=== PATIENT | female | born 1955 | race African-American/Black ===

== ENCOUNTER 2018-03-08 08:51 | Inpatient (IN) | payer OTHER ==
[~2018-03-08] VITALS: Ht 162.6 cm; Wt 76.6 kg
[2018-03-08] VITALS (8 sets, daily range): BP systolic 162–222; BP diastolic 77–128; PULSE 67–93; RESP 16–20; TEMP 97.8–98.6; O2SAT 95–100
[~2018-03-08 08:51] MED LIST: DAPA1TAB6; GLYB1TAB51 PO; LISI-363 PO; LOSA50TA PO; METO50CR PO
[2018-03-08] MEDS ORDERED: GLYB1TAB94 PO (09:20)
[2018-03-08] MEDS ORDERED: LOTR10CA PO (09:20)
[2018-03-08] MEDS ORDERED: HYDR25TA5 PO (09:20)
[2018-03-08] MEDS ORDERED: ZOCO20TA PO (09:20)
[2018-03-08] MEDS ORDERED: METO-338 PO (09:20)
[2018-03-08 09:49] LABS: AUTOMATED NEUTROPHIL # 8.4 TH/MM3 (1.8-7.7); BASOPHIL # 0.1 TH/MM3 (0-0.2); BASOPHIL % 0.5 % (0.0-2.0); EOSINOPHIL # 0.3 TH/MM3 (0-0.4); EOSINOPHIL % 2.7 % (0.0-4.0); HEMATOCRIT 31.5 % (35.0-46.0); HEMOGLOBIN 9.7 GM/DL (11.6-15.3); LYMPH % 15.3 % (9.0-44.0); LYMPHOCYTE # 1.7 TH/MM3 (1.0-4.8); MEAN CELL VOLUME 64.8 FL (80.0-100.0); MEAN CORPUSCULAR HGB CONC 30.8 % (32.0-36.0); MEAN PLATELET VOLUME 7.9 FL (7.0-11.0); MONO % 5.9 % (0.0-8.0); MONOCYTE # 0.6 TH/MM3 (0-0.9); NEUT % 75.6 % (16.0-70.0); PLATELET COUNT 382 TH/MM3 (150-450); RED BLOOD COUNT 4.85 MIL/MM3 (4.00-5.30); RED CELL DISTRIBUTION WIDTH 16.9 % (11.6-17.2); WHITE BLOOD COUNT 11.1 TH/MM3 (4.0-11.0)
[2018-03-08 10:11] LABS: ALBUMIN 3.4 GM/DL (3.4-5.0); BICARBONATE 16.6 MEQ/L (21.0-32.0); CREATININE 7.92 MG/DL (0.50-1.00); TOTAL BILIRUBIN ADULT 0.2 MG/DL (0.2-1.0); TOTAL PROTEIN 8.3 GM/DL (6.4-8.2)
[2018-03-08 10:16] LABS: CALCIUM 6.7 MG/DL (8.5-10.1)
--- NOTE | 2018-03-08 10:19 | PD ---
HPI Chief Complaint: Diabetic Time Seen by Provider: 09:18 Travel History International Travel<30 days: No Contact w/Intl Traveler<30days: No Traveled to known affect area: No History of Present Illness HPI 62-year-old female with a history of diabetes mellitus, presents today with complaints of low blood sugar. Patient over the last several days has had low blood sugar with lightheadedness and dizziness. Patient reports she has been taking her medications as prescribed. She also reports that there is been no change in her diet. She does report that she has not been taking her hydrochlorothiazide because she has been out of them. There are no other complaints at time of examination. PFSH Past Medical History Cardiovascular Problems: Yes (HTN) Diabetes: Yes Patient Takes Glucophage: Yes Diminished Hearing: No Hypertension: Yes Tetanus Vaccination: > 5 Years Influenza Vaccination: No ?: Not : 4 Para: 4 Tubal Ligation: Yes Past Surgical History Surgical History: No Previous Surgery Social History Alcohol Use: No Tobacco Use: No Substance Use: No Allergies-Medications (Allergen,Severity, Reaction): Coded Allergies: No Known Allergies (Verified Adverse Reaction, Unknown, 03/08/18) Reported Meds & Prescriptions Reported Meds & Active Scripts Active Reported Lopressor (Metoprolol Tartrate) 100 Mg Tab 100 Mg PO DAILY Zocor (Simvastatin) 20 Mg Tab 20 Mg PO DAILY Hydrochlorothiazide 25 Mg Tab 25 Mg PO DAILY Glyburide-Metformin 5-500 Mg Tab 1 Tab PO BID Take with a meal Lotrel (Amlodipine-Benazepril) 10-20 Mg Cap 1 Cap PO DAILY Review of Systems Except as stated in HPI: all other systems reviewed are Neg General / Constitutional: No: Fever, Chills HENT: Positive: Lightheadedness, No: Headaches, Neck Pain Cardiovascular: No: Chest Pain or Discomfort (With lower blood sugar), Palpitations Respiratory: No: Cough, Shortness of Breath Gastrointestinal: No: Nausea, Vomiting, Abdominal Pain, Loss of Appetite Genitourinary: No: Frequency, Dysuria Musculoskeletal: No: Weakness, Pain Neurologic: Positive: Weakness (Generalized), No: Dizziness, Headache Physical Exam Narrative GENERAL: Well-developed well-nourished female in no acute respiratory distress. SKIN: Focused skin assessment warm/dry. HEAD: Atraumatic. Normocephalic. EYES: Pupils equal and round. No scleral icterus. No injection or drainage. ENT: No nasal bleeding or discharge. Mucous membranes pink and moist. NECK: Trachea midline. Supple. CARDIOVASCULAR: Regular rate and rhythm. No murmur appreciated. RESPIRATORY: No accessory muscle use. Clear to auscultation. Breath sounds equal bilaterally. GASTROINTESTINAL: Abdomen soft, non-tender, nondistended. Hepatic and splenic margins not palpable. MUSCULOSKELETAL: No obvious deformities. No clubbing. No cyanosis. No edema. NEUROLOGICAL: Awake and alert. No obvious cranial nerve deficits. Motor grossly within normal limits. Normal speech. PSYCHIATRIC: Appropriate mood and affect; insight and judgment normal. Data Data Last Documented VS Vital Signs Date Time Temp Pulse Resp B/P (MAP) Pulse Ox O2 Delivery O2 Flow Rate FiO2 03/08/18 12:35 97.8 81 20 198/87 (124) 100 Room Air Orders Orders Complete Blood Count With Diff (03/08/18 09:18) Comprehensive Metabolic Panel (03/08/18 09:18) Urinalysis - C+S If Indicated (03/08/18 09:18) Iv Access Insert/Monitor (03/08/18 09:18) Ecg Monitoring (03/08/18 09:18) Oximetry (03/08/18 09:18) Diet 1800 Ada Cons Carb (03/08/18 Breakfast) Sodium Chlorid 0.9% 500 Ml Inj (Ns 500 M (03/08/18 14:45) Sodium Chlor 0.9% 1000 Ml Inj (Ns 1000 M (03/08/18 14:45) Admit To Inpatient (03/08/18 ) Vital Signs (Adult) Q4H (03/08/18 15:10) Activity Bed Rest With Brp (03/08/18 15:10) Intake + Output DANIEL.QSHIFT (03/08/18 15:10) Diet 1800 Ada Cons Carb (03/08/18 Dinner) Sodium Chloride 0.9% Flush (Ns Flush) (03/08/18 15:15) Sodium Chloride 0.9% Flush (Ns Flush) (03/08/18 21:00) Basic Metabolic Panel (Bmp) (03/09/18 06:00) Complete Blood Count With Diff (03/09/18 06:00) Heparin Inj (Heparin Inj) (03/08/18 16:00) Naloxone Inj (Narcan Inj) (03/08/18 15:15) Docusate Sodium-Senna (Vanessa-Colace) (03/08/18 21:00) Magnesium Hydroxide Liq (Milk Of Magnesi (03/08/18 15:15) Sennosides (Senokot) (03/08/18 15:15) Bisacodyl Supp (Dulcolax Supp) (03/08/18 15:15) Lactulose Liq (Lactulose Liq) (03/08/18 15:15) Dext 5%-Nacl 0.9% 1000 Ml Inj (D5w-Ns 10 (03/08/18 15:15) Admit Order (Ed Use Only) (03/08/18 15:14) Labs Laboratory Tests Test 03/08/18 09:25 03/08/18 14:45 White Blood Count 11.1 TH/MM3 Red Blood Count 4.85 MIL/MM3 Hemoglobin 9.7 GM/DL Hematocrit 31.5 % Mean Corpuscular Volume 64.8 FL Mean Corpuscular Hemoglobin 20.0 PG Mean Corpuscular Hemoglobin Concent 30.8 % Red Cell Distribution Width 16.9 % Platelet Count 382 TH/MM3 Mean Platelet Volume 7.9 FL Neutrophils (%) (Auto) 75.6 % Lymphocytes (%) (Auto) 15.3 % Monocytes (%) (Auto) 5.9 % Eosinophils (%) (Auto) 2.7 % Basophils (%) (Auto) 0.5 % Neutrophils # (Auto) 8.4 TH/MM3 Lymphocytes # (Auto) 1.7 TH/MM3 Monocytes # (Auto) 0.6 TH/MM3 Eosinophils # (Auto) 0.3 TH/MM3 Basophils # (Auto) 0.1 TH/MM3 CBC Comment DIFF FINAL Differential Comment Blood Urea Nitrogen 72 MG/DL Creatinine 7.92 MG/DL Random Glucose 60 MG/DL Total Protein 8.3 GM/DL Albumin 3.4 GM/DL Calcium Level 6.7 MG/DL Alkaline Phosphatase 134 U/L Aspartate Amino Transf (AST/SGOT) 13 U/L Alanine Aminotransferase (ALT/SGPT) 13 U/L Total Bilirubin 0.2 MG/DL Sodium Level 141 MEQ/L Potassium Level 4.2 MEQ/L Chloride Level 109 MEQ/L Carbon Dioxide Level 16.6 MEQ/L Anion Gap 15 MEQ/L Estimat Glomerular Filtration Rate 6 ML/MIN Protein Corrected Calcium MG/DL Iron Level 47 MCG/DL Total Iron Binding Capacity 293 MCG/DL Percent Iron Saturation 16.1 % Ferritin 225 NG/ML Urine Color LIGHT-YELLOW Urine Turbidity HAZY Urine pH 6.5 Urine Specific [place] 1.011 Urine Protein 300 mg/dL Urine Glucose (UA) 70 mg/dL Urine Ketones NEG mg/dL Urine Occult Blood SMALL Urine Nitrite NEG Urine Bilirubin NEG Urine Urobilinogen LESS THAN 2.0 MG/DL Urine Leukocyte Esterase MOD Urine RBC 2 /hpf Urine WBC 75 /hpf Urine WBC Clumps FEW Urine Squamous Epithelial Cells 3 /hpf Urine Bacteria MOD /hpf Microscopic Urinalysis Comment CULTURE INDICATED MDM Medical Decision Making Medical Screen Exam Complete: Yes Emergency Medical Condition: Yes Differential Diagnosis Metabolic derangement versus medication related hypoglycemia versus nutritional related hypoglycemia Narrative Course 62-year-old female with a history of diabetes mellitus, presents here stating that she has had several days of low blood sugar. The patient states she has been taking her medication as prescribed. She denies any changes in her medication medical regimen. Patient was noted to be an acute renal failure. Patient denies any history of previous of this. Case was discussed with the admitting physician. There will be a renal consult. She has been started on fluids. She has been given a 500 cc bolus followed by 100 cc/h in order not to fluid overload her if she does not respond to the fluid resuscitation. Diagnosis Primary Impression: Acute renal failure Additional Impressions: Diabetes mellitus Multiple episodes of hypoglycemia Admitting Information Admitting Physician Requests: Admit Nigel Radford MD Mar 08, 2018 10:19
[2018-03-08] MEDS ORDERED: SODIUM CHLORID 0.9% 500 ML INJ 500 ML IV ONE (14:45)
[2018-03-08] MEDS ORDERED: SODIUM CHLOR 0.9% 1000 ML INJ 1,000 ML IV SCH (14:45)
[2018-03-08] MEDS ORDERED: LACTULOSE SYRUP 20 GM/30 ML CUP PO PRN (15:15)
[2018-03-08] MEDS ORDERED: BISACODYL 10 MG SUPP RECTAL PRN (15:15)
[2018-03-08] MEDS ORDERED: SODIUM CHLORIDE 0.9% FLUSH 10 ML FLUSH IV FLUSH PRN (15:15)
[2018-03-08] MEDS ORDERED: NALOXONE HCL 0.4 MG/ML AMP IV PUSH PRN (15:15)
[2018-03-08] MEDS ORDERED: MAGNESIUM HYDROXIDE SUSP 30 ML CUP PO PRN (15:15)
[2018-03-08] MEDS ORDERED: SENNOSIDES 8.6 MG TAB PO PRN (15:15)
[2018-03-08 15:26] LABS: BACTERIA, URINE MOD /hpf; BILIRUBIN, URINE NEG (NEG); BLOOD, URINE SMALL (NEG); GLUCOSE,URINE 70 mg/dL (NEG); KETONE, URINE NEG (NEG); NITRITE,URINE NEG (NEG); PH, URINE 6.5 (5.0-8.5); SQUAMOUS EPITHELIAL CELL URINE 3 /hpf (0-5); URINE COLOR LIGHT-YELLOW (YELLW/STRAW); URINE LEUKOCYTE ESTERASE MOD (NEG); WHITE BLOOD CELL CLUMPS FEW
[2018-03-08] MEDS: DEXT 5%-NACL 0.9% 1000 ML INJ 1,000 ML IV SCH (15:28)
[2018-03-08] MEDS: HEPARIN SODIUM - SQ 10,000 UNITS/ML VIAL SQ SCH (16:15)
--- NOTE | 2018-03-08 16:24 | HHI.HP ---
[facility] Constantin Araya MD Admission Diagnosis acute renal failure, diabetes mellitus, hypocalcemia Diagnoses: Chief Complaint: Generalized weakness Travel History International Travel<30 Days: No Contact w/Intl Traveler <30 Da: No Traveled to Known Affected Are: No History of Present Illness This is a 62-year-old female with history of hypertension, diabetes mellitus, and dyslipidemia presenting with generalized weakness and hypoglycemia. Per patient, she has been in her usual health until the last several days when she has noticed that her blood sugar has been low associated with lightheadedness and dizziness. It came to a point that she had generalized weakness and it became too difficult for her to walk around hence she decided to go to the hospital. She has been taking glyburide/metformin up until yesterday. No recent change in medications or insulin administration. She has been taking her medications as prescribed. She says she has been urinating fine, and there is been noted big change in her diet. The only thing that she has not been taking is her hydrochlorothiazide. She denies any chest pain, palpitations, abdominal pain, shortness of breath, dysuria, frequency, urgency or diarrhea. Review of Systems ROS Limitations: Other (All other pertinent systems were reviewed and are negative.) Past Family Social History Past Medical History Hypertension Dyslipidemia Diabetes mellitus Past Surgical History No previous surgery Allergies: Coded Allergies: No Known Allergies (Verified Adverse Reaction, Unknown, 03/08/18) Family History Diabetes mellitus is prominent in the family. Social History Patient denies smoking, significant alcohol intake or use of any illicit drugs. Physical Exam Vital Signs Vital Signs Date Time Temp Pulse Resp B/P (MAP) Pulse Ox O2 Delivery O2 Flow Rate FiO2 03/08/18 15:33 97.8 80 16 222/101 (141) 100 Room Air 03/08/18 12:35 97.8 81 20 198/87 (124) 100 Room Air 03/08/18 09:22 79 16 100 Room Air 03/08/18 09:21 16 100 Room Air 03/08/18 08:55 98.2 93 16 162/128 (139) 100 Physical Exam GENERAL: Not in acute distress, appears weak. HEAD: Atraumatic. Normocephalic. No temporal or scalp tenderness. EYES: PERRL, full EOMs, no jaundice, nonicteric, pink conjunctivae without injection, moist mucosa ENT: Nose without bleeding, purulent drainage. NECK: Trachea midline, no mass, no obvious thyromegaly. CARDIOVASCULAR: Regular rate and rhythm without murmurs, gallops, or rubs. RESPIRATORY: Clear to auscultation with normal respiratory effort. Breath sounds equal bilaterally. No use of accessory muscles of respiration. GASTROINTESTINAL: Abdomen soft, normal bowel sounds, non-tender, nondistended. MUSCULOSKELETAL: Extremities without clubbing, cyanosis, or edema. INTEGUMENTARY: Warm and dry, no rash of generalized distribution. NEUROLOGICAL: Awake, alert, oriented 3. No obvious cranial nerve deficits. Moves all 4 extremities, muscle strength testing 5 over 5. Motor and sensory grossly within normal limits. .Supple neck, no meningeal signs. Grossly negative cerebellar examination. No focal neurologic deficits. Laboratory Laboratory Tests Test 03/08/18 09:25 03/08/18 14:45 White Blood Count 11.1 Red Blood Count 4.85 Hemoglobin 9.7 Hematocrit 31.5 Mean Corpuscular Volume 64.8 Mean Corpuscular Hemoglobin 20.0 Mean Corpuscular Hemoglobin Concent 30.8 Red Cell Distribution Width 16.9 Platelet Count 382 Mean Platelet Volume 7.9 Neutrophils (%) (Auto) 75.6 Lymphocytes (%) (Auto) 15.3 Monocytes (%) (Auto) 5.9 Eosinophils (%) (Auto) 2.7 Basophils (%) (Auto) 0.5 Neutrophils # (Auto) 8.4 Lymphocytes # (Auto) 1.7 Monocytes # (Auto) 0.6 Eosinophils # (Auto) 0.3 Basophils # (Auto) 0.1 CBC Comment DIFF FINAL Differential Comment Blood Urea Nitrogen 72 Creatinine 7.92 Random Glucose 60 Total Protein 8.3 Albumin 3.4 Calcium Level 6.7 Alkaline Phosphatase 134 Aspartate Amino Transf (AST/SGOT) 13 Alanine Aminotransferase (ALT/SGPT) 13 Total Bilirubin 0.2 Sodium Level 141 Potassium Level 4.2 Chloride Level 109 Carbon Dioxide Level 16.6 Anion Gap 15 Estimat Glomerular Filtration Rate 6 Protein Corrected Calcium Urine Color LIGHT-YELLOW Urine Turbidity HAZY Urine pH 6.5 Urine Specific [place] 1.011 Urine Protein 300 Urine Glucose (UA) 70 Urine Ketones NEG Urine Occult Blood SMALL Urine Nitrite NEG Urine Bilirubin NEG Urine Urobilinogen LESS THAN 2.0 Urine Leukocyte Esterase MOD Urine RBC 2 Urine WBC 75 Urine WBC Clumps FEW Urine Squamous Epithelial Cells 3 Urine Bacteria MOD Microscopic Urinalysis Comment CULTURE INDICATED Date/Time Source Procedure Growth Status 03/08/18 14:45 Urine Random Urine Urine Culture Pending Received Result Diagram: 03/08/1892403/08/18924 Caprini VTE Risk Assessment Caprini VTE Risk Assessment: Mod/High Risk (score >= 2) Caprini Risk Assessment Model Point Value = 1 Point Value = 2 Point Value = 3 Point Value = 5 Age 41-60 Minor surgery BMI > 25 kg/m2 Swollen legs Varicose veins or History of unexplained or recurrent spontaneous Oral contraceptives or hormone replacement Sepsis (< 1 month) Serious lung disease, including pneumonia (< 1 month) Abnormal pulmonary function Acute myocardial infarction Congestive heart failure (< 1 month) History of inflammatory bowel disease Medical patient at bed rest Age 61-74 Arthroscopic surgery Major open surgery (> 45 min) Laparoscopic surgery (> 45 min) Malignancy Confined to bed (> 72 hours) Immobilizing plaster cast Central venous access Age >= 75 History of VTE Family history of VTE Factor V Leiden Prothrombin [id number] Lupus anticoagulant Anticardiolipin antibodies Elevated serum homocysteine Heparin-induced thrombocytopenia Other congenital or acquired thrombophilia Stroke (< 1 month) Elective arthroplasty Hip, pelvis, or leg fracture Acute spinal cord injury (< 1 month) Prophylaxis Regimen Total Risk Factor Score Risk Level Prophylaxis Regimen 0-1 Low Early ambulation 2 Moderate Order ONE of the following: *Sequential Compression Device (SCD) *Heparin 5000 units SQ BID 3-4 Higher Order ONE of the following medications: *Heparin 5000 units SQ TID *Enoxaparin/Lovenox 40 mg SQ daily (WT < 150 kg, CrCl > 30 mL/min) *Enoxaparin/Lovenox 30 mg SQ daily (WT < 150 kg, CrCl > 10-29 mL/min) *Enoxaparin/Lovenox 30 mg SQ BID (WT < 150 kg, CrCl > 30 mL/min) AND/OR *Sequential Compression Device (SCD) 5 or more Highest Order ONE of the following medications: *Heparin 5000 units SQ TID (Preferred with Epidurals) *Enoxaparin/Lovenox 40 mg SQ daily (WT < 150 kg, CrCl > 30 mL/min) *Enoxaparin/Lovenox 30 mg SQ daily (WT < 150 kg, CrCl > 10-29 mL/min) *Enoxaparin/Lovenox 30 mg SQ BID (WT < 150 kg, CrCl > 30 mL/min) AND *Sequential Compression Device (SCD) Assessment and Plan Assessment and Plan This is a 62-year-old female with history of hypertension, dyslipidemia and diabetes mellitus presenting with generalized weakness and hypoglycemia, also found to have acute renal failure. Hypoglycemia-hold glyburide and metformin for now, start D5 NS. Check hemoglobin A1c, start sliding scale when blood glucose is better. Acute nonoliguric renal failure-creatinine 2016 was 1.3, creatinine is now 7.92 , check urinalysis, check ultrasound of the kidneys bilaterally, consult nephrology. Patient is still making urine, will give normal saline for now. Diabetes mellitus-as above, hold off oral hypoglycemic agents Hypertension-restart metoprolol and Norvasc per home dose, hold off on benazepril and hydrochlorothiazide given acute renal failure Hypocalcemia-we will recheck once patient is properly rehydrated. Dyslipidemia-restart simvastatin Anemia-recheck CBC tomorrow, check iron panel. DVT prophylaxis: Heparin Physician Certification 2 Midnight Certification Type: Admission for Inpatient Services Order for Inpatient Services The services are ordered in accordance with Medicare regulations or non- Medicare payer requirements, as applicable. In the case of services not specified as inpatient-only, they are appropriately provided as inpatient services in accordance with the 2-midnight benchmark. Estimated LOS (days): 2 days is the estimated time the patient will need to remain in the hospital, assuming treatment plan goals are met and no additional complications. Post-Hospital Plan: Home Kelly Renteria MD Mar 08, 2018 16:24
[2018-03-08] MEDS ORDERED: GLUCAGON 1 MG/ML VIAL OTHER PRN (16:30)
[2018-03-08] MEDS ORDERED: DEXTROSE 50% IN WATER 50 ML VIAL(D50) IV PUSH PRN (16:30)
[2018-03-08] MEDS: METOPROLOL TARTRATE 100 MG TAB PO SCH (17:07)
[2018-03-08] MEDS: PRAVASTATIN SOD 40 MG TAB PO SCH (17:07)
--- NOTE | 2018-03-08 17:50 | RADRPT ---
EXAM DATE: 03/08/2018 5:46 PM EDT AGE/SEX: 62 years / Female INDICATIONS: Acute renal failure. CLINICAL DATA: This is the patient's initial encounter. Patient reports that signs and symptoms have been present for 3 days and indicates a pain score of 0/10. MEDICAL/SURGICAL HISTORY: Hypertension. Diabetes. Hypercholesterolemia. None. COMPARISON: No prior exams available for comparison. MEASUREMENTS: Right Kidney:__11.7 x 6.4 x 4.9 cm cm Left Kidney:__12.1 x 6.0 x 6.2 cm cm FINDINGS: Right Kidney: Diffusely increased cortical echogenicity. No suspicious mass, stone or hydronephrosis. Left Kidney: Diffusely increased cortical echogenicity. No evidence of suspicious mass, stone or hydr onephrosis. Bladder: Within normal limits given the degree of distension. CONCLUSION: Echogenic kidneys. No hydronephrosis. Electronically signed by: Constantin Freire MD 03/08/2018 5:48 PM EDT
[2018-03-08 17:59] LABS: % SATURATION IRON PROFILE 16.1 % (20-50); IRON (FE) 47 MCG/DL (50-170); TOTAL IRON BINDING CAPACITY 293 MCG/DL (250-450)
[2018-03-08 18:02] LABS: FERRITIN 225 NG/ML (8-252)
[2018-03-08] MEDS: cloNIDine HCL 0.1 MG TAB PO PRN (18:57)
[2018-03-08] MEDS: SODIUM CHLORIDE 0.9% FLUSH 10 ML FLUSH IV FLUSH SCH (21:00)
[2018-03-08] MEDS: DOCUSATE SODIUM 50 MG/SENNA 8.6 MG TAB PO SCH (22:05)
[2018-03-09] VITALS: BP 174/63; PULSE 73; RESP 18; TEMP 98.4; O2SAT 100
[2018-03-09] MEDS: cloNIDine HCL 0.1 MG TAB PO PRN ×3 (01:13→20:17)
[2018-03-09] MEDS: DEXT 5%-NACL 0.9% 1000 ML INJ 1,000 ML IV SCH ×2 (03:08→15:05)
[2018-03-09] MEDS: HEPARIN SODIUM - SQ 10,000 UNITS/ML VIAL SQ SCH ×2 (03:11→15:02)
[2018-03-09 04:00] VITALS: BP 186/86; PULSE 69; RESP 18; TEMP 98.1; O2SAT 99
[2018-03-09 07:25] LABS: AUTOMATED NEUTROPHIL # 4.7 TH/MM3 (1.8-7.7); BASOPHIL % 0.5 % (0.0-2.0); EOSINOPHIL # 0.2 TH/MM3 (0-0.4); EOSINOPHIL % 3.1 % (0.0-4.0); HEMATOCRIT 24.3 % (35.0-46.0); HEMOGLOBIN 7.7 GM/DL (11.6-15.3); LYMPH % 24.6 % (9.0-44.0); LYMPHOCYTE # 1.8 TH/MM3 (1.0-4.8); MEAN CELL VOLUME 65.4 FL (80.0-100.0); MEAN CORPUSCULAR HEMOGLOBIN 20.7 PG (27.0-34.0); MEAN CORPUSCULAR HGB CONC 31.7 % (32.0-36.0); MEAN PLATELET VOLUME 8.1 FL (7.0-11.0); MONOCYTE # 0.5 TH/MM3 (0-0.9); NEUT % 64.8 % (16.0-70.0); PLATELET COUNT 265 TH/MM3 (150-450); RED BLOOD COUNT 3.72 MIL/MM3 (4.00-5.30); WHITE BLOOD COUNT 7.2 TH/MM3 (4.0-11.0)
[2018-03-09 07:47] LABS: CALCIUM 6.3 MG/DL (8.5-10.1); CREATININE 8.02 MG/DL (0.50-1.00)
[2018-03-09 08:00] VITALS: BP 186/85; PULSE 66; RESP 16; TEMP 98.2; O2SAT 97
[2018-03-09 08:01] LABS: TOTAL PROTEIN 6.6 GM/DL (6.4-8.2)
[2018-03-09 08:08] LABS: CALCIUM-PROTEIN CORRECTED 6.5 MG/DL (8.5-10.1)
[2018-03-09] MEDS: METOPROLOL TARTRATE 100 MG TAB PO SCH (08:10)
[2018-03-09] MEDS: PRAVASTATIN SOD 40 MG TAB PO SCH (08:10)
[2018-03-09] MEDS: DOCUSATE SODIUM 50 MG/SENNA 8.6 MG TAB PO SCH ×2 (08:10→20:17)
[2018-03-09] MEDS: SODIUM CHLORIDE 0.9% FLUSH 10 ML FLUSH IV FLUSH SCH ×2 (08:13→20:17)
[2018-03-09 11:00] VITALS: BP_SYST 161; BP_SYST 170; BP_DIAS 70; BP_DIAS 77; PULSE 68; PULSE 91; RESP 18; TEMP 98.2; O2SAT 96; O2SAT 97
--- NOTE | 2018-03-09 11:13 | PD.CONS ---
[facility] Service Nephrology Consult Requested By Dr. Renteria Reason for Consult Acute Kidney Injury Primary Care Physician Constantin Araya MD History of Present Illness Patient is a 62-year-old female with history of hypertension, diabetes mellitus , and dyslipidemia. Presented to the emergency room with generalized weakness and hypoglycemia. Per patient, she has been in her usual health until March 02 when she was not able to eat most of the day and then developed slurred speech which resolved after orange juice. She then developed dizziness and was not able to get out of bed . Nephrology is consulted for elevated BUN and creatinine with a creatinine of 8.03 and potassium level of 4.4, HCO3 at18.0, and calcium level of 6.5. Also noted to have iron deficency anemia with HGB of 7.7 no obvious signs of bleeding. Blood pressure elevated with SBP in the 180' s. She has been on glyburide/metformin and hydrochlorothiazide which has been discontinued and IVF are infusing. No previous history of kidney disease. Creatinine noted to be 1.29 in 2016. So could possible have some chronic kidney disease. (Shahida Medrano) Review of Systems Constitutional: COMPLAINS OF: Fatigue Respiratory: DENIES: Cough, Sputum production, Shortness of breath Cardiovascular: DENIES: Chest pain, Dyspnea on Exertion, Lower Extremity Edema Gastrointestinal: DENIES: Abdominal pain, Diarrhea, Nausea, Vomiting ( Shahida Medrano) Past Family Social History Allergies: Coded Allergies: No Known Allergies (Verified Adverse Reaction, Unknown, 03/08/18) Past Medical History Hypertension Dyslipidemia Diabetes mellitus Past Surgical History No previous surgery Active Ordered Medications Current Medications Medications (Trade) Dose Ordered Sig/Shashi Route Start Time Stop Time Status Last Admin (NS Flush) 2 ml UNSCH PRN IV FLUSH 03/08/18 15:15 (NS Flush) 2 ml BID IV FLUSH 03/08/18 21:00 (Heparin Inj) 5,000 units Q12H SQ 03/08/18 16:00 03/09/18 03:11 (Narcan Inj) 0.4 mg UNSCH PRN IV PUSH 03/08/18 15:15 (Vanessa-Colace) 1 tab BID PO 03/08/18 21:00 03/09/18 08:10 (Milk Of Magnesia Liq) 30 ml Q12H PRN PO 03/08/18 15:15 (Senokot) 17.2 mg Q12H PRN PO 03/08/18 15:15 (Dulcolax Supp) 10 mg DAILY PRN RECTAL 03/08/18 15:15 (Lactulose Liq) 30 ml DAILY PRN PO 03/08/18 15:15 Dextrose/Sodium Chloride 1,000 ml @ 84 mls/hr [id number] IV 03/08/18 15:15 03/09/18 03:08 (Catapres) 0.1 mg Q6H PRN PO 03/08/18 16:30 03/09/18 06:17 (Norvasc) 10 mg DAILY PO 03/08/18 16:30 03/09/18 08:10 (D50w (Vial) Inj) 50 ml UNSCH PRN IV PUSH 03/08/18 16:30 (Glucagon Inj) 1 mg UNSCH PRN OTHER 03/08/18 16:30 (Lopressor) 100 mg DAILY PO 03/08/18 16:30 03/09/18 08:10 (Pravachol) 40 mg DAILY PO 03/08/18 16:30 03/09/18 08:10 (NovoLOG SUPPLEMENTAL SCALE) 1 ACHS SLIDING SCALE SQ 03/09/18 12:00 Family History Diabetes mellitus Hypertension Social History Patient denies smoking, significant alcohol intake or use of any illicit drugs. (Shahida Medrano) Physical Exam Vital Signs Vital Signs Date Time Temp Pulse Resp B/P (MAP) Pulse Ox O2 Delivery O2 Flow Rate FiO2 03/09/18 08:00 98.2 66 16 186/85 (118) 97 03/09/18 04:00 98.1 69 18 186/86 (119) 99 03/09/18 00:00 174/63 (100) 03/09/18 00:00 98.4 73 18 100 03/08/18 20:00 97.9 67 18 177/77 (110) 95 03/08/18 18:45 98.6 74 18 197/85 (122) 100 03/08/18 18:15 97.8 78 16 176/95 (122) 99 03/08/18 16:18 97.8 86 16 202/92 (128) 100 Room Air 03/08/18 15:33 97.8 80 16 222/101 (141) 100 Room Air 03/08/18 12:35 97.8 81 20 198/87 (124) 100 Room Air Physical Exam GENERAL: Alert and oriented SKIN: Warm and dry. HEAD: Normocephalic. EYES: No scleral icterus. No injection or drainage. NECK: Supple, trachea midline. No JVD or lymphadenopathy. CARDIOVASCULAR: Regular rate and rhythm without murmurs, gallops, or rubs. RESPIRATORY: Breath sounds equal bilaterally. No accessory muscle use. GASTROINTESTINAL: Abdomen soft, non-tender, nondistended. MUSCULOSKELETAL: No cyanosis, or edema. BACK: Nontender without obvious deformity. No CVA tenderness. Last Impressions Renal Ultrasound 03/08/18 0000 Signed Impressions: CONCLUSION: Echogenic kidneys. No hydronephrosis. Laboratory Laboratory Tests Test 03/08/18 14:45 03/09/18 06:48 Urine Color LIGHT-YELLOW Urine Turbidity HAZY Urine pH 6.5 Urine Specific Stacy 1.011 Urine Protein 300 Urine Glucose (UA) 70 Urine Ketones NEG Urine Occult Blood SMALL Urine Nitrite NEG Urine Bilirubin NEG Urine Urobilinogen LESS THAN 2.0 Urine Leukocyte Esterase MOD Urine RBC 2 Urine WBC 75 Urine WBC Clumps FEW Urine Squamous Epithelial Cells 3 Urine Bacteria MOD Microscopic Urinalysis Comment CULTURE INDICATED White Blood Count 7.2 Red Blood Count 3.72 Hemoglobin 7.7 Hematocrit 24.3 Mean Corpuscular Volume 65.4 Mean Corpuscular Hemoglobin 20.7 Mean Corpuscular Hemoglobin Concent 31.7 Red Cell Distribution Width 17.0 Platelet Count 265 Mean Platelet Volume 8.1 Neutrophils (%) (Auto) 64.8 Lymphocytes (%) (Auto) 24.6 Monocytes (%) (Auto) 7.0 Eosinophils (%) (Auto) 3.1 Basophils (%) (Auto) 0.5 Neutrophils # (Auto) 4.7 Lymphocytes # (Auto) 1.8 Monocytes # (Auto) 0.5 Eosinophils # (Auto) 0.2 Basophils # (Auto) 0.0 CBC Comment DIFF FINAL Differential Comment Blood Urea Nitrogen 71 Creatinine 8.02 Random Glucose 262 Total Protein 6.6 Calcium Level 6.3 Sodium Level 142 Potassium Level 4.4 Chloride Level 110 Carbon Dioxide Level 18.0 Anion Gap 14 Estimat Glomerular Filtration Rate 6 Protein Corrected Calcium 6.5 Date/Time Source Procedure Growth Status 03/08/18 14:45 Urine Random Urine Urine Culture Pending Received (Shahida Medrano) Result Diagram: 03/09/18 0648 03/09/18 0648 Assessment and Plan Problem List: (1) Acute kidney injury ICD Codes: N17.9 - Acute kidney failure, unspecified Plan: Acute kidney injury with a creatinine of 8.03 and potassium level of 4.4 , HCO3 at18.0, and calcium level of 6.5 on day of consult BELKYS possible prerenal VS ATN related to urinary tract infection/hypertension, will need to r/o glomerular nephritis Creatinine noted to be 1.29 in 2016 so most likely has some chronic kidney disease possibly related to HTN or renovascular disease or possible diabetes Renal ultrasound echogenic kidneys. No hydronephrosis Significant proteinuria noted. . Plan Urinalysis is abnormal will add Rocephin culture pending. Continue to hold all diuretics and metformin Avoid Nephrotoxic agents including NSAID, IV contrast, and aminoglycosides. Monitor strict I+O Will obtain serologies, SPEP, and urine studies HCO3 at 18 will add sodium bicarbonate Calcium level at 6.5 will order IV replacement. Monitor urinary output and BMP Will start patient on hemodialysis orders placed Interventional consulted for PermCath placement (2) Hypertension ICD Codes: I10 - Essential (primary) hypertension Plan: Hypertensive with SBP in the 180's to 200's On metoprolol and norvasc Hydralazine added and PRN clonidine (3) Diabetes mellitus ICD Codes: E11.9 - Type 2 diabetes mellitus without complications Plan: Maintain blood sugar between 140mg/dl to 180mg/dl (4) Iron deficiency anemia ICD Codes: D50.9 - Iron deficiency anemia, unspecified Plan: IV Iron sucrose ordered X 3 days (Shahida Medrano) Problem List: (1) Acute kidney injury ICD Codes: N17.9 - Acute kidney failure, unspecified Plan: Acute kidney injury with a creatinine of 8.03 and potassium level of 4.4 , HCO3 at18.0, and calcium level of 6.5 on day of consult BELKYS possible prerenal VS ATN related to urinary tract infection/hypertension, will need to r/o glomerular nephritis Creatinine noted to be 1.29 in 2016 so most likely has some chronic kidney disease possibly related to HTN or renovascular disease or possible diabetes Renal ultrasound echogenic kidneys. No hydronephrosis Significant proteinuria noted. . Plan Urinalysis is abnormal will add Rocephin culture pending. Continue to hold all diuretics and metformin Avoid Nephrotoxic agents including NSAID, IV contrast, and aminoglycosides. Monitor strict I+O Will obtain serologies, SPEP, and urine studies HCO3 at 18 will add sodium bicarbonate Calcium level at 6.5 will order IV replacement. Monitor urinary output and BMP Will start patient on hemodialysis orders placed Interventional consulted for PermCath placement. Patient seen and examined, agree with above. Patient has very high Creatinine, in past Creatinine was 1.2 in December 2015. Denies known renal disease. Will start HD after getting PermCath. Told to get old labs from PCP. Serology ordered, will follow. (2) Hypertension ICD Codes: I10 - Essential (primary) hypertension Plan: Hypertensive with SBP in the 180's to 200's On metoprolol and norvasc Hydralazine added and PRN clonidine (3) Diabetes mellitus ICD Codes: E11.9 - Type 2 diabetes mellitus without complications Plan: Maintain blood sugar between 140mg/dl to 180mg/dl (4) Iron deficiency anemia ICD Codes: D50.9 - Iron deficiency anemia, unspecified Plan: IV Iron sucrose ordered X 3 days (Slick Blanco MD) Shahida Medrano Mar 09, 2018 11:13 Slick Blanco MD Mar 09, 2018 15:55
[2018-03-09] MEDS ORDERED: CALCIUM GLUCONATE INJ 2 GM in DEXTROSE 5% IN WATER 100ML INJ 100 ML IV ONE ×2 (11:15)
[2018-03-09] MEDS: SODIUM BICARBONATE 650 MG TAB PO SCH ×2 (11:41→20:17)
[2018-03-09] MEDS: IRON SUCROSE INJ 200 MG in SODIUM CHLORIDE 0.9% INJ 100 ML IV SCH (12:31)
[2018-03-09] MEDS ORDERED: SODIUM CHLOR 0.9% 1000 ML INJ 1,000 ML OTHER PRN ×2 (13:14)
[2018-03-09] MEDS ORDERED: SODIUM CHLOR 0.9% 1000 ML INJ 1,000 ML IV PRN (13:14)
[2018-03-09] MEDS ORDERED: HEPARIN SODIUM - IV 10,000 UNITS/10 ML VIAL IV FLUSH PRN (13:15)
[2018-03-09] MEDS ORDERED: diphenhydrAMINE HCL 25 MG CAP PO PRN (13:15)
[2018-03-09] MEDS ORDERED: NITROGLYCERIN 0.4 MG SL 25 TABS/BTL SL PRN (13:15)
[2018-03-09] MEDS ORDERED: ONDANSETRON ODT 4 MG TAB PO PRN (13:15)
[2018-03-09] MEDS ORDERED: MANNITOL 12.5 GM/50 ML VIAL IV PRN (13:15)
[2018-03-09] MEDS ORDERED: ALBUMIN 25% INJ 100 ML IV PRN (13:15)
[2018-03-09] MEDS ORDERED: SODIUM CHLORIDE 0.9% FLUSH 10 ML FLUSH IV FLUSH PRN ×2 (13:15→16:45)
[2018-03-09] MEDS ORDERED: GELATIN 12 MM/7 MM FOAM TOP PRN (13:15)
[2018-03-09] MEDS ORDERED: ACETAMINOPHEN 325 MG TAB PO PRN (13:15)
[2018-03-09] MEDS: cefTRIAXone INJ 1,000 MG in SODIUM CHLORIDE 0.9% INJ 100 ML IV SCH (13:30)
[2018-03-09] MEDS: INSULIN ASPART SUPPLEMENTAL SCALE SQ SCH ×3 (13:30→21:00)
[2018-03-09] MEDS: hydrALAZINE HCL 25 MG TAB PO SCH ×2 (13:30→20:17)
--- NOTE | 2018-03-09 13:44 | HHI.PR ---
Subjective Remarks The patient was resting comfortably in bed. She understood that she would be going for dialysis. Her family was at the bedside. They have recently discussed with the overedger. Objective Vitals Vital Signs Date Time Temp Pulse Resp B/P (MAP) Pulse Ox O2 Delivery O2 Flow Rate FiO2 03/09/18 11:00 98.2 68 18 170/77 (108) 97 03/09/18 08:00 98.2 66 16 186/85 (118) 97 03/09/18 04:00 98.1 69 18 186/86 (119) 99 03/09/18 00:00 174/63 (100) 03/09/18 00:00 98.4 73 18 100 03/08/18 20:00 97.9 67 18 177/77 (110) 95 03/08/18 18:45 98.6 74 18 197/85 (122) 100 03/08/18 18:15 97.8 78 16 176/95 (122) 99 03/08/18 16:18 97.8 86 16 202/92 (128) 100 Room Air 03/08/18 15:33 97.8 80 16 222/101 (141) 100 Room Air I/O 03/08/18 03/08/18 03/08/18 03/09/18 03/09/18 03/09/18 07:00 15:00 23:00 07:00 15:00 23:00 Intake Total 600 ml 600 ml Output Total 500 ml Balance 600 ml 600 ml -500 ml Intake Oral 600 ml IV Total 600 ml Output Urine Total 500 ml # Voids 1 1 # Bowel Movements 0 Result Diagram: 03/09/18 0648 03/09/18 0648 Imaging Last Impressions Renal Ultrasound 03/08/18 0000 Signed Impressions: CONCLUSION: Echogenic kidneys. No hydronephrosis. Objective Remarks GENERAL: Not in acute distress. HEAD: Atraumatic. Normocephalic. No temporal or scalp tenderness. EYES: PERRL, full EOMs, no jaundice, nonicteric, pink conjunctivae without injection, moist mucosa ENT: Nose without bleeding, purulent drainage. NECK: Trachea midline, no mass, no obvious thyromegaly. CARDIOVASCULAR: Regular rate and rhythm without murmurs, gallops, or rubs. RESPIRATORY: Clear to auscultation with normal respiratory effort. Breath sounds equal bilaterally. No use of accessory muscles of respiration. GASTROINTESTINAL: Abdomen soft, normal bowel sounds, non-tender, nondistended. MUSCULOSKELETAL: Extremities without clubbing, cyanosis, or edema. INTEGUMENTARY: Warm and dry, no rash of generalized distribution. NEUROLOGICAL: Awake, alert, oriented 3. No obvious cranial nerve deficits. Moves all 4 extremities, muscle strength testing 5 over 5. Motor and sensory grossly within normal limits. A/P Assessment and Plan This is a 62-year-old female with a history of hypertension, dyslipidemia and diabetes mellitus presenting with generalized weakness and hypoglycemia, also found to have acute renal failure. Hypoglycemia/ DM Seems to be resolved. - hold glyburide and metformin. - Check hemoglobin A1c. - start sliding scale. Acute nonoliguric renal failure Creatinine 2016 was 1.3, creatinine currently over 8. Nephrology consult appreciated. - dialysis per nephrology. - avoid nephrotoxins. - follow BMP and urine output. Hypertensive urgency Blood pressure elevated at times. - restart metoprolol and Norvasc per home dose. Hold off on benazepril and hydrochlorothiazide given acute renal failure. - clonidine as needed. Anemia Possibly s/t renal disease. - follow CBC, check iron panel. DVT prophylaxis: Heparin Deshaun Rodriguez DO Mar 09, 2018 13:44
[2018-03-09 13:50] LABS: COMPLEMENT C4 34 MG/DL (10-40)
[2018-03-09] MEDS ORDERED: LIDOCAINE 1%/EPINEPHrine 1:100,000 SOLN 30 ML VIAL ONE (15:45)
[2018-03-09 15:49] LABS: HEMOGLOBIN A1C 6.6 % (4.3-6.0)
[2018-03-09] MEDS ORDERED: MIDAZOLAM HCL 5 MG/5 ML VIAL ONE (15:52)
[2018-03-09] MEDS ORDERED: fentaNYL CITRATE 250 MCG/5 ML AMP ONE (15:52)
[2018-03-09] MEDS ORDERED: HEPARIN SODIUM - IV 2,000 UNITS/2 ML VIAL IV FLUSH PRN (16:45)
--- NOTE | 2018-03-09 16:45 | PD.RAD ---
Post Procedure Progress Note Pre Procedure Diagnosis: (1) Acute kidney injury Post Procedure Diagnosis: (1) Acute kidney injury Procedure Date: Mar 09, 2018 Supervising Radiologist: Randolph Fontanez JR Proceduralist/Assist: Darius Dickson, RT(R), Wang Monae RT(R) Anesthesia: Conscious Sedation Plan of Activity Patient to Unit: ROPU Patient Condition: Good See PACS Report for procedural detail/treatment Central Venous Access Device Procedure 1 Right Internal Jugular Hemodialysis Catheter Tunneled Placement dual lumen Occitan: 15 Findings: Placed RIJ Permcath. In good position and functioning well. OK to use. Plan Remove suture at base of neck and holding catheter in place in 2-3 weeks. Jr. Huseyin,Randolph Colby MD Mar 09, 2018 16:45
[2018-03-09 18:01] VITALS: O2SAT 97
[2018-03-09] MEDS: EPOETIN ALFA 10,000 UNITS/ML VIAL IV PUSH PRN (18:59)
[2018-03-09] MEDS: GENTAMICIN SULFATE 20 MG/2 ML VIAL OTHER PRN (19:00)
--- NOTE | 2018-03-09 19:19 | RADRPT ---
EXAM DATE: 03/09/2018 5:03 PM EDT AGE/SEX: 62 years / Female INDICATIONS: Patient presents with acute renal failure in need of permanent central venous catheter placement for dialysis. CLINICAL DATA: This is the patient's initial encounter. Patient reports that signs and symptoms have been present for 1 day and indicates a pain score of 0/10. MEDICAL/SURGICAL HISTORY: Hypertension. DM. Dyslipidemia . No previous surgery. COMPARISON: No prior exams available for comparison. FLUORO TIME (min): 0.6 IMAGE SERIES: 3 ACCESS SITE: SEDATION TIME (min): 30 MEDICATION(S): 1.5mg midazolam (Versed) IV 75mcg fentanyl (Sublimaze) IV Vancomycin within 2 hrs of procedure, Ancef (or alternative) within 1 hr of procedure. DEVICE(S): 15fr 23cm Briones II Plus . . PROCEDURE: 1. Ultrasound-guided venipuncture. 2. PermaCath placement. 3. Conscious sedation with continuous EKG and oximetry monitoring. The risks, benefits and alternatives to the procedure were explained and verbal and written consent w as obtained. The site was prepped in sterile fashion. Full sterile technique was used, including ca p, mask, sterile gloves and gown and a large sterile sheet. Hand hygiene and 2% chlorhexidine and/or betadine/alcohol prep was utilized per protocol for cutaneous antisepsis. Sterile gel and sterile p robe cover were utilized for ultrasound guidance. The skin and subcutaneous tissues were infiltrated with local anesthetic solution. With ultrasound and fluoroscopic guidance a dermatotomy was created over the prescribed vein. A micr opuncture set was used to access the targeted vein and serial dilatation was performed to accept the prescribed length catheter. A subcutaneous tunnel was created in a retrograde fashion the catheter w as pulled through the tunnel. The catheter was flushed and assembled and locked with heparin. The c atheter was sutured in place. Conscious sedation was performed with the prescribed dosages and duration as above in the presence of an independent trained radiology nurse to assist in the monitoring of the patient. EKG and oximetry remained stable throughout the procedure. The patient tolerated the procedure well and there were n o complications. The patient was sent to post anesthesia recovery in stable condition. CONCLUSION: 1. Uncomplicated PermaCath placement as above. Electronically signed by: Randolph Fontanez MD 03/09/2018 7:18 PM EDT
[2018-03-09 20:00] VITALS: BP 209/93; PULSE 81; RESP 17; TEMP 98.2; O2SAT 99
[2018-03-10] VITALS (8 sets, daily range): BP systolic 186–227; BP diastolic 74–98; PULSE 66–88; RESP 15–18; TEMP 98.2–99.2; O2SAT 95–100
[2018-03-10] MEDS: cloNIDine HCL 0.1 MG TAB PO PRN ×2 (00:44→06:28)
[2018-03-10] MEDS: HEPARIN SODIUM - SQ 10,000 UNITS/ML VIAL SQ SCH ×2 (04:00→16:00)
[2018-03-10] MEDS: hydrALAZINE HCL 25 MG TAB PO SCH ×3 (04:00→20:57)
[2018-03-10] MEDS: DEXT 5%-NACL 0.9% 1000 ML INJ 1,000 ML IV SCH (04:01)
[2018-03-10 04:45] LABS: HEMATOCRIT 26.8 % (35.0-46.0); HEMOGLOBIN 8.5 GM/DL (11.6-15.3); MEAN CELL VOLUME 64.9 FL (80.0-100.0); MEAN CORPUSCULAR HEMOGLOBIN 20.5 PG (27.0-34.0); MEAN CORPUSCULAR HGB CONC 31.6 % (32.0-36.0); MEAN PLATELET VOLUME 7.9 FL (7.0-11.0); PLATELET COUNT 264 TH/MM3 (150-450); RED BLOOD COUNT 4.13 MIL/MM3 (4.00-5.30); RED CELL DISTRIBUTION WIDTH 16.5 % (11.6-17.2); WHITE BLOOD COUNT 9.1 TH/MM3 (4.0-11.0)
[2018-03-10 05:10] LABS: ALBUMIN 2.7 GM/DL (3.4-5.0); BICARBONATE 22.5 MEQ/L (21.0-32.0); CALCIUM 6.8 MG/DL (8.5-10.1); CREATININE 6.18 MG/DL (0.50-1.00); MAGNESIUM 1.8 MG/DL (1.5-2.5); PHOSPHORUS 3.6 MG/DL (2.5-4.9); TOTAL BILIRUBIN ADULT 0.1 MG/DL (0.2-1.0); TOTAL PROTEIN 6.8 GM/DL (6.4-8.2)
[2018-03-10] MEDS ORDERED: hydrALAZINE HCL 25 MG TAB PO ONE (06:45)
[2018-03-10] MEDS: SODIUM BICARBONATE 650 MG TAB PO SCH ×2 (08:43→20:57)
[2018-03-10] MEDS: METOPROLOL TARTRATE 100 MG TAB PO SCH ×2 (08:43→20:57)
[2018-03-10] MEDS: PRAVASTATIN SOD 40 MG TAB PO SCH (08:43)
[2018-03-10] MEDS: DOCUSATE SODIUM 50 MG/SENNA 8.6 MG TAB PO SCH ×2 (08:43→20:57)
[2018-03-10] MEDS: IRON SUCROSE INJ 200 MG in SODIUM CHLORIDE 0.9% INJ 100 ML IV SCH (08:44)
[2018-03-10] MEDS: INSULIN ASPART SUPPLEMENTAL SCALE SQ SCH ×4 (08:54→21:14)
[2018-03-10] MEDS: SODIUM CHLORIDE 0.9% FLUSH 10 ML FLUSH IV FLUSH SCH ×2 (09:00→20:58)
--- NOTE | 2018-03-10 10:07 | HHI.NPPN ---
Objective Data Data Vital Signs Date Time Temp Pulse Resp B/P (MAP) Pulse Ox O2 Delivery O2 Flow Rate FiO2 03/10/18 09:51 95 03/10/18 07:30 98.4 71 16 210/92 (131) 95 03/10/18 04:00 99.2 85 18 227/98 (141) 100 03/10/18 00:00 99.2 80 18 186/78 (114) 99 03/09/18 20:00 98.2 81 17 209/93 (131) 99 03/09/18 18:01 97 21 03/09/18 11:00 98.2 68 18 170/77 (108) 97 -: 03/10/18 0426 03/10/18 0426 Assessment/Plan Problem List: (1) Acute kidney injury ICD Codes: N17.9 - Acute kidney failure, unspecified Plan: Acute kidney injury with a creatinine of 8.03 and potassium level of 4.4 , HCO3 at18.0, and calcium level of 6.5 on day of consult BELKYS possible prerenal VS ATN related to urinary tract infection/hypertension, will need to r/o glomerular nephritis Creatinine noted to be 1.29 in 2016 so most likely has some chronic kidney disease possibly related to HTN or renovascular disease or possible diabetes Renal ultrasound echogenic kidneys. No hydronephrosis Significant proteinuria noted. . Plan Patient seen during hemodialysis ultrafiltration of 2 L Continue to monitor her progress over the weekend Dr. Blanco to follow on blood work (2) Hypertension ICD Codes: I10 - Essential (primary) hypertension Plan: Hypertensive with SBP in the 180's to 200's On metoprolol and norvasc Hydralazine added and PRN clonidine (3) Diabetes mellitus ICD Codes: E11.9 - Type 2 diabetes mellitus without complications Plan: Maintain blood sugar between 140mg/dl to 180mg/dl (4) Iron deficiency anemia ICD Codes: D50.9 - Iron deficiency anemia, unspecified Plan: IV Iron sucrose ordered X 3 days Kyra Huizar MD Mar 10, 2018 10:07
[2018-03-10] MEDS: HEPARIN SODIUM - IV 10,000 UNITS/10 ML VIAL PRN (10:34)
[2018-03-10] MEDS: GENTAMICIN SULFATE 20 MG/2 ML VIAL OTHER PRN (10:35)
[2018-03-10] MEDS: cefTRIAXone INJ 1,000 MG in SODIUM CHLORIDE 0.9% INJ 100 ML IV SCH (12:51)
--- NOTE | 2018-03-10 14:59 | HHI.PR ---
Subjective Remarks The patient says that she tolerated dialysis well. She has been ambulating without any difficulty. She has not eaten since dialysis. She denies any pain. Discussed with family at the bedside. Discussed with nursing. Objective Vitals Vital Signs Date Time Temp Pulse Resp B/P (MAP) Pulse Ox O2 Delivery O2 Flow Rate FiO2 03/10/18 12:50 99.0 66 15 197/93 (127) 99 03/10/18 09:51 95 03/10/18 07:30 98.4 71 16 210/92 (131) 95 03/10/18 04:00 99.2 85 18 227/98 (141) 100 03/10/18 00:00 99.2 80 18 186/78 (114) 99 03/09/18 20:00 98.2 81 17 209/93 (131) 99 03/09/18 18:01 97 21 I/O 03/09/18 03/09/18 03/09/18 03/10/18 03/10/18 03/10/18 07:00 15:00 23:00 07:00 15:00 23:00 Output Total 500 ml 1500 ml 400 ml 2000 ml Balance -500 ml -1500 ml -400 ml -2000 ml Output Urine Total 500 ml 400 ml Hemodialysis 1500 ml 2000 ml # Voids 1 # Bowel Movements 1 Result Diagram: 03/10/18 0426 03/10/18 0426 Imaging Last Impressions Catheter Placement X-Ray 03/09/18 0000 Signed Impressions: CONCLUSION: 1. Uncomplicated PermaCath placement as above. Renal Ultrasound 03/08/18 0000 Signed Impressions: CONCLUSION: Echogenic kidneys. No hydronephrosis. Objective Remarks GENERAL: Not in acute distress. HEAD: Atraumatic. Normocephalic. No temporal or scalp tenderness. EYES: PERRL, full EOMs, no jaundice, nonicteric, pink conjunctivae without injection, moist mucosa ENT: Nose without bleeding, purulent drainage. NECK: Trachea midline, no mass, no obvious thyromegaly. CARDIOVASCULAR: Regular rate and rhythm without murmurs, gallops, or rubs. RESPIRATORY: Clear to auscultation with normal respiratory effort. Breath sounds equal bilaterally. No use of accessory muscles of respiration. GASTROINTESTINAL: Abdomen soft, normal bowel sounds, non-tender, nondistended. MUSCULOSKELETAL: Extremities without clubbing, cyanosis, or edema. INTEGUMENTARY: Warm and dry, no rash of generalized distribution. NEUROLOGICAL: Awake, alert, oriented 3. No obvious cranial nerve deficits. Moves all 4 extremities, muscle strength testing 5 over 5. Motor and sensory grossly within normal limits. A/P Assessment and Plan Acute nonoliguric renal failure Creatinine 2016 was 1.3, creatinine currently over 8. Nephrology consult appreciated. - dialysis per nephrology. - avoid nephrotoxins. - follow BMP and urine output. Hypoglycemia/ DM Seems to be resolved. A1c is 6.6%. Secondary to home meds. - hold glyburide and metformin. - continue sliding scale insulin. Hypertensive urgency Blood pressure poorly controlled. - restart Norvasc. Increase Lopressor to BID dosing. Hydralazine added. - d/c benazepril and hydrochlorothiazide given acute renal failure. - clonidine as needed. Anemia Possibly s/t renal disease. - follow CBC and transfuse as needed. DVT prophylaxis: Heparin Deshaun Rodriguez DO Mar 10, 2018 14:59
[2018-03-11] VITALS: BP 170/98; PULSE 73; RESP 16; TEMP 98.4; O2SAT 99
[2018-03-11 04:00] VITALS: BP 182/92; PULSE 71; RESP 18; TEMP 98.1; O2SAT 99
[2018-03-11] MEDS: HEPARIN SODIUM - SQ 10,000 UNITS/ML VIAL SQ SCH ×2 (05:11→16:00)
[2018-03-11] MEDS: hydrALAZINE HCL 25 MG TAB PO SCH (05:31)
[2018-03-11 08:12] LABS: HEMATOCRIT 26.4 % (35.0-46.0); HEMOGLOBIN 8.3 GM/DL (11.6-15.3); MEAN CELL VOLUME 65.7 FL (80.0-100.0); MEAN CORPUSCULAR HEMOGLOBIN 20.7 PG (27.0-34.0); MEAN CORPUSCULAR HGB CONC 31.5 % (32.0-36.0); MEAN PLATELET VOLUME 8.9 FL (7.0-11.0); PLATELET COUNT 241 TH/MM3 (150-450); RED BLOOD COUNT 4.01 MIL/MM3 (4.00-5.30); RED CELL DISTRIBUTION WIDTH 16.4 % (11.6-17.2); WHITE BLOOD COUNT 10.6 TH/MM3 (4.0-11.0)
[2018-03-11 08:38] LABS: BICARBONATE 26.5 MEQ/L (21.0-32.0); CALCIUM 6.8 MG/DL (8.5-10.1); CREATININE 5.03 MG/DL (0.50-1.00); MAGNESIUM 1.7 MG/DL (1.5-2.5)
[2018-03-11 08:50] VITALS: BP 216/98; PULSE 76; RESP 20; TEMP 98.7; O2SAT 98
[2018-03-11 08:51] LABS: TOTAL PROTEIN 6.5 GM/DL (6.4-8.2)
[2018-03-11] MEDS: SODIUM CHLORIDE 0.9% FLUSH 10 ML FLUSH IV FLUSH SCH ×2 (09:00→21:01)
[2018-03-11 09:08] LABS: CALCIUM-PROTEIN CORRECTED 7.1 MG/DL (8.5-10.1)
[2018-03-11] MEDS: PRAVASTATIN SOD 40 MG TAB PO SCH (09:44)
[2018-03-11] MEDS: DOCUSATE SODIUM 50 MG/SENNA 8.6 MG TAB PO SCH ×2 (09:44→21:00)
[2018-03-11] MEDS: SODIUM BICARBONATE 650 MG TAB PO SCH ×2 (09:44→21:00)
[2018-03-11] MEDS: METOPROLOL TARTRATE 100 MG TAB PO SCH ×2 (09:44→21:01)
[2018-03-11] MEDS: cloNIDine HCL 0.1 MG TAB PO PRN ×3 (09:47→23:40)
[2018-03-11] MEDS: INSULIN ASPART SUPPLEMENTAL SCALE SQ SCH ×4 (09:48→21:51)
[2018-03-11] MEDS: IRON SUCROSE INJ 200 MG in SODIUM CHLORIDE 0.9% INJ 100 ML IV SCH (09:49)
[2018-03-11 11:54] VITALS: BP 196/89; PULSE 70; RESP 20; TEMP 98.3; O2SAT 98
--- NOTE | 2018-03-11 12:09 | HHI.PR ---
Subjective Remarks The patient was resting comfortably in bed. She said she was tired. Her family was at the bedside. The patient has been having bowel movements. She says her blood pressure is high at times. Objective Vitals Vital Signs Date Time Temp Pulse Resp B/P (MAP) Pulse Ox O2 Delivery O2 Flow Rate FiO2 03/11/18 11:54 98.3 70 20 196/89 (124) 98 03/11/18 08:50 98.7 76 20 216/98 (137) 98 03/11/18 04:00 98.1 71 18 182/92 (122) 99 03/11/18 00:00 98.4 73 16 170/98 (122) 99 03/10/18 19:46 98.2 88 18 190/88 (122) 100 03/10/18 17:58 96 21 03/10/18 16:00 98.2 77 18 187/74 (111) 96 03/10/18 12:50 99.0 66 15 197/93 (127) 99 I/O 03/10/18 03/10/18 03/10/18 03/11/18 03/11/18 03/11/18 06:59 14:59 22:59 06:59 14:59 22:59 Intake Total 500 ml Output Total 400 ml 2000 ml Balance -400 ml -2000 ml 500 ml Intake Oral 500 ml Output Urine Total 400 ml Hemodialysis 2000 ml # Voids 1 # Bowel Movements 1 1 Result Diagram: 03/11/18 0630 03/11/18 0630 Imaging Last Impressions Catheter Placement X-Ray 03/09/18 0000 Signed Impressions: CONCLUSION: 1. Uncomplicated PermaCath placement as above. Renal Ultrasound 03/08/18 0000 Signed Impressions: CONCLUSION: Echogenic kidneys. No hydronephrosis. Objective Remarks GENERAL: Not in acute distress. HEAD: Atraumatic. Normocephalic. No temporal or scalp tenderness. EYES: PERRL, full EOMs, no jaundice, nonicteric, pink conjunctivae without injection, moist mucosa ENT: Nose without bleeding, purulent drainage. NECK: Trachea midline, no mass, no obvious thyromegaly. CARDIOVASCULAR: Regular rate and rhythm without murmurs, gallops, or rubs. RESPIRATORY: Clear to auscultation with normal respiratory effort. Breath sounds equal bilaterally. No use of accessory muscles of respiration. GASTROINTESTINAL: Abdomen soft, normal bowel sounds, non-tender, nondistended. MUSCULOSKELETAL: Extremities without clubbing, cyanosis, or edema. INTEGUMENTARY: Warm and dry, no rash of generalized distribution. NEUROLOGICAL: Awake, alert, oriented 3. No obvious cranial nerve deficits. Moves all 4 extremities, muscle strength testing 5 over 5. Motor and sensory grossly within normal limits. A/P Assessment and Plan Acute nonoliguric renal failure Creatinine 2016 was 1.3, creatinine currently over 8. Nephrology consult appreciated. - dialysis per nephrology. - avoid nephrotoxins. - follow BMP and urine output. Hypoglycemia/ DM Seems to be resolved. A1c is 6.6%. Secondary to home meds. - hold glyburide and metformin. - continue sliding scale insulin. Add Levemir 10 units daily. Hypertensive urgency Blood pressure poorly controlled. - restart Norvasc. Increase Lopressor to BID dosing. Hydralazine increased. - d/c benazepril and hydrochlorothiazide given acute renal failure. - clonidine as needed. Anemia Possibly s/t renal disease. - follow CBC and transfuse as needed. DVT prophylaxis: Heparin Deshaun Rodriguez DO Mar 11, 2018 12:09
[2018-03-11] MEDS: hydrALAZINE HCL 50 MG TAB PO SCH ×2 (14:00→21:00)
--- NOTE | 2018-03-11 14:56 | HHI.NPPN ---
Objective Data Data Vital Signs Date Time Temp Pulse Resp B/P (MAP) Pulse Ox O2 Delivery O2 Flow Rate FiO2 03/11/18 11:54 98.3 70 20 196/89 (124) 98 03/11/18 08:50 98.7 76 20 216/98 (137) 98 03/11/18 04:00 98.1 71 18 182/92 (122) 99 03/11/18 00:00 98.4 73 16 170/98 (122) 99 03/10/18 19:46 98.2 88 18 190/88 (122) 100 03/10/18 17:58 96 21 03/10/18 16:00 98.2 77 18 187/74 (111) 96 -: 03/11/18 0630 03/11/18 0630 Assessment/Plan Problem List: (1) Acute kidney injury ICD Codes: N17.9 - Acute kidney failure, unspecified Plan: Acute kidney injury with a creatinine of 8.03 and potassium level of 4.4 , HCO3 at18.0, and calcium level of 6.5 on day of consult BELKYS possible prerenal VS ATN related to urinary tract infection/hypertension, will need to r/o glomerular nephritis Creatinine noted to be 1.29 in 2016 so most likely has some chronic kidney disease possibly related to HTN or renovascular disease or possible diabetes Renal ultrasound echogenic kidneys. No hydronephrosis Significant proteinuria noted. . Plan Patient has labile hypertension 50 mg every 8 hourly, amlodipine 10 mg daily, metoprolol 100 mg twice a day, clonidine 0.1 mg as needed Hemodialysis done yesterday 2 L was removed ANCA /negative Continue to monitor her progress over the weekend Dr. Blanco to follow (2) Hypertension ICD Codes: I10 - Essential (primary) hypertension Plan: Hypertensive with SBP in the 180's to 200's On metoprolol and norvasc Hydralazine added and PRN clonidine (3) Diabetes mellitus ICD Codes: E11.9 - Type 2 diabetes mellitus without complications Plan: Maintain blood sugar between 140mg/dl to 180mg/dl (4) Iron deficiency anemia ICD Codes: D50.9 - Iron deficiency anemia, unspecified Plan: IV Iron sucrose ordered X 3 days Kyra Huizar MD Mar 11, 2018 14:55
[2018-03-11 16:24] VITALS: BP 190/81; PULSE 55; RESP 20; TEMP 98.9; O2SAT 100
[2018-03-11] MEDS: INSULIN DETEMIR 100 UNITS/ML VIAL SQ SCH (18:09)
[2018-03-11 20:32] VITALS: BP 214/94; PULSE 73; RESP 20; TEMP 97.7; O2SAT 99
[2018-03-12] VITALS (7 sets, daily range): BP systolic 170–218; BP diastolic 62–95; PULSE 62–72; RESP 17–20; TEMP 98.3–98.9; O2SAT 97–100
[2018-03-12] MEDS: HEPARIN SODIUM - SQ 10,000 UNITS/ML VIAL SQ SCH ×3 (04:29→17:43)
[2018-03-12] MEDS: hydrALAZINE HCL 50 MG TAB PO SCH ×3 (05:01→21:56)
[2018-03-12] MEDS: INSULIN ASPART SUPPLEMENTAL SCALE SQ SCH ×4 (07:58→21:57)
[2018-03-12] MEDS: cloNIDine HCL 0.1 MG TAB PO PRN (08:03)
[2018-03-12] MEDS: INSULIN DETEMIR 100 UNITS/ML VIAL SQ SCH (08:03)
[2018-03-12] MEDS: DOCUSATE SODIUM 50 MG/SENNA 8.6 MG TAB PO SCH ×2 (09:06→20:30)
[2018-03-12] MEDS: SODIUM BICARBONATE 650 MG TAB PO SCH ×2 (09:07→21:56)
[2018-03-12] MEDS: PRAVASTATIN SOD 40 MG TAB PO SCH (09:07)
[2018-03-12] MEDS: METOPROLOL TARTRATE 100 MG TAB PO SCH ×2 (09:07→20:30)
[2018-03-12] MEDS: SODIUM CHLORIDE 0.9% FLUSH 10 ML FLUSH IV FLUSH SCH ×2 (09:07→20:30)
--- NOTE | 2018-03-12 10:05 | HHI.NPPN ---
Subjective History of Present Illness Patient is a 62-year-old female with history of hypertension, diabetes mellitus , and dyslipidemia. Presented to the emergency room with generalized weakness and hypoglycemia. Per patient, she has been in her usual health until March 02 when she was not able to eat most of the day and then developed slurred speech which resolved after orange juice. She then developed dizziness and was not able to get out of bed . Nephrology is consulted for elevated BUN and creatinine with a creatinine of 8.03 and potassium level of 4.4, HCO3 at18.0, and calcium level of 6.5. Also noted to have iron deficency anemia with HGB of 7.7 no obvious signs of bleeding. Blood pressure elevated with SBP in the 180' s. She has been on glyburide/metformin and hydrochlorothiazide which has been discontinued and IVF are infusing. No previous history of kidney disease. Creatinine noted to be 1.29 in 2016. So could possible have some chronic kidney disease. Additional Remarks Resting comfortably with no complaints. No shortness of breath or edema. (Shahida Medrano) Review of Systems Respiratory Respiratory Remarks Denies SOB (Shahida Medrano) Cardiovascular Cardiac Remarks Denies chest pain (Shahida Medrano) Gastrointestinal GI Remarks Denies abdominal pain (Shahida Medrano) Objective Data Data Vital Signs Date Time Temp Pulse Resp B/P (MAP) Pulse Ox O2 Delivery O2 Flow Rate FiO2 03/12/18 05:00 65 20 170/85 (113) 03/12/18 04:42 98.3 66 20 213/95 (134) 100 03/12/18 00:55 98.7 68 20 218/91 (133) 99 03/11/18 20:32 97.7 73 20 214/94 (134) 99 03/11/18 16:24 98.9 55 20 190/81 (117) 100 03/11/18 11:54 98.3 70 20 196/89 (124) 98 (Shahida Medrano) -: 03/11/18 0630 03/11/18 0630 Imaging Last Impressions Catheter Placement X-Ray 03/09/18 0000 Signed Impressions: CONCLUSION: 1. Uncomplicated PermaCath placement as above. Renal Ultrasound 03/08/18 0000 Signed Impressions: CONCLUSION: Echogenic kidneys. No hydronephrosis. (Shahida Medrano) Physical Exam General Appearance: No Acute Distress, Comfortable (Shahida Medrano) Pulmonary Resp Exam: Clear Bilaterally, Breath Sounds Equal, Decreased Bases (Shahida Medrano) Cardiology CV Exam: Regular (Shahida Medrano) Gastrointestinal/Abdomen GI Exam: Soft, Non-Tender (Shahida Medrano) Genitourinary Exam: Flank Non-Tender (Shahida Medrano) Integumentary Skin Exam: Clear, Warm (Shahida Medrano) Neurologic Neuro Exam: Moving All Extremities (Shahida Medrano) Psychiatric Psych Exam: Appropriate Responses (Shahida Medrano) Assessment/Plan Problem List: (1) Acute kidney injury ICD Codes: N17.9 - Acute kidney failure, unspecified Plan: Acute kidney injury with a creatinine of 8.03 and potassium level of 4.4 , HCO3 at18.0, and calcium level of 6.5 on day of consult BELKYS possible ATN related to urinary tract infection/hypertension, will need to r /o glomerular nephritis Creatinine noted to be 1.29 in 2016 so most likely has some chronic kidney disease possibly related to HTN or renovascular disease or possible diabetes Renal ultrasound echogenic kidneys. No hydronephrosis Significant proteinuria noted. Hemodialysis started on . Plan Creatinine at 6.19, potassium normal ANCA, C3, and C4 normal Avoid nephrotoxins. Hypocalcemia 7.2 IV replacement added Continue to monitor UOP and BMP Plan for hemodialysis tomorrow. (2) Hypertension ICD Codes: I10 - Essential (primary) hypertension Plan: Hypertensive with SBP in the 180's to 200's On metoprolol, norvasc, and hydralazine Will increase hydralazine (3) Diabetes mellitus ICD Codes: E11.9 - Type 2 diabetes mellitus without complications Plan: Maintain blood sugar between 140mg/dl to 180mg/dl (4) Iron deficiency anemia ICD Codes: D50.9 - Iron deficiency anemia, unspecified Plan: monitoring (Shahida Medrano) Problem List: (1) Acute kidney injury ICD Codes: N17.9 - Acute kidney failure, unspecified Plan: Acute kidney injury with a creatinine of 8.03 and potassium level of 4.4 , HCO3 at18.0, and calcium level of 6.5 on day of consult BELKYS possible ATN related to urinary tract infection/hypertension, will need to r /o glomerular nephritis Creatinine noted to be 1.29 in 2016 so most likely has some chronic kidney disease possibly related to HTN or renovascular disease or possible diabetes Renal ultrasound echogenic kidneys. No hydronephrosis Significant proteinuria noted. Hemodialysis started on . Plan Creatinine at 6.19, potassium normal ANCA, C3, and C4 normal Avoid nephrotoxins. Hypocalcemia 7.2 IV replacement added Continue to monitor UOP and BMP Plan for hemodialysis tomorrow. Patient seen and examined, agree with above. No recent BMP available, told to get recent BMP. Possibly need Renal Biopsy for diagnosis and prognosis. (2) Hypertension ICD Codes: I10 - Essential (primary) hypertension Plan: Hypertensive with SBP in the 180's to 200's On metoprolol, norvasc, and hydralazine Will increase hydralazine (3) Diabetes mellitus ICD Codes: E11.9 - Type 2 diabetes mellitus without complications Plan: Maintain blood sugar between 140mg/dl to 180mg/dl (4) Iron deficiency anemia ICD Codes: D50.9 - Iron deficiency anemia, unspecified Plan: monitoring (Slick Blanco MD) Shahida Medrano Mar 12, 2018 10:05 Slick Blanco MD Mar 13, 2018 00:37
[2018-03-12 11:48] LABS: CALCIUM 6.9 MG/DL (8.5-10.1); CREATININE 6.19 MG/DL (0.50-1.00); MAGNESIUM 1.8 MG/DL (1.5-2.5)
[2018-03-12 12:06] LABS: TOTAL PROTEIN 6.6 GM/DL (6.4-8.2)
[2018-03-12 12:11] LABS: CALCIUM-PROTEIN CORRECTED 7.2 MG/DL (8.5-10.1)
--- NOTE | 2018-03-12 14:16 | HHI.PR ---
Subjective Remarks The patient was resting comfortably in bed. She says she has been urinating normal amounts. She denies any burning. She has had a bowel movement. Family at the bedside. Objective Vitals Vital Signs Date Time Temp Pulse Resp B/P (MAP) Pulse Ox O2 Delivery O2 Flow Rate FiO2 03/12/18 12:58 98.9 65 18 180/62 (101) 99 03/12/18 08:00 98.7 67 20 188/86 (120) 97 03/12/18 05:00 65 20 170/85 (113) 03/12/18 04:42 98.3 66 20 213/95 (134) 100 03/12/18 00:55 98.7 68 20 218/91 (133) 99 03/11/18 20:32 97.7 73 20 214/94 (134) 99 03/11/18 16:24 98.9 55 20 190/81 (117) 100 I/O 03/11/18 03/11/18 03/11/18 03/12/18 03/12/18 03/12/18 07:00 15:00 23:00 07:00 15:00 23:00 Intake Total 500 ml 720 ml Balance 500 ml 720 ml Intake Oral 500 ml 720 ml # Voids 1 2 # Bowel Movements 1 1 Result Diagram: 03/11/18 0630 03/12/18 0923 Imaging Last Impressions Catheter Placement X-Ray 03/09/18 0000 Signed Impressions: CONCLUSION: 1. Uncomplicated PermaCath placement as above. Renal Ultrasound 03/08/18 0000 Signed Impressions: CONCLUSION: Echogenic kidneys. No hydronephrosis. Objective Remarks GENERAL: Not in acute distress. HEAD: Atraumatic. Normocephalic. No temporal or scalp tenderness. EYES: PERRL, full EOMs, no jaundice, nonicteric, pink conjunctivae without injection, moist mucosa ENT: Nose without bleeding, purulent drainage. NECK: Trachea midline, no mass, no obvious thyromegaly. CARDIOVASCULAR: Regular rate and rhythm without murmurs, gallops, or rubs. RESPIRATORY: Clear to auscultation with normal respiratory effort. Breath sounds equal bilaterally. No use of accessory muscles of respiration. GASTROINTESTINAL: Abdomen soft, normal bowel sounds, non-tender, nondistended. MUSCULOSKELETAL: Extremities without clubbing, cyanosis, or edema. INTEGUMENTARY: Warm and dry, no rash of generalized distribution. NEUROLOGICAL: Awake, alert, oriented 3. No obvious cranial nerve deficits. Moves all 4 extremities, muscle strength testing 5 over 5. Motor and sensory grossly within normal limits. A/P Assessment and Plan Acute nonoliguric renal failure Creatinine 2016 was 1.3, creatinine currently over 8. Nephrology consult appreciated. - dialysis per nephrology. - avoid nephrotoxins. - follow BMP and urine output. Hypoglycemia/ DM Seems to be resolved. A1c is 6.6%. Secondary to home meds. - holding glyburide and metformin. - continue sliding scale insulin. Added Levemir 10 units daily. Adjust as needed. Hypertensive urgency Blood pressure poorly controlled. - continue Norvasc. Increased Lopressor to BID dosing. Hydralazine increased as well. - d/c benazepril and hydrochlorothiazide given acute renal failure. - clonidine as needed. - follow up with nephrology. Anemia Possibly s/t renal disease. - follow CBC and transfuse as needed. DVT prophylaxis: Heparin Deshaun Rodriguez DO Mar 12, 2018 14:16
[2018-03-12 21:48] LABS: ALB/GLOB RATIO (SPE) 1.21 (1.39-2.23)
[2018-03-13] MEDS: cloNIDine HCL 0.1 MG TAB PO PRN ×2 (00:27→19:02)
[2018-03-13 00:30] VITALS: BP 180/88; PULSE 71; RESP 17; TEMP 98; O2SAT 99
[2018-03-13 04:00] VITALS: BP 182/80; PULSE 73; RESP 17; TEMP 98; O2SAT 99
[2018-03-13 04:41] LABS: HEMATOCRIT 23.5 % (35.0-46.0); HEMOGLOBIN 7.4 GM/DL (11.6-15.3); MEAN CELL VOLUME 65.6 FL (80.0-100.0); MEAN CORPUSCULAR HEMOGLOBIN 20.6 PG (27.0-34.0); MEAN CORPUSCULAR HGB CONC 31.4 % (32.0-36.0); MEAN PLATELET VOLUME 8.3 FL (7.0-11.0); PLATELET COUNT 222 TH/MM3 (150-450); RED BLOOD COUNT 3.59 MIL/MM3 (4.00-5.30); RED CELL DISTRIBUTION WIDTH 16.3 % (11.6-17.2); WHITE BLOOD COUNT 11.2 TH/MM3 (4.0-11.0)
[2018-03-13 04:59] LABS: BICARBONATE 23.5 MEQ/L (21.0-32.0); CALCIUM 6.8 MG/DL (8.5-10.1); CREATININE 7.04 MG/DL (0.50-1.00); MAGNESIUM 1.8 MG/DL (1.5-2.5)
[2018-03-13] MEDS: hydrALAZINE HCL 50 MG TAB PO SCH ×3 (05:01→22:45)
[2018-03-13] MEDS: HEPARIN SODIUM - SQ 10,000 UNITS/ML VIAL SQ SCH ×2 (05:01→16:00)
[2018-03-13 05:17] LABS: TOTAL PROTEIN 6.5 GM/DL (6.4-8.2)
[2018-03-13 05:22] LABS: CALCIUM-PROTEIN CORRECTED 7.1 MG/DL (8.5-10.1)
[2018-03-13] MEDS: INSULIN ASPART SUPPLEMENTAL SCALE SQ SCH ×3 (08:00→22:52)
[2018-03-13 08:24] VITALS: BP 209/91; PULSE 82; RESP 20; TEMP 99.7; O2SAT 96
[2018-03-13] MEDS: INSULIN DETEMIR 100 UNITS/ML VIAL SQ SCH (09:00)
[2018-03-13] MEDS: HEPARIN SODIUM - IV 10,000 UNITS/10 ML VIAL PRN (12:27)
[2018-03-13] MEDS: GENTAMICIN SULFATE 20 MG/2 ML VIAL OTHER PRN (12:28)
[2018-03-13] MEDS: EPOETIN ALFA 10,000 UNITS/ML VIAL IV PUSH PRN (12:28)
--- NOTE | 2018-03-13 13:24 | HHI.NPPN ---
Subjective History of Present Illness Patient is a 62-year-old female with history of hypertension, diabetes mellitus , and dyslipidemia. Presented to the emergency room with generalized weakness and hypoglycemia. Per patient, she has been in her usual health until March 02 when she was not able to eat most of the day and then developed slurred speech which resolved after orange juice. She then developed dizziness and was not able to get out of bed . Nephrology is consulted for elevated BUN and creatinine with a creatinine of 8.03 and potassium level of 4.4, HCO3 at18.0, and calcium level of 6.5. Also noted to have iron deficency anemia with HGB of 7.7 no obvious signs of bleeding. Blood pressure elevated with SBP in the 180' s. She has been on glyburide/metformin and hydrochlorothiazide which has been discontinued and IVF are infusing. No previous history of kidney disease. Creatinine noted to be 1.29 in 2016. So could possible have some chronic kidney disease. Additional Remarks Resting comfortably with no complaints. Seen during hemodialysis. Protein corrected calcium low and patient is hypertensive. (Shahida Medrano) Review of Systems Respiratory Respiratory Remarks Denies SOB (Shahida Medrano) Cardiovascular Cardiac Remarks Denies chest pain (Shahida Medrano) Gastrointestinal GI Remarks Denies abdominal pain (Shahida Medrano) Objective Data Data 03/13/18 03/14/18 18:59 06:59 Output Total 2000 ml Balance -2000 ml Hemodialysis 2000 ml Vital Signs Date Time Temp Pulse Resp B/P (MAP) Pulse Ox O2 Delivery O2 Flow Rate FiO2 03/13/18 08:24 99.7 82 20 209/91 (130) 96 03/13/18 04:00 98.0 73 17 182/80 (114) 99 03/13/18 00:30 98.0 71 17 180/88 (118) 99 03/12/18 20:00 98.8 72 17 185/91 (122) 98 03/12/18 16:00 98.5 62 18 174/62 (99) 99 (Shahida Medrano) -: 03/13/18 0422 03/13/18 0422 Imaging Last Impressions Catheter Placement X-Ray 03/09/18 0000 Signed Impressions: CONCLUSION: 1. Uncomplicated PermaCath placement as above. Renal Ultrasound 03/08/18 0000 Signed Impressions: CONCLUSION: Echogenic kidneys. No hydronephrosis. (Shahida Medrano) Physical Exam General Appearance: No Acute Distress, Comfortable (Shahida Medrano) Pulmonary Resp Exam: Clear Bilaterally, Breath Sounds Equal, Decreased Bases (Shahida Medrano) Cardiology CV Exam: Regular (Shahida Medrano) Gastrointestinal/Abdomen GI Exam: Soft, Non-Tender (Shahida MedranoP) Genitourinary Exam: Flank Non-Tender (Shahida Medrano) Integumentary Skin Exam: Clear, Warm (Shahida Medrano) Neurologic Neuro Exam: Moving All Extremities (Shahida Medrano) Psychiatric Psych Exam: Appropriate Responses (Shahida Medrano) Assessment/Plan Problem List: (1) Acute kidney injury ICD Codes: N17.9 - Acute kidney failure, unspecified Plan: Acute kidney injury with a creatinine of 8.03 and potassium level of 4.4 , HCO3 at18.0, and calcium level of 6.5 on day of consult BELKYS possible ATN related to urinary tract infection/hypertension. Creatinine noted to be 1.29 in 2016 so most likely has some chronic kidney disease possibly related to HTN or renovascular disease or possible diabetes Renal ultrasound echogenic kidneys. No hydronephrosis Significant proteinuria noted. Hemodialysis started on . Plan Creatinine remains elevated, potassium normal ANCA, C3, and C4 normal Avoid nephrotoxins. Hypocalcemia 7.1 IV replacement added Continue to monitor UOP and BMP Seen during hemodialysis today with a UF of 2 liters tolerated well Hypertension, antihypertensive medication increased. Will plan for Renal Biopsy tomorrow for diagnosis and prognosis. (2) Hypertension ICD Codes: I10 - Essential (primary) hypertension Plan: Continues to be Hypertensive with SBP in the 180's to 200's On metoprolol, norvasc, and hydralazine Hydralazine increased yesterday and labetolol added today. (3) Diabetes mellitus ICD Codes: E11.9 - Type 2 diabetes mellitus without complications Plan: Maintain blood sugar between 140mg/dl to 180mg/dl (4) Iron deficiency anemia ICD Codes: D50.9 - Iron deficiency anemia, unspecified Plan: monitoring (Shahida Medrano) Problem List: (1) Acute kidney injury ICD Codes: N17.9 - Acute kidney failure, unspecified Plan: Acute kidney injury with a creatinine of 8.03 and potassium level of 4.4 , HCO3 at18.0, and calcium level of 6.5 on day of consult BELKYS possible ATN related to urinary tract infection/hypertension. Creatinine noted to be 1.29 in 2016 so most likely has some chronic kidney disease possibly related to HTN or renovascular disease or possible diabetes Renal ultrasound echogenic kidneys. No hydronephrosis Significant proteinuria noted. Hemodialysis started on . Plan Creatinine remains elevated, potassium normal ANCA, C3, and C4 normal Avoid nephrotoxins. Hypocalcemia 7.1 IV replacement added Continue to monitor UOP and BMP Seen during hemodialysis today with a UF of 2 liters tolerated well Hypertension, antihypertensive medication increased. Will plan for Renal Biopsy tomorrow for diagnosis and prognosis. Patient for renal Biopsy. Continue HD as needed. Post Biopsy will decide about out patient HD plan. (2) Hypertension ICD Codes: I10 - Essential (primary) hypertension Plan: Continues to be Hypertensive with SBP in the 180's to 200's On metoprolol, norvasc, and hydralazine Hydralazine increased yesterday and labetolol added today. (3) Diabetes mellitus ICD Codes: E11.9 - Type 2 diabetes mellitus without complications Plan: Maintain blood sugar between 140mg/dl to 180mg/dl (4) Iron deficiency anemia ICD Codes: D50.9 - Iron deficiency anemia, unspecified Plan: monitoring (Slick Blanco MD) Shahida Medrano Mar 13, 2018 13:24 Slick Blanco MD Mar 15, 2018 00:48
[2018-03-13] MEDS ORDERED: SODIUM CHLOR 0.9% 1000 ML INJ 1,000 ML IV SCH (13:40)
[2018-03-13] MEDS ORDERED: SODIUM CHLORIDE 0.9% FLUSH 10 ML FLUSH IV FLUSH PRN (13:45)
[2018-03-13] MEDS: SODIUM BICARBONATE 650 MG TAB PO SCH ×2 (14:21→22:50)
[2018-03-13] MEDS: PRAVASTATIN SOD 40 MG TAB PO SCH (14:21)
[2018-03-13] MEDS: DOCUSATE SODIUM 50 MG/SENNA 8.6 MG TAB PO SCH ×2 (14:21→22:45)
[2018-03-13] MEDS: SODIUM CHLORIDE 0.9% FLUSH 10 ML FLUSH IV FLUSH SCH ×2 (14:23→22:46)
--- NOTE | 2018-03-13 14:31 | HHI.PR ---
Subjective Remarks The patient was seen following dialysis. She had no acute complaints. She understood that she would be going for a kidney biopsy tomorrow. Objective Vitals Vital Signs Date Time Temp Pulse Resp B/P (MAP) Pulse Ox O2 Delivery O2 Flow Rate FiO2 03/13/18 08:24 99.7 82 20 209/91 (130) 96 03/13/18 04:00 98.0 73 17 182/80 (114) 99 03/13/18 00:30 98.0 71 17 180/88 (118) 99 03/12/18 20:00 98.8 72 17 185/91 (122) 98 03/12/18 16:00 98.5 62 18 174/62 (99) 99 I/O 03/12/18 03/12/18 03/12/18 03/13/18 03/13/18 03/13/18 06:59 14:59 22:59 06:59 14:59 22:59 Intake Total 400 ml 450 ml Output Total 0 ml 200 ml 2000 ml Balance 400 ml 250 ml -2000 ml Intake Oral 400 ml 450 ml Output Urine Total 0 ml 200 ml Hemodialysis 2000 ml # Bowel Movements 0 0 Result Diagram: 03/13/18 0422 03/13/18 0422 Imaging Last Impressions Catheter Placement X-Ray 03/09/18 0000 Signed Impressions: CONCLUSION: 1. Uncomplicated PermaCath placement as above. Renal Ultrasound 03/08/18 0000 Signed Impressions: CONCLUSION: Echogenic kidneys. No hydronephrosis. Objective Remarks GENERAL: Not in acute distress. HEAD: Atraumatic. Normocephalic. No temporal or scalp tenderness. EYES: PERRL, full EOMs, no jaundice, nonicteric, pink conjunctivae without injection, moist mucosa ENT: Nose without bleeding, purulent drainage. NECK: Trachea midline, no mass, no obvious thyromegaly. CARDIOVASCULAR: Regular rate and rhythm without murmurs, gallops, or rubs. RESPIRATORY: Clear to auscultation with normal respiratory effort. Breath sounds equal bilaterally. No use of accessory muscles of respiration. GASTROINTESTINAL: Abdomen soft, normal bowel sounds, non-tender, nondistended. MUSCULOSKELETAL: Extremities without clubbing, cyanosis, or edema. INTEGUMENTARY: Warm and dry, no rash of generalized distribution. NEUROLOGICAL: Awake, alert, oriented 3. No obvious cranial nerve deficits. Moves all 4 extremities, muscle strength testing 5 over 5. Motor and sensory grossly within normal limits. A/P Assessment and Plan Acute nonoliguric renal failure Creatinine 2016 was 1.3, creatinine currently over 8. Nephrology consult appreciated. - dialysis per nephrology. - avoid nephrotoxins. - follow BMP and urine output. - Kidney biopsy scheduled for 03/14/2018. Hypoglycemia/ DM Seems to be resolved. A1c is 6.6%. Secondary to home meds. - d/c glyburide and metformin. - continue sliding scale insulin. Added Levemir 10 units daily. Adjust as needed. Hypertensive urgency Blood pressure poorly controlled. Benazepril and hydrochlorothiazide discontinued secondary to renal failure. - continue Norvasc. Hydralazine increased. Metoprolol switched to labetalol, which will need to be uptitrated over the next few days. - clonidine as needed. - follow up with nephrology. Anemia Possibly s/t renal disease. - follow CBC and transfuse as needed. DVT prophylaxis: Heparin Discharge Planning Needs kidney biopsy and blood pressure controlled. Outpt dialysis will be difficult to set up as pt has no payer source. Deshaun Rodriguez DO Mar 13, 2018 14:31
[2018-03-13] MEDS ORDERED: CALCIUM GLUCONATE INJ 2 GM in DEXTROSE 5% IN WATER 100ML INJ 100 ML IV ONE ×2 (15:00)
[2018-03-13 15:45] VITALS: BP_SYST 178; BP_SYST 235; BP_DIAS 72; BP_DIAS 95; PULSE 78; RESP 18; TEMP 98.9; O2SAT 96
--- NOTE | 2018-03-13 16:20 | RADRPT ---
EXAM DATE: 03/13/2018 4:15 PM EDT AGE/SEX: 62 years / Female INDICATIONS: Short of breath. Infiltrate per order. CLINICAL DATA: This is the patient's initial encounter. Patient reports that signs and symptoms have been present for 3 days and indicates a pain score of 0/10. MEDICAL/SURGICAL HISTORY: Hypertension. Diabetes. None. COMPARISON: No prior exams available for comparison. FINDINGS: Right internal jugular tunneled dialysis catheter has its tips in the superior vena cava. No pneumoth orax is noted. The heart is normal. The pulmonary vascular pattern is normal. The lungs are clear. De generative changes are noted throughout the thoracic spine. CONCLUSION: 1. No acute cardiopulmonary disease. 2. Degenerative changes throughout the thoracic spine. Electronically signed by: Robles Sanchez MD 03/13/2018 4:19 PM EDT
[2018-03-13 18:00] LABS: PROTHROMBIN TIME - PATIENT 9.8 SEC (9.8-11.6)
[2018-03-13 20:00] VITALS: BP 182/76; PULSE 82; RESP 17; TEMP 98.9; O2SAT 97
[2018-03-13] MEDS ORDERED: SODIUM CHLORIDE 0.9% FLUSH 10 ML FLUSH IV FLUSH SCH (21:00)
[2018-03-13] MEDS: LABETALOL HCL 100 MG TAB PO SCH (22:45)
[2018-03-14] VITALS (10 sets, daily range): BP systolic 156–203; BP diastolic 62–92; PULSE 66–91; RESP 16–20; TEMP 97.3–99.1; O2SAT 92–98
[2018-03-14] MEDS: HEPARIN SODIUM - SQ 10,000 UNITS/ML VIAL SQ SCH ×2 (03:23→15:46)
[2018-03-14] MEDS: hydrALAZINE HCL 50 MG TAB PO SCH ×3 (06:06→21:38)
[2018-03-14 07:22] LABS: HEMATOCRIT 23.9 % (35.0-46.0); HEMOGLOBIN 7.6 GM/DL (11.6-15.3); MEAN CELL VOLUME 65.9 FL (80.0-100.0); MEAN CORPUSCULAR HGB CONC 31.9 % (32.0-36.0); MEAN PLATELET VOLUME 8.7 FL (7.0-11.0); PLATELET COUNT 225 TH/MM3 (150-450); RED BLOOD COUNT 3.63 MIL/MM3 (4.00-5.30); RED CELL DISTRIBUTION WIDTH 15.8 % (11.6-17.2); WHITE BLOOD COUNT 10.8 TH/MM3 (4.0-11.0)
[2018-03-14 07:37] LABS: BICARBONATE 27.3 MEQ/L (21.0-32.0); CALCIUM 7.5 MG/DL (8.5-10.1); CREATININE 5.52 MG/DL (0.50-1.00); MAGNESIUM 1.7 MG/DL (1.5-2.5)
[2018-03-14] MEDS: INSULIN ASPART SUPPLEMENTAL SCALE SQ SCH ×4 (08:00→21:39)
[2018-03-14] MEDS: LABETALOL HCL 100 MG TAB PO SCH ×2 (08:45→21:37)
[2018-03-14] MEDS: SODIUM BICARBONATE 650 MG TAB PO SCH ×2 (08:45→21:38)
[2018-03-14] MEDS: PRAVASTATIN SOD 40 MG TAB PO SCH (08:45)
[2018-03-14] MEDS: INSULIN DETEMIR 100 UNITS/ML VIAL SQ SCH (08:49)
[2018-03-14] MEDS: DOCUSATE SODIUM 50 MG/SENNA 8.6 MG TAB PO SCH ×2 (09:00→21:00)
[2018-03-14] MEDS: SODIUM CHLORIDE 0.9% FLUSH 10 ML FLUSH IV FLUSH SCH ×2 (09:00→21:00)
--- NOTE | 2018-03-14 10:21 | HHI.NPPN ---
Subjective History of Present Illness Patient is a 62-year-old female with history of hypertension, diabetes mellitus , and dyslipidemia. Presented to the emergency room with generalized weakness and hypoglycemia. Per patient, she has been in her usual health until March 02 when she was not able to eat most of the day and then developed slurred speech which resolved after orange juice. She then developed dizziness and was not able to get out of bed . Nephrology is consulted for elevated BUN and creatinine with a creatinine of 8.03 and potassium level of 4.4, HCO3 at18.0, and calcium level of 6.5. Also noted to have iron deficency anemia with HGB of 7.7 no obvious signs of bleeding. Blood pressure elevated with SBP in the 180' s. She has been on glyburide/metformin and hydrochlorothiazide which has been discontinued and IVF are infusing. No previous history of kidney disease. Creatinine noted to be 1.29 in 2016. So could possible have some chronic kidney disease. Additional Remarks Resting comfortably with no complaints. Plan for kidney biopsy today. (Shahida Medrano) Review of Systems Respiratory Respiratory Remarks Denies SOB (Shahida Medrano) Cardiovascular Cardiac Remarks Denies chest pain (Shahida Medrano) Gastrointestinal GI Remarks Denies abdominal pain (Shahida Medrano) Objective Data Data Vital Signs Date Time Temp Pulse Resp B/P (MAP) Pulse Ox O2 Delivery O2 Flow Rate FiO2 03/14/18 08:07 98.9 81 18 164/68 (100) 98 03/14/18 06:00 97.3 66 19 175/76 (109) 98 03/14/18 00:00 98.0 69 16 176/80 (112) 98 03/13/18 20:00 98.9 82 17 182/76 (111) 97 03/13/18 15:45 98.9 78 18 235/95 (141) 96 178/72 (107) (Shahida Medrano) -: 03/14/18 0638 03/14/18 0638 Physical Exam General Appearance: No Acute Distress, Comfortable (Shahida Medrano) Pulmonary Resp Exam: Clear Bilaterally, Breath Sounds Equal, Decreased Bases (Shahida Medrano) Cardiology CV Exam: Regular (Shahida Medrano) Gastrointestinal/Abdomen GI Exam: Soft, Non-Tender (Shahida Medrano) Genitourinary Exam: Flank Non-Tender (Shahida Medrano) Integumentary Skin Exam: Clear, Warm (Shahida Medrano) Neurologic Neuro Exam: Moving All Extremities (Shahida Medrano) Psychiatric Psych Exam: Appropriate Responses (Shahida Medrano) Assessment/Plan Problem List: (1) Acute kidney injury ICD Codes: N17.9 - Acute kidney failure, unspecified Plan: Acute kidney injury with a creatinine of 8.03 and potassium level of 4.4 , HCO3 at18.0, and calcium level of 6.5 on day of consult BELKYS possible ATN related to urinary tract infection/hypertension. Creatinine noted to be 1.29 in 2016 so most likely has some chronic kidney disease possibly related to HTN or renovascular disease or possible diabetes Renal ultrasound echogenic kidneys. No hydronephrosis Significant proteinuria noted. Serology normal Hemodialysis started on . Plan Avoid IVF administration Avoid nephrotoxins. Hypocalcemia improved will put on oral replacement Continue to monitor UOP and BMP Hemodialysis yesterday with a UF of 2 liters tolerated well Renal Biopsy today for diagnosis and prognosis. (2) Hypertension ICD Codes: I10 - Essential (primary) hypertension Plan: Continues to be Hypertensive with SBP in the 180's to 200's On metoprolol, norvasc, and hydralazine Hydralazine increased yesterday and labetolol added today. (3) Diabetes mellitus ICD Codes: E11.9 - Type 2 diabetes mellitus without complications Plan: Maintain blood sugar between 140mg/dl to 180mg/dl (4) Iron deficiency anemia ICD Codes: D50.9 - Iron deficiency anemia, unspecified Plan: monitoring (Shahida Medrano) Problem List: (1) Acute kidney injury ICD Codes: N17.9 - Acute kidney failure, unspecified Plan: Acute kidney injury with a creatinine of 8.03 and potassium level of 4.4 , HCO3 at18.0, and calcium level of 6.5 on day of consult BELKYS possible ATN related to urinary tract infection/hypertension. Creatinine noted to be 1.29 in 2016 so most likely has some chronic kidney disease possibly related to HTN or renovascular disease or possible diabetes Renal ultrasound echogenic kidneys. No hydronephrosis Significant proteinuria noted. Serology normal Hemodialysis started on . Plan Avoid IVF administration Avoid nephrotoxins. Hypocalcemia improved will put on oral replacement Continue to monitor UOP and BMP Hemodialysis yesterday with a UF of 2 liters tolerated well Renal Biopsy today for diagnosis and prognosis. Renal Biopsy, and then will plan for out patient Dialysis. (2) Hypertension ICD Codes: I10 - Essential (primary) hypertension Plan: Continues to be Hypertensive with SBP in the 180's to 200's On metoprolol, norvasc, and hydralazine Hydralazine increased yesterday and labetolol added today. (3) Diabetes mellitus ICD Codes: E11.9 - Type 2 diabetes mellitus without complications Plan: Maintain blood sugar between 140mg/dl to 180mg/dl (4) Iron deficiency anemia ICD Codes: D50.9 - Iron deficiency anemia, unspecified Plan: monitoring (Slick Blanco MD) Shahida Medrano Mar 14, 2018 10:21 Slick Blanco MD Mar 15, 2018 00:54
[2018-03-14] MEDS ORDERED: LIDOCAINE 1%/EPINEPHrine 1:100,000 SOLN 20 ML VIAL ONE (11:21)
[2018-03-14] MEDS ORDERED: MIDAZOLAM HCL 2 MG/2 ML VIAL ONE (11:57)
--- NOTE | 2018-03-14 13:14 | RADRPT ---
EXAM DATE: 03/14/2018 1:04 PM EDT AGE/SEX: 62 years / Female INDICATIONS: Acute renal failure. CLINICAL DATA: This is the patient's initial encounter. Patient reports that signs and symptoms have been present for 1 day and indicates a pain score of 0/10. MEDICAL/SURGICAL HISTORY: Hypertension. Diabetes. Tubal ligation. COMPARISON: No prior exams available for comparison. BIOPSY SITE: Left renal MEDICATION(S): 2mg midazolam (Versed) IV 125mcg fentanyl (Sublimaze) IV DEVICE(S): 18 gauge Temno core biopsy needle Two . . PROCEDURE: CT guided Left renal biopsy Prior to the procedure informed consent was obtained. Any appropriate prior imaging studies were rev iewed. Using automated exposure control and adjustment of the mA and/or kV according to patient size, radiat ion dose was kept as low as reasonably achievable to obtain optimal diagnostic quality images. DICOM format image data is available electronically for review and comparison. The site was prepped in a sterile fashion. Full sterile technique was used, including cap, mask, jose rile gloves and gown and a large sterile sheet. Hand hygiene and 2% chlorhexidine and/or betadine/al cohol prep was utilized per protocol for cutaneous antisepsis. The skin and subcutaneous tissues wer e infiltrated with local anesthetic solution. With CT guidance the previously identified target was localized. Biopsy was performed using the presc ribed needle as above. Adequate hemostasis was obtained with compression at the puncture site. Follow-up CT scan reveals no hemorrhage. The patient tolerated the procedure well and there were no complications. The patient was returned to the Radiology Outpatient Unit in stable condition. FINDINGS: Successful CT-guided 18-gauge core biopsies of the left renal cortex was performed as described above . CONCLUSION: 1. Uncomplicated CT guided biopsy. Electronically signed by: Robles Sanchez MD 03/14/2018 1:12 PM EDT
[2018-03-14 13:52] LABS: AUTOMATED NEUTROPHIL # 7.2 TH/MM3 (1.8-7.7); BASOPHIL % 0.4 % (0.0-2.0); EOSINOPHIL # 0.1 TH/MM3 (0-0.4); EOSINOPHIL % 1.2 % (0.0-4.0); HEMATOCRIT 23.8 % (35.0-46.0); HEMOGLOBIN 7.5 GM/DL (11.6-15.3); LYMPH % 17.5 % (9.0-44.0); LYMPHOCYTE # 1.7 TH/MM3 (1.0-4.8); MEAN CORPUSCULAR HEMOGLOBIN 20.6 PG (27.0-34.0); MEAN CORPUSCULAR HGB CONC 31.3 % (32.0-36.0); MEAN PLATELET VOLUME 8.6 FL (7.0-11.0); MONO % 8.7 % (0.0-8.0); MONOCYTE # 0.9 TH/MM3 (0-0.9); NEUT % 72.2 % (16.0-70.0); PLATELET COUNT 237 TH/MM3 (150-450); RED BLOOD COUNT 3.61 MIL/MM3 (4.00-5.30); RED CELL DISTRIBUTION WIDTH 15.9 % (11.6-17.2); WHITE BLOOD COUNT 9.9 TH/MM3 (4.0-11.0)
[2018-03-14 15:01] LABS: BASOPHIL # 0.1 TH/MM3 (0-0.2); BASOPHIL % 0.6 % (0.0-2.0); EOSINOPHIL # 0.1 TH/MM3 (0-0.4); HEMATOCRIT 23.8 % (35.0-46.0); HEMOGLOBIN 7.4 GM/DL (11.6-15.3); LYMPH % 15.8 % (9.0-44.0); LYMPHOCYTE # 1.5 TH/MM3 (1.0-4.8); MEAN CELL VOLUME 66.1 FL (80.0-100.0); MEAN CORPUSCULAR HEMOGLOBIN 20.5 PG (27.0-34.0); MEAN CORPUSCULAR HGB CONC 31.1 % (32.0-36.0); MEAN PLATELET VOLUME 8.4 FL (7.0-11.0); MONO % 8.2 % (0.0-8.0); MONOCYTE # 0.8 TH/MM3 (0-0.9); NEUT % 74.4 % (16.0-70.0); PLATELET COUNT 228 TH/MM3 (150-450); RED CELL DISTRIBUTION WIDTH 16.3 % (11.6-17.2); WHITE BLOOD COUNT 9.4 TH/MM3 (4.0-11.0)
--- NOTE | 2018-03-14 15:22 | HHI.PR ---
Subjective Remarks PATIENT HAD KIDNEY BIOPSY TODAY DW RN AND PT AND FAMILY AND CM NO NEW COMPLAINTS Objective Vitals Vital Signs Date Time Temp Pulse Resp B/P (MAP) Pulse Ox O2 Delivery O2 Flow Rate FiO2 03/14/18 11:52 99.1 87 18 158/62 (94) 96 03/14/18 08:07 98.9 81 18 164/68 (100) 98 03/14/18 06:00 97.3 66 19 175/76 (109) 98 03/14/18 00:00 98.0 69 16 176/80 (112) 98 03/13/18 20:00 98.9 82 17 182/76 (111) 97 03/13/18 15:45 98.9 78 18 235/95 (141) 96 178/72 (107) I/O 03/13/18 03/13/18 03/13/18 03/14/18 03/14/18 03/14/18 07:00 15:00 23:00 07:00 15:00 23:00 Intake Total 450 ml 150 ml 450 ml Output Total 200 ml 2000 ml 10 ml Balance 250 ml -2000 ml 150 ml 440 ml Intake Oral 450 ml 150 ml 450 ml Output Urine Total 200 ml 10 ml Hemodialysis 2000 ml # Voids 1 1 # Bowel Movements 0 0 0 Result Diagram: 03/14/18 1440 03/14/18 0638 Other Results Laboratory Tests Test 03/12/18 09:23 03/13/18 04:22 03/13/18 16:30 03/14/18 06:38 Blood Urea Nitrogen 42 MG/DL 48 MG/DL 29 MG/DL Creatinine 6.19 MG/DL 7.04 MG/DL 5.52 MG/DL Random Glucose 123 MG/DL 176 MG/DL 217 MG/DL Total Protein 6.6 GM/DL 6.5 GM/DL Calcium Level 6.9 MG/DL 6.8 MG/DL 7.5 MG/DL Magnesium Level 1.8 MG/DL 1.8 MG/DL 1.7 MG/DL Sodium Level 141 MEQ/L 139 MEQ/L 138 MEQ/L Potassium Level 3.7 MEQ/L 3.8 MEQ/L 3.4 MEQ/L Chloride Level 104 MEQ/L 104 MEQ/L 98 MEQ/L Carbon Dioxide Level 24.0 MEQ/L 23.5 MEQ/L 27.3 MEQ/L Anion Gap 13 MEQ/L 12 MEQ/L 13 MEQ/L Estimat Glomerular Filtration Rate 8 ML/MIN 7 ML/MIN 9 ML/MIN Protein Corrected Calcium 7.2 MG/DL 7.1 MG/DL White Blood Count 11.2 TH/MM3 10.8 TH/MM3 Red Blood Count 3.59 MIL/MM3 3.63 MIL/MM3 Hemoglobin 7.4 GM/DL 7.6 GM/DL Hematocrit 23.5 % 23.9 % Mean Corpuscular Volume 65.6 FL 65.9 FL Mean Corpuscular Hemoglobin 20.6 PG 21.0 PG Mean Corpuscular Hemoglobin Concent 31.4 % 31.9 % Red Cell Distribution Width 16.3 % 15.8 % Platelet Count 222 TH/MM3 225 TH/MM3 Mean Platelet Volume 8.3 FL 8.7 FL Prothrombin Time 9.8 SEC Prothromb Time International Ratio 1.0 RATIO Activated Partial Thromboplast Time 26.8 SEC Test 03/14/18 13:15 03/14/18 14:40 White Blood Count 9.9 TH/MM3 9.4 TH/MM3 Red Blood Count 3.61 MIL/MM3 3.60 MIL/MM3 Hemoglobin 7.5 GM/DL 7.4 GM/DL Hematocrit 23.8 % 23.8 % Mean Corpuscular Volume 66.0 FL 66.1 FL Mean Corpuscular Hemoglobin 20.6 PG 20.5 PG Mean Corpuscular Hemoglobin Concent 31.3 % 31.1 % Red Cell Distribution Width 15.9 % 16.3 % Platelet Count 237 TH/MM3 228 TH/MM3 Mean Platelet Volume 8.6 FL 8.4 FL Neutrophils (%) (Auto) 72.2 % 74.4 % Lymphocytes (%) (Auto) 17.5 % 15.8 % Monocytes (%) (Auto) 8.7 % 8.2 % Eosinophils (%) (Auto) 1.2 % 1.0 % Basophils (%) (Auto) 0.4 % 0.6 % Neutrophils # (Auto) 7.2 TH/MM3 7.0 TH/MM3 Lymphocytes # (Auto) 1.7 TH/MM3 1.5 TH/MM3 Monocytes # (Auto) 0.9 TH/MM3 0.8 TH/MM3 Eosinophils # (Auto) 0.1 TH/MM3 0.1 TH/MM3 Basophils # (Auto) 0.0 TH/MM3 0.1 TH/MM3 CBC Comment DIFF FINAL DIFF FINAL Differential Comment Imaging Last Impressions Renal Biopsy CT 03/14/18 0000 Signed Impressions: CONCLUSION: 1. Uncomplicated CT guided biopsy. Chest X-Ray 03/13/18 0000 Signed Impressions: CONCLUSION: 1. No acute cardiopulmonary disease. 2. Degenerative changes throughout the thoracic spine. Catheter Placement X-Ray 03/09/18 0000 Signed Impressions: CONCLUSION: 1. Uncomplicated PermaCath placement as above. Renal Ultrasound 03/08/18 Signed Impressions: CONCLUSION: Echogenic kidneys. No hydronephrosis. Objective Remarks GENERAL: Awake alert and oriented 3 talkative and cooperative SKIN: Warm and dry. HEAD: Atraumatic. Normocephalic. EYES: Pupils equal and round. No scleral icterus. No injection or drainage. Extraocular muscles intact tongue is midline ENT: No nasal bleeding or discharge. Mucous membranes pink and moist. Tongue is midline NECK: Trachea midline. No JVD. Right side IJ hemodialysis catheter CARDIOVASCULAR: Regular rate and rhythm. S1-S2 no S3-S4 no heave no thrill no murmur no rubs or gallops RESPIRATORY: No accessory muscle use. Clear to auscultation. Breath sounds equal bilaterally. GASTROINTESTINAL: Abdomen soft, non-tender, nondistended. Hepatic and splenic margins not palpable. MUSCULOSKELETAL: Extremities without clubbing, cyanosis, or edema. No obvious deformities. NEUROLOGICAL: Awake and alert. No obvious cranial nerve deficits. Motor grossly within normal limits. Five out of 5 muscle strength in the arms and legs. Normal speech. PSYCHIATRIC: Appropriate mood and affect; insight and judgment normal. Procedures RIGHT IJ HD CATHETER 6-8 KIDNEY BIOPSY 03-14 Medications and IVs Current Medications Sodium Chloride 500 ml @ 500 mls/hr BOLUS ONCE IV Last administered on at 14:40; Start 03/08/18 at 14:45; Stop 03/08/18 at 15:20; Status DC Sodium Chloride 1,000 ml @ 100 mls/hr Q10H IV Last administered on 03/08/18at 14 :40; Start 03/08/18 at 14:45; Stop 03/08/18 at 15:20; Status DC Sodium Chloride (NS Flush) 2 ml UNSCH PRN IV FLUSH FLUSH AFTER USING IV ACCESS ; Start 03/08/18 at 15:15 Sodium Chloride (NS Flush) 2 ml BID IV FLUSH Last administered on 03/13/18at 22: 46; Start 03/08/18 at 21:00 Heparin Sodium (Porcine) (Heparin Inj) 5,000 units Q12H SQ Last administered on 03/13/18at 05:01; Start 03/08/18 at 16:00 Naloxone HCl (Narcan Inj) 0.4 mg UNSCH PRN IV PUSH SEE LABEL COMMENTS; Start at 15:15 Senna/Docusate Sodium (Vanessa-Colace) 1 tab BID PO Last administered on at 22:45; Start 03/08/18 at 21:00 Magnesium Hydroxide (Milk Of Magnesia Liq) 30 ml Q12H PRN PO Mild constipation ; Start 03/08/18 at 15:15 Sennosides (Senokot) 17.2 mg Q12H PRN PO Moderate constipation; Start 03/08/18 at 15:15 Bisacodyl (Dulcolax Supp) 10 mg DAILY PRN RECTAL SEVERE CONSITIPATION; Start at 15:15 Lactulose (Lactulose Liq) 30 ml DAILY PRN PO SEVERE CONSITIPATION; Start at 15:15 Dextrose/Sodium Chloride 1,000 ml @ 84 mls/hr [id number] IV Last administered on 03/10/18at 04:01; Start 03/08/18 at 15:15; Stop 03/10/18 at 14:52; Status DC Clonidine (Catapres) 0.1 mg Q6H PRN PO SYS BP GREATER THAN 160 MMHG Last administered on 03/09/18at 06:17; Start 03/08/18 at 16:30; Stop 03/09/18 at 11:17; Status DC Amlodipine Besylate (Norvasc) 10 mg DAILY PO Last administered on 03/14/18at 08: 45; Start 03/08/18 at 16:30 Dextrose (D50w (Vial) Inj) 50 ml UNSCH PRN IV PUSH HYPOGLYCEMIA-SEE COMMENTS; Start 03/08/18 at 16:30 Glucagon (Glucagon Inj) 1 mg UNSCH PRN OTHER HYPOGLYCEMIA-SEE COMMENTS; Start 03/08/18 at 16:30 Metoprolol Tartrate (Lopressor) 100 mg DAILY PO Last administered on 03/10/18at 08:43; Start 03/08/18 at 16:30; Stop 03/10/18 at 14:52; Status DC Pravastatin Sodium (Pravachol) 40 mg DAILY PO Last administered on 03/14/18at 08 :45; Start 03/08/18 at 16:30 Insulin Aspart (NovoLOG SUPPLEMENTAL SCALE) 1 ACHS SLIDING SCALE SQ Last administered on 03/13/18at 22:52; Start 03/09/18 at 12:00 Sodium Bicarbonate (Sodium Bicarbonate) 650 mg Q12HR PO Last administered on at 08:45; Start 03/09/18 at 11:15 Calcium Gluconate 2 gm/Dextrose 120 ml @ 120 mls/hr ONCE ONCE IV Last administered on 03/09/18at 11:40; Start 03/09/18 at 11:15; Stop 03/09/18 at 12:14; Status DC Ceftriaxone Sodium 1000 mg/ Sodium Chloride 100 ml @ 200 mls/hr Q24H IV Last administered on 03/10/18at 12:51; Start 03/09/18 at 12:00; Stop 03/10/18 at 14:53; Status DC Iron Sucrose 200 mg/Sodium Chloride 110 ml @ 110 mls/hr DAILY IV Last administered on 03/11/18at 09:49; Start 03/09/18 at 11:15; Stop 03/11/18 at 09:59 ; Status DC Hydralazine HCl (Apresoline) 25 mg Q8HR PO Last administered on 03/11/18at 05:31 ; Start 03/09/18 at 14:00; Stop 03/11/18 at 12:07; Status DC Clonidine (Catapres) 0.1 mg Q6H PRN PO SBP> OR = 180, DBP> OR = 100 Last administered on 03/13/18at 19:02; Start 03/09/18 at 11:15 Sodium Chloride 1,000 ml @ 0 mls/hr Q0M PRN OTHER For Prime & Rinse Back; Start 03/09/18 at 13:14 Heparin Sodium (Porcine) (Heparin Inj) 8,000 units UNSCH PRN IV FLUSH WITH DIALYSIS Last administered on 03/09/18at 18:59; Start 03/09/18 at 13:15 Sodium Chloride 1,000 ml @ 200 mls/hr Q5H PRN IV WITH DIALYSIS Last administered on 03/10/18at 10:34; Start 03/09/18 at 13:14 Sodium Chloride 1,000 ml @ 0 mls/hr Q0M PRN OTHER WITH DIALYSIS; Start 03/09/18 at 13:14 Mannitol (Mannitol Inj) 12.5 gm UNSCH PRN IV WITH DIALYSIS; Start 03/09/18 at 13 :15 Albumin Human 100 ml @ 60 mls/hr UNSCH PRN IV WITH DIALYSIS; Start 03/09/18 at 13:15 Sodium Chloride (NS Flush) 5 ml UNSCH PRN IV FLUSH WITH DIALYSIS; Start at 13:15 Heparin Sodium (Porcine) (Heparin Inj) UNSCH PRN .XX WITH DIALYSIS Last administered on 03/13/18at 12:27; Start 03/09/18 at 13:15 Gentamicin Sulfate (Gentamicin Inj) 20 mg UNSCH PRN OTHER WITH DIALYSIS Last administered on 03/13/18at 12:28; Start 03/09/18 at 13:15 Ondansetron HCl (Zofran Odt) 4 mg UNSCH PRN PO WITH DIALYSIS; Start 03/09/18 at 13:15 Acetaminophen (Tylenol) 650 mg UNSCH PRN PO for headach, pain, temp > 101F; Start 03/09/18 at 13:15 Diphenhydramine HCl (Benadryl) 25 mg UNSCH PRN PO for hives/itching/anaphylaxis ; Start 03/09/18 at 13:15 Nitroglycerin (Nitrostat Sl) 0.4 mg UNSCH PRN SL CHEST PAIN; Start 03/09/18 at 13:15 Clonidine (Catapres) 0.1 mg UNSCH PRN PO for BP > 180/100 X 2 readings Last administered on 03/11/18at 23:40; Start 03/09/18 at 13:15 Epoetin Jordan (Epogen Inj) 10,000 units UNSCH PRN IV PUSH WITH DIALYSIS Last administered on 03/13/18at 12:28; Start 03/09/18 at 13:15 Gelatin (Gelfoam 12 Mm/7 Mm Top) 1 foam UNSCH PRN TOP SEE LABEL COMMENTS; Start 03/09/18 at 13:15 Heparin Sodium (Porcine) (*HEPARIN INJ Periprocedural ONLY) 10,000 units STK- MED ONCE .ROUTE Last administered on 03/09/18 16:35; Start 03/09/18 at 15:45; Stop 03/09/18 at 15:46; Status DC Lidocaine/ Epinephrine (Xylocaine-Epi 1%-1:100,000 Inj) 30 ml STK-MED ONCE .ROUTE Last administered on 03/09/18at 16:28; Start 03/09/18 at 15:45; Stop at 15:46; Status DC Midazolam HCl (Versed Inj) 5 mg STK-MED ONCE .ROUTE Last administered on 15:52; Start 03/09/18 at 15:52; Stop 03/09/18 at 15:53; Status DC Fentanyl Citrate (fentaNYL INJ) 250 mcg STK-MED ONCE .ROUTE Last administered on 03/09/18 15:52; Start 03/09/18 at 15:52; Stop 03/09/18 at 15:53; Status DC Sodium Chloride (NS Flush) UNSCH PRN IV FLUSH SEE PROTOCOL; Start 03/09/18 at 16:45 Heparin Sodium (Porcine) (Heparin Inj) UNSCH PRN IV FLUSH SEE PROTOCOL; Start 03/09/18 at 16:45 Hydralazine HCl (Apresoline) 25 mg ONCE ONCE PO Last administered on 03/10/18at 07:21; Start 03/10/18 at 06:45; Stop 03/10/18 at 06:46; Status DC Metoprolol Tartrate (Lopressor) 100 mg BID PO Last administered on 03/12/18at 20 :30; Start 03/10/18 at 21:00; Stop 03/13/18 at 10:17; Status DC Hydralazine HCl (Apresoline) 50 mg Q8HR PO Last administered on 03/12/18at 12:37 ; Start 03/11/18 at 14:00; Stop 03/12/18 at 14:17; Status DC Insulin Detemir (Levemir Inj) 10 units DAILY SQ Last administered on 03/12/18at 08:03; Start 03/11/18 at 13:30 Hydralazine HCl (Apresoline) 100 mg Q8HR PO Last administered on 03/14/18at 06: 06; Start 03/12/18 at 22:00 Labetalol HCl (Trandate) 100 mg Q12HR PO Last administered on 03/14/18at 08:45; Start 03/13/18 at 21:00 Calcium Gluconate 2 gm/Dextrose 120 ml @ 120 mls/hr ONCE ONCE IV Last administered on 03/13/18at 15:01; Start 03/13/18 at 15:00; Stop 03/13/18 at 15:59 ; Status DC Sodium Chloride 1,000 ml @ 30 mls/hr Q24H IV Last administered on 03/13/18at 15 :01; Start 03/13/18 at 13:40 Sodium Chloride (NS Flush) 2 ml BID IV FLUSH ; Start 03/13/18 at 21:00; Stop 09/18 at 21:00; Status DC Sodium Chloride (NS Flush) 2 ml UNSCH PRN IV FLUSH FLUSH AFTER USING IV ACCESS ; Start 03/13/18 at 13:45; Stop 03/13/18 at 14:01; Status DC Calcium Carbonate (Oscal) 500 mg Q12HR PO ; Start 03/14/18 at 21:00 Lidocaine/ Epinephrine (Xylocaine-Epi 1%-1:100,000 Inj) 20 ml STK-MED ONCE .ROUTE ; Start 03/14/18 at 11:21; Stop 03/14/18 at 11:22; Status DC Fentanyl Citrate (fentaNYL INJ) 200 mcg STK-MED ONCE .ROUTE Last administered on 03/14/18at 11:56; Start 03/14/18 at 11:56; Stop 03/14/18 at 11:57; Status DC Midazolam HCl (Versed Inj) 4 mg STK-MED ONCE .ROUTE Last administered on at 11:57; Start 03/14/18 at 11:57; Stop 03/14/18 at 11:58; Status DC A/P Assessment and Plan Acute nonoliguric renal failure Creatinine 2016 was 1.3, creatinine currently over 8. Nephrology consult appreciated. - dialysis per nephrology. - avoid nephrotoxins. - follow BMP and urine output. - Kidney biopsy scheduled for 03/14/2018. Hypoglycemia/ DM Seems to be resolved. A1c is 6.6%. Secondary to home meds. - d/c glyburide and metformin. - continue sliding scale insulin. Added Levemir 10 units daily. Adjust as needed. Hypertensive urgency Blood pressure poorly controlled. Benazepril and hydrochlorothiazide discontinued secondary to renal failure. - continue Norvasc. Hydralazine increased. Metoprolol switched to labetalol, which will need to be uptitrated over the next few days. - clonidine as needed. - follow up with nephrology. Anemia Possibly s/t renal disease. - follow CBC and transfuse as needed. DVT prophylaxis: Heparin Discharge Planning Clearance by nephrology with possible need for outpatient hemodialysis Omero Hidalgo DO Mar 14, 2018 15:22
[2018-03-14] MEDS: CALCIUM CARBONATE 1.25 GM (CA 500 MG) TAB PO SCH (21:37)
[2018-03-15] VITALS: BP 200/88; PULSE 91; RESP 18; TEMP 98.3; O2SAT 96
[2018-03-15] MEDS: HEPARIN SODIUM - SQ 10,000 UNITS/ML VIAL SQ SCH ×3 (02:29→16:00)
[2018-03-15] MEDS: hydrALAZINE HCL 50 MG TAB PO SCH ×3 (04:33→20:41)
[2018-03-15 05:26] LABS: AUTOMATED NEUTROPHIL # 7.7 TH/MM3 (1.8-7.7); BASOPHIL % 0.2 % (0.0-2.0); EOSINOPHIL # 0.2 TH/MM3 (0-0.4); EOSINOPHIL % 1.5 % (0.0-4.0); HEMATOCRIT 22.9 % (35.0-46.0); HEMOGLOBIN 7.1 GM/DL (11.6-15.3); LYMPH % 19.5 % (9.0-44.0); LYMPHOCYTE # 2.2 TH/MM3 (1.0-4.8); MEAN CELL VOLUME 66.2 FL (80.0-100.0); MEAN CORPUSCULAR HEMOGLOBIN 20.4 PG (27.0-34.0); MEAN CORPUSCULAR HGB CONC 30.8 % (32.0-36.0); MEAN PLATELET VOLUME 8.6 FL (7.0-11.0); NEUT % 69.8 % (16.0-70.0); PLATELET COUNT 224 TH/MM3 (150-450); RED BLOOD COUNT 3.47 MIL/MM3 (4.00-5.30); WHITE BLOOD COUNT 11.1 TH/MM3 (4.0-11.0)
[2018-03-15 05:54] LABS: ALBUMIN 2.3 GM/DL (3.4-5.0); ALT (GPT) 9 U/L (10-53); AST (GOT) 8 U/L (15-37); BICARBONATE 24.6 MEQ/L (21.0-32.0); BLOOD UREA NITROGEN 36 MG/DL (7-18); CALCIUM 7.3 MG/DL (8.5-10.1); CHLORIDE 100 MEQ/L (98-107); CREATININE 6.79 MG/DL (0.50-1.00); GLOMERULAR FILTRATION RATE 7 ML/MIN (>89); GLUCOSE,RANDOM 234 MG/DL (74-106); MAGNESIUM 1.9 MG/DL (1.5-2.5); SODIUM (NA) 139 MEQ/L (136-145)
[2018-03-15 05:59] LABS: ALKALINE PHOSPHATASE 93 U/L (45-117); CALCIUM-PROTEIN CORRECTED 7.7 MG/DL (8.5-10.1); FREE T4 1.22 NG/DL (0.76-1.46); TOTAL BILIRUBIN ADULT 0.2 MG/DL (0.2-1.0); TOTAL PROTEIN 6.3 GM/DL (6.4-8.2)
[2018-03-15 08:00] VITALS: BP_SYST 180; BP_SYST 202; BP_DIAS 90; BP_DIAS 91; PULSE 90; RESP 18; TEMP 98.9; O2SAT 93
[2018-03-15] MEDS: INSULIN ASPART SUPPLEMENTAL SCALE SQ SCH ×4 (08:00→21:00)
[2018-03-15] MEDS: INSULIN DETEMIR 100 UNITS/ML VIAL SQ SCH (08:46)
[2018-03-15] MEDS: GENTAMICIN SULFATE 20 MG/2 ML VIAL OTHER PRN (11:12)
[2018-03-15] MEDS: EPOETIN ALFA 10,000 UNITS/ML VIAL IV PUSH PRN (11:13)
[2018-03-15] MEDS: HEPARIN SODIUM - IV 10,000 UNITS/10 ML VIAL PRN (11:13)
--- NOTE | 2018-03-15 12:15 | HHI.PR ---
Subjective Remarks 6-13 PATIENT HAD KIDNEY BIOPSY TODAY DW RN AND PT AND FAMILY AND CM NO NEW COMPLAINTS 6-14 seen in HD NO NEW COMPLAINTS AWAIT BIOPSY RESULTS AND PATIENT BEING ASSIGNED TO A HD CENTER HEPATITIS PANEL IS NEGATIVE CXR IS NEGATIVE AND STABLE DW RN AND PT AND CM Objective Vitals Vital Signs Date Time Temp Pulse Resp B/P (MAP) Pulse Ox O2 Delivery O2 Flow Rate FiO2 03/15/18 08:00 98.9 90 18 180/90 (120) 93 202/91 (128) 03/15/18 00:00 98.3 91 18 200/88 (125) 96 03/14/18 20:00 99.0 91 17 203/92 (129) 96 03/14/18 16:03 98.7 85 18 166/74 (104) 98 03/14/18 14:05 78 20 156/62 (93) 94 03/14/18 13:35 81 20 171/67 (101) 94 03/14/18 13:05 81 20 170/77 (108) 92 03/14/18 12:50 98.3 85 20 168/88 (114) 93 I/O 03/14/18 03/14/18 03/14/18 03/15/18 03/15/18 03/15/18 06:59 14:59 22:59 06:59 14:59 22:59 Intake Total 450 ml 720 ml Output Total 10 ml 1000 ml Balance 440 ml 720 ml -1000 ml Intake Oral 450 ml 480 ml IV Total 240 ml Output Urine Total 10 ml 1000 ml # Voids 1 1 # Bowel Movements 0 3 Result Diagram: 03/15/18 0445 03/15/185 Other Results Laboratory Tests Test 03/13/18 04:22 03/13/18 16:30 03/14/18 06:38 03/14/18 13:15 White Blood Count 11.2 TH/MM3 10.8 TH/MM3 9.9 TH/MM3 Red Blood Count 3.59 MIL/MM3 3.63 MIL/MM3 3.61 MIL/MM3 Hemoglobin 7.4 GM/DL 7.6 GM/DL 7.5 GM/DL Hematocrit 23.5 % 23.9 % 23.8 % Mean Corpuscular Volume 65.6 FL 65.9 FL 66.0 FL Mean Corpuscular Hemoglobin 20.6 PG 21.0 PG 20.6 PG Mean Corpuscular Hemoglobin Concent 31.4 % 31.9 % 31.3 % Red Cell Distribution Width 16.3 % 15.8 % 15.9 % Platelet Count 222 TH/MM3 225 TH/MM3 237 TH/MM3 Mean Platelet Volume 8.3 FL 8.7 FL 8.6 FL Blood Urea Nitrogen 48 MG/DL 29 MG/DL Creatinine 7.04 MG/DL 5.52 MG/DL Random Glucose 176 MG/DL 217 MG/DL Total Protein 6.5 GM/DL Calcium Level 6.8 MG/DL 7.5 MG/DL Magnesium Level 1.8 MG/DL 1.7 MG/DL Sodium Level 139 MEQ/L 138 MEQ/L Potassium Level 3.8 MEQ/L 3.4 MEQ/L Chloride Level 104 MEQ/L 98 MEQ/L Carbon Dioxide Level 23.5 MEQ/L 27.3 MEQ/L Anion Gap 12 MEQ/L 13 MEQ/L Estimat Glomerular Filtration Rate 7 ML/MIN 9 ML/MIN Protein Corrected Calcium 7.1 MG/DL Prothrombin Time 9.8 SEC Prothromb Time International Ratio 1.0 RATIO Activated Partial Thromboplast Time 26.8 SEC Neutrophils (%) (Auto) 72.2 % Lymphocytes (%) (Auto) 17.5 % Monocytes (%) (Auto) 8.7 % Eosinophils (%) (Auto) 1.2 % Basophils (%) (Auto) 0.4 % Neutrophils # (Auto) 7.2 TH/MM3 Lymphocytes # (Auto) 1.7 TH/MM3 Monocytes # (Auto) 0.9 TH/MM3 Eosinophils # (Auto) 0.1 TH/MM3 Basophils # (Auto) 0.0 TH/MM3 CBC Comment DIFF FINAL Differential Comment Test 03/14/18 14:40 03/15/18 04:45 White Blood Count 9.4 TH/MM3 11.1 TH/MM3 Red Blood Count 3.60 MIL/MM3 3.47 MIL/MM3 Hemoglobin 7.4 GM/DL 7.1 GM/DL Hematocrit 23.8 % 22.9 % Mean Corpuscular Volume 66.1 FL 66.2 FL Mean Corpuscular Hemoglobin 20.5 PG 20.4 PG Mean Corpuscular Hemoglobin Concent 31.1 % 30.8 % Red Cell Distribution Width 16.3 % 16.0 % Platelet Count 228 TH/MM3 224 TH/MM3 Mean Platelet Volume 8.4 FL 8.6 FL Neutrophils (%) (Auto) 74.4 % 69.8 % Lymphocytes (%) (Auto) 15.8 % 19.5 % Monocytes (%) (Auto) 8.2 % 9.0 % Eosinophils (%) (Auto) 1.0 % 1.5 % Basophils (%) (Auto) 0.6 % 0.2 % Neutrophils # (Auto) 7.0 TH/MM3 7.7 TH/MM3 Lymphocytes # (Auto) 1.5 TH/MM3 2.2 TH/MM3 Monocytes # (Auto) 0.8 TH/MM3 1.0 TH/MM3 Eosinophils # (Auto) 0.1 TH/MM3 0.2 TH/MM3 Basophils # (Auto) 0.1 TH/MM3 0.0 TH/MM3 CBC Comment DIFF FINAL DIFF FINAL Differential Comment Blood Urea Nitrogen 36 MG/DL Creatinine 6.79 MG/DL Random Glucose 234 MG/DL Total Protein 6.3 GM/DL Albumin 2.3 GM/DL Calcium Level 7.3 MG/DL Phosphorus Level 4.0 MG/DL Magnesium Level 1.9 MG/DL Alkaline Phosphatase 93 U/L Aspartate Amino Transf (AST/SGOT) 8 U/L Alanine Aminotransferase (ALT/SGPT) 9 U/L Total Bilirubin 0.2 MG/DL Sodium Level 139 MEQ/L Potassium Level 3.5 MEQ/L Chloride Level 100 MEQ/L Carbon Dioxide Level 24.6 MEQ/L Anion Gap 14 MEQ/L Estimat Glomerular Filtration Rate 7 ML/MIN Protein Corrected Calcium 7.7 MG/DL Free Thyroxine 1.22 NG/DL Thyroid Stimulating Hormone 3rd Gen 5.330 uIU/ML Imaging Last Impressions Renal Biopsy CT 03/14/18 Signed Impressions: CONCLUSION: 1. Uncomplicated CT guided biopsy. Chest X-Ray 03/13/18 Signed Impressions: CONCLUSION: 1. No acute cardiopulmonary disease. 2. Degenerative changes throughout the thoracic spine. Catheter Placement X-Ray 03/09/18 Signed Impressions: CONCLUSION: 1. Uncomplicated PermaCath placement as above. Renal Ultrasound 03/08/18 Signed Impressions: CONCLUSION: Echogenic kidneys. No hydronephrosis. Objective Remarks GENERAL: Awake alert and oriented 3 talkative and cooperative SKIN: Warm and dry. HEAD: Atraumatic. Normocephalic. EYES: Pupils equal and round. No scleral icterus. No injection or drainage. Extraocular muscles intact tongue is midline ENT: No nasal bleeding or discharge. Mucous membranes pink and moist. Tongue is midline NECK: Trachea midline. No JVD. Right side IJ hemodialysis catheter CARDIOVASCULAR: Regular rate and rhythm. S1-S2 no S3-S4 no heave no thrill no murmur no rubs or gallops RESPIRATORY: No accessory muscle use. Clear to auscultation. Breath sounds equal bilaterally. GASTROINTESTINAL: Abdomen soft, non-tender, nondistended. Hepatic and splenic margins not palpable. MUSCULOSKELETAL: Extremities without clubbing, cyanosis, or edema. No obvious deformities. NEUROLOGICAL: Awake and alert. No obvious cranial nerve deficits. Motor grossly within normal limits. Five out of 5 muscle strength in the arms and legs. Normal speech. PSYCHIATRIC: Appropriate mood and affect; insight and judgment normal. Procedures RIGHT IJ HD CATHETER 6- KIDNEY BIOPSY 03-14 Medications and IVs Current Medications Sodium Chloride 500 ml @ 500 mls/hr BOLUS ONCE IV Last administered on at 14:40; Start 03/08/18 at 14:45; Stop 03/08/18 at 15:20; Status DC Sodium Chloride 1,000 ml @ 100 mls/hr Q10H IV Last administered on 03/08/18at 14 :40; Start 03/08/18 at 14:45; Stop 03/08/18 at 15:20; Status DC Sodium Chloride (NS Flush) 2 ml UNSCH PRN IV FLUSH FLUSH AFTER USING IV ACCESS ; Start 03/08/18 at 15:15 Sodium Chloride (NS Flush) 2 ml BID IV FLUSH Last administered on 03/14/18at 21: 00; Start 03/08/18 at 21:00 Heparin Sodium (Porcine) (Heparin Inj) 5,000 units Q12H SQ Last administered on 03/13/18at 05:01; Start 03/08/18 at 16:00 Naloxone HCl (Narcan Inj) 0.4 mg UNSCH PRN IV PUSH SEE LABEL COMMENTS; Start at 15:15 Senna/Docusate Sodium (Vanessa-Colace) 1 tab BID PO Last administered on at 22:45; Start 03/08/18 at 21:00 Magnesium Hydroxide (Milk Of Magnesia Liq) 30 ml Q12H PRN PO Mild constipation ; Start 03/08/18 at 15:15 Sennosides (Senokot) 17.2 mg Q12H PRN PO Moderate constipation; Start 03/08/18 at 15:15 Bisacodyl (Dulcolax Supp) 10 mg DAILY PRN RECTAL SEVERE CONSITIPATION; Start at 15:15 Lactulose (Lactulose Liq) 30 ml DAILY PRN PO SEVERE CONSITIPATION; Start at 15:15 Dextrose/Sodium Chloride 1,000 ml @ 84 mls/hr [id number] IV Last administered on 03/10/18at 04:01; Start 03/08/18 at 15:15; Stop 03/10/18 at 14:52; Status DC Clonidine (Catapres) 0.1 mg Q6H PRN PO SYS BP GREATER THAN 160 MMHG Last administered on 03/09/18 06:17; Start 03/08/18 at 16:30; Stop 03/09/18 at 11:17; Status DC Amlodipine Besylate (Norvasc) 10 mg DAILY PO Last administered on 03/14/18at 08: 45; Start 03/08/18 at 16:30 Dextrose (D50w (Vial) Inj) 50 ml UNSCH PRN IV PUSH HYPOGLYCEMIA-SEE COMMENTS; Start 03/08/18 at 16:30 Glucagon (Glucagon Inj) 1 mg UNSCH PRN OTHER HYPOGLYCEMIA-SEE COMMENTS; Start 03/08/18 at 16:30 Metoprolol Tartrate (Lopressor) 100 mg DAILY PO Last administered on 03/10/18at 08:43; Start 03/08/18 at 16:30; Stop 03/10/18 at 14:52; Status DC Pravastatin Sodium (Pravachol) 40 mg DAILY PO Last administered on 03/14/18at 08 :45; Start 03/08/18 at 16:30 Insulin Aspart (NovoLOG SUPPLEMENTAL SCALE) 1 ACHS SLIDING SCALE SQ Last administered on 03/14/18at 21:39; Start 03/09/18 at 12:00 Sodium Bicarbonate (Sodium Bicarbonate) 650 mg Q12HR PO Last administered on at 21:38; Start 03/09/18 at 11:15 Calcium Gluconate 2 gm/Dextrose 120 ml @ 120 mls/hr ONCE ONCE IV Last administered on 03/09/18at 11:40; Start 03/09/18 at 11:15; Stop 03/09/18 at 12:14; Status DC Ceftriaxone Sodium 1000 mg/ Sodium Chloride 100 ml @ 200 mls/hr Q24H IV Last administered on 03/10/18at 12:51; Start 03/09/18 at 12:00; Stop 03/10/18 at 14:53; Status DC Iron Sucrose 200 mg/Sodium Chloride 110 ml @ 110 mls/hr DAILY IV Last administered on 03/11/18at 09:49; Start 03/09/18 at 11:15; Stop 03/11/18 at 09:59 ; Status DC Hydralazine HCl (Apresoline) 25 mg Q8HR PO Last administered on 03/11/18at 05:31 ; Start 03/09/18 at 14:00; Stop 03/11/18 at 12:07; Status DC Clonidine (Catapres) 0.1 mg Q6H PRN PO SBP> OR = 180, DBP> OR = 100 Last administered on 03/13/18at 19:02; Start 03/09/18 at 11:15 Sodium Chloride 1,000 ml @ 0 mls/hr Q0M PRN OTHER For Prime & Rinse Back; Start 03/09/18 at 13:14 Heparin Sodium (Porcine) (Heparin Inj) 8,000 units UNSCH PRN IV FLUSH WITH DIALYSIS Last administered on 03/09/18at 18:59; Start 03/09/18 at 13:15 Sodium Chloride 1,000 ml @ 200 mls/hr Q5H PRN IV WITH DIALYSIS Last administered on 03/10/18at 10:34; Start 03/09/18 at 13:14 Sodium Chloride 1,000 ml @ 0 mls/hr Q0M PRN OTHER WITH DIALYSIS; Start 03/09/18 at 13:14 Mannitol (Mannitol Inj) 12.5 gm UNSCH PRN IV WITH DIALYSIS; Start 03/09/18 at 13 :15 Albumin Human 100 ml @ 60 mls/hr UNSCH PRN IV WITH DIALYSIS; Start 03/09/18 at 13:15 Sodium Chloride (NS Flush) 5 ml UNSCH PRN IV FLUSH WITH DIALYSIS; Start at 13:15 Heparin Sodium (Porcine) (Heparin Inj) UNSCH PRN .XX WITH DIALYSIS Last administered on 03/15/18at 11:13; Start 03/09/18 at 13:15 Gentamicin Sulfate (Gentamicin Inj) 20 mg UNSCH PRN OTHER WITH DIALYSIS Last administered on 03/15/18at 11:12; Start 03/09/18 at 13:15 Ondansetron HCl (Zofran Odt) 4 mg UNSCH PRN PO WITH DIALYSIS; Start 03/09/18 at 13:15 Acetaminophen (Tylenol) 650 mg UNSCH PRN PO for headach, pain, temp > 101F; Start 03/09/18 at 13:15 Diphenhydramine HCl (Benadryl) 25 mg UNSCH PRN PO for hives/itching/anaphylaxis ; Start 03/09/18 at 13:15 Nitroglycerin (Nitrostat Sl) 0.4 mg UNSCH PRN SL CHEST PAIN; Start 03/09/18 at 13:15 Clonidine (Catapres) 0.1 mg UNSCH PRN PO for BP > 180/100 X 2 readings Last administered on 03/11/18at 23:40; Start 03/09/18 at 13:15 Epoetin Jrodan (Epogen Inj) 10,000 units UNSCH PRN IV PUSH WITH DIALYSIS Last administered on 03/15/18at 11:13; Start 03/09/18 at 13:15 Gelatin (Gelfoam 12 Mm/7 Mm Top) 1 foam UNSCH PRN TOP SEE LABEL COMMENTS; Start 03/09/18 at 13:15 Heparin Sodium (Porcine) (*HEPARIN INJ Periprocedural ONLY) 10,000 units STK- MED ONCE .ROUTE Last administered on 03/09/18at 16:35; Start 03/09/18 at 15:45; Stop 03/09/18 at 15:46; Status DC Lidocaine/ Epinephrine (Xylocaine-Epi 1%-1:100,000 Inj) 30 ml STK-MED ONCE .ROUTE Last administered on 03/09/18 16:28; Start 03/09/18 at 15:45; Stop at 15:46; Status DC Midazolam HCl (Versed Inj) 5 mg STK-MED ONCE .ROUTE Last administered on at 15:52; Start 03/09/18 at 15:52; Stop 03/09/18 at 15:53; Status DC Fentanyl Citrate (fentaNYL INJ) 250 mcg STK-MED ONCE .ROUTE Last administered on 03/09/18at 15:52; Start 03/09/18 at 15:52; Stop 03/09/18 at 15:53; Status DC Sodium Chloride (NS Flush) UNSCH PRN IV FLUSH SEE PROTOCOL; Start 03/09/18 at 16:45 Heparin Sodium (Porcine) (Heparin Inj) UNSCH PRN IV FLUSH SEE PROTOCOL; Start 03/09/18 at 16:45 Hydralazine HCl (Apresoline) 25 mg ONCE ONCE PO Last administered on 03/10/18at 07:21; Start 03/10/18 at 06:45; Stop 03/10/18 at 06:46; Status DC Metoprolol Tartrate (Lopressor) 100 mg BID PO Last administered on 03/12/18at 20 :30; Start 03/10/18 at 21:00; Stop 03/13/18 at 10:17; Status DC Hydralazine HCl (Apresoline) 50 mg Q8HR PO Last administered on 03/12/18at 12:37 ; Start 03/11/18 at 14:00; Stop 03/12/18 at 14:17; Status DC Insulin Detemir (Levemir Inj) 10 units DAILY SQ Last administered on 03/12/18at 08:03; Start 03/11/18 at 13:30 Hydralazine HCl (Apresoline) 100 mg Q8HR PO Last administered on 03/14/18at 21: 38; Start 03/12/18 at 22:00 Labetalol HCl (Trandate) 100 mg Q12HR PO Last administered on 03/14/18at 21:37; Start 03/13/18 at 21:00 Calcium Gluconate 2 gm/Dextrose 120 ml @ 120 mls/hr ONCE ONCE IV Last administered on 03/13/18at 15:01; Start 03/13/18 at 15:00; Stop 03/13/18 at 15:59 ; Status DC Sodium Chloride 1,000 ml @ 30 mls/hr Q24H IV Last administered on 03/13/18at 15 :01; Start 03/13/18 at 13:40; Stop 03/14/18 at 15:24; Status DC Sodium Chloride (NS Flush) 2 ml BID IV FLUSH ; Start 03/13/18 at 21:00; Stop 09/18 at 21:00; Status DC Sodium Chloride (NS Flush) 2 ml UNSCH PRN IV FLUSH FLUSH AFTER USING IV ACCESS ; Start 03/13/18 at 13:45; Stop 03/13/18 at 14:01; Status DC Calcium Carbonate (Oscal) 500 mg Q12HR PO Last administered on 03/14/18at 21:37 ; Start 03/14/18 at 21:00 Lidocaine/ Epinephrine (Xylocaine-Epi 1%-1:100,000 Inj) 20 ml STK-MED ONCE .ROUTE ; Start 03/14/18 at 11:21; Stop 03/14/18 at 11:22; Status DC Fentanyl Citrate (fentaNYL INJ) 200 mcg STK-MED ONCE .ROUTE Last administered on 03/14/18at 11:56; Start 03/14/18 at 11:56; Stop 03/14/18 at 11:57; Status DC Midazolam HCl (Versed Inj) 4 mg STK-MED ONCE .ROUTE Last administered on at 11:57; Start 03/14/18 at 11:57; Stop 03/14/18 at 11:58; Status DC A/P Assessment and Plan Acute nonoliguric renal failure Creatinine 2016 was 1.3, creatinine currently over 8. Nephrology consult appreciated. - dialysis per nephrology. - avoid nephrotoxins. - follow BMP and urine output. - Kidney biopsy scheduled for 03/14/2018. Hypoglycemia/ DM Seems to be resolved. A1c is 6.6%. Secondary to home meds. - d/c glyburide and metformin. - continue sliding scale insulin. Added Levemir 10 units daily. Adjust as needed. Hypertensive urgency Blood pressure poorly controlled. Benazepril and hydrochlorothiazide discontinued secondary to renal failure. - continue Norvasc. Hydralazine increased. Metoprolol switched to labetalol, which will need to be uptitrated over the next few days. - clonidine as needed. - follow up with nephrology. Anemia Possibly s/t renal disease. - follow CBC and transfuse as needed. MAY NEED TRANSFUSION IN FUTURE WILL NEED PLACEMENT IN HD CENTER WILL DEFER TO RENAL AND CASE MANAGEMENT FOR DC PLANNING DVT prophylaxis: Heparin Discharge Planning Clearance by nephrology with possible need for outpatient hemodialysis Omero Hidalgo DO Mar 15, 2018 12:15
[2018-03-15] MEDS: SODIUM CHLORIDE 0.9% FLUSH 10 ML FLUSH IV FLUSH SCH ×2 (12:44→20:45)
[2018-03-15] MEDS: LABETALOL HCL 100 MG TAB PO SCH ×2 (12:45→20:40)
[2018-03-15] MEDS: CALCIUM CARBONATE 1.25 GM (CA 500 MG) TAB PO SCH ×2 (12:45→20:40)
[2018-03-15] MEDS: DOCUSATE SODIUM 50 MG/SENNA 8.6 MG TAB PO SCH ×2 (12:45→20:41)
[2018-03-15] MEDS: PRAVASTATIN SOD 40 MG TAB PO SCH (12:45)
[2018-03-15] MEDS: SODIUM BICARBONATE 650 MG TAB PO SCH ×2 (12:45→20:40)
[2018-03-15 16:07] VITALS: BP 186/81; PULSE 94; RESP 18; TEMP 98; O2SAT 94
--- NOTE | 2018-03-15 16:25 | HHI.NPPN ---
Subjective History of Present Illness Patient is a 62-year-old female with history of hypertension, diabetes mellitus , and dyslipidemia. Presented to the emergency room with generalized weakness and hypoglycemia. Per patient, she has been in her usual health until March 02 when she was not able to eat most of the day and then developed slurred speech which resolved after orange juice. She then developed dizziness and was not able to get out of bed . Nephrology is consulted for elevated BUN and creatinine with a creatinine of 8.03 and potassium level of 4.4, HCO3 at18.0, and calcium level of 6.5. Also noted to have iron deficency anemia with HGB of 7.7 no obvious signs of bleeding. Blood pressure elevated with SBP in the 180' s. She has been on glyburide/metformin and hydrochlorothiazide which has been discontinued and IVF are infusing. No previous history of kidney disease. Creatinine noted to be 1.29 in 2016. So could possible have some chronic kidney disease. Additional Remarks Patient is alert, no SOB, has mild back pain, no hematuria. Review of Systems Respiratory Respiratory Remarks Denies SOB Cardiovascular Cardiac Remarks Denies chest pain Gastrointestinal GI Remarks Denies abdominal pain Objective Data Data 03/15/18 03/16/18 19:00 07:00 # Voids 1 Vital Signs Date Time Temp Pulse Resp B/P (MAP) Pulse Ox O2 Delivery O2 Flow Rate FiO2 03/15/18 16:07 98.0 94 18 186/81 (116) 94 Manual Cuff/Palpation 03/15/18 08:00 98.9 90 18 180/90 (120) 93 202/91 (128) 03/15/18 00:00 98.3 91 18 200/88 (125) 96 03/14/18 20:00 99.0 91 17 203/92 (129) 96 -: 03/15/18 0445 03/15/18 0445 Physical Exam General Appearance: No Acute Distress, Comfortable Pulmonary Resp Exam: Clear Bilaterally, Breath Sounds Equal, Decreased Bases Cardiology CV Exam: Regular Gastrointestinal/Abdomen GI Exam: Soft, Non-Tender Genitourinary Exam: Flank Non-Tender Integumentary Skin Exam: Clear, Warm Neurologic Neuro Exam: Moving All Extremities Psychiatric Psych Exam: Appropriate Responses Assessment/Plan Problem List: (1) Hypertension ICD Codes: I10 - Essential (primary) hypertension Plan: Continues to be Hypertensive with SBP in the 180's to 200's On metoprolol, norvasc, and hydralazine Hydralazine increased yesterday and labetolol added today. (2) Diabetes mellitus ICD Codes: E11.9 - Type 2 diabetes mellitus without complications Plan: Maintain blood sugar between 140mg/dl to 180mg/dl (3) Iron deficiency anemia ICD Codes: D50.9 - Iron deficiency anemia, unspecified Plan: monitoring (4) End stage kidney disease ICD Codes: N18.6 - End stage renal disease Plan: Patient came with very high BUN and Creatinine. The Creatinine in December 2015 was 1.26, Started on HD and Kidney Biopsy done 03/14. 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 Most likely has End stage renal disease. D/W the patient about PD and HD, She like to go for HD. Need AVF, and out patient HD arrangement. BP is elevated, increase Labetalol. Hgb. is low but stable. HD will be in AM. Slick Blanco MD Mar 15, 2018 16:25
[2018-03-15 17:33] LABS: HEMOGLOBIN A1C 6.7 % (4.3-6.0)
[2018-03-15] MEDS: cloNIDine HCL 0.1 MG TAB PO PRN (17:57)
[2018-03-15 20:00] VITALS: BP 174/73; PULSE 97; RESP 18; TEMP 99.2; O2SAT 95
--- NOTE | 2018-03-15 23:25 | RADRPT ---
EXAM DATE: 03/15/2018 11:19 PM EDT AGE/SEX: 62 years / Female INDICATIONS: Pre-op A/V Fistula. CLINICAL DATA: This is the patient's initial encounter. Patient reports that signs and symptoms have been present for 1 day and indicates a pain score of 0/10. MEDICAL/SURGICAL HISTORY: Hypercholesterolemia. Hypertension. Diabetes. None. COMPARISON: No prior exams available for comparison. MEASUREMENTS: CEPHALIC: Origin:__4 mm Mid-Arm:__2 mm Elbow:__3 mm Forearm:__2 mm Wrist:__2 mm BASILIC: Origin:__6 mm Mid-Arm:__5 mm Elbow:__5 mm ARTERIES: Brachial:__5 mm Ulnar:__3 mm Radial:__3 mm VEINS: Radial:__2 mm Ulnar:__2 mm FINDINGS: The venous system of the upper extremity is patent by color Doppler imaging. Measurements of the arm veins (in mm) are listed above. CONCLUSION: Venous mapping as delineated above. Electronically signed by: Constantin Ramirez MD 03/15/2018 11:24 PM EDT
--- NOTE | 2018-03-15 23:25 | RADRPT ---
EXAM DATE: 03/15/2018 11:16 PM EDT AGE/SEX: 62 years / Female INDICATIONS: Pre-Op A/V Fistula. CLINICAL DATA: This is the patient's initial encounter. Patient reports that signs and symptoms have been present for 1 day and indicates a pain score of 0/10. MEDICAL/SURGICAL HISTORY: Hypertension. Hypercholesterolemia. Diabetes. None. COMPARISON: No prior exams available for comparison. FINDINGS: The vessels are compressible and augmentation response is documented. No filling defects a re seen. The flow is phasic with respiration. Other: None. CONCLUSION: No left upper extremity venous thrombosis. Electronically signed by: Constantin Ramirez MD 03/15/2018 11:23 PM EDT
[2018-03-16] VITALS: BP 164/70; PULSE 86; RESP 18; TEMP 100.4; O2SAT 95
[2018-03-16 04:00] VITALS: BP 182/78; PULSE 78; RESP 18; TEMP 98.9; O2SAT 95
[2018-03-16] MEDS: HEPARIN SODIUM - SQ 10,000 UNITS/ML VIAL SQ SCH ×2 (05:10→16:24)
[2018-03-16] MEDS: hydrALAZINE HCL 50 MG TAB PO SCH ×3 (05:12→21:59)
[2018-03-16 08:00] VITALS: BP 195/85; PULSE 97; RESP 17; TEMP 98.9; O2SAT 97
[2018-03-16] MEDS: DOCUSATE SODIUM 50 MG/SENNA 8.6 MG TAB PO SCH ×2 (08:25→21:00)
[2018-03-16] MEDS: PRAVASTATIN SOD 40 MG TAB PO SCH (08:25)
[2018-03-16] MEDS: LABETALOL HCL 100 MG TAB PO SCH ×2 (08:25→21:00)
[2018-03-16] MEDS: cloNIDine HCL 0.1 MG TAB PO PRN (08:25)
[2018-03-16] MEDS: CALCIUM CARBONATE 1.25 GM (CA 500 MG) TAB PO SCH ×2 (08:25→21:00)
[2018-03-16] MEDS: SODIUM CHLORIDE 0.9% FLUSH 10 ML FLUSH IV FLUSH SCH ×2 (08:25→21:58)
[2018-03-16] MEDS: SODIUM BICARBONATE 650 MG TAB PO SCH ×2 (08:25→21:00)
[2018-03-16] MEDS: INSULIN ASPART SUPPLEMENTAL SCALE SQ SCH ×4 (08:29→21:00)
[2018-03-16] MEDS: INSULIN DETEMIR 100 UNITS/ML VIAL SQ SCH (08:29)
[2018-03-16 10:00] LABS: AUTOMATED NEUTROPHIL # 8.9 TH/MM3 (1.8-7.7); BASOPHIL # 0.1 TH/MM3 (0-0.2); BASOPHIL % 0.4 % (0.0-2.0); EOSINOPHIL # 0.2 TH/MM3 (0-0.4); EOSINOPHIL % 1.9 % (0.0-4.0); HEMATOCRIT 24.1 % (35.0-46.0); HEMOGLOBIN 7.5 GM/DL (11.6-15.3); LYMPH % 20.1 % (9.0-44.0); LYMPHOCYTE # 2.6 TH/MM3 (1.0-4.8); MEAN CELL VOLUME 65.9 FL (80.0-100.0); MEAN CORPUSCULAR HEMOGLOBIN 20.5 PG (27.0-34.0); MEAN CORPUSCULAR HGB CONC 31.1 % (32.0-36.0); MONO % 10.3 % (0.0-8.0); MONOCYTE # 1.4 TH/MM3 (0-0.9); NEUT % 67.3 % (16.0-70.0); PLATELET COUNT 264 TH/MM3 (150-450); RED BLOOD COUNT 3.65 MIL/MM3 (4.00-5.30); RED CELL DISTRIBUTION WIDTH 16.5 % (11.6-17.2); WHITE BLOOD COUNT 13.2 TH/MM3 (4.0-11.0)
--- NOTE | 2018-03-16 10:21 | HHI.NPPN ---
Subjective History of Present Illness Patient is a 62-year-old female with history of hypertension, diabetes mellitus , and dyslipidemia. Presented to the emergency room with generalized weakness and hypoglycemia. Per patient, she has been in her usual health until March 02 when she was not able to eat most of the day and then developed slurred speech which resolved after orange juice. She then developed dizziness and was not able to get out of bed . Nephrology is consulted for elevated BUN and creatinine with a creatinine of 8.03 and potassium level of 4.4, HCO3 at18.0, and calcium level of 6.5. Also noted to have iron deficency anemia with HGB of 7.7 no obvious signs of bleeding. Blood pressure elevated with SBP in the 180' s. She has been on glyburide/metformin and hydrochlorothiazide which has been discontinued and IVF are infusing. No previous history of kidney disease. Creatinine noted to be 1.29 in 2016. So could possible have some chronic kidney disease. Additional Remarks Patient is alert with no complaints. (Shahida Medrano) Review of Systems Respiratory Respiratory Remarks Denies SOB (Shahida Medrano) Cardiovascular Cardiac Remarks Denies chest pain (Shahida Medrano) Gastrointestinal GI Remarks Denies abdominal pain (Shahida Medrano) Objective Data Data Vital Signs Date Time Temp Pulse Resp B/P (MAP) Pulse Ox O2 Delivery O2 Flow Rate FiO2 03/16/18 08:00 98.9 97 17 195/85 (121) 97 03/16/18 04:00 98.9 78 18 182/78 (112) 95 03/16/18 00:00 100.4 86 18 164/70 (101) 95 03/15/18 20:00 99.2 97 18 174/73 (106) 95 03/15/18 16:07 98.0 94 18 186/81 (116) 94 Manual Cuff/Palpation (Shahida Medrano) -: 03/16/18 0705 03/15/18 0445 Imaging Last Impressions Upper Extremity Ultrasound 03/15/18 0000 Signed Impressions: CONCLUSION: No left upper extremity venous thrombosis. Renal Biopsy CT 03/14/18 0000 Signed Impressions: CONCLUSION: 1. Uncomplicated CT guided biopsy. Chest X-Ray 03/13/18 0000 Signed Impressions: CONCLUSION: 1. No acute cardiopulmonary disease. 2. Degenerative changes throughout the thoracic spine. Catheter Placement X-Ray 03/09/18 Signed Impressions: CONCLUSION: 1. Uncomplicated PermaCath placement as above. Renal Ultrasound 03/08/18 0000 Signed Impressions: CONCLUSION: Echogenic kidneys. No hydronephrosis. (Shahida Medrano. ITEM PROCESSING CLERK) Physical Exam General Appearance: No Acute Distress, Comfortable (SimeonlerShahida valentino. ITEM PROCESSING CLERK) Pulmonary Resp Exam: Clear Bilaterally, Breath Sounds Equal, Decreased Bases (GellerCamryn valentinone Rajat. ITEM PROCESSING CLERK) Cardiology CV Exam: Regular (SimeonlerShahida valentino. ITEM PROCESSING CLERK) Gastrointestinal/Abdomen GI Exam: Soft, Non-Tender (SimeonlerShahida valentino. ITEM PROCESSING CLERK) Genitourinary Exam: Flank Non-Tender (SimeonlerShahida valentino. ITEM PROCESSING CLERK) Integumentary Skin Exam: Clear, Warm (Shahida Medrano. ITEM PROCESSING CLERK) Neurologic Neuro Exam: Moving All Extremities (Shahida Medrano. ITEM PROCESSING CLERK) Psychiatric Psych Exam: Appropriate Responses (Shahida MedranoP) Assessment/Plan Problem List: (1) End stage kidney disease ICD Codes: N18.6 - End stage renal disease Plan: Patient came with very high BUN and Creatinine. The Creatinine in December 2015 was 1.26, Started on HD the and Kidney Biopsy done 03/14. 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 Most likely has End stage renal disease. D/W the patient about PD and HD, She like to go for HD. Case management consult for outpatient HD arrangement, Shandra Chavez consulted for AVF placement. Anemia continue Epogen with dialysis Hypocalcemia continue calcium carbonate Hemodialysis yesterday with UF of 2 liters Continue HD on /Mon CMP pending today (2) Hypertension ICD Codes: I10 - Essential (primary) hypertension Plan: Continues to be Hypertensive On metoprolol, norvasc, hydralazine, and labetalol Labetalol increased yesterday (3) Diabetes mellitus ICD Codes: E11.9 - Type 2 diabetes mellitus without complications Plan: Maintain blood sugar between 140mg/dl to 180mg/dl (4) Iron deficiency anemia ICD Codes: D50.9 - Iron deficiency anemia, unspecified Plan: monitoring (Shahida Medrano) Problem List: (1) End stage kidney disease ICD Codes: N18.6 - End stage renal disease Plan: Patient came with very high BUN and Creatinine. The Creatinine in December 2015 was 1.26, Started on HD the and Kidney Biopsy done 03/14. 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 Most likely has End stage renal disease. D/W the patient about PD and HD, She like to go for HD. Case management consult for outpatient HD arrangement, Shandra Chavez consulted for AVF placement. Anemia continue Epogen with dialysis Hypocalcemia continue calcium carbonate Hemodialysis yesterday with UF of 2 liters Continue HD on CMP pending today. Patient seen and examined, agree with above. Patient want to go for HD. Will need AVF and out patient HD arrangement. HD to continue TTS. (2) Hypertension ICD Codes: I10 - Essential (primary) hypertension Plan: Continues to be Hypertensive On metoprolol, norvasc, hydralazine, and labetalol Labetalol increased yesterday (3) Diabetes mellitus ICD Codes: E11.9 - Type 2 diabetes mellitus without complications Plan: Maintain blood sugar between 140mg/dl to 180mg/dl (4) Iron deficiency anemia ICD Codes: D50.9 - Iron deficiency anemia, unspecified Plan: monitoring (Slick Blanco MD) Shahida Medrano Mar 16, 2018 10:21 Slick Blanco MD Mar 17, 2018 12:17
[2018-03-16 12:11] VITALS: BP 164/74; PULSE 81; RESP 16; TEMP 98.3; O2SAT 96
--- NOTE | 2018-03-16 12:36 | PD.VS.PN ---
Subjective Subjective/Hospital Course Pt with ESRD recently on HD in need of access Discussed AVF creation process w/ pt, spouse and daughter Questions answered Arranged out pt f/u in 2W Appointment time and date was given to the pt Objective Vitals/I&O Date Time Temp Pulse Resp B/P (MAP) Pulse Ox O2 Delivery O2 Flow Rate FiO2 03/16/18 12:11 98.3 81 16 164/74 (104) 96 03/16/18 08:00 98.9 97 17 195/85 (121) 97 03/16/18 04:00 98.9 78 18 182/78 (112) 95 03/16/18 00:00 100.4 86 18 164/70 (101) 95 03/15/18 20:00 99.2 97 18 174/73 (106) 95 03/15/18 16:07 98.0 94 18 186/81 (116) 94 Manual Cuff/Palpation 03/16/18 03/16/18 03/16/18 07:00 15:00 23:00 Intake Total 200 ml Output Total 120 ml Balance 80 ml Laboratory Laboratory Tests Test 03/16/18 07:03 03/16/18 07:05 White Blood Count 13.2 Red Blood Count 3.65 Hemoglobin 7.5 Hematocrit 24.1 Mean Corpuscular Volume 65.9 Mean Corpuscular Hemoglobin 20.5 Mean Corpuscular Hemoglobin Concent 31.1 Red Cell Distribution Width 16.5 Platelet Count 264 Mean Platelet Volume 9.0 Neutrophils (%) (Auto) 67.3 Lymphocytes (%) (Auto) 20.1 Monocytes (%) (Auto) 10.3 Eosinophils (%) (Auto) 1.9 Basophils (%) (Auto) 0.4 Neutrophils # (Auto) 8.9 Lymphocytes # (Auto) 2.6 Monocytes # (Auto) 1.4 Eosinophils # (Auto) 0.2 Basophils # (Auto) 0.1 CBC Comment DIFF FINAL Differential Comment Date/Time Source Procedure Growth Status 03/08/18 14:45 Urine Random Urine Urine Culture - Final 50-100,000 CFU/ML MIXED EDIE... Complete Imaging Last 48 hours Impressions Upper Extremity Ultrasound 03/15/18 0000 Signed Impressions: CONCLUSION: No left upper extremity venous thrombosis. Upper Extremity Ultrasound 03/15/18 0000 Signed Impressions: CONCLUSION: Venous mapping as delineated above. Assessment and Plan Assessment: (1) End stage kidney disease Jenna Jean Mar 16, 2018 12:36
--- NOTE | 2018-03-16 13:01 | HHI.PR ---
Subjective Remarks 6-13 PATIENT HAD KIDNEY BIOPSY TODAY DW RN AND PT AND FAMILY AND CM NO NEW COMPLAINTS 6-14 seen in HD NO NEW COMPLAINTS AWAIT BIOPSY RESULTS AND PATIENT BEING ASSIGNED TO A HD CENTER HEPATITIS PANEL IS NEGATIVE CXR IS NEGATIVE AND STABLE DW RN AND PT AND CM 6-15 biopsy results came back will need HD ACCESS TOP LIFT CUTTER Biopsy result showing that patient has nodular sclerosis,with Glomerulosclerosis. Most likely has End stage renal disease VASCULAR HAS BEEN CONSULTED FOR HD ACCESS LABS STILL PENDING AT 1300 Objective Vitals Vital Signs Date Time Temp Pulse Resp B/P (MAP) Pulse Ox O2 Delivery O2 Flow Rate FiO2 03/16/18 12:11 98.3 81 16 164/74 (104) 96 03/16/18 08:00 98.9 97 17 195/85 (121) 97 03/16/18 04:00 98.9 78 18 182/78 (112) 95 03/16/18 00:00 100.4 86 18 164/70 (101) 95 03/15/18 20:00 99.2 97 18 174/73 (106) 95 03/15/18 16:07 98.0 94 18 186/81 (116) 94 Manual Cuff/Palpation I/O 03/15/18 03/15/18 03/15/18 03/16/18 03/16/18 03/16/18 07:00 15:00 23:00 07:00 15:00 23:00 Intake Total 200 ml Output Total 1000 ml 120 ml Balance -1000 ml 80 ml Intake Oral 200 ml Output Urine Total 1000 ml 120 ml # Voids 1 1 2 # Bowel Movements 1 Result Diagram: 03/16/18 0705 03/15/18 0445 Other Results Laboratory Tests Test 03/13/18 16:30 03/14/18 06:38 03/14/18 13:15 03/14/18 14:40 Prothrombin Time 9.8 SEC Prothromb Time International Ratio 1.0 RATIO Activated Partial Thromboplast Time 26.8 SEC White Blood Count 10.8 TH/MM3 9.9 TH/MM3 9.4 TH/MM3 Red Blood Count 3.63 MIL/MM3 3.61 MIL/MM3 3.60 MIL/MM3 Hemoglobin 7.6 GM/DL 7.5 GM/DL 7.4 GM/DL Hematocrit 23.9 % 23.8 % 23.8 % Mean Corpuscular Volume 65.9 FL 66.0 FL 66.1 FL Mean Corpuscular Hemoglobin 21.0 PG 20.6 PG 20.5 PG Mean Corpuscular Hemoglobin Concent 31.9 % 31.3 % 31.1 % Red Cell Distribution Width 15.8 % 15.9 % 16.3 % Platelet Count 225 TH/MM3 237 TH/MM3 228 TH/MM3 Mean Platelet Volume 8.7 FL 8.6 FL 8.4 FL Blood Urea Nitrogen 29 MG/DL Creatinine 5.52 MG/DL Random Glucose 217 MG/DL Calcium Level 7.5 MG/DL Magnesium Level 1.7 MG/DL Sodium Level 138 MEQ/L Potassium Level 3.4 MEQ/L Chloride Level 98 MEQ/L Carbon Dioxide Level 27.3 MEQ/L Anion Gap 13 MEQ/L Estimat Glomerular Filtration Rate 9 ML/MIN Neutrophils (%) (Auto) 72.2 % 74.4 % Lymphocytes (%) (Auto) 17.5 % 15.8 % Monocytes (%) (Auto) 8.7 % 8.2 % Eosinophils (%) (Auto) 1.2 % 1.0 % Basophils (%) (Auto) 0.4 % 0.6 % Neutrophils # (Auto) 7.2 TH/MM3 7.0 TH/MM3 Lymphocytes # (Auto) 1.7 TH/MM3 1.5 TH/MM3 Monocytes # (Auto) 0.9 TH/MM3 0.8 TH/MM3 Eosinophils # (Auto) 0.1 TH/MM3 0.1 TH/MM3 Basophils # (Auto) 0.0 TH/MM3 0.1 TH/MM3 CBC Comment DIFF FINAL DIFF FINAL Differential Comment Test 03/15/18 04:45 03/16/18 07:03 03/16/18 07:05 White Blood Count 11.1 TH/MM3 13.2 TH/MM3 Red Blood Count 3.47 MIL/MM3 3.65 MIL/MM3 Hemoglobin 7.1 GM/DL 7.5 GM/DL Hematocrit 22.9 % 24.1 % Mean Corpuscular Volume 66.2 FL 65.9 FL Mean Corpuscular Hemoglobin 20.4 PG 20.5 PG Mean Corpuscular Hemoglobin Concent 30.8 % 31.1 % Red Cell Distribution Width 16.0 % 16.5 % Platelet Count 224 TH/MM3 264 TH/MM3 Mean Platelet Volume 8.6 FL 9.0 FL Neutrophils (%) (Auto) 69.8 % 67.3 % Lymphocytes (%) (Auto) 19.5 % 20.1 % Monocytes (%) (Auto) 9.0 % 10.3 % Eosinophils (%) (Auto) 1.5 % 1.9 % Basophils (%) (Auto) 0.2 % 0.4 % Neutrophils # (Auto) 7.7 TH/MM3 8.9 TH/MM3 Lymphocytes # (Auto) 2.2 TH/MM3 2.6 TH/MM3 Monocytes # (Auto) 1.0 TH/MM3 1.4 TH/MM3 Eosinophils # (Auto) 0.2 TH/MM3 0.2 TH/MM3 Basophils # (Auto) 0.0 TH/MM3 0.1 TH/MM3 CBC Comment DIFF FINAL DIFF FINAL Differential Comment Blood Urea Nitrogen 36 MG/DL Creatinine 6.79 MG/DL Random Glucose 234 MG/DL Total Protein 6.3 GM/DL Albumin 2.3 GM/DL Calcium Level 7.3 MG/DL Phosphorus Level 4.0 MG/DL Magnesium Level 1.9 MG/DL Alkaline Phosphatase 93 U/L Aspartate Amino Transf (AST/SGOT) 8 U/L Alanine Aminotransferase (ALT/SGPT) 9 U/L Total Bilirubin 0.2 MG/DL Sodium Level 139 MEQ/L Potassium Level 3.5 MEQ/L Chloride Level 100 MEQ/L Carbon Dioxide Level 24.6 MEQ/L Anion Gap 14 MEQ/L Estimat Glomerular Filtration Rate 7 ML/MIN Hemoglobin A1c 6.7 % Protein Corrected Calcium 7.7 MG/DL Free Thyroxine 1.22 NG/DL Thyroid Stimulating Hormone 3rd Gen 5.330 uIU/ML Imaging Last Impressions Upper Extremity Ultrasound 03/15/18 Signed Impressions: CONCLUSION: No left upper extremity venous thrombosis. Renal Biopsy CT 03/14/18 Signed Impressions: CONCLUSION: 1. Uncomplicated CT guided biopsy. Chest X-Ray 03/13/18 Signed Impressions: CONCLUSION: 1. No acute cardiopulmonary disease. 2. Degenerative changes throughout the thoracic spine. Catheter Placement X-Ray 03/09/18 Signed Impressions: CONCLUSION: 1. Uncomplicated PermaCath placement as above. Renal Ultrasound 03/08/18 Signed Impressions: CONCLUSION: Echogenic kidneys. No hydronephrosis. Objective Remarks GENERAL: Awake alert and oriented 3 talkative and cooperative SKIN: Warm and dry. HEAD: Atraumatic. Normocephalic. EYES: Pupils equal and round. No scleral icterus. No injection or drainage. Extraocular muscles intact tongue is midline ENT: No nasal bleeding or discharge. Mucous membranes pink and moist. Tongue is midline NECK: Trachea midline. No JVD. Right side IJ hemodialysis catheter CARDIOVASCULAR: Regular rate and rhythm. S1-S2 no S3-S4 no heave no thrill no murmur no rubs or gallops RESPIRATORY: No accessory muscle use. Clear to auscultation. Breath sounds equal bilaterally. GASTROINTESTINAL: Abdomen soft, non-tender, nondistended. Hepatic and splenic margins not palpable. MUSCULOSKELETAL: Extremities without clubbing, cyanosis, or edema. No obvious deformities. NEUROLOGICAL: Awake and alert. No obvious cranial nerve deficits. Motor grossly within normal limits. Five out of 5 muscle strength in the arms and legs. Normal speech. PSYCHIATRIC: Appropriate mood and affect; insight and judgment normal. Procedures RIGHT IJ HD CATHETER 6- KIDNEY BIOPSY 6- Medications and IVs Current Medications Sodium Chloride 500 ml @ 500 mls/hr BOLUS ONCE IV Last administered on at 14:40; Start 03/08/18 at 14:45; Stop 03/08/18 at 15:20; Status DC Sodium Chloride 1,000 ml @ 100 mls/hr Q10H IV Last administered on 03/08/18at 14 :40; Start 03/08/18 at 14:45; Stop 03/08/18 at 15:20; Status DC Sodium Chloride (NS Flush) 2 ml UNSCH PRN IV FLUSH FLUSH AFTER USING IV ACCESS ; Start 03/08/18 at 15:15 Sodium Chloride (NS Flush) 2 ml BID IV FLUSH Last administered on 03/16/18at 08: 25; Start 03/08/18 at 21:00 Heparin Sodium (Porcine) (Heparin Inj) 5,000 units Q12H SQ Last administered on 03/16/18at 05:10; Start 03/08/18 at 16:00 Naloxone HCl (Narcan Inj) 0.4 mg UNSCH PRN IV PUSH SEE LABEL COMMENTS; Start at 15:15 Senna/Docusate Sodium (Vanessa-Colace) 1 tab BID PO Last administered on at 08:25; Start 03/08/18 at 21:00 Magnesium Hydroxide (Milk Of Magnesia Liq) 30 ml Q12H PRN PO Mild constipation ; Start 03/08/18 at 15:15 Sennosides (Senokot) 17.2 mg Q12H PRN PO Moderate constipation; Start 03/08/18 at 15:15 Bisacodyl (Dulcolax Supp) 10 mg DAILY PRN RECTAL SEVERE CONSITIPATION; Start at 15:15 Lactulose (Lactulose Liq) 30 ml DAILY PRN PO SEVERE CONSITIPATION; Start at 15:15 Dextrose/Sodium Chloride 1,000 ml @ 84 mls/hr [id number] IV Last administered on 03/10/18at 04:01; Start 03/08/18 at 15:15; Stop 03/10/18 at 14:52; Status DC Clonidine (Catapres) 0.1 mg Q6H PRN PO SYS BP GREATER THAN 160 MMHG Last administered on 03/09/18at 06:17; Start 03/08/18 at 16:30; Stop 03/09/18 at 11:17; Status DC Amlodipine Besylate (Norvasc) 10 mg DAILY PO Last administered on 03/16/18at 08: 25; Start 03/08/18 at 16:30 Dextrose (D50w (Vial) Inj) 50 ml UNSCH PRN IV PUSH HYPOGLYCEMIA-SEE COMMENTS; Start 03/08/18 at 16:30 Glucagon (Glucagon Inj) 1 mg UNSCH PRN OTHER HYPOGLYCEMIA-SEE COMMENTS; Start 03/08/18 at 16:30 Metoprolol Tartrate (Lopressor) 100 mg DAILY PO Last administered on 03/10/18at 08:43; Start 03/08/18 at 16:30; Stop 03/10/18 at 14:52; Status DC Pravastatin Sodium (Pravachol) 40 mg DAILY PO Last administered on 03/16/18at 08 :25; Start 03/08/18 at 16:30 Insulin Aspart (NovoLOG SUPPLEMENTAL SCALE) 1 ACHS SLIDING SCALE SQ Last administered on 03/16/18at 11:38; Start 03/09/18 at 12:00 Sodium Bicarbonate (Sodium Bicarbonate) 650 mg Q12HR PO Last administered on at 08:25; Start 03/09/18 at 11:15 Calcium Gluconate 2 gm/Dextrose 120 ml @ 120 mls/hr ONCE ONCE IV Last administered on 03/09/18at 11:40; Start 03/09/18 at 11:15; Stop 03/09/18 at 12:14; Status DC Ceftriaxone Sodium 1000 mg/ Sodium Chloride 100 ml @ 200 mls/hr Q24H IV Last administered on 03/10/18at 12:51; Start 03/09/18 at 12:00; Stop 03/10/18 at 14:53; Status DC Iron Sucrose 200 mg/Sodium Chloride 110 ml @ 110 mls/hr DAILY IV Last administered on 03/11/18at 09:49; Start 03/09/18 at 11:15; Stop 03/11/18 at 09:59 ; Status DC Hydralazine HCl (Apresoline) 25 mg Q8HR PO Last administered on 03/11/18at 05:31 ; Start 03/09/18 at 14:00; Stop 03/11/18 at 12:07; Status DC Clonidine (Catapres) 0.1 mg Q6H PRN PO SBP> OR = 180, DBP> OR = 100 Last administered on 03/16/18at 08:25; Start 03/09/18 at 11:15 Sodium Chloride 1,000 ml @ 0 mls/hr Q0M PRN OTHER For Prime & Rinse Back; Start 03/09/18 at 13:14 Heparin Sodium (Porcine) (Heparin Inj) 8,000 units UNSCH PRN IV FLUSH WITH DIALYSIS Last administered on 03/09/18at 18:59; Start 03/09/18 at 13:15 Sodium Chloride 1,000 ml @ 200 mls/hr Q5H PRN IV WITH DIALYSIS Last administered on 03/10/18at 10:34; Start 03/09/18 at 13:14 Sodium Chloride 1,000 ml @ 0 mls/hr Q0M PRN OTHER WITH DIALYSIS; Start 03/09/18 at 13:14 Mannitol (Mannitol Inj) 12.5 gm UNSCH PRN IV WITH DIALYSIS; Start 03/09/18 at 13 :15 Albumin Human 100 ml @ 60 mls/hr UNSCH PRN IV WITH DIALYSIS; Start 03/09/18 at 13:15 Sodium Chloride (NS Flush) 5 ml UNSCH PRN IV FLUSH WITH DIALYSIS; Start at 13:15 Heparin Sodium (Porcine) (Heparin Inj) UNSCH PRN .XX WITH DIALYSIS Last administered on 03/15/18 11:13; Start 03/09/18 at 13:15 Gentamicin Sulfate (Gentamicin Inj) 20 mg UNSCH PRN OTHER WITH DIALYSIS Last administered on 03/15/18 11:12; Start 03/09/18 at 13:15 Ondansetron HCl (Zofran Odt) 4 mg UNSCH PRN PO WITH DIALYSIS; Start 03/09/18 at 13:15 Acetaminophen (Tylenol) 650 mg UNSCH PRN PO for headach, pain, temp > 101F; Start 03/09/18 at 13:15 Diphenhydramine HCl (Benadryl) 25 mg UNSCH PRN PO for hives/itching/anaphylaxis ; Start 03/09/18 at 13:15 Nitroglycerin (Nitrostat Sl) 0.4 mg UNSCH PRN SL CHEST PAIN; Start 03/09/18 at 13:15 Clonidine (Catapres) 0.1 mg UNSCH PRN PO for BP > 180/100 X 2 readings Last administered on 03/11/18at 23:40; Start 03/09/18 at 13:15 Epoetin Jordan (Epogen Inj) 10,000 units UNSCH PRN IV PUSH WITH DIALYSIS Last administered on 03/15/18 11:13; Start 03/09/18 at 13:15 Gelatin (Gelfoam 12 Mm/7 Mm Top) 1 foam UNSCH PRN TOP SEE LABEL COMMENTS; Start 03/09/18 at 13:15 Heparin Sodium (Porcine) (*HEPARIN INJ Periprocedural ONLY) 10,000 units STK- MED ONCE .ROUTE Last administered on 03/09/18 16:35; Start 03/09/18 at 15:45; Stop 03/09/18 at 15:46; Status DC Lidocaine/ Epinephrine (Xylocaine-Epi 1%-1:100,000 Inj) 30 ml STK-MED ONCE .ROUTE Last administered on 03/09/18 16:28; Start 03/09/18 at 15:45; Stop at 15:46; Status DC Midazolam HCl (Versed Inj) 5 mg STK-MED ONCE .ROUTE Last administered on 15:52; Start 03/09/18 at 15:52; Stop 03/09/18 at 15:53; Status DC Fentanyl Citrate (fentaNYL INJ) 250 mcg PanTheryxK-MED ONCE .ROUTE Last administered on 03/09/18at 15:52; Start 03/09/18 at 15:52; Stop 03/09/18 at 15:53; Status DC Sodium Chloride (NS Flush) UNSCH PRN IV FLUSH SEE PROTOCOL; Start 03/09/18 at 16:45 Heparin Sodium (Porcine) (Heparin Inj) UNSCH PRN IV FLUSH SEE PROTOCOL; Start 03/09/18 at 16:45 Hydralazine HCl (Apresoline) 25 mg ONCE ONCE PO Last administered on 03/10/18at 07:21; Start 03/10/18 at 06:45; Stop 03/10/18 at 06:46; Status DC Metoprolol Tartrate (Lopressor) 100 mg BID PO Last administered on 03/12/18at 20 :30; Start 03/10/18 at 21:00; Stop 03/13/18 at 10:17; Status DC Hydralazine HCl (Apresoline) 50 mg Q8HR PO Last administered on 03/12/18at 12:37 ; Start 03/11/18 at 14:00; Stop 03/12/18 at 14:17; Status DC Insulin Detemir (Levemir Inj) 10 units DAILY SQ Last administered on 03/16/18at 08:29; Start 03/11/18 at 13:30 Hydralazine HCl (Apresoline) 100 mg Q8HR PO Last administered on 03/16/18at 12: 01; Start 03/12/18 at 22:00 Labetalol HCl (Trandate) 100 mg Q12HR PO Last administered on 03/15/18at 12:45; Start 03/13/18 at 21:00; Stop 03/15/18 at 16:25; Status DC Calcium Gluconate 2 gm/Dextrose 120 ml @ 120 mls/hr ONCE ONCE IV Last administered on 03/13/18at 15:01; Start 03/13/18 at 15:00; Stop 03/13/18 at 15:59 ; Status DC Sodium Chloride 1,000 ml @ 30 mls/hr Q24H IV Last administered on 03/13/18at 15 :01; Start 03/13/18 at 13:40; Stop 03/14/18 at 15:24; Status DC Sodium Chloride (NS Flush) 2 ml BID IV FLUSH ; Start 03/13/18 at 21:00; Stop 09/18 at 21:00; Status DC Sodium Chloride (NS Flush) 2 ml UNSCH PRN IV FLUSH FLUSH AFTER USING IV ACCESS ; Start 03/13/18 at 13:45; Stop 03/13/18 at 14:01; Status DC Calcium Carbonate (Oscal) 500 mg Q12HR PO Last administered on 03/16/18at 08:25 ; Start 03/14/18 at 21:00 Lidocaine/ Epinephrine (Xylocaine-Epi 1%-1:100,000 Inj) 20 ml STK-MED ONCE .ROUTE ; Start 03/14/18 at 11:21; Stop 03/14/18 at 11:22; Status DC Fentanyl Citrate (fentaNYL INJ) 200 mcg STK-MED ONCE .ROUTE Last administered on 03/14/18at 11:56; Start 03/14/18 at 11:56; Stop 03/14/18 at 11:57; Status DC Midazolam HCl (Versed Inj) 4 mg STK-MED ONCE .ROUTE Last administered on at 11:57; Start 03/14/18 at 11:57; Stop 03/14/18 at 11:58; Status DC Labetalol HCl (Trandate) 200 mg Q12HR PO Last administered on 03/16/18at 08:25; Start 03/15/18 at 21:00 A/P Assessment and Plan Acute nonoliguric renal failure Creatinine 2016 was 1.3, creatinine currently over 8. Nephrology consult appreciated. - dialysis per nephrology. - avoid nephrotoxins. - follow BMP and urine output. - Kidney biopsy scheduled for 03/14/2018. Hypoglycemia/ DM Seems to be resolved. A1c is 6.6%. Secondary to home meds. - d/c glyburide and metformin. - continue sliding scale insulin. Added Levemir 10 units daily. Adjust as needed. Hypertensive urgency Blood pressure poorly controlled. Benazepril and hydrochlorothiazide discontinued secondary to renal failure. - continue Norvasc. Hydralazine increased. Metoprolol switched to labetalol, which will need to be uptitrated over the next few days. - clonidine as needed. - follow up with nephrology. Anemia Possibly s/t renal disease. - follow CBC and transfuse as needed. MAY NEED TRANSFUSION IN FUTURE WILL NEED PLACEMENT IN HD CENTER WILL DEFER TO RENAL AND CASE MANAGEMENT FOR DC PLANNING DVT prophylaxis: Heparin Discharge Planning Clearance by nephrology with possible need for outpatient hemodialysis Omero Hidalgo DO Mar 16, 2018 13:01
[2018-03-16 14:14] LABS: ALBUMIN 2.5 GM/DL (3.4-5.0); AST (GOT) 9 U/L (15-37); BICARBONATE 25.9 MEQ/L (21.0-32.0); BLOOD UREA NITROGEN 26 MG/DL (7-18); CALCIUM 7.9 MG/DL (8.5-10.1); CHLORIDE 98 MEQ/L (98-107); CREATININE 5.45 MG/DL (0.50-1.00); GLOMERULAR FILTRATION RATE 10 ML/MIN (>89); MAGNESIUM 1.9 MG/DL (1.5-2.5); SODIUM (NA) 138 MEQ/L (136-145)
[2018-03-16 14:36] LABS: ALKALINE PHOSPHATASE 90 U/L (45-117); ALT (GPT) 8 U/L (10-53); GLUCOSE,RANDOM 187 MG/DL (74-106); PHOSPHORUS 2.5 MG/DL (2.5-4.9); TOTAL BILIRUBIN ADULT 0.2 MG/DL (0.2-1.0); TOTAL PROTEIN 6.5 GM/DL (6.4-8.2)
[2018-03-16 20:00] VITALS: BP 173/74; PULSE 88; RESP 18; TEMP 98.7; O2SAT 95
[2018-03-17] VITALS: BP 141/66; PULSE 80; RESP 18; TEMP 99.4; O2SAT 98
[2018-03-17] MEDS: HEPARIN SODIUM - SQ 10,000 UNITS/ML VIAL SQ SCH ×2 (03:48→18:11)
[2018-03-17 04:00] VITALS: BP 167/76; PULSE 76; RESP 18; TEMP 98.5; O2SAT 97
[2018-03-17] MEDS: hydrALAZINE HCL 50 MG TAB PO SCH ×3 (06:09→22:21)
[2018-03-17 08:00] VITALS: BP 173/81; PULSE 92; RESP 18; TEMP 99; O2SAT 98
[2018-03-17] MEDS: INSULIN ASPART SUPPLEMENTAL SCALE SQ SCH ×4 (08:00→22:23)
[2018-03-17] MEDS: PRAVASTATIN SOD 40 MG TAB PO SCH (08:47)
[2018-03-17] MEDS: CALCIUM CARBONATE 1.25 GM (CA 500 MG) TAB PO SCH ×2 (08:47→22:21)
[2018-03-17] MEDS: INSULIN DETEMIR 100 UNITS/ML VIAL SQ SCH (08:48)
[2018-03-17] MEDS: SODIUM CHLORIDE 0.9% FLUSH 10 ML FLUSH IV FLUSH SCH ×2 (08:53→22:23)
[2018-03-17] MEDS: SODIUM BICARBONATE 650 MG TAB PO SCH ×2 (08:53→22:21)
[2018-03-17] MEDS: LABETALOL HCL 100 MG TAB PO SCH ×2 (08:53→22:22)
[2018-03-17] MEDS: DOCUSATE SODIUM 50 MG/SENNA 8.6 MG TAB PO SCH ×2 (09:00→21:00)
--- NOTE | 2018-03-17 10:51 | HHI.PR ---
Subjective Remarks 6-13 PATIENT HAD KIDNEY BIOPSY TODAY DW RN AND PT AND FAMILY AND CM NO NEW COMPLAINTS 6-14 seen in HD NO NEW COMPLAINTS AWAIT BIOPSY RESULTS AND PATIENT BEING ASSIGNED TO A HD CENTER HEPATITIS PANEL IS NEGATIVE CXR IS NEGATIVE AND STABLE DW RN AND PT AND CM 6-15 biopsy results came back will need HD ACCESS STUDENT SUCCESS ADVISOR Biopsy result showing that patient has nodular sclerosis,with Glomerulosclerosis. Most likely has End stage renal disease VASCULAR HAS BEEN CONSULTED FOR HD ACCESS LABS STILL PENDING AT 1300 6-16 DW RN AND PT NEEDS TO BE SET UP FOR OUTPT HD HAS NOT BEEN SET UP YET CONTINUE TO MONITOR UNTIL CLEARED FOR DC Objective Vitals Vital Signs Date Time Temp Pulse Resp B/P (MAP) Pulse Ox O2 Delivery O2 Flow Rate FiO2 03/17/18 08:00 99.0 92 18 173/81 (111) 98 03/17/18 04:00 98.5 76 18 167/76 (106) 97 03/17/18 00:00 99.4 80 18 141/66 (91) 98 03/16/18 20:00 98.7 88 18 173/74 (107) 95 03/16/18 12:11 98.3 81 16 164/74 (104) 96 I/O 03/16/18 03/16/18 03/16/18 03/17/18 03/17/18 03/17/18 07:00 15:00 23:00 07:00 15:00 23:00 Intake Total 200 ml Output Total 120 ml 300 ml Balance 80 ml -300 ml Intake Oral 200 ml Output Urine Total 120 ml 300 ml # Voids 2 Result Diagram: 03/16/18 0705 03/16/18 0703 Other Results Laboratory Tests Test 03/14/18 13:15 03/14/18 14:40 03/15/18 04:45 03/16/18 07:03 White Blood Count 9.9 TH/MM3 9.4 TH/MM3 11.1 TH/MM3 Red Blood Count 3.61 MIL/MM3 3.60 MIL/MM3 3.47 MIL/MM3 Hemoglobin 7.5 GM/DL 7.4 GM/DL 7.1 GM/DL Hematocrit 23.8 % 23.8 % 22.9 % Mean Corpuscular Volume 66.0 FL 66.1 FL 66.2 FL Mean Corpuscular Hemoglobin 20.6 PG 20.5 PG 20.4 PG Mean Corpuscular Hemoglobin Concent 31.3 % 31.1 % 30.8 % Red Cell Distribution Width 15.9 % 16.3 % 16.0 % Platelet Count 237 TH/MM3 228 TH/MM3 224 TH/MM3 Mean Platelet Volume 8.6 FL 8.4 FL 8.6 FL Neutrophils (%) (Auto) 72.2 % 74.4 % 69.8 % Lymphocytes (%) (Auto) 17.5 % 15.8 % 19.5 % Monocytes (%) (Auto) 8.7 % 8.2 % 9.0 % Eosinophils (%) (Auto) 1.2 % 1.0 % 1.5 % Basophils (%) (Auto) 0.4 % 0.6 % 0.2 % Neutrophils # (Auto) 7.2 TH/MM3 7.0 TH/MM3 7.7 TH/MM3 Lymphocytes # (Auto) 1.7 TH/MM3 1.5 TH/MM3 2.2 TH/MM3 Monocytes # (Auto) 0.9 TH/MM3 0.8 TH/MM3 1.0 TH/MM3 Eosinophils # (Auto) 0.1 TH/MM3 0.1 TH/MM3 0.2 TH/MM3 Basophils # (Auto) 0.0 TH/MM3 0.1 TH/MM3 0.0 TH/MM3 CBC Comment DIFF FINAL DIFF FINAL DIFF FINAL Differential Comment Blood Urea Nitrogen 36 MG/DL 26 MG/DL Creatinine 6.79 MG/DL 5.45 MG/DL Random Glucose 234 MG/DL 187 MG/DL Total Protein 6.3 GM/DL 6.5 GM/DL Albumin 2.3 GM/DL 2.5 GM/DL Calcium Level 7.3 MG/DL 7.9 MG/DL Phosphorus Level 4.0 MG/DL 2.5 MG/DL Magnesium Level 1.9 MG/DL 1.9 MG/DL Alkaline Phosphatase 93 U/L 90 U/L Aspartate Amino Transf (AST/SGOT) 8 U/L 9 U/L Alanine Aminotransferase (ALT/SGPT) 9 U/L 8 U/L Total Bilirubin 0.2 MG/DL 0.2 MG/DL Sodium Level 139 MEQ/L 138 MEQ/L Potassium Level 3.5 MEQ/L 3.9 MEQ/L Chloride Level 100 MEQ/L 98 MEQ/L Carbon Dioxide Level 24.6 MEQ/L 25.9 MEQ/L Anion Gap 14 MEQ/L 14 MEQ/L Estimat Glomerular Filtration Rate 7 ML/MIN 10 ML/MIN Hemoglobin A1c 6.7 % Protein Corrected Calcium 7.7 MG/DL Free Thyroxine 1.22 NG/DL Thyroid Stimulating Hormone 3rd Gen 5.330 uIU/ML Test 03/16/18 07:05 White Blood Count 13.2 TH/MM3 Red Blood Count 3.65 MIL/MM3 Hemoglobin 7.5 GM/DL Hematocrit 24.1 % Mean Corpuscular Volume 65.9 FL Mean Corpuscular Hemoglobin 20.5 PG Mean Corpuscular Hemoglobin Concent 31.1 % Red Cell Distribution Width 16.5 % Platelet Count 264 TH/MM3 Mean Platelet Volume 9.0 FL Neutrophils (%) (Auto) 67.3 % Lymphocytes (%) (Auto) 20.1 % Monocytes (%) (Auto) 10.3 % Eosinophils (%) (Auto) 1.9 % Basophils (%) (Auto) 0.4 % Neutrophils # (Auto) 8.9 TH/MM3 Lymphocytes # (Auto) 2.6 TH/MM3 Monocytes # (Auto) 1.4 TH/MM3 Eosinophils # (Auto) 0.2 TH/MM3 Basophils # (Auto) 0.1 TH/MM3 CBC Comment DIFF FINAL Differential Comment Imaging Last Impressions Upper Extremity Ultrasound 03/15/18 Signed Impressions: CONCLUSION: No left upper extremity venous thrombosis. Renal Biopsy CT 03/14/18 0000 Signed Impressions: CONCLUSION: 1. Uncomplicated CT guided biopsy. Chest X-Ray 03/13/18 0000 Signed Impressions: CONCLUSION: 1. No acute cardiopulmonary disease. 2. Degenerative changes throughout the thoracic spine. Catheter Placement X-Ray 03/09/18 Signed Impressions: CONCLUSION: 1. Uncomplicated PermaCath placement as above. Renal Ultrasound 03/08/18 Signed Impressions: CONCLUSION: Echogenic kidneys. No hydronephrosis. Objective Remarks GENERAL: Awake alert and oriented 3 talkative and cooperative SKIN: Warm and dry. HEAD: Atraumatic. Normocephalic. EYES: Pupils equal and round. No scleral icterus. No injection or drainage. Extraocular muscles intact tongue is midline ENT: No nasal bleeding or discharge. Mucous membranes pink and moist. Tongue is midline NECK: Trachea midline. No JVD. Right side IJ hemodialysis catheter CARDIOVASCULAR: Regular rate and rhythm. S1-S2 no S3-S4 no heave no thrill no murmur no rubs or gallops RESPIRATORY: No accessory muscle use. Clear to auscultation. Breath sounds equal bilaterally. GASTROINTESTINAL: Abdomen soft, non-tender, nondistended. Hepatic and splenic margins not palpable. MUSCULOSKELETAL: Extremities without clubbing, cyanosis, or edema. No obvious deformities. NEUROLOGICAL: Awake and alert. No obvious cranial nerve deficits. Motor grossly within normal limits. Five out of 5 muscle strength in the arms and legs. Normal speech. PSYCHIATRIC: Appropriate mood and affect; insight and judgment normal. Procedures RIGHT IJ HD CATHETER 6- KIDNEY BIOPSY 03-14 Medications and IVs Current Medications Sodium Chloride 500 ml @ 500 mls/hr BOLUS ONCE IV Last administered on at 14:40; Start 03/08/18 at 14:45; Stop 03/08/18 at 15:20; Status DC Sodium Chloride 1,000 ml @ 100 mls/hr Q10H IV Last administered on 03/08/18at 14 :40; Start 03/08/18 at 14:45; Stop 03/08/18 at 15:20; Status DC Sodium Chloride (NS Flush) 2 ml UNSCH PRN IV FLUSH FLUSH AFTER USING IV ACCESS ; Start 03/08/18 at 15:15 Sodium Chloride (NS Flush) 2 ml BID IV FLUSH Last administered on 03/17/18at 08: 53; Start 03/08/18 at 21:00 Heparin Sodium (Porcine) (Heparin Inj) 5,000 units Q12H SQ Last administered on 03/17/18at 03:48; Start 03/08/18 at 16:00 Naloxone HCl (Narcan Inj) 0.4 mg UNSCH PRN IV PUSH SEE LABEL COMMENTS; Start at 15:15 Senna/Docusate Sodium (Vanessa-Colace) 1 tab BID PO Last administered on at 21:00; Start 03/08/18 at 21:00 Magnesium Hydroxide (Milk Of Magnesia Liq) 30 ml Q12H PRN PO Mild constipation ; Start 03/08/18 at 15:15 Sennosides (Senokot) 17.2 mg Q12H PRN PO Moderate constipation; Start 03/08/18 at 15:15 Bisacodyl (Dulcolax Supp) 10 mg DAILY PRN RECTAL SEVERE CONSITIPATION; Start at 15:15 Lactulose (Lactulose Liq) 30 ml DAILY PRN PO SEVERE CONSITIPATION; Start at 15:15 Dextrose/Sodium Chloride 1,000 ml @ 84 mls/hr [id number] IV Last administered on 03/10/18at 04:01; Start 03/08/18 at 15:15; Stop 03/10/18 at 14:52; Status DC Clonidine (Catapres) 0.1 mg Q6H PRN PO SYS BP GREATER THAN 160 MMHG Last administered on 03/09/18at 06:17; Start 03/08/18 at 16:30; Stop 03/09/18 at 11:17; Status DC Amlodipine Besylate (Norvasc) 10 mg DAILY PO Last administered on 03/17/18at 08: 53; Start 03/08/18 at 16:30 Dextrose (D50w (Vial) Inj) 50 ml UNSCH PRN IV PUSH HYPOGLYCEMIA-SEE COMMENTS; Start 03/08/18 at 16:30 Glucagon (Glucagon Inj) 1 mg UNSCH PRN OTHER HYPOGLYCEMIA-SEE COMMENTS; Start 03/08/18 at 16:30 Metoprolol Tartrate (Lopressor) 100 mg DAILY PO Last administered on 03/10/18at 08:43; Start 03/08/18 at 16:30; Stop 03/10/18 at 14:52; Status DC Pravastatin Sodium (Pravachol) 40 mg DAILY PO Last administered on 03/17/18at 08 :47; Start 03/08/18 at 16:30 Insulin Aspart (NovoLOG SUPPLEMENTAL SCALE) 1 ACHS SLIDING SCALE SQ Last administered on 03/16/18at 21:00; Start 03/09/18 at 12:00 Sodium Bicarbonate (Sodium Bicarbonate) 650 mg Q12HR PO Last administered on at 08:53; Start 03/09/18 at 11:15 Calcium Gluconate 2 gm/Dextrose 120 ml @ 120 mls/hr ONCE ONCE IV Last administered on 03/09/18at 11:40; Start 03/09/18 at 11:15; Stop 03/09/18 at 12:14; Status DC Ceftriaxone Sodium 1000 mg/ Sodium Chloride 100 ml @ 200 mls/hr Q24H IV Last administered on 03/10/18at 12:51; Start 03/09/18 at 12:00; Stop 03/10/18 at 14:53; Status DC Iron Sucrose 200 mg/Sodium Chloride 110 ml @ 110 mls/hr DAILY IV Last administered on 03/11/18at 09:49; Start 03/09/18 at 11:15; Stop 03/11/18 at 09:59 ; Status DC Hydralazine HCl (Apresoline) 25 mg Q8HR PO Last administered on 03/11/18at 05:31 ; Start 03/09/18 at 14:00; Stop 03/11/18 at 12:07; Status DC Clonidine (Catapres) 0.1 mg Q6H PRN PO SBP> OR = 180, DBP> OR = 100 Last administered on 03/16/18at 08:25; Start 03/09/18 at 11:15 Sodium Chloride 1,000 ml @ 0 mls/hr Q0M PRN OTHER For Prime & Rinse Back; Start 03/09/18 at 13:14 Heparin Sodium (Porcine) (Heparin Inj) 8,000 units UNSCH PRN IV FLUSH WITH DIALYSIS Last administered on 03/09/18at 18:59; Start 03/09/18 at 13:15 Sodium Chloride 1,000 ml @ 200 mls/hr Q5H PRN IV WITH DIALYSIS Last administered on 03/10/18at 10:34; Start 03/09/18 at 13:14 Sodium Chloride 1,000 ml @ 0 mls/hr Q0M PRN OTHER WITH DIALYSIS; Start 03/09/18 at 13:14 Mannitol (Mannitol Inj) 12.5 gm UNSCH PRN IV WITH DIALYSIS; Start 03/09/18 at 13 :15 Albumin Human 100 ml @ 60 mls/hr UNSCH PRN IV WITH DIALYSIS; Start 03/09/18 at 13:15 Sodium Chloride (NS Flush) 5 ml UNSCH PRN IV FLUSH WITH DIALYSIS; Start at 13:15 Heparin Sodium (Porcine) (Heparin Inj) UNSCH PRN .XX WITH DIALYSIS Last administered on 03/15/18at 11:13; Start 03/09/18 at 13:15 Gentamicin Sulfate (Gentamicin Inj) 20 mg UNSCH PRN OTHER WITH DIALYSIS Last administered on 03/15/18at 11:12; Start 03/09/18 at 13:15 Ondansetron HCl (Zofran Odt) 4 mg UNSCH PRN PO WITH DIALYSIS; Start 03/09/18 at 13:15 Acetaminophen (Tylenol) 650 mg UNSCH PRN PO for headach, pain, temp > 101F; Start 03/09/18 at 13:15 Diphenhydramine HCl (Benadryl) 25 mg UNSCH PRN PO for hives/itching/anaphylaxis ; Start 03/09/18 at 13:15 Nitroglycerin (Nitrostat Sl) 0.4 mg UNSCH PRN SL CHEST PAIN; Start 03/09/18 at 13:15 Clonidine (Catapres) 0.1 mg UNSCH PRN PO for BP > 180/100 X 2 readings Last administered on 03/11/18at 23:40; Start 03/09/18 at 13:15 Epoetin Jordan (Epogen Inj) 10,000 units UNSCH PRN IV PUSH WITH DIALYSIS Last administered on 03/15/18at 11:13; Start 03/09/18 at 13:15 Gelatin (Gelfoam 12 Mm/7 Mm Top) 1 foam UNSCH PRN TOP SEE LABEL COMMENTS; Start 03/09/18 at 13:15 Heparin Sodium (Porcine) (*HEPARIN INJ Periprocedural ONLY) 10,000 units STK- MED ONCE .ROUTE Last administered on 03/09/18at 16:35; Start 03/09/18 at 15:45; Stop 03/09/18 at 15:46; Status DC Lidocaine/ Epinephrine (Xylocaine-Epi 1%-1:100,000 Inj) 30 ml STK-MED ONCE .ROUTE Last administered on 03/09/18at 16:28; Start 03/09/18 at 15:45; Stop at 15:46; Status DC Midazolam HCl (Versed Inj) 5 mg STK-MED ONCE .ROUTE Last administered on 15:52; Start 03/09/18 at 15:52; Stop 03/09/18 at 15:53; Status DC Fentanyl Citrate (fentaNYL INJ) 250 mcg STK-MED ONCE .ROUTE Last administered on 03/09/18 15:52; Start 03/09/18 at 15:52; Stop 03/09/18 at 15:53; Status DC Sodium Chloride (NS Flush) UNSCH PRN IV FLUSH SEE PROTOCOL; Start 03/09/18 at 16:45 Heparin Sodium (Porcine) (Heparin Inj) UNSCH PRN IV FLUSH SEE PROTOCOL; Start 03/09/18 at 16:45 Hydralazine HCl (Apresoline) 25 mg ONCE ONCE PO Last administered on 03/10/18at 07:21; Start 03/10/18 at 06:45; Stop 03/10/18 at 06:46; Status DC Metoprolol Tartrate (Lopressor) 100 mg BID PO Last administered on 03/12/18at 20 :30; Start 03/10/18 at 21:00; Stop 03/13/18 at 10:17; Status DC Hydralazine HCl (Apresoline) 50 mg Q8HR PO Last administered on 03/12/18at 12:37 ; Start 03/11/18 at 14:00; Stop 03/12/18 at 14:17; Status DC Insulin Detemir (Levemir Inj) 10 units DAILY SQ Last administered on 03/17/18at 08:48; Start 03/11/18 at 13:30 Hydralazine HCl (Apresoline) 100 mg Q8HR PO Last administered on 03/17/18at 06: 09; Start 03/12/18 at 22:00 Labetalol HCl (Trandate) 100 mg Q12HR PO Last administered on 03/15/18at 12:45; Start 03/13/18 at 21:00; Stop 03/15/18 at 16:25; Status DC Calcium Gluconate 2 gm/Dextrose 120 ml @ 120 mls/hr ONCE ONCE IV Last administered on 03/13/18at 15:01; Start 03/13/18 at 15:00; Stop 03/13/18 at 15:59 ; Status DC Sodium Chloride 1,000 ml @ 30 mls/hr Q24H IV Last administered on 03/13/18at 15 :01; Start 03/13/18 at 13:40; Stop 03/14/18 at 15:24; Status DC Sodium Chloride (NS Flush) 2 ml BID IV FLUSH ; Start 03/13/18 at 21:00; Stop 09/18 at 21:00; Status DC Sodium Chloride (NS Flush) 2 ml UNSCH PRN IV FLUSH FLUSH AFTER USING IV ACCESS ; Start 03/13/18 at 13:45; Stop 03/13/18 at 14:01; Status DC Calcium Carbonate (Oscal) 500 mg Q12HR PO Last administered on 03/17/18at 08:47 ; Start 03/14/18 at 21:00 Lidocaine/ Epinephrine (Xylocaine-Epi 1%-1:100,000 Inj) 20 ml STK-MED ONCE .ROUTE ; Start 03/14/18 at 11:21; Stop 03/14/18 at 11:22; Status DC Fentanyl Citrate (fentaNYL INJ) 200 mcg STK-MED ONCE .ROUTE Last administered on 03/14/18at 11:56; Start 03/14/18 at 11:56; Stop 03/14/18 at 11:57; Status DC Midazolam HCl (Versed Inj) 4 mg STK-MED ONCE .ROUTE Last administered on at 11:57; Start 03/14/18 at 11:57; Stop 03/14/18 at 11:58; Status DC Labetalol HCl (Trandate) 200 mg Q12HR PO Last administered on 03/17/18at 08:53; Start 03/15/18 at 21:00 A/P Assessment and Plan Acute nonoliguric renal failure Creatinine 2016 was 1.3, creatinine currently over 8. Nephrology consult appreciated. - dialysis per nephrology. - avoid nephrotoxins. - follow BMP and urine output. - Kidney biopsy scheduled for 03/14/2018. -Biopsy result showing that patient has nodular sclerosis,with Glomerulosclerosis. Most likely has End stage renal disease Hypoglycemia/ DM Seems to be resolved. A1c is 6.6%. Secondary to home meds. - d/c glyburide and metformin. - continue sliding scale insulin. Added Levemir 10 units daily. Adjust as needed. Hypertensive urgency Blood pressure poorly controlled. Benazepril and hydrochlorothiazide discontinued secondary to renal failure. - continue Norvasc. Hydralazine increased. Metoprolol switched to labetalol, which will need to be uptitrated over the next few days. - clonidine as needed. - follow up with nephrology. Anemia Possibly s/t renal disease. - follow CBC and transfuse as needed. MAY NEED TRANSFUSION IN FUTURE WILL NEED PLACEMENT IN HD CENTER WILL DEFER TO RENAL AND CASE MANAGEMENT FOR DC PLANNING DVT prophylaxis: Heparin Discharge Planning Clearance by nephrology with possible need for outpatient hemodialysis Omero Hidalgo 16, 2018 10:51
[2018-03-17 11:45] VITALS: BP 184/74; PULSE 83; RESP 18; TEMP 98.6; O2SAT 98
--- NOTE | 2018-03-17 15:02 | HHI.NPPN ---
Subjective History of Present Illness Patient is a 62-year-old female with history of hypertension, diabetes mellitus , and dyslipidemia. Presented to the emergency room with generalized weakness and hypoglycemia. Per patient, she has been in her usual health until March 02 when she was not able to eat most of the day and then developed slurred speech which resolved after orange juice. She then developed dizziness and was not able to get out of bed . Nephrology is consulted for elevated BUN and creatinine with a creatinine of 8.03 and potassium level of 4.4, HCO3 at18.0, and calcium level of 6.5. Also noted to have iron deficency anemia with HGB of 7.7 no obvious signs of bleeding. Blood pressure elevated with SBP in the 180' s. She has been on glyburide/metformin and hydrochlorothiazide which has been discontinued and IVF are infusing. No previous history of kidney disease. Creatinine noted to be 1.29 in 2016. So could possible have some chronic kidney disease. Additional Remarks Patient is alert with no complaints. Ambulatory. Dialysis is scheduled for today. Review of Systems Respiratory Respiratory Remarks Denies SOB Cardiovascular Cardiac Remarks Denies chest pain Gastrointestinal GI Remarks Denies abdominal pain Objective Data Data Vital Signs Date Time Temp Pulse Resp B/P (MAP) Pulse Ox O2 Delivery O2 Flow Rate FiO2 03/17/18 11:45 98.6 83 18 184/74 (110) 98 03/17/18 08:00 99.0 92 18 173/81 (111) 98 03/17/18 04:00 98.5 76 18 167/76 (106) 97 03/17/18 00:00 99.4 80 18 141/66 (91) 98 03/16/18 20:00 98.7 88 18 173/74 (107) 95 -: 03/16/18 0705 03/16/18 0703 Physical Exam General Appearance: No Acute Distress, Comfortable Pulmonary Resp Exam: Clear Bilaterally, Breath Sounds Equal, Decreased Bases Cardiology CV Exam: Regular Gastrointestinal/Abdomen GI Exam: Soft, Non-Tender Genitourinary Exam: Flank Non-Tender Integumentary Skin Exam: Clear, Warm Neurologic Neuro Exam: Moving All Extremities Psychiatric Psych Exam: Appropriate Responses Assessment/Plan Problem List: (1) End stage kidney disease ICD Codes: N18.6 - End stage renal disease Plan: Patient came with very high BUN and Creatinine. The Creatinine in December 2015 was 1.26, Started on HD the and Kidney Biopsy done 03/14. 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 Most likely has End stage renal disease. Dr. Chavez consulted for AVF placement. Anemia continue Epogen with dialysis Continue HD on //Mon (2) Hypertension ICD Codes: I10 - Essential (primary) hypertension Plan: Continues to be Hypertensive On metoprolol, norvasc, hydralazine, and labetalol Labetalol increased yesterday (3) Diabetes mellitus ICD Codes: E11.9 - Type 2 diabetes mellitus without complications Plan: Maintain blood sugar between 140mg/dl to 180mg/dl (4) Iron deficiency anemia ICD Codes: D50.9 - Iron deficiency anemia, unspecified Calos Lundy MD Mar 17, 2018 15:02
[2018-03-17] MEDS: EPOETIN ALFA 10,000 UNITS/ML VIAL IV PUSH PRN (15:33)
[2018-03-17] MEDS: GENTAMICIN SULFATE 20 MG/2 ML VIAL OTHER PRN (15:33)
[2018-03-17] MEDS: HEPARIN SODIUM - IV 10,000 UNITS/10 ML VIAL PRN (15:34)
[2018-03-17 18:09] VITALS: BP 162/72; PULSE 88; RESP 18; TEMP 98; O2SAT 98
[2018-03-17 20:00] VITALS: BP 197/83; PULSE 87; RESP 18; TEMP 98.5; O2SAT 97
[2018-03-18] VITALS: BP 167/71; PULSE 82; RESP 18; TEMP 97.9; O2SAT 95
[2018-03-18 04:00] VITALS: BP 175/91; PULSE 87; RESP 18; TEMP 99.2; O2SAT 99
[2018-03-18] MEDS: HEPARIN SODIUM - SQ 10,000 UNITS/ML VIAL SQ SCH ×2 (05:47→18:39)
[2018-03-18] MEDS: hydrALAZINE HCL 50 MG TAB PO SCH ×3 (05:47→21:17)
[2018-03-18 07:37] VITALS: BP 188/83; PULSE 90; RESP 18; TEMP 98.8; O2SAT 95
[2018-03-18 08:25] LABS: AUTOMATED NEUTROPHIL # 6.6 TH/MM3 (1.8-7.7); BASOPHIL # 0.1 TH/MM3 (0-0.2); BASOPHIL % 0.6 % (0.0-2.0); EOSINOPHIL # 0.3 TH/MM3 (0-0.4); EOSINOPHIL % 2.5 % (0.0-4.0); HEMATOCRIT 25.6 % (35.0-46.0); HEMOGLOBIN 7.9 GM/DL (11.6-15.3); LYMPH % 21.9 % (9.0-44.0); LYMPHOCYTE # 2.2 TH/MM3 (1.0-4.8); MEAN CELL VOLUME 67.4 FL (80.0-100.0); MEAN CORPUSCULAR HEMOGLOBIN 20.7 PG (27.0-34.0); MEAN CORPUSCULAR HGB CONC 30.7 % (32.0-36.0); MEAN PLATELET VOLUME 8.4 FL (7.0-11.0); MONO % 10.1 % (0.0-8.0); NEUT % 64.9 % (16.0-70.0); PLATELET COUNT 238 TH/MM3 (150-450); RED BLOOD COUNT 3.81 MIL/MM3 (4.00-5.30); RED CELL DISTRIBUTION WIDTH 16.1 % (11.6-17.2); WHITE BLOOD COUNT 10.2 TH/MM3 (4.0-11.0)
[2018-03-18 08:50] LABS: ALBUMIN 2.6 GM/DL (3.4-5.0); AST (GOT) 10 U/L (15-37); BICARBONATE 28.3 MEQ/L (21.0-32.0); BLOOD UREA NITROGEN 21 MG/DL (7-18); CALCIUM 7.7 MG/DL (8.5-10.1); CHLORIDE 98 MEQ/L (98-107); CREATININE 4.84 MG/DL (0.50-1.00); GLOMERULAR FILTRATION RATE 11 ML/MIN (>89); GLUCOSE,RANDOM 228 MG/DL (74-106); MAGNESIUM 2.1 MG/DL (1.5-2.5); SODIUM (NA) 137 MEQ/L (136-145)
[2018-03-18 08:54] LABS: ALKALINE PHOSPHATASE 93 U/L (45-117); ALT (GPT) 12 U/L (10-53); PHOSPHORUS 3.1 MG/DL (2.5-4.9); TOTAL BILIRUBIN ADULT 0.2 MG/DL (0.2-1.0); TOTAL PROTEIN 6.5 GM/DL (6.4-8.2)
[2018-03-18] MEDS: DOCUSATE SODIUM 50 MG/SENNA 8.6 MG TAB PO SCH ×2 (09:00→21:00)
[2018-03-18] MEDS: INSULIN DETEMIR 100 UNITS/ML VIAL SQ SCH (09:33)
[2018-03-18] MEDS: INSULIN ASPART SUPPLEMENTAL SCALE SQ SCH ×4 (09:34→21:00)
[2018-03-18] MEDS: LABETALOL HCL 100 MG TAB PO SCH ×2 (09:34→21:17)
[2018-03-18] MEDS: CALCIUM CARBONATE 1.25 GM (CA 500 MG) TAB PO SCH ×2 (09:35→21:18)
[2018-03-18] MEDS: PRAVASTATIN SOD 40 MG TAB PO SCH (09:35)
[2018-03-18] MEDS: SODIUM BICARBONATE 650 MG TAB PO SCH (09:35)
--- NOTE | 2018-03-18 10:23 | HHI.PR ---
Subjective Remarks Patient seen and examined this morning. Temperature 98.8, pulse 90, respiratory rate 18, blood pressure 188/83, pulse ox 95 on room air. Patient is awaiting AVF placement and is currently not scheduled for today. Once this is been done and outpatient hemodialysis set up the patient can be discharged. She has no complaints or issues to report Objective Vitals Vital Signs Date Time Temp Pulse Resp B/P (MAP) Pulse Ox O2 Delivery O2 Flow Rate FiO2 03/18/18 07:37 98.8 90 18 188/83 (118) 95 03/18/18 04:00 99.2 87 18 175/91 (119) 99 03/18/18 00:00 97.9 82 18 167/71 (103) 95 03/17/18 20:00 98.5 87 18 197/83 (121) 97 03/17/18 18:09 98.0 88 18 162/72 (102) 98 03/17/18 11:45 98.6 83 18 184/74 (110) 98 I/O 03/17/18 03/17/18 03/17/18 03/18/18 03/18/18 03/18/18 07:00 15:00 23:00 07:00 15:00 23:00 Output Total 300 ml 3000 ml Balance -300 ml -3000 ml Output Urine Total 300 ml Hemodialysis 3000 ml # Voids 2 Result Diagram: 03/18/18 0657 03/18/18 0657 Imaging Last Impressions Upper Extremity Ultrasound 03/15/18 0000 Signed Impressions: CONCLUSION: No left upper extremity venous thrombosis. Renal Biopsy CT 03/14/18 0000 Signed Impressions: CONCLUSION: 1. Uncomplicated CT guided biopsy. Chest X-Ray 03/13/18 0000 Signed Impressions: CONCLUSION: 1. No acute cardiopulmonary disease. 2. Degenerative changes throughout the thoracic spine. Catheter Placement X-Ray 03/09/18 0000 Signed Impressions: CONCLUSION: 1. Uncomplicated PermaCath placement as above. Renal Ultrasound 03/08/18 0000 Signed Impressions: CONCLUSION: Echogenic kidneys. No hydronephrosis. Objective Remarks GENERAL: Awake alert and oriented 3 talkative and cooperative SKIN: Warm and dry. HEAD: Atraumatic. Normocephalic. EYES: Pupils equal and round. No scleral icterus. No injection or drainage. Extraocular muscles intact tongue is midline ENT: No nasal bleeding or discharge. Mucous membranes pink and moist. Tongue is midline NECK: Trachea midline. No JVD. Right side IJ hemodialysis catheter CARDIOVASCULAR: Regular rate and rhythm. S1-S2 no S3-S4 no heave no thrill no murmur no rubs or gallops RESPIRATORY: No accessory muscle use. Clear to auscultation. Breath sounds equal bilaterally. GASTROINTESTINAL: Abdomen soft, non-tender, nondistended. Hepatic and splenic margins not palpable. MUSCULOSKELETAL: Extremities without clubbing, cyanosis, or edema. No obvious deformities. NEUROLOGICAL: Awake and alert. No obvious cranial nerve deficits. Motor grossly within normal limits. Five out of 5 muscle strength in the arms and legs. Normal speech. PSYCHIATRIC: Appropriate mood and affect; insight and judgment normal. Procedures RIGHT IJ HD CATHETER 6- KIDNEY BIOPSY 03-14 Medications and IVs Current Medications Medications (Trade) Dose Ordered Sig/Shashi Route Start Time Stop Time Status Last Admin (NS Flush) 2 ml UNSCH PRN IV FLUSH 03/08/18 15:15 (NS Flush) 2 ml BID IV FLUSH 03/08/18 21:00 03/17/18 22:23 (Heparin Inj) 5,000 units Q12H SQ 03/08/18 16:00 03/18/18 05:47 (Narcan Inj) 0.4 mg UNSCH PRN IV PUSH 03/08/18 15:15 (Vanessa-Colace) 1 tab BID PO 03/08/18 21:00 03/16/18 21:00 (Milk Of Magnesia Liq) 30 ml Q12H PRN PO 03/08/18 15:15 (Senokot) 17.2 mg Q12H PRN PO 03/08/18 15:15 (Dulcolax Supp) 10 mg DAILY PRN RECTAL 03/08/18 15:15 (Lactulose Liq) 30 ml DAILY PRN PO 03/08/18 15:15 (Norvasc) 10 mg DAILY PO 03/08/18 16:30 03/18/18 09:35 (D50w (Vial) Inj) 50 ml UNSCH PRN IV PUSH 03/08/18 16:30 (Glucagon Inj) 1 mg UNSCH PRN OTHER 03/08/18 16:30 (Pravachol) 40 mg DAILY PO 03/08/18 16:30 03/18/18 09:35 (NovoLOG SUPPLEMENTAL SCALE) 1 ACHS SLIDING SCALE SQ 03/09/18 12:00 03/18/18 09:34 (Sodium Bicarbonate) 650 mg Q12HR PO 03/09/18 11:15 03/18/18 09:35 (Catapres) 0.1 mg Q6H PRN PO 03/09/18 11:15 03/16/18 08:25 Sodium Chloride 1,000 ml @ 0 mls/hr Q0M PRN OTHER 03/09/18 13:14 03/17/18 15:33 (Heparin Inj) 8,000 units UNSCH PRN IV FLUSH 03/09/18 13:15 03/09/18 18:59 Sodium Chloride 1,000 ml @ 200 mls/hr Q5H PRN IV 03/09/18 13:14 03/10/18 10:34 Sodium Chloride 1,000 ml @ 0 mls/hr Q0M PRN OTHER 03/09/18 13:14 (Mannitol Inj) 12.5 gm UNSCH PRN IV 03/09/18 13:15 Albumin Human 100 ml @ 60 mls/hr UNSCH PRN IV 03/09/18 13:15 (NS Flush) 5 ml UNSCH PRN IV FLUSH 03/09/18 13:15 03/17/18 15:33 (Heparin Inj) UNSCH PRN .XX 03/09/18 13:15 03/17/18 15:34 (Gentamicin Inj) 20 mg UNSCH PRN OTHER 03/09/18 13:15 03/17/18 15:33 (Zofran Odt) 4 mg UNSCH PRN PO 03/09/18 13:15 (Tylenol) 650 mg UNSCH PRN PO 03/09/18 13:15 (Benadryl) 25 mg UNSCH PRN PO 03/09/18 13:15 (Nitrostat Sl) 0.4 mg UNSCH PRN SL 03/09/18 13:15 (Catapres) 0.1 mg UNSCH PRN PO 03/09/18 13:15 03/11/18 23:40 (Epogen Inj) 10,000 units UNSCH PRN IV PUSH 03/09/18 13:15 03/17/18 15:33 (Gelfoam 12 Mm/7 Mm Top) 1 foam UNSCH PRN TOP 03/09/18 13:15 (NS Flush) UNSCH PRN IV FLUSH 03/09/18 16:45 (Heparin Inj) UNSCH PRN IV FLUSH 03/09/18 16:45 (Levemir Inj) 10 units DAILY SQ 03/11/18 13:30 03/18/18 09:33 (Apresoline) 100 mg Q8HR PO 03/12/18 22:00 03/18/18 05:47 (Oscal) 500 mg Q12HR PO 03/14/18 21:00 03/18/18 09:35 (Trandate) 200 mg Q12HR PO 03/15/18 21:00 03/18/18 09:34 A/P Problem List: (1) End stage kidney disease ICD Code: N18.6 - End stage renal disease (2) Hypertension ICD Code: I10 - Essential (primary) hypertension (3) Diabetes mellitus ICD Code: E11.9 - Type 2 diabetes mellitus without complications Assessment and Plan This a 62-year-old -[place] female with history of type 2 diabetes and end-stage renal disease requiring dialysis. Acute nonoliguric renal failure Creatinine 2016 was 1.3, creatinine currently 4.8. Nephrology consult appreciated. - dialysis per nephrology. - avoid nephrotoxins. - follow BMP and urine output. -Biopsy result showing that patient has nodular sclerosis,with Glomerulosclerosis. End stage renal disease -Vascular surgery consulted for AVF placement prior to discharge Hypoglycemia/ DM Seems to be resolved. A1c is 6.6%. Secondary to home meds. - d/c glyburide and metformin. - continue sliding scale insulin. Added Levemir 10 units daily. Adjust as needed. Hypertensive urgency Blood pressure poorly controlled. Benazepril and hydrochlorothiazide discontinued secondary to renal failure. - continue Norvasc. Hydralazine increased. Metoprolol switched to labetalol, which will need to be uptitrated over the next few days. - clonidine as needed. - follow up with nephrology. Anemia Possibly s/t renal disease. - follow CBC and transfuse as needed. MAY NEED TRANSFUSION IN FUTURE WILL NEED PLACEMENT IN HD CENTER WILL DEFER TO RENAL AND CASE MANAGEMENT FOR DC PLANNING DVT prophylaxis: Elio Vance MD R3 Mar 18, 2018 10:22
[2018-03-18 12:00] VITALS: BP 163/72; PULSE 82; RESP 18; TEMP 99.3; O2SAT 96
[2018-03-18] MEDS: SODIUM CHLORIDE 0.9% FLUSH 10 ML FLUSH IV FLUSH SCH ×2 (13:05→21:00)
[2018-03-18 16:00] VITALS: BP 154/65; PULSE 79; RESP 18; TEMP 98.4; O2SAT 99
[2018-03-18 20:00] VITALS: BP_SYST 111; BP_SYST 190; BP_DIAS 76; BP_DIAS 77; PULSE 73; PULSE 88; RESP 18; TEMP 98.1; TEMP 98.8; O2SAT 97; O2SAT 98
[2018-03-18] MEDS: SODIUM BICARBONATE 325 MG TAB PO SCH (21:17)
[2018-03-19] VITALS: BP 184/81; PULSE 81; RESP 18; TEMP 98.8; O2SAT 98
[2018-03-19] MEDS: cloNIDine HCL 0.1 MG TAB PO PRN (02:08)
[2018-03-19 04:00] VITALS: BP 154/73; PULSE 80; RESP 18; TEMP 99.1; O2SAT 97
[2018-03-19] MEDS: hydrALAZINE HCL 50 MG TAB PO SCH ×3 (05:46→22:04)
[2018-03-19] MEDS: HEPARIN SODIUM - SQ 10,000 UNITS/ML VIAL SQ SCH ×2 (05:46→16:03)
[2018-03-19 08:36] VITALS: BP 180/81; PULSE 80; RESP 18; TEMP 98.8; O2SAT 96
[2018-03-19] MEDS: LABETALOL HCL 100 MG TAB PO SCH (08:56)
[2018-03-19] MEDS: PRAVASTATIN SOD 40 MG TAB PO SCH (08:56)
[2018-03-19] MEDS: CALCIUM CARBONATE 1.25 GM (CA 500 MG) TAB PO SCH ×2 (08:56→22:04)
[2018-03-19] MEDS: SODIUM BICARBONATE 325 MG TAB PO SCH ×2 (08:56→22:04)
[2018-03-19] MEDS: INSULIN ASPART SUPPLEMENTAL SCALE SQ SCH ×4 (08:57→22:05)
[2018-03-19] MEDS: INSULIN DETEMIR 100 UNITS/ML VIAL SQ SCH (08:58)
[2018-03-19] MEDS: DOCUSATE SODIUM 50 MG/SENNA 8.6 MG TAB PO SCH ×2 (09:00→22:04)
[2018-03-19] MEDS: SODIUM CHLORIDE 0.9% FLUSH 10 ML FLUSH IV FLUSH SCH ×2 (09:09→22:04)
--- NOTE | 2018-03-19 09:34 | HHI.NPPN ---
Subjective History of Present Illness Patient is a 62-year-old female with history of hypertension, diabetes mellitus , and dyslipidemia. Presented to the emergency room with generalized weakness and hypoglycemia. Per patient, she has been in her usual health until March 02 when she was not able to eat most of the day and then developed slurred speech which resolved after orange juice. She then developed dizziness and was not able to get out of bed . Nephrology is consulted for elevated BUN and creatinine with a creatinine of 8.03 and potassium level of 4.4, HCO3 at18.0, and calcium level of 6.5. Also noted to have iron deficency anemia with HGB of 7.7 no obvious signs of bleeding. Blood pressure elevated with SBP in the 180' s. She has been on glyburide/metformin and hydrochlorothiazide which has been discontinued and IVF are infusing. No previous history of kidney disease. Creatinine noted to be 1.29 in 2016. So could possible have some chronic kidney disease. Additional Remarks Patient is alert with no complaints. No shortness of breath or edema. (Shahida Medrano) Review of Systems Respiratory Respiratory Remarks Denies SOB (Shahida Medrano) Cardiovascular Cardiac Remarks Denies chest pain (Shahida Medrano) Gastrointestinal GI Remarks Denies abdominal pain (Shahida Medrano) Objective Data Data 03/19/18 03/20/18 19:00 07:00 # Voids 2 Vital Signs Date Time Temp Pulse Resp B/P (MAP) Pulse Ox O2 Delivery O2 Flow Rate FiO2 03/19/18 08:36 98.8 80 18 180/81 (114) 96 03/19/18 04:00 99.1 80 18 154/73 (100) 97 03/19/18 00:00 98.8 81 18 184/81 (115) 98 03/18/18 20:00 98.8 88 18 190/77 (114) 97 03/18/18 16:00 98.4 79 18 154/65 (94) 99 03/18/18 12:00 99.3 82 18 163/72 (102) 96 (Shahida Medrano) -: 03/18/18 0657 03/18/18 0657 Imaging Last Impressions Upper Extremity Ultrasound 03/15/18 0000 Signed Impressions: CONCLUSION: No left upper extremity venous thrombosis. Renal Biopsy CT 03/14/18 0000 Signed Impressions: CONCLUSION: 1. Uncomplicated CT guided biopsy. Chest X-Ray 03/13/18 0000 Signed Impressions: CONCLUSION: 1. No acute cardiopulmonary disease. 2. Degenerative changes throughout the thoracic spine. Catheter Placement X-Ray 03/09/18 Signed Impressions: CONCLUSION: 1. Uncomplicated PermaCath placement as above. Renal Ultrasound 03/08/18 Signed Impressions: CONCLUSION: Echogenic kidneys. No hydronephrosis. (Shahida Medrano. RN EMERGENCY) Physical Exam General Appearance: No Acute Distress, Comfortable (SimeonlerShahida valentino. RN EMERGENCY) Pulmonary Resp Exam: Clear Bilaterally, Breath Sounds Equal, Decreased Bases (Shahida Medrano M. RN EMERGENCY) Cardiology CV Exam: Regular (SimeonlerShahida valentino M. RN EMERGENCY) Gastrointestinal/Abdomen GI Exam: Soft, Non-Tender (SimeonlerShahida valentino M. RN EMERGENCY) Genitourinary Exam: Flank Non-Tender (Shahida Medrano. RN EMERGENCY) Integumentary Skin Exam: Clear, Warm (Shahida Medrano. RN EMERGENCY) Neurologic Neuro Exam: Moving All Extremities (Shahida Medrano. RN EMERGENCY) Psychiatric Psych Exam: Appropriate Responses (Shahida Medrano) Assessment/Plan Problem List: (1) End stage kidney disease ICD Codes: N18.6 - End stage renal disease Plan: Patient came with very high BUN and Creatinine. The Creatinine in December 2015 was 1.26, Started on HD the and Kidney Biopsy done 03/14. 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 Most likely has End stage renal disease. Dr. Chavez consulted for AVF placement outpatient appt given Anemia continue Epogen with dialysis Continue HD on //Mon Hemodialysis tomorrow Case management consulted to assist with arrangements for outpatient dialysis. (2) Hypertension ICD Codes: I10 - Essential (primary) hypertension Plan: Continues to be Hypertensive On metoprolol, norvasc, hydralazine, and labetalol Labetalol increased yesterday (3) Diabetes mellitus ICD Codes: E11.9 - Type 2 diabetes mellitus without complications Plan: Maintain blood sugar between 140mg/dl to 180mg/dl (4) Iron deficiency anemia ICD Codes: D50.9 - Iron deficiency anemia, unspecified (Shahida Medrano) Problem List: (1) End stage kidney disease ICD Codes: N18.6 - End stage renal disease Plan: Patient came with very high BUN and Creatinine. The Creatinine in December 2015 was 1.26, Started on HD the and Kidney Biopsy done 03/14. 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 Most likely has End stage renal disease. Dr. Wall consulted for AVF placement outpatient appt given Anemia continue Epogen with dialysis Continue HD on /Mon Hemodialysis tomorrow Case management consulted to assist with arrangements for outpatient dialysis. Patient seen and examined, agree with above. HD TTS. Out patient HD arrangement. (2) Hypertension ICD Codes: I10 - Essential (primary) hypertension Plan: Continues to be Hypertensive On metoprolol, norvasc, hydralazine, and labetalol Labetalol increased yesterday (3) Diabetes mellitus ICD Codes: E11.9 - Type 2 diabetes mellitus without complications Plan: Maintain blood sugar between 140mg/dl to 180mg/dl (4) Iron deficiency anemia ICD Codes: D50.9 - Iron deficiency anemia, unspecified (Slick Blanco MD) Shahida Medrano Mar 19, 2018 09:34 Slick Blanco MD Mar 20, 2018 21:31
[2018-03-19 10:35] LABS: HEMATOCRIT 23.8 % (35.0-46.0); HEMOGLOBIN 7.4 GM/DL (11.6-15.3); MEAN CELL VOLUME 66.6 FL (80.0-100.0); MEAN CORPUSCULAR HEMOGLOBIN 20.7 PG (27.0-34.0); MEAN CORPUSCULAR HGB CONC 31.1 % (32.0-36.0); MEAN PLATELET VOLUME 8.4 FL (7.0-11.0); PLATELET COUNT 248 TH/MM3 (150-450); RED BLOOD COUNT 3.56 MIL/MM3 (4.00-5.30); RED CELL DISTRIBUTION WIDTH 16.1 % (11.6-17.2); WHITE BLOOD COUNT 9.2 TH/MM3 (4.0-11.0)
[2018-03-19 11:21] LABS: BICARBONATE 25.6 MEQ/L (21.0-32.0); CALCIUM 7.7 MG/DL (8.5-10.1); CREATININE 6.21 MG/DL (0.50-1.00)
[2018-03-19 12:00] VITALS: BP 177/77; PULSE 77; RESP 18; TEMP 98.5; O2SAT 99
--- NOTE | 2018-03-19 14:04 | HHI.PR ---
Subjective Remarks Follow-up hypertension, renal failure, anemia. The patient states that she feels okay today. Denies chest pain or dyspnea. Denies nausea, vomiting, abdominal pain. Objective Vitals Vital Signs Date Time Temp Pulse Resp B/P (MAP) Pulse Ox O2 Delivery O2 Flow Rate FiO2 03/19/18 12:00 98.5 77 18 177/77 (110) 99 03/19/18 08:36 98.8 80 18 180/81 (114) 96 03/19/18 04:00 99.1 80 18 154/73 (100) 97 03/19/18 00:00 98.8 81 18 184/81 (115) 98 03/18/18 20:00 98.8 88 18 190/77 (114) 97 03/18/18 16:00 98.4 79 18 154/65 (94) 99 I/O 03/18/18 03/18/18 03/18/18 03/19/18 03/19/18 03/19/18 07:00 15:00 23:00 07:00 15:00 23:00 Output Total 500 ml Balance -500 ml Output Urine Total 500 ml # Voids 3 2 Result Diagram: 03/19/18 0936 03/19/18 0936 Imaging Last Impressions Upper Extremity Ultrasound 03/15/18 0000 Signed Impressions: CONCLUSION: No left upper extremity venous thrombosis. Renal Biopsy CT 03/14/18 0000 Signed Impressions: CONCLUSION: 1. Uncomplicated CT guided biopsy. Chest X-Ray 03/13/18 0000 Signed Impressions: CONCLUSION: 1. No acute cardiopulmonary disease. 2. Degenerative changes throughout the thoracic spine. Catheter Placement X-Ray 03/09/18 0000 Signed Impressions: CONCLUSION: 1. Uncomplicated PermaCath placement as above. Renal Ultrasound 03/08/18 0000 Signed Impressions: CONCLUSION: Echogenic kidneys. No hydronephrosis. Objective Remarks General: No acute distress. Heart: Regular rate and rhythm. No murmur. Lungs: Clear to auscultation bilaterally. No wheezes, rales, or rhonchi. Breathing is nonlabored. Abdomen: Soft, nontender, nondistended. Extremities: No lower extremity edema. Psych: Alert and oriented. Neuro: Normal speech. No focal deficits noted. Procedures RIGHT IJ HD CATHETER 03-09 KIDNEY BIOPSY 03-14 Urinary Catheter: No Vascular Central Line Catheter: No A/P Problem List: (1) End stage kidney disease ICD Code: N18.6 - End stage renal disease (2) Hypertension ICD Code: I10 - Essential (primary) hypertension (3) Diabetes mellitus ICD Code: E11.9 - Type 2 diabetes mellitus without complications Assessment and Plan 1. ESRD: Management per nephrology. Dialysis Monday//Monday. Vascular surgery consulted for aVF placement, which will be arranged as outpatient. Discussed with Dr. Wall. 2. Diabetes mellitus: Monitor Accu-Cheks and cover with sliding scale insulin. Continue Levemir. 3. Hypertension: Poorly controlled. Benazepril and HCTZ discontinued secondary to renal failure. Continue Norvasc, hydralazine. Increase labetalol. Clonidine as needed. 4. Anemia: H&H low, but stable. Monitor labs. Transfuse if necessary. 5. DVT prophylaxis: Heparin. Discharge Planning Plan for discharge home once outpatient hemodialysis has been arranged. Case management assisting with discharge planning. Mansoor Thakkar MD Mar 19, 2018 14:04
[2018-03-19 16:29] VITALS: BP 141/75; PULSE 80; RESP 18; TEMP 98.1; O2SAT 100
[2018-03-19 20:19] VITALS: BP 148/72; PULSE 81; RESP 18; TEMP 99.1; O2SAT 100
[2018-03-19] MEDS: LABETALOL HCL 300 MG TAB PO SCH (22:08)
[2018-03-20 00:21] VITALS: BP 168/77; PULSE 77; RESP 19; TEMP 98.7; O2SAT 100
[2018-03-20 04:53] VITALS: BP 179/79; PULSE 79; RESP 19; TEMP 98.7; O2SAT 100
[2018-03-20] MEDS: HEPARIN SODIUM - SQ 10,000 UNITS/ML VIAL SQ SCH ×2 (04:55→18:17)
[2018-03-20] MEDS: hydrALAZINE HCL 50 MG TAB PO SCH ×3 (05:00→22:09)
[2018-03-20 05:55] VITALS: BP 155/71; PULSE 79; RESP 19; TEMP 98.7; O2SAT 99
[2018-03-20 08:13] VITALS: BP 164/77; PULSE 78; RESP 18; TEMP 98.9; O2SAT 96
[2018-03-20 09:16] LABS: AUTOMATED NEUTROPHIL # 5.9 TH/MM3 (1.8-7.7); BASOPHIL % 0.5 % (0.0-2.0); EOSINOPHIL # 0.3 TH/MM3 (0-0.4); EOSINOPHIL % 3.2 % (0.0-4.0); HEMOGLOBIN 7.4 GM/DL (11.6-15.3); LYMPH % 24.9 % (9.0-44.0); LYMPHOCYTE # 2.3 TH/MM3 (1.0-4.8); MEAN CELL VOLUME 66.8 FL (80.0-100.0); MEAN CORPUSCULAR HEMOGLOBIN 20.6 PG (27.0-34.0); MEAN CORPUSCULAR HGB CONC 30.8 % (32.0-36.0); MONO % 8.1 % (0.0-8.0); MONOCYTE # 0.8 TH/MM3 (0-0.9); NEUT % 63.3 % (16.0-70.0); PLATELET COUNT 260 TH/MM3 (150-450); RED BLOOD COUNT 3.59 MIL/MM3 (4.00-5.30); RED CELL DISTRIBUTION WIDTH 16.2 % (11.6-17.2); WHITE BLOOD COUNT 9.3 TH/MM3 (4.0-11.0)
[2018-03-20] MEDS: DOCUSATE SODIUM 50 MG/SENNA 8.6 MG TAB PO SCH ×2 (09:45→22:08)
[2018-03-20] MEDS: PRAVASTATIN SOD 40 MG TAB PO SCH (09:45)
[2018-03-20] MEDS: SODIUM BICARBONATE 325 MG TAB PO SCH ×2 (09:45→22:08)
[2018-03-20] MEDS: CALCIUM CARBONATE 1.25 GM (CA 500 MG) TAB PO SCH ×2 (09:45→22:09)
[2018-03-20] MEDS: LABETALOL HCL 300 MG TAB PO SCH ×2 (09:45→22:08)
[2018-03-20] MEDS: INSULIN DETEMIR 100 UNITS/ML VIAL SQ SCH (09:47)
[2018-03-20] MEDS: SODIUM CHLORIDE 0.9% FLUSH 10 ML FLUSH IV FLUSH SCH ×2 (09:48→22:05)
[2018-03-20] MEDS: INSULIN ASPART SUPPLEMENTAL SCALE SQ SCH ×4 (09:48→22:12)
[2018-03-20 09:58] LABS: BICARBONATE 26.6 MEQ/L (21.0-32.0); CREATININE 7.38 MG/DL (0.50-1.00)
--- NOTE | 2018-03-20 14:51 | HHI.PR ---
Subjective Remarks Follow-up hypertension, renal failure, anemia. The patient just returned from dialysis. She has no complaints at this time. Denies chest pain, dyspnea, nausea, vomiting. Objective Vitals Vital Signs Date Time Temp Pulse Resp B/P (MAP) Pulse Ox O2 Delivery O2 Flow Rate FiO2 03/20/18 08:13 98.9 78 18 164/77 (106) 96 03/20/18 05:55 98.7 79 19 155/71 (99) 99 03/20/18 04:53 98.7 79 19 179/79 (112) 100 03/20/18 00:21 98.7 77 19 168/77 (107) 100 03/19/18 20:19 99.1 81 18 148/72 (97) 100 03/19/18 16:29 98.1 80 18 141/75 (97) 100 I/O 03/19/18 03/19/18 03/19/18 03/20/18 03/20/18 03/20/18 07:00 15:00 23:00 07:00 15:00 23:00 Intake Total 480 ml 200 ml Output Total 150 ml 2000 ml Balance 480 ml 50 ml -2000 ml Intake Oral 480 ml 200 ml Output Urine Total 150 ml Hemodialysis 2000 ml # Voids 6 1 Result Diagram: 03/20/18 0820 03/20/18 0820 Imaging Last Impressions Upper Extremity Ultrasound 03/15/18 0000 Signed Impressions: CONCLUSION: No left upper extremity venous thrombosis. Renal Biopsy CT 03/14/18 0000 Signed Impressions: CONCLUSION: 1. Uncomplicated CT guided biopsy. Chest X-Ray 03/13/18 0000 Signed Impressions: CONCLUSION: 1. No acute cardiopulmonary disease. 2. Degenerative changes throughout the thoracic spine. Catheter Placement X-Ray 03/09/18 0000 Signed Impressions: CONCLUSION: 1. Uncomplicated PermaCath placement as above. Renal Ultrasound 03/08/18 0000 Signed Impressions: CONCLUSION: Echogenic kidneys. No hydronephrosis. Objective Remarks General: No acute distress. Heart: Regular rate and rhythm. No murmur. Lungs: Clear to auscultation bilaterally. No wheezes, rales, or rhonchi. Breathing is nonlabored. Abdomen: Soft, nontender, nondistended. Extremities: No lower extremity edema. Psych: Alert and oriented. Neuro: Normal speech. No focal deficits noted. Procedures RIGHT IJ HD CATHETER 03-09 KIDNEY BIOPSY 03-14 Urinary Catheter: No Vascular Central Line Catheter: No A/P Problem List: (1) End stage kidney disease ICD Code: N18.6 - End stage renal disease (2) Hypertension ICD Code: I10 - Essential (primary) hypertension (3) Diabetes mellitus ICD Code: E11.9 - Type 2 diabetes mellitus without complications Assessment and Plan 03/20/18: No change. Awaiting arrangement of outpatient dialysis. 1. ESRD: Management per nephrology. Dialysis Monday//Monday. Vascular surgery consulted for AV fistula placement, which will be arranged as outpatient. 2. Diabetes mellitus: Monitor Accu-Cheks and cover with sliding scale insulin. Continue Levemir. 3. Hypertension: Poorly controlled. Benazepril and HCTZ discontinued secondary to renal failure. Continue Norvasc, hydralazine, labetalol. Clonidine as needed. 4. Anemia: H&H low, but stable. Monitor labs. Transfuse if necessary. 5. DVT prophylaxis: Heparin. Discharge Planning Plan for discharge home once outpatient hemodialysis has been arranged. Case management assisting with discharge planning. Mansoor Thakkar MD Mar 20, 2018 14:51
--- NOTE | 2018-03-20 15:17 | HHI.NPPN ---
Subjective History of Present Illness Patient is a 62-year-old female with history of hypertension, diabetes mellitus , and dyslipidemia. Presented to the emergency room with generalized weakness and hypoglycemia. Per patient, she has been in her usual health until March 02 when she was not able to eat most of the day and then developed slurred speech which resolved after orange juice. She then developed dizziness and was not able to get out of bed . Nephrology is consulted for elevated BUN and creatinine with a creatinine of 8.03 and potassium level of 4.4, HCO3 at18.0, and calcium level of 6.5. Also noted to have iron deficency anemia with HGB of 7.7 no obvious signs of bleeding. Blood pressure elevated with SBP in the 180' s. She has been on glyburide/metformin and hydrochlorothiazide which has been discontinued and IVF are infusing. No previous history of kidney disease. Creatinine noted to be 1.29 in 2016. So could possible have some chronic kidney disease. Additional Remarks Patient is alert with no complaints. No shortness of breath or edema. (Shahida Medrano) Review of Systems Respiratory Respiratory Remarks Denies SOB (Shahida Medrano) Cardiovascular Cardiac Remarks Denies chest pain (Shahida Medrano) Gastrointestinal GI Remarks Denies abdominal pain (Shahida Medrano) Objective Data Data 03/20/18 03/21/18 19:00 07:00 Output Total 2000 ml Balance -2000 ml Hemodialysis 2000 ml Vital Signs Date Time Temp Pulse Resp B/P (MAP) Pulse Ox O2 Delivery O2 Flow Rate FiO2 03/20/18 08:13 98.9 78 18 164/77 (106) 96 03/20/18 05:55 98.7 79 19 155/71 (99) 99 03/20/18 04:53 98.7 79 19 179/79 (112) 100 03/20/18 00:21 98.7 77 19 168/77 (107) 100 03/19/18 20:19 99.1 81 18 148/72 (97) 100 03/19/18 16:29 98.1 80 18 141/75 (97) 100 (Shahida Medrano) -: 03/20/18 0820 03/20/18 0820 Imaging Last Impressions Upper Extremity Ultrasound 03/15/18 Signed Impressions: CONCLUSION: No left upper extremity venous thrombosis. Renal Biopsy CT 03/14/18 Signed Impressions: CONCLUSION: 1. Uncomplicated CT guided biopsy. Chest X-Ray 03/13/18 Signed Impressions: CONCLUSION: 1. No acute cardiopulmonary disease. 2. Degenerative changes throughout the thoracic spine. Catheter Placement X-Ray 03/09/18 Signed Impressions: CONCLUSION: 1. Uncomplicated PermaCath placement as above. Renal Ultrasound 03/08/18 Signed Impressions: CONCLUSION: Echogenic kidneys. No hydronephrosis. (GellermannShahida M. WHEEL ROLLER) Physical Exam General Appearance: No Acute Distress, Comfortable (GellermannCamrynShahida M. WHEEL ROLLER) Pulmonary Resp Exam: Clear Bilaterally, Breath Sounds Equal, Decreased Bases (GellermannCamrynShahida M. WHEEL ROLLER) Cardiology CV Exam: Regular (GellermannCamrynShahida M. WHEEL ROLLER) Gastrointestinal/Abdomen GI Exam: Soft, Non-Tender (SimeonlermannCamrynShahida M. WHEEL ROLLER) Genitourinary Exam: Flank Non-Tender (GellermannCamrynShahida M. WHEEL ROLLER) Integumentary Skin Exam: Clear, Warm (GellermannCamrynShahida M. WHEEL ROLLER) Neurologic Neuro Exam: Moving All Extremities (SimeonlermannCamrynShahida M. WHEEL ROLLER) Psychiatric Psych Exam: Appropriate Responses (Shahida Medrano. WHEEL ROLLER) Assessment/Plan Problem List: (1) End stage kidney disease ICD Codes: N18.6 - End stage renal disease Plan: Patient came with very high BUN and Creatinine. The Creatinine in December 2015 was 1.26, Started on HD the and Kidney Biopsy done 03/14. 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 Most likely has End stage renal disease. Dr. Chavez consulted for AVF placement outpatient appt given. Anemia continue Epogen with dialysis Continue HD on Case management consulted to assist with arrangements for outpatient dialysis. Hemodialysis today remove fluid as tolerated (2) Hypertension ICD Codes: I10 - Essential (primary) hypertension Plan: Better controlled On norvasc, hydralazine, and labetalol (3) Diabetes mellitus ICD Codes: E11.9 - Type 2 diabetes mellitus without complications Plan: Maintain blood sugar between 140mg/dl to 180mg/dl (4) Iron deficiency anemia ICD Codes: D50.9 - Iron deficiency anemia, unspecified (Shahida Medrano) Problem List: (1) End stage kidney disease ICD Codes: N18.6 - End stage renal disease Plan: Patient came with very high BUN and Creatinine. The Creatinine in December 2015 was 1.26, Started on HD the and Kidney Biopsy done 03/14. 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 Most likely has End stage renal disease. Dr. Chavez consulted for AVF placement outpatient appt given. Anemia continue Epogen with dialysis Continue HD on Case management consulted to assist with arrangements for outpatient dialysis. Hemodialysis today remove fluid as tolerated Patient seen and examined, agree with above. HD today, out patient HD arrangement. (2) Hypertension ICD Codes: I10 - Essential (primary) hypertension Plan: Better controlled On norvasc, hydralazine, and labetalol (3) Diabetes mellitus ICD Codes: E11.9 - Type 2 diabetes mellitus without complications Plan: Maintain blood sugar between 140mg/dl to 180mg/dl (4) Iron deficiency anemia ICD Codes: D50.9 - Iron deficiency anemia, unspecified (Slick Blanco MD) Shahida Medrano Mar 20, 2018 15:16 Slick Blanco MD Mar 20, 2018 22:21
[2018-03-20 16:36] VITALS: BP 159/71; PULSE 86; RESP 18; TEMP 99.7; O2SAT 96
[2018-03-20 21:30] VITALS: BP 174/73; PULSE 81; RESP 20; TEMP 98.9; O2SAT 98
[2018-03-21 00:13] VITALS: BP 148/73; PULSE 82; RESP 18; TEMP 97.8; O2SAT 97
[2018-03-21] MEDS: hydrALAZINE HCL 50 MG TAB PO SCH ×3 (05:14→21:54)
[2018-03-21] MEDS: HEPARIN SODIUM - SQ 10,000 UNITS/ML VIAL SQ SCH ×2 (05:18→13:49)
[2018-03-21 05:38] VITALS: BP 185/78; PULSE 85; RESP 18; TEMP 99.2; O2SAT 97
[2018-03-21 08:00] VITALS: BP 162/64; PULSE 82; RESP 18; TEMP 99.1; O2SAT 99
[2018-03-21] MEDS: INSULIN DETEMIR 100 UNITS/ML VIAL SQ SCH (09:00)
--- NOTE | 2018-03-21 09:26 | HHI.NPPN ---
Subjective Renal Failure: End Stage Renal Disease History of Present Illness Patient is a 62-year-old female with history of hypertension, diabetes mellitus , and dyslipidemia. Presented to the emergency room with generalized weakness and hypoglycemia. Per patient, she has been in her usual health until March 02 when she was not able to eat most of the day and then developed slurred speech which resolved after orange juice. She then developed dizziness and was not able to get out of bed . Nephrology is consulted for elevated BUN and creatinine with a creatinine of 8.03 and potassium level of 4.4, HCO3 at18.0, and calcium level of 6.5. Also noted to have iron deficency anemia with HGB of 7.7 no obvious signs of bleeding. Blood pressure elevated with SBP in the 180' s. She has been on glyburide/metformin and hydrochlorothiazide which has been discontinued and IVF are infusing. No previous history of kidney disease. Creatinine noted to be 1.29 in 2016. So could possible have some chronic kidney disease. Additional Remarks Hemodialysis yesterday tolerated well. No complaints. (Shahida Medrano) Review of Systems Respiratory Respiratory Remarks Denies SOB (Shahida Medrano) Cardiovascular Cardiac Remarks Denies chest pain (Shahida Medrano) Gastrointestinal GI Remarks Denies abdominal pain (Shahida Medrano) Objective Data Data Vital Signs Date Time Temp Pulse Resp B/P (MAP) Pulse Ox O2 Delivery O2 Flow Rate FiO2 03/21/18 05:38 99.2 85 18 185/78 (113) 97 03/21/18 00:13 97.8 82 18 148/73 (98) 97 03/20/18 21:30 98.9 81 20 174/73 (106) 98 03/20/18 16:36 99.7 86 18 159/71 (100) 96 (Shahida Medrano) -: 03/20/18 0820 03/20/18 0820 Physical Exam General Appearance: No Acute Distress, Comfortable (Shahida Medrano) Pulmonary Resp Exam: Clear Bilaterally, Breath Sounds Equal, Decreased Bases (Shahida Medrano) Cardiology CV Exam: Regular (Shahida Medrano) Gastrointestinal/Abdomen GI Exam: Soft, Non-Tender (Shahida Medrano) Genitourinary Exam: Flank Non-Tender (Shahida Medrano) Integumentary Skin Exam: Clear, Warm (Shahida Medrano) Neurologic Neuro Exam: Moving All Extremities (Shahida Medrano) Psychiatric Psych Exam: Appropriate Responses (Shahida Medrano) Assessment/Plan Problem List: (1) End stage kidney disease ICD Codes: N18.6 - End stage renal disease Plan: Patient came with very high BUN and Creatinine. The Creatinine in December 2015 was 1.26, Started on HD the 8th and Kidney Biopsy done 03/14. 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 Most likely has End stage renal disease. Dr. Chavez consulted for AVF placement outpatient appt given. Anemia continue Epogen with dialysis Continue HD on T/TH/Sat Acidosis improved will discontinue sodium bicarbonate Case management consulted to assist with arrangements for outpatient dialysis. Paper work on Chart for Dr. Blanco Hemodialysis yesterday tolerated well with remove of 2 liters Hemodialysis tomorrow (2) Hypertension ICD Codes: I10 - Essential (primary) hypertension Plan: On norvasc, hydralazine, and labetalol Labetalol recently increased. (3) Diabetes mellitus ICD Codes: E11.9 - Type 2 diabetes mellitus without complications Plan: Maintain blood sugar between 140mg/dl to 180mg/dl (4) Iron deficiency anemia ICD Codes: D50.9 - Iron deficiency anemia, unspecified (Shahida Medrano) Problem List: (1) End stage kidney disease ICD Codes: N18.6 - End stage renal disease Plan: Patient came with very high BUN and Creatinine. The Creatinine in December 2015 was 1.26, Started on HD the 8th and Kidney Biopsy done 03/14. 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 Most likely has End stage renal disease. Dr. Wall consulted for AVF placement outpatient appt given. Anemia continue Epogen with dialysis Continue HD on T/TH/Sat Acidosis improved will discontinue sodium bicarbonate Case management consulted to assist with arrangements for outpatient dialysis. Paper work on Chart for Dr. Blanco Hemodialysis yesterday tolerated well with remove of 2 liters Hemodialysis tomorrow. Patient seen and examined, agree with above. Out patient HD arrangement in progress. (2) Hypertension ICD Codes: I10 - Essential (primary) hypertension Plan: On norvasc, hydralazine, and labetalol Labetalol recently increased. (3) Diabetes mellitus ICD Codes: E11.9 - Type 2 diabetes mellitus without complications Plan: Maintain blood sugar between 140mg/dl to 180mg/dl (4) Iron deficiency anemia ICD Codes: D50.9 - Iron deficiency anemia, unspecified (Slick Blanco MD) Shahida Medrano Mar 21, 2018 09:26 Slick Blanco MD Mar 21, 2018 21:44
[2018-03-21] MEDS: INSULIN ASPART SUPPLEMENTAL SCALE SQ SCH ×4 (10:25→22:02)
[2018-03-21] MEDS: PRAVASTATIN SOD 40 MG TAB PO SCH (10:29)
[2018-03-21] MEDS: LABETALOL HCL 300 MG TAB PO SCH ×2 (10:30→21:53)
[2018-03-21] MEDS: CALCIUM CARBONATE 1.25 GM (CA 500 MG) TAB PO SCH ×2 (10:31→21:54)
[2018-03-21] MEDS: DOCUSATE SODIUM 50 MG/SENNA 8.6 MG TAB PO SCH ×2 (10:32→21:54)
[2018-03-21] MEDS: SODIUM CHLORIDE 0.9% FLUSH 10 ML FLUSH IV FLUSH SCH ×2 (10:32→21:54)
--- NOTE | 2018-03-21 11:32 | HHI.PR ---
Subjective Remarks Follow-up renal failure, hypertension. The patient has no complaints at this time. Denies chest pain, dyspnea, nausea, vomiting, diarrhea, constipation. Objective Vitals Vital Signs Date Time Temp Pulse Resp B/P (MAP) Pulse Ox O2 Delivery O2 Flow Rate FiO2 03/21/18 08:00 99.1 82 18 162/64 (96) 99 03/21/18 05:38 99.2 85 18 185/78 (113) 97 03/21/18 00:13 97.8 82 18 148/73 (98) 97 03/20/18 21:30 98.9 81 20 174/73 (106) 98 03/20/18 16:36 99.7 86 18 159/71 (100) 96 I/O 03/20/18 03/20/18 03/20/18 03/21/18 03/21/18 03/21/18 07:00 15:00 23:00 07:00 15:00 23:00 Intake Total 200 ml 480 ml 250 ml Output Total 150 ml 2000 ml 450 ml Balance 50 ml -1520 ml -200 ml Intake Oral 200 ml 480 ml 250 ml Output Urine Total 150 ml 450 ml Hemodialysis 2000 ml # Voids 1 3 # Bowel Movements 1 Result Diagram: 03/20/18 0820 03/20/18 0820 Imaging Last Impressions Upper Extremity Ultrasound 03/15/18 0000 Signed Impressions: CONCLUSION: No left upper extremity venous thrombosis. Renal Biopsy CT 03/14/18 0000 Signed Impressions: CONCLUSION: 1. Uncomplicated CT guided biopsy. Chest X-Ray 03/13/18 0000 Signed Impressions: CONCLUSION: 1. No acute cardiopulmonary disease. 2. Degenerative changes throughout the thoracic spine. Catheter Placement X-Ray 03/09/18 0000 Signed Impressions: CONCLUSION: 1. Uncomplicated PermaCath placement as above. Renal Ultrasound 03/08/18 Signed Impressions: CONCLUSION: Echogenic kidneys. No hydronephrosis. Objective Remarks General: No acute distress. Sitting up in a chair. Heart: Regular rate and rhythm. No murmur. Lungs: Clear to auscultation bilaterally. No wheezes, rales, or rhonchi. Breathing is nonlabored. Abdomen: Soft, nontender, nondistended. Extremities: No lower extremity edema. Psych: Alert and oriented. Neuro: Normal speech. No focal deficits noted. Procedures RIGHT IJ HD CATHETER 6-8 KIDNEY BIOPSY 03-14 Urinary Catheter: No Vascular Central Line Catheter: No A/P Problem List: (1) End stage kidney disease ICD Code: N18.6 - End stage renal disease (2) Hypertension ICD Code: I10 - Essential (primary) hypertension (3) Diabetes mellitus ICD Code: E11.9 - Type 2 diabetes mellitus without complications Assessment and Plan 03/21/18: Blood pressure remains elevated. Awaiting arrangement of outpatient dialysis. 1. ESRD: Management per nephrology. Dialysis Monday//Monday. Vascular surgery consulted for AV fistula placement, which will be arranged as outpatient. 2. Diabetes mellitus: Monitor Accu-Cheks and cover with sliding scale insulin. Continue Levemir. 3. Hypertension: Poorly controlled. Benazepril and HCTZ discontinued secondary to renal failure. Continue Norvasc, hydralazine, labetalol. Clonidine as needed. 4. Anemia: H&H low, but stable. Monitor labs. Transfuse if necessary. 5. DVT prophylaxis: Heparin. Discharge Planning Plan for discharge home once outpatient hemodialysis has been arranged. Case management assisting with discharge planning. Mansoor Thakkar MD Mar 21, 2018 11:32
[2018-03-21 12:00] VITALS: BP 144/56; PULSE 80; RESP 16; TEMP 99; O2SAT 100
[2018-03-21 20:00] VITALS: BP 152/67; PULSE 91; RESP 21; TEMP 98; O2SAT 99
[2018-03-22] VITALS: BP 136/65; PULSE 80; RESP 20; TEMP 98.3; O2SAT 98
[2018-03-22 04:00] VITALS: BP 159/84; PULSE 76; RESP 20; TEMP 98.1; O2SAT 96
[2018-03-22] MEDS: hydrALAZINE HCL 50 MG TAB PO SCH ×3 (05:09→21:30)
[2018-03-22] MEDS: HEPARIN SODIUM - SQ 10,000 UNITS/ML VIAL SQ SCH ×2 (05:09→16:35)
[2018-03-22 08:00] VITALS: BP 186/80; PULSE 81; RESP 17; TEMP 99.1; O2SAT 95
[2018-03-22] MEDS: INSULIN ASPART SUPPLEMENTAL SCALE SQ SCH ×4 (08:00→20:31)
[2018-03-22] MEDS: INSULIN DETEMIR 100 UNITS/ML VIAL SQ SCH (08:55)
[2018-03-22] MEDS: PRAVASTATIN SOD 40 MG TAB PO SCH (08:56)
[2018-03-22] MEDS: CALCIUM CARBONATE 1.25 GM (CA 500 MG) TAB PO SCH ×2 (08:56→20:30)
[2018-03-22] MEDS: SODIUM CHLORIDE 0.9% FLUSH 10 ML FLUSH IV FLUSH SCH ×2 (08:57→20:32)
[2018-03-22] MEDS: DOCUSATE SODIUM 50 MG/SENNA 8.6 MG TAB PO SCH ×2 (08:57→20:30)
[2018-03-22] MEDS: LABETALOL HCL 300 MG TAB PO SCH ×2 (08:57→20:30)
--- NOTE | 2018-03-22 11:08 | HHI.NPPN ---
Subjective Renal Failure: End Stage Renal Disease History of Present Illness Patient is a 62-year-old female with history of hypertension, diabetes mellitus , and dyslipidemia. Presented to the emergency room with generalized weakness and hypoglycemia. Per patient, she has been in her usual health until March 02 when she was not able to eat most of the day and then developed slurred speech which resolved after orange juice. She then developed dizziness and was not able to get out of bed . Nephrology is consulted for elevated BUN and creatinine with a creatinine of 8.03 and potassium level of 4.4, HCO3 at18.0, and calcium level of 6.5. Also noted to have iron deficency anemia with HGB of 7.7 no obvious signs of bleeding. Blood pressure elevated with SBP in the 180' s. She has been on glyburide/metformin and hydrochlorothiazide which has been discontinued and IVF are infusing. No previous history of kidney disease. Creatinine noted to be 1.29 in 2016. So could possible have some chronic kidney disease. Additional Remarks Seen during hemodialysis. No complaints. Awaiting outpatient dialysis to be arranged. (Shahida Medrano) Review of Systems Respiratory Respiratory Remarks Denies SOB (Shahida Medrano) Cardiovascular Cardiac Remarks Denies chest pain (Shahida Medrano) Gastrointestinal GI Remarks Denies abdominal pain (Shahida Medrano) Objective Data Data Vital Signs Date Time Temp Pulse Resp B/P (MAP) Pulse Ox O2 Delivery O2 Flow Rate FiO2 03/22/18 08:00 99.1 81 17 186/80 (115) 95 03/22/18 04:00 98.1 76 20 159/84 (109) 96 03/22/18 00:00 98.3 80 20 136/65 (88) 98 03/21/18 20:00 98.0 91 21 152/67 (95) 99 03/21/18 12:00 99.0 80 16 144/56 (85) 100 (Shahida Medrano) -: 03/20/18 0820 03/20/18 08 Physical Exam General Appearance: No Acute Distress, Comfortable (Shahida Medrano) Pulmonary Resp Exam: Clear Bilaterally, Breath Sounds Equal, Decreased Bases (Shahida Medrano) Cardiology CV Exam: Regular (Shahida Medrano) Gastrointestinal/Abdomen GI Exam: Soft, Non-Tender (Shahida Medrano) Genitourinary Exam: Flank Non-Tender (Shahida Medrano) Integumentary Skin Exam: Clear, Warm (Shahida Medrano) Neurologic Neuro Exam: Moving All Extremities (Shahida Medrano) Psychiatric Psych Exam: Appropriate Responses (Shahida Medrano) Assessment/Plan Problem List: (1) End stage kidney disease ICD Codes: N18.6 - End stage renal disease Plan: Patient came with very high BUN and Creatinine. The Creatinine in December 2015 was 1.26, Started on HD the and Kidney Biopsy done 03/14. 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 Most likely has End stage renal disease. Dr. Wall consulted for AVF placement outpatient appt given. Anemia continue Epogen with dialysis Continue HD on / Seen during hemodialysis tolerating well Just awaiting for outpatient hemodialysis to be arranged. (2) Hypertension ICD Codes: I10 - Essential (primary) hypertension Plan: On norvasc, hydralazine, and labetalol (3) Diabetes mellitus ICD Codes: E11.9 - Type 2 diabetes mellitus without complications Plan: Maintain blood sugar between 140mg/dl to 180mg/dl (4) Iron deficiency anemia ICD Codes: D50.9 - Iron deficiency anemia, unspecified (Shahida Medrano) Problem List: (1) End stage kidney disease ICD Codes: N18.6 - End stage renal disease Plan: Patient came with very high BUN and Creatinine. The Creatinine in December 2015 was 1.26, Started on HD the 8th and Kidney Biopsy done 03/14. 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 Most likely has End stage renal disease. Dr. Wall consulted for AVF placement outpatient appt given. Anemia continue Epogen with dialysis Continue HD on T//Mon Seen during hemodialysis tolerating well Just awaiting for outpatient hemodialysis to be arranged. Patient seen and examined, agree with above. Continue HD, awaiting out patient HD arrangement. (2) Hypertension ICD Codes: I10 - Essential (primary) hypertension Plan: On norvasc, hydralazine, and labetalol (3) Diabetes mellitus ICD Codes: E11.9 - Type 2 diabetes mellitus without complications Plan: Maintain blood sugar between 140mg/dl to 180mg/dl (4) Iron deficiency anemia ICD Codes: D50.9 - Iron deficiency anemia, unspecified (Slick Blanco MD) Shahida Medrano Mar 22, 2018 11:08 Slick Blanco MD Mar 22, 2018 18:19
[2018-03-22] MEDS: HEPARIN SODIUM - IV 10,000 UNITS/10 ML VIAL PRN (11:59)
[2018-03-22] MEDS: GENTAMICIN SULFATE 20 MG/2 ML VIAL OTHER PRN (12:00)
[2018-03-22] MEDS: EPOETIN ALFA 10,000 UNITS/ML VIAL IV PUSH PRN (12:00)
--- NOTE | 2018-03-22 14:55 | HHI.PR ---
Subjective Remarks Follow up renal failure. Just returned from dialysis. No complaints at this time. Objective Vitals Vital Signs Date Time Temp Pulse Resp B/P (MAP) Pulse Ox O2 Delivery O2 Flow Rate FiO2 03/22/18 08:00 99.1 81 17 186/80 (115) 95 03/22/18 04:00 98.1 76 20 159/84 (109) 96 03/22/18 00:00 98.3 80 20 136/65 (88) 98 03/21/18 20:00 98.0 91 21 152/67 (95) 99 I/O 03/21/18 03/21/18 03/21/18 03/22/18 03/22/18 03/22/18 06:59 14:59 22:59 06:59 14:59 22:59 Intake Total 250 ml 240 ml Output Total 450 ml 400 ml 3000 ml Balance -200 ml -160 ml -3000 ml Intake Oral 250 ml 240 ml Output Urine Total 450 ml 400 ml Hemodialysis 3000 ml # Bowel Movements 1 Result Diagram: 03/20/1881903/20/18 08 Imaging Last Impressions Upper Extremity Ultrasound 03/15/18 0000 Signed Impressions: CONCLUSION: No left upper extremity venous thrombosis. Renal Biopsy CT 03/14/18 0000 Signed Impressions: CONCLUSION: 1. Uncomplicated CT guided biopsy. Chest X-Ray 03/13/18 0000 Signed Impressions: CONCLUSION: 1. No acute cardiopulmonary disease. 2. Degenerative changes throughout the thoracic spine. Catheter Placement X-Ray 03/09/18 Signed Impressions: CONCLUSION: 1. Uncomplicated PermaCath placement as above. Renal Ultrasound 03/08/18 0000 Signed Impressions: CONCLUSION: Echogenic kidneys. No hydronephrosis. Objective Remarks General: No acute distress. Heart: Regular rate and rhythm. No murmur. Lungs: Clear to auscultation bilaterally. No wheezes, rales, or rhonchi. Breathing is nonlabored. Abdomen: Soft, nontender, nondistended. Extremities: No lower extremity edema. Psych: Alert and oriented. Neuro: Normal speech. No focal deficits noted. Procedures RIGHT IJ HD CATHETER 03-09 KIDNEY BIOPSY 03-14 Urinary Catheter: No Vascular Central Line Catheter: No A/P Problem List: (1) End stage kidney disease ICD Code: N18.6 - End stage renal disease (2) Hypertension ICD Code: I10 - Essential (primary) hypertension (3) Diabetes mellitus ICD Code: E11.9 - Type 2 diabetes mellitus without complications Assessment and Plan 03/22/18: Awaiting arrangement of outpatient dialysis. Labetalol and Norvasc held this morning. BP elevated. Resume blood pressure medications. 1. ESRD: Management per nephrology. Dialysis Monday//Monday. Vascular surgery consulted for AV fistula placement, which will be arranged as outpatient. 2. Diabetes mellitus: Monitor Accu-Cheks and cover with sliding scale insulin. Continue Levemir. 3. Hypertension: Poorly controlled. Benazepril and HCTZ discontinued secondary to renal failure. Continue Norvasc, hydralazine, labetalol. Clonidine as needed. 4. Anemia: H&H low, but stable. Monitor labs. Transfuse if necessary. 5. DVT prophylaxis: Heparin. Discharge Planning Plan for discharge home once outpatient hemodialysis has been arranged. Case management assisting with discharge planning. Mansoor Thakkar MD Mar 22, 2018 14:55
[2018-03-22 16:00] VITALS: BP 184/77; PULSE 87; RESP 18; TEMP 99.5; O2SAT 96
[2018-03-22 22:10] VITALS: BP 157/72; PULSE 76; RESP 17; TEMP 99.2; O2SAT 99
[2018-03-23 01:00] VITALS: BP 150/80; PULSE 67; RESP 18; TEMP 98; O2SAT 98
[2018-03-23] MEDS: HEPARIN SODIUM - SQ 10,000 UNITS/ML VIAL SQ SCH ×2 (04:19→18:34)
[2018-03-23 04:30] VITALS: BP 156/86; PULSE 69; RESP 17; TEMP 97; O2SAT 99
[2018-03-23] MEDS: hydrALAZINE HCL 50 MG TAB PO SCH ×3 (06:18→22:00)
[2018-03-23 07:48] LABS: BICARBONATE 28.6 MEQ/L (21.0-32.0); CREATININE 5.54 MG/DL (0.50-1.00)
[2018-03-23] MEDS: INSULIN ASPART SUPPLEMENTAL SCALE SQ SCH ×4 (08:00→22:03)
[2018-03-23] MEDS: INSULIN DETEMIR 100 UNITS/ML VIAL SQ SCH (09:00)
[2018-03-23] MEDS: DOCUSATE SODIUM 50 MG/SENNA 8.6 MG TAB PO SCH ×2 (09:18→22:00)
[2018-03-23] MEDS: SODIUM CHLORIDE 0.9% FLUSH 10 ML FLUSH IV FLUSH SCH ×2 (09:19→22:02)
[2018-03-23] MEDS: PRAVASTATIN SOD 40 MG TAB PO SCH (09:19)
[2018-03-23] MEDS: CALCIUM CARBONATE 1.25 GM (CA 500 MG) TAB PO SCH ×2 (09:19→22:00)
[2018-03-23] MEDS: LABETALOL HCL 300 MG TAB PO SCH ×2 (09:19→22:00)
[2018-03-23 09:30] VITALS: BP 174/77; PULSE 87; RESP 20; TEMP 99.5; O2SAT 98
[2018-03-23 13:00] VITALS: BP 137/67; PULSE 80; RESP 20; TEMP 99; O2SAT 97
--- NOTE | 2018-03-23 13:11 | HHI.NPPN ---
Subjective Renal Failure: End Stage Renal Disease History of Present Illness Patient is a 62-year-old female with history of hypertension, diabetes mellitus , and dyslipidemia. Presented to the emergency room with generalized weakness and hypoglycemia. Per patient, she has been in her usual health until March 02 when she was not able to eat most of the day and then developed slurred speech which resolved after orange juice. She then developed dizziness and was not able to get out of bed . Nephrology is consulted for elevated BUN and creatinine with a creatinine of 8.03 and potassium level of 4.4, HCO3 at18.0, and calcium level of 6.5. Also noted to have iron deficency anemia with HGB of 7.7 no obvious signs of bleeding. Blood pressure elevated with SBP in the 180' s. She has been on glyburide/metformin and hydrochlorothiazide which has been discontinued and IVF are infusing. No previous history of kidney disease. Creatinine noted to be 1.29 in 2016. So could possible have some chronic kidney disease. Additional Remarks Hemodialysis yesterday tolerated well. No shortness of breath, chest pain, or nausea. (Shahida Medrano) Review of Systems Respiratory Respiratory Remarks Denies SOB (Shahida Medrano) Cardiovascular Cardiac Remarks Denies chest pain (Shahida Medrano) Gastrointestinal GI Remarks Denies abdominal pain (Shahida Medrano) Objective Data Data Vital Signs Date Time Temp Pulse Resp B/P (MAP) Pulse Ox O2 Delivery O2 Flow Rate FiO2 03/23/18 13:00 99.0 80 20 137/67 (90) 97 03/23/18 09:30 99.5 87 20 174/77 (109) 98 03/23/18 04:30 97.0 69 17 156/86 (109) 99 03/23/18 01:00 98.0 67 18 150/80 (103) 98 03/22/18 22:10 99.2 76 17 157/72 (100) 99 03/22/18 16:00 99.5 87 18 184/77 (112) 96 (Shahida Medrano) -: 03/20/18 0820 03/23/18 0617 Imaging Last Impressions Upper Extremity Ultrasound 03/15/18 0000 Signed Impressions: CONCLUSION: No left upper extremity venous thrombosis. Renal Biopsy CT 03/14/18 0000 Signed Impressions: CONCLUSION: 1. Uncomplicated CT guided biopsy. Chest X-Ray 03/13/18 0000 Signed Impressions: CONCLUSION: 1. No acute cardiopulmonary disease. 2. Degenerative changes throughout the thoracic spine. Catheter Placement X-Ray 03/09/18 0000 Signed Impressions: CONCLUSION: 1. Uncomplicated PermaCath placement as above. Renal Ultrasound 03/08/18 0000 Signed Impressions: CONCLUSION: Echogenic kidneys. No hydronephrosis. (Shahida Medrano. ZANJERO) Physical Exam General Appearance: No Acute Distress, Comfortable (Shahida Medrano. ZANJERO) Pulmonary Resp Exam: Clear Bilaterally, Breath Sounds Equal, Decreased Bases (Shahida Medrano. ZANJERO) Cardiology CV Exam: Regular (Shahida Medrano. ZANJERO) Gastrointestinal/Abdomen GI Exam: Soft, Non-Tender (SimeonlerShahida valentino M. ZANJERO) Genitourinary Exam: Flank Non-Tender (Shahida Medrano M. ZANJERO) Integumentary Skin Exam: Clear, Warm (Shahida Medrano M. ZANJERO) Neurologic Neuro Exam: Moving All Extremities (Shahida Medrano M. ZANJERO) Psychiatric Psych Exam: Appropriate Responses (Shahida MedranoP) Assessment/Plan Problem List: (1) End stage kidney disease ICD Codes: N18.6 - End stage renal disease Plan: Patient came with very high BUN and Creatinine. The Creatinine in December 2015 was 1.26, Started on HD the and Kidney Biopsy done 03/14. 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 Most likely has End stage renal disease. Dr. Wall consulted for AVF placement outpatient appt given. Anemia continue Epogen with dialysis Continue HD on Hemodialysis yesterday tolerated well with removal of 3 liters Plan for discharge tomorrow after hemodialysis and she will then start transitional dialysis on Monday Orders signed. (2) Hypertension ICD Codes: I10 - Essential (primary) hypertension Plan: On norvasc, hydralazine, and labetalol (3) Diabetes mellitus ICD Codes: E11.9 - Type 2 diabetes mellitus without complications Plan: Maintain blood sugar between 140mg/dl to 180mg/dl (4) Iron deficiency anemia ICD Codes: D50.9 - Iron deficiency anemia, unspecified (Shahida Medrano) Problem List: (1) End stage kidney disease ICD Codes: N18.6 - End stage renal disease Plan: Patient came with very high BUN and Creatinine. The Creatinine in December 2015 was 1.26, Started on HD the and Kidney Biopsy done 03/14. 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 Most likely has End stage renal disease. Dr. Wall consulted for AVF placement outpatient appt given. Anemia continue Epogen with dialysis Continue HD on Hemodialysis yesterday tolerated well with removal of 3 liters Plan for discharge tomorrow after hemodialysis and she will then start transitional dialysis on Monday Orders signed. Patient seen and examined, agree with above. Out patient HD arrangement in progress. (2) Hypertension ICD Codes: I10 - Essential (primary) hypertension Plan: On norvasc, hydralazine, and labetalol (3) Diabetes mellitus ICD Codes: E11.9 - Type 2 diabetes mellitus without complications Plan: Maintain blood sugar between 140mg/dl to 180mg/dl (4) Iron deficiency anemia ICD Codes: D50.9 - Iron deficiency anemia, unspecified (Slick Blanco MD) Shahida Medrano Mar 23, 2018 13:11 Slick Blanco MD Mar 23, 2018 22:40
--- NOTE | 2018-03-23 14:13 | HHI.PR ---
Subjective Remarks Follow up renal failure. No complaints at this time. Denies chest pain, dyspnea. Objective Vitals Vital Signs Date Time Temp Pulse Resp B/P (MAP) Pulse Ox O2 Delivery O2 Flow Rate FiO2 03/23/18 13:00 99.0 80 20 137/67 (90) 97 03/23/18 09:30 99.5 87 20 174/77 (109) 98 03/23/18 04:30 97.0 69 17 156/86 (109) 99 03/23/18 01:00 98.0 67 18 150/80 (103) 98 03/22/18 22:10 99.2 76 17 157/72 (100) 99 03/22/18 16:00 99.5 87 18 184/77 (112) 96 I/O 03/22/18 03/22/18 03/22/18 03/23/18 03/23/18 03/23/18 07:00 15:00 23:00 07:00 15:00 23:00 Intake Total 240 ml 200 ml 400 ml 240 ml Output Total 400 ml 3000 ml 500 ml 0 ml Balance -160 ml -3000 ml -300 ml 400 ml 240 ml Intake Oral 240 ml 200 ml 400 ml 240 ml Output Urine Total 400 ml 500 ml 0 ml Hemodialysis 3000 ml # Bowel Movements 1 0 0 Result Diagram: 03/20/18 0820 03/23/18 0617 Imaging Last Impressions Upper Extremity Ultrasound 03/15/18 0000 Signed Impressions: CONCLUSION: No left upper extremity venous thrombosis. Renal Biopsy CT 03/14/18 0000 Signed Impressions: CONCLUSION: 1. Uncomplicated CT guided biopsy. Chest X-Ray 03/13/18 0000 Signed Impressions: CONCLUSION: 1. No acute cardiopulmonary disease. 2. Degenerative changes throughout the thoracic spine. Catheter Placement X-Ray 03/09/18 0000 Signed Impressions: CONCLUSION: 1. Uncomplicated PermaCath placement as above. Renal Ultrasound 03/08/18 0000 Signed Impressions: CONCLUSION: Echogenic kidneys. No hydronephrosis. Objective Remarks General: No acute distress. Heart: Regular rate and rhythm. No murmur. Lungs: Clear to auscultation bilaterally. No wheezes, rales, or rhonchi. Breathing is nonlabored. Abdomen: Soft, nontender, nondistended. Extremities: No lower extremity edema. Psych: Alert and oriented. Neuro: Normal speech. No focal deficits noted. Procedures RIGHT IJ HD CATHETER 03-09 KIDNEY BIOPSY 03-14 Urinary Catheter: No Vascular Central Line Catheter: No A/P Problem List: (1) End stage kidney disease ICD Code: N18.6 - End stage renal disease (2) Hypertension ICD Code: I10 - Essential (primary) hypertension (3) Diabetes mellitus ICD Code: E11.9 - Type 2 diabetes mellitus without complications Assessment and Plan 03/23/18: Awaiting arrangement of outpatient dialysis. BP improved. 1. ESRD: Management per nephrology. Dialysis Monday//Monday. Vascular surgery consulted for AV fistula placement, which will be arranged as outpatient. 2. Diabetes mellitus: Monitor Accu-Cheks and cover with sliding scale insulin. Continue Levemir. 3. Hypertension: Poorly controlled. Benazepril and HCTZ discontinued secondary to renal failure. Continue Norvasc, hydralazine, labetalol. Clonidine as needed. 4. Anemia: H&H low, but stable. Monitor labs. Transfuse if necessary. 5. DVT prophylaxis: Heparin. Discharge Planning Plan for discharge home once outpatient hemodialysis has been arranged. Case management assisting with discharge planning. Mansoor Thakkar MD Mar 23, 2018 14:13
[2018-03-23 16:47] VITALS: BP 173/79; PULSE 81; RESP 20; TEMP 98.6; O2SAT 95
[2018-03-23 20:00] VITALS: BP 163/70; PULSE 82; RESP 20; TEMP 98.9; O2SAT 96
[2018-03-24] VITALS: BP 166/73; PULSE 77; RESP 20; TEMP 98.5; O2SAT 99
[2018-03-24 04:00] VITALS: BP 142/67; PULSE 77; RESP 20; TEMP 98.7; O2SAT 97
[2018-03-24] MEDS: hydrALAZINE HCL 50 MG TAB PO SCH ×2 (05:23→13:53)
[2018-03-24] MEDS: HEPARIN SODIUM - SQ 10,000 UNITS/ML VIAL SQ SCH (05:23)
[2018-03-24 08:00] VITALS: BP 181/79; PULSE 80; RESP 20; TEMP 98.2; O2SAT 96
[2018-03-24] MEDS: DOCUSATE SODIUM 50 MG/SENNA 8.6 MG TAB PO SCH (09:00)
[2018-03-24] MEDS: CALCIUM CARBONATE 1.25 GM (CA 500 MG) TAB PO SCH (09:00)
[2018-03-24] MEDS: LABETALOL HCL 300 MG TAB PO SCH (09:36)
[2018-03-24] MEDS: INSULIN DETEMIR 100 UNITS/ML VIAL SQ SCH (09:36)
[2018-03-24] MEDS: PRAVASTATIN SOD 40 MG TAB PO SCH (09:36)
[2018-03-24] MEDS: INSULIN ASPART SUPPLEMENTAL SCALE SQ SCH ×2 (09:36→12:00)
[2018-03-24] MEDS: SODIUM CHLORIDE 0.9% FLUSH 10 ML FLUSH IV FLUSH SCH (09:40)
--- NOTE | 2018-03-24 09:50 | HHI.NPPN ---
Subjective Renal Failure: End Stage Renal Disease History of Present Illness Patient is a 62-year-old female with history of hypertension, diabetes mellitus , and dyslipidemia. Presented to the emergency room with generalized weakness and hypoglycemia. Per patient, she has been in her usual health until March 02 when she was not able to eat most of the day and then developed slurred speech which resolved after orange juice. She then developed dizziness and was not able to get out of bed . Nephrology is consulted for elevated BUN and creatinine with a creatinine of 8.03 and potassium level of 4.4, HCO3 at18.0, and calcium level of 6.5. Also noted to have iron deficency anemia with HGB of 7.7 no obvious signs of bleeding. Blood pressure elevated with SBP in the 180' s. She has been on glyburide/metformin and hydrochlorothiazide which has been discontinued and IVF are infusing. No previous history of kidney disease. Creatinine noted to be 1.29 in 2016. So could possible have some chronic kidney disease. Additional Remarks Seen on HD today, tolerating HD well Review of Systems Respiratory Respiratory Remarks Denies SOB Cardiovascular Cardiac Remarks Denies chest pain Gastrointestinal GI Remarks Denies abdominal pain Objective Data Data Vital Signs Date Time Temp Pulse Resp B/P (MAP) Pulse Ox O2 Delivery O2 Flow Rate FiO2 03/24/18 08:00 98.2 80 20 181/79 (113) 96 03/24/18 04:00 98.7 77 20 142/67 (92) 97 03/24/18 00:00 98.5 77 20 166/73 (104) 99 03/23/18 20:00 98.9 82 20 163/70 (101) 96 03/23/18 16:47 98.6 81 20 173/79 (110) 95 03/23/18 13:00 99.0 80 20 137/67 (90) 97 -: 03/20/18 0820 03/23/18 0617 Physical Exam General Appearance: No Acute Distress, Comfortable Pulmonary Resp Exam: Clear Bilaterally, Breath Sounds Equal, Decreased Bases Cardiology CV Exam: Regular Gastrointestinal/Abdomen GI Exam: Soft, Non-Tender Genitourinary Exam: Flank Non-Tender Integumentary Skin Exam: Clear, Warm Neurologic Neuro Exam: Moving All Extremities Psychiatric Psych Exam: Appropriate Responses Assessment/Plan Problem List: (1) End stage kidney disease ICD Codes: N18.6 - End stage renal disease Plan: Patient came with very high BUN and Creatinine. The Creatinine in December 2015 was 1.26, Started on HD the and Kidney Biopsy done 03/14. 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 Most likely has End stage renal disease. Dr. Wall consulted for AVF placement outpatient appt given. Anemia - continue Epogen with dialysis Continue HD on /Mon Seen on HD today, tolerating HD well. Plan for discharge today after hemodialysis and she will then start transitional dialysis on Monday (2) Hypertension ICD Codes: I10 - Essential (primary) hypertension Plan: On norvasc, hydralazine, and labetalol (3) Diabetes mellitus ICD Codes: E11.9 - Type 2 diabetes mellitus without complications Plan: Maintain blood sugar between 140mg/dl to 180mg/dl (4) Iron deficiency anemia ICD Codes: D50.9 - Iron deficiency anemia, unspecified Nehemias Collins MD Mar 24, 2018 09:50
[2018-03-24] MEDS: GENTAMICIN SULFATE 20 MG/2 ML VIAL OTHER PRN (11:14)
[2018-03-24] MEDS: HEPARIN SODIUM - IV 10,000 UNITS/10 ML VIAL PRN (11:15)
[2018-03-24] MEDS: EPOETIN ALFA 10,000 UNITS/ML VIAL IV PUSH PRN (11:15)
[2018-03-24] MEDS ORDERED: LABE300T PO (13:27)
[2018-03-24] MEDS ORDERED: LEVEMIR SQ (13:27)
[2018-03-24] MEDS ORDERED: AMLO10 PO (13:27)
[2018-03-24] MEDS ORDERED: NOVOLOGSS SQ (13:27)
[2018-03-24] MEDS ORDERED: HYDR-3800 PO (13:27)
--- NOTE | 2018-03-24 13:32 | HHI.DCPOC ---
Discharge Care Plan Diagnosis: (1) Diabetes mellitus (2) Iron deficiency anemia (3) Hypertension (4) Acute kidney injury (5) End stage kidney disease Goals to Promote Your Health * To prevent worsening of your condition and complications * To maintain your health at the optimal level Directions to Meet Your Goals Take your medications as prescribed Follow your dietary instruction Follow activity as directed Keep your appointments as scheduled Take your immunizations and boosters as scheduled If your symptoms worsen call your PCP, if no PCP go to Urgent Care Center or Emergency Room Smoking is Dangerous to Your Health. Avoid second hand smoke Call the 24-hour hour crisis hotline for domestic abuse at Mansoor Thakkar MD Mar 24, 2018 13:32
--- NOTE | 2018-03-24 13:37 | HHI.DS ---
Discharge Summary Admission Date Mar 08, 2018 at 15:16 Discharge Date: Mar 24, 2018 Admitting Diagnosis acute renal failure, diabetes mellitus, hypocalcemia (1) End stage kidney disease ICD Code: N18.6 - End stage renal disease (2) Hypertension ICD Code: I10 - Essential (primary) hypertension (3) Diabetes mellitus ICD Code: E11.9 - Type 2 diabetes mellitus without complications Procedures RIGHT IJ HD CATHETER 03-09 KIDNEY BIOPSY 03-14 Brief History - From Admission This is a 62-year-old female with history of hypertension, diabetes mellitus, and dyslipidemia presenting with generalized weakness and hypoglycemia. Per patient, she has been in her usual health until the last several days when she has noticed that her blood sugar has been low associated with lightheadedness and dizziness. It came to a point that she had generalized weakness and it became too difficult for her to walk around hence she decided to go to the hospital. She has been taking glyburide/metformin up until yesterday. No recent change in medications or insulin administration. She has been taking her medications as prescribed. She says she has been urinating fine, and there is been noted big change in her diet. The only thing that she has not been taking is her hydrochlorothiazide. She denies any chest pain, palpitations, abdominal pain, shortness of breath, dysuria, frequency, urgency or diarrhea. CBC/BMP: 03/20/18 0820 03/23/18 0617 Significant Findings Laboratory Tests Test 03/23/18 06:17 Blood Urea Nitrogen 28 MG/DL (7-18) Creatinine 5.54 MG/DL (0.50-1.00) Random Glucose 194 MG/DL (74-106) Calcium Level 8.0 MG/DL (8.5-10.1) Estimat Glomerular Filtration Rate 9 ML/MIN (>89) Imaging Last Impressions Upper Extremity Ultrasound 03/15/18 0000 Signed Impressions: CONCLUSION: No left upper extremity venous thrombosis. Renal Biopsy CT 03/14/18 0000 Signed Impressions: CONCLUSION: 1. Uncomplicated CT guided biopsy. Chest X-Ray 03/13/18 0000 Signed Impressions: CONCLUSION: 1. No acute cardiopulmonary disease. 2. Degenerative changes throughout the thoracic spine. Catheter Placement X-Ray 03/09/18 0000 Signed Impressions: CONCLUSION: 1. Uncomplicated PermaCath placement as above. Renal Ultrasound 03/08/18 Signed Impressions: CONCLUSION: Echogenic kidneys. No hydronephrosis. PE at Discharge General: No acute distress. Heart: Regular rate and rhythm. No murmur. Lungs: Clear to auscultation bilaterally. No wheezes, rales, or rhonchi. Breathing is nonlabored. Abdomen: Soft, nontender, nondistended. Extremities: No lower extremity edema. Psych: Alert and oriented. Neuro: Normal speech. No focal deficits noted. Pt update on day of discharge No complaints at this time. Just returned from dialysis. Wants to go home. Hospital Course The patient was admitted for management of hypoglycemia, renal failure. Nephrology was consulted. Patient was continued on IV fluids with dextrose. Glucose improved. Insulin was adjusted. Vas-Cath was placed and dialysis was initiated. Vascular surgery was consulted for dialysis fistula. The patient was advised to follow-up outpatient with vascular surgery. Case management assisted with arrangements for outpatient dialysis. Arrangements were made for the patient to return in 2 days for transitional dialysis. She was cleared for discharge by nephrology. Pt Condition on Discharge: Stable Discharge Disposition: Discharge Home Discharge Time: <= 30 minutes Discharge Instructions DIET: Follow Instructions for: Diabetic Diet Activities you can perform: Regular-No Restrictions Follow up Referrals: Vascular Surgery - 2 Weeks @ Vascular Surgery with Robles Wall MD Your AVF eval is scheduled on 04/02/18 @ 10:30 Your F/U appointment is on 04/06/18 @ 10:15 New Medications: Amlodipine (Norvasc) 10 Mg Tab 10 MG PO DAILY for Blood Pressure Management, #30 TAB 0 Refills Hydralazine HCl (Hydralazine HCl) 50 Mg Tablet 100 MG PO Q8HR for Blood Pressure Management, #90 TAB 0 Refills Insulin Aspart Inj (Novolog Inj) 100 Unit/Ml Inj 1 UNIT SQ ACHS SLIDING SCALE for Blood Sugar Management, #120 INJECTION 0 Refills Insulin Detemir Inj (Levemir Inj) 1,000 unit/ 10 ML Vial 10 UNITS SQ DAILY for Blood Sugar Management, #30 INJECTION 0 Refills Do not mix with any other Insulin. Labetalol (Labetalol) 300 Mg Tab 300 MG PO Q12HR for Blood Pressure Management, #60 TAB 0 Refills Continued Medications: Simvastatin (Zocor) 20 Mg Tab 20 MG PO DAILY for Cholesterol Management, #30 TAB 0 Refills Discontinued Medications: Amlodipine-Benazepril (Lotrel) 10-20 Mg Cap 1 CAP PO DAILY for Blood Pressure Management, #30 CAP 0 Refills Glyburide-Metformin (Glyburide-Metformin) 5-500 Mg Tab 1 TAB PO BID for Blood Sugar Management, #60 TAB 0 Refills Take with a meal Hydrochlorothiazide (Hydrochlorothiazide) 25 Mg Tab 25 MG PO DAILY, #30 TAB 0 Refills Metoprolol Tartrate (Lopressor) 100 Mg Tab 100 MG PO DAILY, #30 TAB 0 Refills Mansoor Thakkar MD Mar 24, 2018 13:37
== END 2018-03-24 16:10 | disposition home or self-care (01) | DRG 682 ==
LOC: NEPE 08:51 → NEDA 15:16 → N05B 18:38
PROVIDERS: ADMIT Family Medicine; ATTEND Family Medicine
PROC: 02HV33Z Insertion of Infusion Device into Superior Vena Cava, Percutaneous Approach (ICD-10-PCS; 2018-03-09)
PROC: B518ZZA Fluoroscopy of Superior Vena Cava, Guidance (ICD-10-PCS; 2018-03-09)
PROC: 3E033GC Introduction of Other Therapeutic Substance into Peripheral Vein, Percutaneous Approach (ICD-10-PCS; 2018-03-09)
PROC: 5A1D70Z Performance of Urinary Filtration, Intermittent, Less than 6 Hours Per Day (ICD-10-PCS; 2018-03-09)
PROC: 0TB13ZX Excision of Left Kidney, Percutaneous Approach, Diagnostic (ICD-10-PCS; principal; 2018-03-14)
DX: I12.0 Hypertensive chronic kidney disease with stage 5 chronic kidney disease or end stage renal disease (principal); N18.6 End stage renal disease; N17.9 Acute kidney failure, unspecified; E11.22 Type 2 diabetes mellitus with diabetic chronic kidney disease; E11.649 Type 2 diabetes mellitus with hypoglycemia without coma; Z79.84 Long term (current) use of oral hypoglycemic drugs; D50.9 Iron deficiency anemia, unspecified; N26.9 Renal sclerosis, unspecified; I16.0 Hypertensive urgency; E83.51 Hypocalcemia; E78.5 Hyperlipidemia, unspecified; Z99.2 Dependence on renal dialysis; Z83.3 Family history of diabetes mellitus
CPT/HCPCS: 36558; 50200; 71046; 76775; 76937; 77001; 77012; 80048; 80053; 80074; 81001; 82728; 82948; 83036; 83540; 83550; 83735; 83935; 84100; 84155; 84165; 84439; 84443; 85025; 85027; 85610; 85730; 86021; 86038; 86160; 87086; 87205; 90935; 93971; 96360; 96374; 96375; 99152; 99153; C1750; C1769; J0610; J0696; J1580; J1644; J1756; J1815; J2250; J3010; J7030; J7040; J7042; Q4081

== ENCOUNTER 2018-04-16 12:59 | Inpatient (IN) ==
--- NOTE | 2018-04-16 17:20 | ED ---
HPI General Chief complaint: Recheck/Abnormal Lab/Rx Stated complaint: Medical complaint/Phys sent Time Seen by Provider: 04/16/18 17:11 History of Present Illness HPI narrative: Patient was in dialysis and told to come to the ER secondary to low blood count. She is set to have surgery tomorrow for a fistula. She is a dialysis patient gets dialysis Monday and completed dialysis today. States that she does have a history of anemia. She denies hemoptysis, hematuria, bloody stool, chest pain, shortness of breath. Patient states that she has not had a colonoscopy before. Additionally, she has not taken any of her insulin today. Related Data Home Medications Medication Instructions Recorded Confirmed amlodipine 10 mg PO DAILY 04/13/18 04/16/18 hydralazine 50 mg PO TID 04/13/18 04/16/18 insulin glargine [Lantus U-100 10 unit SUB-Q HS 04/13/18 04/16/18 Insulin] insulin regular human 1 sliding scale dose SUB-Q ACHS 04/13/18 04/16/18 labetalol 300 mg PO BID 04/13/18 04/16/18 simvastatin 20 mg PO QPM 04/14/18 04/16/18 Allergies Allergy/AdvReac Type Severity Reaction Status Date / Time No Known Allergies Allergy Verified 04/16/18 17:16 Review of Systems ROS Unobtainable All other systems reviewed negative except as stated in HPI [facility] Medical History Medical History Bronchitis (Acute) Diabetes (Acute) Dizziness (Acute) Heart murmur (Acute) Hypertension (Acute) Kidney stones (Acute) Renal failure (Acute) Right leg pain (Acute) Vascular dialysis catheter in place (Acute) Surgical History Surgical History H/O tubal ligation (Acute) Social History Social History Substance History: No History of Abuse Second Hand Smoke Exposure: No Smoking Status: Never smoker How Often Do You Have a Drink Containing Alcohol: Never Recent Travel in [facility] within the Last 8 Weeks: No Recent Out of Country Travel within the Last 8 Weeks: No Exam Narrative Exam Narrative: GENERAL: No acute distress. SKIN: Focused skin assessment warm/dry. HEAD: Atraumatic. Normocephalic. EYES: Pupils equal and round. No scleral icterus. No injection or drainage. ENT: No nasal bleeding or discharge. Mucous membranes pink and moist. NECK: Trachea midline. No JVD. CARDIOVASCULAR: Regular rate and rhythm. No murmur appreciated. RESPIRATORY: No accessory muscle use. Clear to auscultation. Breath sounds equal bilaterally. GASTROINTESTINAL: Abdomen soft, non-tender, nondistended. Hepatic and splenic margins not palpable. Rectal: Brown stool, Hemoccult positive MUSCULOSKELETAL: No obvious deformities. No clubbing. No cyanosis. No edema. NEUROLOGICAL: Awake and alert. No obvious cranial nerve deficits. Motor grossly within normal limits. Normal speech. PSYCHIATRIC: Appropriate mood and affect; insight and judgment normal. Course Initial Documented Vital Signs Temperature 97.8 F 04/16/18 14:25 Pulse Rate 76 04/16/18 14:25 Respiratory Rate 17 04/16/18 14:25 Blood Pressure 144/70 H 04/16/18 14:25 Pulse Oximetry 98 04/16/18 14:25 Last Documented Vital Signs Temperature 97.8 F 04/16/18 14:25 Pulse Rate 81 04/16/18 17:31 Respiratory Rate 16 04/16/18 17:31 Blood Pressure 159/71 H 04/16/18 17:31 Pulse Oximetry 99 04/16/18 17:31 Medical Decision Making MDM Narrative Medical decision making narrative: Patient presents to the emergency department secondary to anemia. Patient placed on secured entrance monitor, continuous pulse ox, and IV access obtained. CBC and BMP ordered. 1720-Spoke to Dr. Blanco: Advised patient will need to be admitted and get blood for surgery tomorrow. Asked me to alert Vasc surg about patient's anemia. 1830-Spoke to Dr. Wall and advised of anemia. Request that admit MD place vascular consult, likely will only need 1 U PRBC. He will do as an inpatient. Stated as long as she's not hypotensive he will do the surgery. Patient has been consented for blood and ordered to transfuse 1 unit PRBCs. Accucheck 364, patient written for 9 units regular insulin SQ. 1909: Admit MD at bedside. Differential Diagnosis Differential Diagnosis: Anemia: Secondary to iron deficiency, kidney disease, acute blood loss Lab Data Result diagrams: 04/16/18 17:43 04/16/18 17:43 Lab Results 04/16/18 04/16/18 04/16/18 Range/Units 17:43 17:43 19:00 WBC 12.4 H (4.0-11.0) th/mm3 RBC 3.72 L (4.00-5.30) mil/mm3 Hgb 7.5 L (11.6-15.3) gm/dL Hct 24.2 L (35.0-46.0) % MCV 65.1 L (80.0-100.0) fL MCH 20.1 L (27.0-34.0) pg MCHC 30.9 L (32.0-36.0) % RDW 15.1 (11.6-17.2) % Plt Count 237 (150-450) th/mm3 MPV 8.2 (7.0-11.0) fL Neut % (Auto) 78.7 H (16.0-70.0) % Lymph % (Auto) 9.9 (9.0-44.0) % [place] % (Auto) 4.2 (0.0-8.0) % Eos % (Auto) 7.0 H (0.0-4.0) % Baso % (Auto) 0.2 (0.0-2.0) % Neut # (Auto) 9.7 H (1.8-7.7) th/mm3 Lymph # (Auto) 1.2 (1.0-4.8) th/mm3 [place] # (Auto) 0.5 (0.0-0.9) th/mm3 Eos # (Auto) 0.9 H (0.0-0.4) th/mm3 Baso # (Auto) 0.0 (0.0-0.2) th/mm3 WBC Differential . Differential Comment Auto diff final Sodium 138 (136-145) meq/L Potassium 3.4 L (3.5-5.1) meq/L Chloride 99 (98-107) meq/L Carbon Dioxide 27.6 (21.0-32.0) meq/L Anion Gap 11 (5-15) meq/L BUN 30 H (7-18) mg/dL Creatinine 6.31 H (0.50-1.00) mg/dL Estimated GFR 8 L (>89) mL/min POC Glucose 364 H (68-110) mg/dl Random Glucose 371 H D (74-106) mg/dL Calcium 8.0 L (8.5-10.1) mg/dL Discharge Plan Discharge Disposition Patient Disposition: 30 Still Patient Discharge Condition Condition: Stable Discharge Details Diagnosis: End stage renal disease on dialysis, Anemia, Hyperglycemia due to type 1 diabetes mellitus Physicians Team ED Provider: Kayla Cao Primary Care Provider: UNKNOWN, Attending Provider: Talia Randhawa Discharge Interventions Interventions: Vital Signs Last Done: 04/16/18 17:31 Status ED Status: Admitted Patient
[2018-04-16 18:34] LABS: Baso % (Auto) 0.2 % (0.0-2.0); Eos # (Auto) 0.9 th/mm3 (0.0-0.4); Hematocrit 24.2 % (35.0-46.0); Hemoglobin 7.5 gm/dL (11.6-15.3); Lymph # (Auto) 1.2 th/mm3 (1.0-4.8); Lymph % (Auto) 9.9 % (9.0-44.0); Mean Corpuscular Hemoglobin 20.1 pg (27.0-34.0); Mean Corpuscular Volume 65.1 fL (80.0-100.0); Mean Platelet Volume 8.2 fL (7.0-11.0); Mono # (Auto) 0.5 th/mm3 (0.0-0.9); Mono % (Auto) 4.2 % (0.0-8.0); Neut # (Auto) 9.7 th/mm3 (1.8-7.7); Neut % (Auto) 78.7 % (16.0-70.0); Platelet Count 237 th/mm3 (150-450); Red Blood Count 3.72 mil/mm3 (4.00-5.30); Red Cell Distribution Width 15.1 % (11.6-17.2); White Blood Count 12.4 th/mm3 (4.0-11.0)
[2018-04-16 18:38] LABS: Mean Corpuscular HGB Conc 30.9 % (32.0-36.0)
[2018-04-16 18:48] LABS: Carbon Dioxide 27.6 meq/L (21.0-32.0); Potassium 3.4 meq/L (3.5-5.1)
[2018-04-16] MEDS ORDERED: Sodium Chlor 0.9% Inj 250 ML IV.SIG SCH (19:00)
[2018-04-16] MEDS ORDERED: Bisacodyl 10 MG Supp RECTAL PRN (19:45)
[2018-04-16] MEDS ORDERED: Acetaminophen 325 MG Tablet PO PRN (19:45)
[2018-04-16] MEDS ORDERED: Temazepam 15 MG Capsule PO PRN (19:45)
--- NOTE | 2018-04-16 19:51 | P.HP ---
History of Present Illness Service: [facility] Primary Care Physician: UNKNOWN Chief Complaint: Anemia History of Present Illness: 62-year-old female with a past medical history significant for end-stage renal disease on dialysis, diabetes mellitus, hypertension and hyperlipidemia presents to the emergency department from dialysis for a low hemoglobin. The patient was told that her hemoglobin at dialysis was 6.9. Repeat hemoglobin done in the emergency department was 7.5. The patient is going to have an AV fistula placement with Dr. Wall tomorrow. She denies any lightheadedness or shortness of breath. No dizziness or fatigue. Hemoccult-positive in the emergency department. She denies black, tarry stools. No fevers/chills. No chest pain or shortness of breath. No abdominal pain. No nausea/vomiting/ diarrhea. No lateralizing signs/symptoms. Inpatient Certification: I certify that the inpatient services were ordered in accordance with Medicare regulations governing the order. This includes certification that hospital inpatient services are reasonable and necessary and in the case of services not specified as inpatient-only under 42 CFR 419.22(n), that they are appropriately provided as inpatient services in accordance to with the 2-midnight benchmark under 43 CFR 412.3(e) Review of Systems All other systems reviewed negative except as stated in HPI [facility] - History History Provided By: Patient - Medical History Medical History: Medical History (Last Updated 04/16/18 @ 17:20 by Adriana Zapata) Bronchitis Diabetes Dizziness Heart murmur Hypertension Kidney stones Renal failure Right leg pain Vascular dialysis catheter in place - Surgical History Surgical History: Surgical History (Last Updated 04/13/18 @ 16:38 by Coleman Salinas RN) H/O tubal ligation - Tobacco History Second Hand Smoke Exposure: No Tobacco Use In Past 30 Days: No Smoking Status: Never smoker - Alcohol History How Often Do You Have a Drink Containing Alcohol: Never - Substance Use History Substance History: No History of Abuse - Travel History Recent Travel in the [place] Within the Last 8 Weeks: No Recent Travel Out of the Country Within the Last 8 Weeks: No - Immunization History Tetanus Immunization: Unsure Hx Influenza Vaccine This Season: No Medications and Allergies Active Medications: Active Medications Sodium Chloride (Ns Inj) 250 mls @ 15 mls/hr IV.SIG ONCE MORRIS Stop: 04/17/18 11:39 Allergies Allergy/AdvReac Type Severity Reaction Status Date / Time No Known Allergies Allergy Verified 04/16/18 17:16 Home Medications Medication Instructions Recorded Confirmed Type amlodipine 10 mg PO DAILY 04/13/18 04/16/18 History hydralazine 50 mg PO TID 04/13/18 04/16/18 History insulin glargine [Lantus U-100 10 unit SUB-Q HS 04/13/18 04/16/18 History Insulin] insulin regular human 1 sliding scale dose SUB-Q ACHS 04/13/18 04/16/18 History labetalol 300 mg PO BID 04/13/18 04/16/18 History simvastatin 20 mg PO QPM 04/14/18 04/16/18 History Exam Vital signs: Vital Signs 04/16/18 14:25 04/16/18 17:31 Temperature 97.8 F Pulse Rate 76 81 Respiratory Rate 17 16 Blood Pressure 144/70 H 159/71 H Pulse Oximetry 98 99 Intake & Output 04/16/18 04/16/18 04/17/18 06:59 18:59 06:59 Weight 78.018 kg Narrative: Gen.: No acute distress Head: Normocephalic. Atraumatic. EENT: Pupils equal round and reactive to light. Nose without drainage. Airway intact. Throat without injection. Cardiovascular: Regular rate and rhythm. No murmurs, rubs or gallops. Respiratory: Lungs clear to auscultation bilaterally. No wheezes or rhonchi. Abdomen: Soft, nontender, nondistended. No peritoneal signs. Musculoskeletal: No gross deformities. No edema. Skin: No obvious rashes or erythema. Neuro: Sensory and motor grossly intact. Cranial nerves II through XII grossly intact. Psych: Appropriate mood and affect Results - Labs CBC & Chem 7: 04/16/18 17:43 04/16/18 17:43 Labs: Laboratory Results - last 24 hr 04/16/18 04/16/18 04/16/18 17:43 17:43 17:43 WBC 12.4 H RBC 3.72 L Hgb 7.5 L Hct 24.2 L MCV 65.1 L MCH 20.1 L MCHC 30.9 L RDW 15.1 Plt Count 237 MPV 8.2 Neut % (Auto) 78.7 H Lymph % (Auto) 9.9 [place] % (Auto) 4.2 Eos % (Auto) 7.0 H Baso % (Auto) 0.2 Neut # (Auto) 9.7 H Lymph # (Auto) 1.2 [place] # (Auto) 0.5 Eos # (Auto) 0.9 H Baso # (Auto) 0.0 WBC Differential . Differential Comment Auto diff final Sodium 138 Potassium 3.4 L Chloride 99 Carbon Dioxide 27.6 Anion Gap 11 BUN 30 H Creatinine 6.31 H Estimated GFR 8 L POC Glucose Random Glucose 371 H D Calcium 8.0 L Blood Type B Positive Blood Type Recheck Required Antibody Screen Negative MTS Gel Crossmatch See Detail 04/16/18 19:00 WBC RBC Hgb Hct MCV MCH MCHC RDW Plt Count MPV Neut % (Auto) Lymph % (Auto) [place] % (Auto) Eos % (Auto) Baso % (Auto) Neut # (Auto) Lymph # (Auto) [place] # (Auto) Eos # (Auto) Baso # (Auto) WBC Differential Differential Comment Sodium Potassium Chloride Carbon Dioxide Anion Gap BUN Creatinine Estimated GFR POC Glucose 364 H Random Glucose Calcium Blood Type Blood Type Recheck Antibody Screen MTS Gel Crossmatch Caprini VTE Risk Assessment Caprini VTE Risk Assessment: Moderate/High Risk (score >= 2) Caprini Risk Assessment Model: Point Value = 1 Point Value = 2 Point Value = 3 Point Value = 5 Age 41-60 Minor surgery BMI > 25 kg/m2 Swollen legs Varicose veins or History of unexplained or recurrent spontaneous Oral contraceptives or hormone replacement Sepsis (< 1 month) Serious lung disease, including pneumonia (< 1 month) Abnormal pulmonary function Acute myocardial infarction Congestive heart failure (< 1 month) History of inflammatory bowel disease Medical patient at bed rest Age 61-74 Arthroscopic surgery Major open surgery (> 45 min) Laparoscopic surgery (> 45 min) Malignancy Confined to bed (> 72 hours) Immobilizing plaster cast Central venous access Age >= 75 History of VTE Family history of VTE Factor V Leiden Prothrombin [id number] Lupus anticoagulant Anticardiolipin antibodies Elevated serum homocysteine Heparin-induced thrombocytopenia Other congenital or acquired thrombophilia Stroke (< 1 month) Elective arthroplasty Hip, pelvis, or leg fracture Acute spinal cord injury (< 1 month) Prophylaxis Regimen: Total Risk Factor Score Risk Level Prophylaxis Regimen 0-1 Low Early ambulation 2 Moderate Order ONE of the following: *Sequential Compression Device (SCD) *Heparin 5000 units SQ BID 3-4 Higher Order ONE of the following medications: *Heparin 5000 units SQ TID *Enoxaparin/Lovenox 40 mg SQ daily (WT < 150 kg, CrCl > 30 mL/min) *Enoxaparin/Lovenox 30 mg SQ daily (WT < 150 kg, CrCl > 10-29 mL/min) *Enoxaparin/Lovenox 30 mg SQ BID (WT < 150 kg, CrCl > 30 mL/min) AND/OR *Sequential Compression Device (SCD) 5 or more Highest Order ONE of the following medications: *Heparin 5000 units SQ TID (Preferred with Epidurals) *Enoxaparin/Lovenox 40 mg SQ daily (WT < 150 kg, CrCl > 30 mL/min) *Enoxaparin/Lovenox 30 mg SQ daily (WT < 150 kg, CrCl > 10-29 mL/min) *Enoxaparin/Lovenox 30 mg SQ BID (WT < 150 kg, CrCl > 30 mL/min) AND *Sequential Compression Device (SCD) Assessment and Plan - Plan Assessment/plan: 1. Anemia/GI bleed Patient Hemoccult-positive in the emergency department H&H 7.5.2 Transfuse 1 unit packed red blood cells Repeat H&H in 6 hours IV Protonix Gastroenterology consulted, appreciate recommendations 2. End-stage renal disease on dialysis Patient's sample color maker, Dr. Blanco consulted, appreciate assistance 3. Fistula placement tomorrow N.p.o. after midnight Vascular surgery, Dr. Wall consulted, appreciate assistance 4. Diabetes mellitus Sliding-scale insulin Monitor blood glucose 5. Hypertension/hyperlipidemia Continue home medications FEN N.p.o. Electrolytes: Monitor and replete as needed Holding pharmacologic anticoagulation for possible GI bleed
[2018-04-16] MEDS: Pantoprazole Inj 40 MG Vial IV.PUSH SCH (23:08)
[2018-04-16] MEDS: Senna/Docusate Sodium 8.6/50 MG Tablet PO SCH (23:09)
[2018-04-17 01:20] LABS: Baso % (Auto) 0.1 % (0.0-2.0); Eos # (Auto) 0.8 th/mm3 (0.0-0.4); Hematocrit 23.8 % (35.0-46.0); Hemoglobin 7.4 gm/dL (11.6-15.3); Lymph # (Auto) 1.5 th/mm3 (1.0-4.8); Lymph % (Auto) 12.3 % (9.0-44.0); Mean Corpuscular HGB Conc 31.1 % (32.0-36.0); Mean Corpuscular Volume 67.5 fL (80.0-100.0); Mean Platelet Volume 7.6 fL (7.0-11.0); Mono # (Auto) 0.6 th/mm3 (0.0-0.9); Mono % (Auto) 4.6 % (0.0-8.0); Neut # (Auto) 9.2 th/mm3 (1.8-7.7); Platelet Count 215 th/mm3 (150-450); Red Blood Count 3.53 mil/mm3 (4.00-5.30); Red Cell Distribution Width 16.7 % (11.6-17.2); White Blood Count 12.1 th/mm3 (4.0-11.0)
[2018-04-17 01:45] LABS: Calcium 7.3 mg/dL (8.5-10.1); Carbon Dioxide 26.4 meq/L (21.0-32.0); Potassium 3.5 meq/L (3.5-5.1)
[2018-04-17 02:01] LABS: Total Protein 6.6 g/dL (6.4-8.2)
[2018-04-17] MEDS ORDERED: Dextrose 50% in Water 50 ML Vial IV.PUSH PRN (05:28)
--- NOTE | 2018-04-17 07:31 | P.PNVS ---
- Pre-operative Note Planned Procedure: R UE AVF (brachiobasilic, 1st stage) Interval History: Pt was scheduled for elective outpatient surgery today but was adm last night for Hct 18, likely anemia of chronic disease related to ESRD. No symptoms of anemia. Resting comfortably this morning. Labs: WBC 12.1 th/mm3 (4.0-11.0) H 04/17/18 01:07 RBC 3.53 mil/mm3 (4.00-5.30) L 04/17/18 01:07 Hgb 7.4 gm/dL (11.6-15.3) L 04/17/18 01:07 Hct 23.8 % (35.0-46.0) L 04/17/18 01:07 MCV 67.5 fL (80.0-100.0) L 04/17/18 01:07 MCH 21.0 pg (27.0-34.0) L 04/17/18 01:07 MCHC 31.1 % (32.0-36.0) L 04/17/18 01:07 RDW 16.7 % (11.6-17.2) 04/17/18 01:07 Plt Count 215 th/mm3 (150-450) 04/17/18 01:07 MPV 7.6 fL (7.0-11.0) 04/17/18 01:07 Sodium 140 meq/L (136-145) 04/17/18 01:07 Potassium 3.5 meq/L (3.5-5.1) 04/17/18 01:07 Chloride 104 meq/L (98-107) 04/17/18 01:07 Carbon Dioxide 26.4 meq/L (21.0-32.0) 04/17/18 01:07 Anion Gap 10 meq/L (5-15) 04/17/18 01:07 BUN 32 mg/dL (7-18) H 04/17/18 01:07 Random Glucose 180 mg/dL (74-106) H D 04/17/18 01:07 Calcium 7.3 mg/dL (8.5-10.1) L* 04/17/18 01:07 Blood: T&S Imaging: duplex reviewed. Orders: NPO Vanc 1g IV OCTOR Post-operative Destination: PACU Operative site marked: Yes Consent: Informed consent has been obtained from Shanice Conde. I have explained the procedure in detail and discussed the risks, benefits, and potential complications. All questions have been answered.
[2018-04-17] MEDS: Insulin NovoLOG Aspart Correctional Sugar Inj SQ SCH ×3 (07:34→19:07)
[2018-04-17] MEDS ORDERED: Albumin Human 25% Inj 100 ML IV.SIG PRN (09:36)
[2018-04-17] MEDS ORDERED: Heparin 10,000 UNITS/10 ML Vial (for IV use) OTHER PRN (09:36)
[2018-04-17] MEDS ORDERED: Sod Chloride 0.9% Inj 1,000 ML OTHER PRN ×2 (09:36)
[2018-04-17] MEDS ORDERED: Sod Chloride 0.9% Inj 1,000 ML IV.CONT PRN (09:36)
[2018-04-17] MEDS ORDERED: Heparin 10,000 UNITS/10 ML Vial (for IV use) IV.FLUSH PRN (09:36)
[2018-04-17] MEDS ORDERED: Gelatin 12 MM/7 MM Topical Foam TOPICAL PRN (09:36)
[2018-04-17] MEDS ORDERED: Acetaminophen 325 MG Tablet PO PRN (09:36)
--- NOTE | 2018-04-17 09:36 | P.CONNP ---
<SimeonevShahida valentino - Last Filed: 04/17/18 09:25> History of Present Illness Service: Nephrology Consult date: 04/16/18 Requesting Physician: Talia Randhawa Reason for Consult: End stage renal disease on Hemodialysis Primary Care Provider: UNKNOWN Chief Complaint: Anemia History of Present Illness: Patient is a 62-year-old female with a past medical history significant for end- stage renal disease on dialysis, diabetes mellitus, hypertension and hyperlipidemia. Presented to the emergency department from transitional dialysis for a low hemoglobin of 6.9. Repeat hemoglobin done in the emergency department was 7.5, was transfused 1 unit of PRBC's. Stool is positive for occult blood and GI is consulted. The patient is going to have an AV fistula placement with Dr. Wall today seen in same day surgery. Nephrology consulted for end stage renal disease on hemodialysis. Her last dialysis was yesterday which she tolerated well. Plan is for hemodialysis tomorrow. Review of Systems Constitutional: Reports fatigue Cardiovascular: Denies chest pain, Denies shortness of breath Respiratory: Denies cough, Denies shortness of breath Gastrointestinal: Denies loose stools, Denies nausea, Denies vomiting Musculoskeletal: Denies back pain, Denies muscle weakness PMFSH - History History Provided By: Patient - Medical History Medical History: Medical History (Last Updated 04/16/18 @ 17:20 by Adriana Zapata) Bronchitis Diabetes Dizziness Heart murmur Hypertension Kidney stones Renal failure Right leg pain Vascular dialysis catheter in place - Surgical History Surgical History: Surgical History (Last Updated 04/13/18 @ 16:38 by Coleman Salinas RN) H/O tubal ligation - Tobacco History Second Hand Smoke Exposure: No Tobacco Use In Past 30 Days: No Smoking Status: Never smoker - Alcohol History How Often Do You Have a Drink Containing Alcohol: Never - Substance Use History Substance History: No History of Abuse - Travel History Recent Travel in the [place] Within the Last 8 Weeks: No Recent Travel Out of the Country Within the Last 8 Weeks: No - Immunization History Tetanus Immunization: Unsure Hx Influenza Vaccine This Season: No Medications and Allergies Allergies Allergy/AdvReac Type Severity Reaction Status Date / Time No Known Allergies Allergy Verified 04/16/18 17:16 Home Medications Medication Instructions Recorded Confirmed Type amlodipine 10 mg PO DAILY 04/13/18 04/16/18 History hydralazine 50 mg PO TID 04/13/18 04/16/18 History insulin glargine [Lantus U-100 10 unit SUB-Q HS 04/13/18 04/16/18 History Insulin] insulin regular human 1 sliding scale dose SUB-Q ACHS 04/13/18 04/16/18 History labetalol 300 mg PO BID 04/13/18 04/16/18 History simvastatin 20 mg PO QPM 04/14/18 04/16/18 History Active Medications: Active Medications Acetaminophen (Tylenol) 650 mg PO Q4H PRN PRN Reason: Temp > 100.4 Al Hydroxide/Mg Hydroxide (Milk Of Magnesia Liq) 30 ml PO Q12H PRN PRN Reason: Mild Constipation Amlodipine Besylate (Norvasc) 10 mg PO DAILY [facility] Bisacodyl (Dulcolax Supp) 10 mg RECTAL DAILY PRN PRN Reason: SEVERE CONSITIPATION Dextrose (D50w Vial) 50 ml IV.PUSH UNSCH PRN PRN Reason: PER HYPOGLYCEMIA PROTOCOL Glucagon (Glucagon Inj) 1 mg OTHER PRN PRN PRN Reason: for Hypoglycemia Protocol Hydralazine HCl (Apresoline) 50 mg PO TID [facility] Sodium Chloride (Ns Inj) 250 mls @ 15 mls/hr IV.SIG ONCE [facility] Stop: 04/17/18 11:39 Last Admin: 04/16/18 23:07 Dose: 15 mls/hr Insulin Aspart (Novolog Insulin Correctional Sugar Inj) 0 unit SQ ACHS [facility]; Protocol Labetalol HCl (Trandate) 300 mg PO BID [facility] Last Admin: 04/16/18 23:01 Dose: 300 mg Lactulose (Lactulose Liq) 30 ml PO DAILY PRN PRN Reason: SEVERE CONSITIPATION Ondansetron HCl (Zofran Inj) 4 mg IV.PUSH Q6H PRN PRN Reason: NAUSEA OR VOMITING Pantoprazole Sodium (Protonix Inj) 40 mg IV.PUSH Q12H [facility] Last Admin: 04/16/18 23:08 Dose: 40 mg Pravastatin Sodium (Pravachol) 40 mg PO QPM [facility] Senna/Docusate Sodium (Vanessa-Colace) 1 tab PO BID [facility] Last Admin: 04/16/18 23:09 Dose: Not Given Sennosides (Senokot) 17.2 mg PO Q12H PRN PRN Reason: Moderate Constipation Temazepam (Restoril) 15 mg PO HS PRN PRN Reason: INSOMNIA Exam Vital signs: Vital Signs 04/16/18 14:25 04/16/18 17:31 04/16/18 20:00 Temperature 97.8 F 98.1 F Pulse Rate 76 81 89 Respiratory Rate 17 16 Blood Pressure 144/70 H 159/71 H 155/73 H Pulse Oximetry 98 99 98 04/16/18 21:18 04/16/18 21:35 04/17/18 03:46 Temperature 98.5 F 98.5 F 98.9 F Pulse Rate 89 92 H 81 Respiratory Rate 14 16 16 Blood Pressure 139/60 145/66 H 165/68 H Pulse Oximetry 99 99 97 Intake & Output 04/16/18 04/17/18 04/17/18 18:59 06:59 18:59 Intake Total 0 / 0 Balance 0 / 0 Weight 78.018 kg Intake: Intake (Blood Product) Amt 0 / 0 Rbc As-3 Leukoreduced Unit 0 / 0 [id number] - Constitutional no acute distress - Routine HEENT Exam Head: Present: normocephalic ENT: Present: mucous membranes moist - Routine Neck Exam Present: supple. Absent: JVD - Routine Respiratory Exam Present: CTA bilaterally. Absent: rales, rhonchi - Routine Cardiovascular Exam Present: RRR. Absent: murmur - Routine Abdominal Exam Present: soft, normoactive bowel sounds - Routine Extremities Exam Present: vascular access. Absent: edema - Routine Skin Exam Present: dry, warm - Routine Neurological Exam Present: alert, oriented X3 Results - Lab Results 04/17/18 01:07 04/17/18 01:07 Most recent lab results Calcium 7.3 mg/dL (8.5-10.1) L* 04/17/18 01:07 Assessment and Plan - Assessment (1) End stage renal disease on dialysis Code(s): N18.6 - End stage renal disease; Z99.2 - Dependence on renal dialysis Status: Acute Plan: End stage renal disease on hemodialysis on Monday/Monday/Monday with transitional dialysis at [facility] Her last dialysis was yesterday which she tolerated well. The patient is going to have an AV fistula placement with Dr. Wall today seen in same day surgery. Epogen with dialysis Hemodialysis tomorrow Hypocalcemia will order Calcitrol Patient has recently received insurance and outpatient hemodialysis needs to be arranged Labs in AM (2) Anemia Code(s): D64.9 - Anemia, unspecified Status: Acute Plan: Epogen with dialysis Hgb 7.4 had 1 unit of PRBC's GI consulted, stool positive for occult blood (3) Hyperglycemia due to type 1 diabetes mellitus Code(s): E10.65 - Type 1 diabetes mellitus with hyperglycemia Status: Acute Plan: Maintain blood sugars between 140 mg/dl to 180 mg/dl <Keesha Blanco Q - Last Filed: 04/19/18 11:33> History of Present Illness Primary Care Provider: UNKNOWN [facility] - Medical History Medical History: Medical History (Last Updated 04/16/18 @ 17:20 by Adriana Zapata) Bronchitis Diabetes Dizziness Heart murmur Hypertension Kidney stones Renal failure Right leg pain Vascular dialysis catheter in place - Surgical History Surgical History: Surgical History (Last Updated 04/13/18 @ 16:38 by Coleman Salinas RN) H/O tubal ligation Medications and Allergies Active Medications: Active Medications Acetaminophen (Tylenol) 650 mg PO UNSCH PRN PRN Reason: SEE LABEL COMMENTS Al Hydroxide/Mg Hydroxide (Milk Of Manan Munroeq) 30 ml PO Q12H PRN PRN Reason: Mild Constipation Amlodipine Besylate (Norvasc) 10 mg PO DAILY [facility] Last Admin: 04/19/18 08:19 Dose: 10 mg Bisacodyl (Dulcolax Supp) 10 mg RECTAL DAILY PRN PRN Reason: SEVERE CONSITIPATION Calcitriol (Rocaltrol) 0.25 mcg PO DAILY [facility] Last Admin: 04/19/18 08:19 Dose: 0.25 mcg Clonidine HCl (Catapres) 0.1 mg PO UNSCH PRN PRN Reason: SEE LABEL COMMENTS Dextrose (D50w Vial) 50 ml IV.PUSH UNSCH PRN PRN Reason: PER HYPOGLYCEMIA PROTOCOL Diphenhydramine HCl (Benadryl) 25 mg PO UNSCH PRN PRN Reason: SEE LABEL COMMENTS Epoetin Jordan (Epogen Inj) 10,000 unit IV.PUSH UNSCH PRN PRN Reason: SEE LABEL COMMENTS Gelatin (Gelfoam 12 Mm/7 Mm Topical) 1 foam TOPICAL PRN PRN PRN Reason: help stop bleeding from site Gentamicin Sulfate (Gentamicin Inj) 20 mg OTHER WITH DIALYSIS PRN PRN Reason: Dwell Gentamycin Lock Glucagon (Glucagon Inj) 1 mg OTHER PRN PRN PRN Reason: for Hypoglycemia Protocol Heparin Sodium (Porcine) (Heparin Inj) 1,000 units OTHER WITH DIALYSIS PRN PRN Reason: Dwell Heparin to Fill Catheter Heparin Sodium (Porcine) (Heparin Inj) 8,000 units IV.FLUSH WITH DIALYSIS PRN PRN Reason: for machine prime Hydralazine HCl (Apresoline) 50 mg PO TID [facility] Last Admin: 04/19/18 08:19 Dose: 50 mg Sodium Chloride (Ns Inj) 1,000 mls @ 0 mls/hr OTHER .Q0M PRN PRN Reason: for prime and rinse back Sodium Chloride (Ns Inj) 1,000 mls @ 200 mls/hr OTHER .Q5H PRN PRN Reason: for dialyzer flush PRN Sodium Chloride (Ns Inj) 1,000 mls @ 0 mls/hr IV.CONT .Q0M PRN PRN Reason: hypotension / volume replace Albumin Human (Flexbumin 25% Inj) 100 mls @ 60 mls/hr IV.SIG WITH DIALYSIS PRN PRN Reason: hypotension / volume replace Insulin Aspart (Novolog Insulin Correctional Sugar Inj) 0 unit SQ ACHS [facility]; Protocol Last Admin: 04/19/18 08:18 Dose: Not Given Labetalol HCl (Trandate) 300 mg PO BID [facility] Last Admin: 04/19/18 08:19 Dose: 300 mg Lactulose (Lactulose Liq) 30 ml PO DAILY PRN PRN Reason: SEVERE CONSITIPATION Mannitol (Mannitol Inj) 12.5 gm IV.PUSH PRN PRN PRN Reason: hypotension / volume replace Nitroglycerin (Nitrostat Sl) 0.4 mg SL Q5M PRN PRN Reason: CHEST PAIN Ondansetron HCl (Zofran Inj) 4 mg IV.PUSH Q6H PRN PRN Reason: NAUSEA OR VOMITING Ondansetron HCl (Zofran Odt) 4 mg PO UNSCH PRN PRN Reason: NAUSEA OR VOMITING Oxycodone/Acetaminophen (Percocet 5/325 Mg) 1 tab PO Q4H PRN PRN Reason: PAIN 1-10 AND/OR FEVER >101F Last Admin: 04/17/18 17:19 Dose: 1 tab Pantoprazole Sodium (Protonix Inj) 40 mg IV.PUSH Q12H [facility] Last Admin: 04/19/18 08:19 Dose: 40 mg Pravastatin Sodium (Pravachol) 40 mg PO QPM [facility] Last Admin: 04/18/18 17:49 Dose: 40 mg Senna/Docusate Sodium (Vanessa-Colace) 1 tab PO BID [facility] Last Admin: 04/19/18 08:19 Dose: 1 tab Sennosides (Senokot) 17.2 mg PO Q12H PRN PRN Reason: Moderate Constipation Sodium Chloride (Ns Flush) 5 ml IV.FLUSH PRN PRN PRN Reason: flush each lumen during HD Temazepam (Restoril) 15 mg PO HS PRN PRN Reason: INSOMNIA Exam Vital signs: Vital Signs 04/18/18 16:00 04/18/18 20:00 04/19/18 00:00 Temperature 98.5 F 98.6 F 97.8 F Pulse Rate 79 79 70 Respiratory Rate 18 18 18 Blood Pressure 151/66 H 147/104 H 156/67 H Pulse Oximetry 96 95 98 04/19/18 04:00 04/19/18 08:00 Temperature 97.9 F 98.0 F Pulse Rate 84 74 Respiratory Rate 18 16 Blood Pressure 111/60 150/67 H Pulse Oximetry 96 94 L Intake & Output 04/18/18 04/19/18 04/19/18 18:59 06:59 18:59 Intake Total 800 / 800 200 / 200 Output Total 3000 / 3000 Balance -2200 / -2200 200 / 200 Weight 71.7 kg Intake: IV 200 / 200 Oral 800 / 800 Output: Hemodialysis Amount 3000 / 3000 Other: Date of Last Bowel Movement 04/19/18 # Bowel Movements 6 Results - Lab Results 04/18/18 08:16 04/18/18 08:16 Most recent lab results Calcium 7.9 mg/dL (8.5-10.1) L 04/18/18 08:16 Phosphorus 5.1 mg/dL (2.5-4.9) H D 04/18/18 08:16 Assessment and Plan - Assessment (1) End stage renal disease on dialysis Code(s): N18.6 - End stage renal disease; Z99.2 - Dependence on renal dialysis Status: Acute (2) Anemia Code(s): D64.9 - Anemia, unspecified Status: Acute (3) Hyperglycemia due to type 1 diabetes mellitus Code(s): E10.65 - Type 1 diabetes mellitus with hyperglycemia Status: Acute - Attending Attestation Patient seen and examined, agree with above. Hgb. stable post transfusion. AVF done, for out patient HD. Also GI work up for GI Bleeding. On Epogen with HD. <Shahida Medrano - Last Filed: 04/17/18 09:25> (2) Anemia Qualifiers: Anemia type: unspecified type Qualified Code(s): D64.9 - Anemia, unspecified <Keesha Blanco Q - Last Filed: 04/19/18 11:33> (2) Anemia Qualifiers: Anemia type: unspecified type Qualified Code(s): D64.9 - Anemia, unspecified
[2018-04-17] MEDS ORDERED: Protamine Sulfate Inj 50 MG/5 ML Vial ONE (11:02)
[2018-04-17] MEDS ORDERED: Heparin 10,000 UNITS/10 ML Vial (for IV use) ONE (11:02)
[2018-04-17] MEDS ORDERED: Thrombin Topical 20,000 UNIT Spray Kit TOPICAL ONE (11:02)
[2018-04-17] MEDS: Heparin/NS PF Inj 500 ML ONE ×2 (11:03→19:06)
[2018-04-17] MEDS: Bupivacaine PF 0.5% Inj 30 ML Vial ONE ×2 (11:04→19:07)
--- NOTE | 2018-04-17 11:41 | P.OP ---
Date of procedure: 04/17/18 Procedure: RIGHT brachiobasilic AVF (1st stage) Implants: none Anesthesia: ANDREA Surgeon: Robles Wall MD Fashion Editor: Telma Arroyo Estimated blood loss (mL): 30 IV fluids (mL): 350 Pathology: none sent Operation and Findings: + thrill after AVF + radial and ulnar signals after AVF
[2018-04-17] MEDS ORDERED: Lidocaine PF 1% Inj 5 ML Syringe INFILTRATN ONE ×2 (12:00)
[2018-04-17] MEDS ORDERED: Sodium Chlor 0.9% Inj 500 ML IV.SIG ONE (12:00)
[2018-04-17] MEDS ORDERED: Phenylephrine/NS 1000 MCG/10ML Syringe IV.PUSH ONE (12:00)
--- NOTE | 2018-04-17 12:01 | MP ---
cc: Robles Wall MD DATE OF OPERATION: 04/17/2018 PREOPERATIVE DIAGNOSIS: End-stage renal disease, need for hemodialysis access. POSTOPERATIVE DIAGNOSIS: End-stage renal disease, need for hemodialysis access. PROCEDURE PERFORMED: Right brachiobasilic arteriovenous fistula (first stage). ATTENDING SURGEON: Robles Wall MD BENCH SCIENTIST SURGEON: Telma Croft. ANESTHESIA: General. INDICATIONS FOR PROCEDURE: Mrs. Conde is a 62-year-old lady who has end-stage renal disease, needs dialysis access. Preoperative imaging suggested she had adequate right basilic vein. She was taken to the operating room for this procedure. DESCRIPTION OF PROCEDURE: Informed consent was obtained from the patient. She was taken to the operating room and placed supine on the operating table. An appropriate timeout was taken to ensure the patient's identity, the operative site and planned procedure. 1 gram of vancomycin was initiated prior to skin incision and will be discontinued after a single preoperative dose. Vancomycin was chosen because of the patient's end-stage renal disease. Everyone in the room agreed with the timeout and we proceeded. Her right arm was prepped and draped and a longitudinal incision was made over the distal aspect of the upper arm, carried down to subcutaneous tissue with electrocautery. Basilic vein was identified and cephalic branches were ligated with 3-0 silk ties. The vein was marked for orientation. The distal limb was clamped with a right angle and transected. The proximal limb was clamped temporarily with a Marvel bulldog clamp. The vein was distended and noted to be of adequate size. The brachial artery was identified on the medial aspect of the incision. The brachial artery was dissected free and, after the administration of 3000 units of intravenous heparin, proximal to distal control of the brachial artery was obtained with profunda clamps and a longitudinal arteriotomy was made with an 11 blade, extended with [place] scissors. The vein was spatulated and sewn end-to-side with running 6-0 Prolene suture. At the completion, it was flushed and noted to be hemostatic. The clamps were released. There was a nice thrill in the fistula and a Doppler signal in the wrist. The heparin was reversed with protamine. The wound was infiltrated with Marcaine and made hemostatic and the wound was closed with 2-0 Polysorb, 3-0 Polysorb and 4-0 Monocryl. Sponge and needle counts were correct at the end of the case. I was present, scrubbed, and performed the entire procedure. MD JUAN JOSÉ Castro/TRISTAN , 11:45 AM , 12:00 PM
[2018-04-17] MEDS ORDERED: fentaNYL Citrate Inj 100 MCG/2 ML Ampul ONE (12:28)
--- NOTE | 2018-04-17 15:15 | P.CONGI ---
History of Present Illness Consult date: 04/17/18 Consult reason: Anemia, Hemoccult positive stools Chief complaint: anemia, ESRD History of Present Illness: This is a 62 yo F with PMH significant for DM, ESRD on HD MWF, anemia,HTN, and hyperlipidemia who was sent from dialysis to the ER yesterday for further work up of anemia. Pt reports long history of anemia, states she had a syncopal episode when she was on a teenager secondary to low blood count and was on iron infusions for some time. Denies previous blood transfusion. Reports feeling light headed on her way to dialysis yesterday, denies syncopal episode. Denies SOB, chest pain, fatigue, nausea, vomiting, abdominal pain, constipation, diarrhea, obvious blood in stool, unintentional weight loss. Pt has never had EGD or colonoscopy. Denies family history of colon cancer. Denies ETOH and smoking. Of note, pt had AV fistula placed today by Dr. Wall, which was initially planned to be done outpatient today but due to her admission was done while inpatient. She returned from postop approximately 20 mins before my exam. <Diana Ding - Last Filed: 04/17/18 15:01> Review of Systems Constitutional: Denies fatigue, Denies weight loss Cardiovascular: Denies chest pain Respiratory: Denies shortness of breath Gastrointestinal: Denies abdominal pain, Denies black, tarry stools, Denies bright, red blood in stools, Denies constipation, Denies loose stools, Denies nausea, Denies vomiting Neurologic: Denies dizziness Comments: complaints of light headedness <Diana Ding - Last Filed: 04/17/18 15:01> [facility] - History History Provided By: Patient - Medical History Medical History: Medical History (Last Updated 04/16/18 @ 17:20 by Adriana Zapata) Bronchitis Diabetes Dizziness Heart murmur Hypertension Kidney stones Renal failure Right leg pain Vascular dialysis catheter in place - Surgical History Surgical History: Surgical History (Last Updated 04/13/18 @ 16:38 by Coleman Salinas RN) H/O tubal ligation - Tobacco History Second Hand Smoke Exposure: No Tobacco Use In Past 30 Days: No Smoking Status: Never smoker - Alcohol History How Often Do You Have a Drink Containing Alcohol: Never - Substance Use History Substance History: No History of Abuse - Travel History Recent Travel in the [place] Within the Last 8 Weeks: No Recent Travel Out of the Country Within the Last 8 Weeks: No - Immunization History Tetanus Immunization: Unsure Hx Influenza Vaccine This Season: No <Diana Ding - Last Filed: 04/17/18 15:01> - Medical History Medical History: Medical History (Last Updated 04/16/18 @ 17:20 by Adriana Zapata) Bronchitis Diabetes Dizziness Heart murmur Hypertension Kidney stones Renal failure Right leg pain Vascular dialysis catheter in place - Surgical History Surgical History: Surgical History (Last Updated 04/13/18 @ 16:38 by Coleman Salinas RN) H/O tubal ligation <David Portillo - Last Filed: 04/17/18 19:13> Medications and Allergies Active Medications: Active Medications Acetaminophen (Tylenol) 650 mg PO UNSCH PRN PRN Reason: SEE LABEL COMMENTS Al Hydroxide/Mg Hydroxide (Milk Of [place] Liq) 30 ml PO Q12H PRN PRN Reason: Mild Constipation Amlodipine Besylate (Norvasc) 10 mg PO DAILY MORRIS Bisacodyl (Dulcolax Supp) 10 mg RECTAL DAILY PRN PRN Reason: SEVERE CONSITIPATION Calcitriol (Rocaltrol) 0.25 mcg PO DAILY MORRIS Clonidine HCl (Catapres) 0.1 mg PO UNSCH PRN PRN Reason: SEE LABEL COMMENTS Dextrose (D50w Vial) 50 ml IV.PUSH UNSCH PRN PRN Reason: PER HYPOGLYCEMIA PROTOCOL Diphenhydramine HCl (Benadryl) 25 mg PO UNSCH PRN PRN Reason: SEE LABEL COMMENTS Epoetin Jordan (Epogen Inj) 10,000 unit IV.PUSH UNSCH PRN PRN Reason: SEE LABEL COMMENTS Gelatin (Gelfoam 12 Mm/7 Mm Topical) 1 foam TOPICAL PRN PRN PRN Reason: help stop bleeding from site Gentamicin Sulfate (Gentamicin Inj) 20 mg OTHER WITH DIALYSIS PRN PRN Reason: Dwell Gentamycin Lock Glucagon (Glucagon Inj) 1 mg OTHER PRN PRN PRN Reason: for Hypoglycemia Protocol Heparin Sodium (Porcine) (Heparin Inj) 1,000 units OTHER WITH DIALYSIS PRN PRN Reason: Dwell Heparin to Fill Catheter Heparin Sodium (Porcine) (Heparin Inj) 8,000 units IV.FLUSH WITH DIALYSIS PRN PRN Reason: for machine prime Hydralazine HCl (Apresoline) 50 mg PO TID MORRIS Sodium Chloride (Ns Inj) 1,000 mls @ 0 mls/hr OTHER .Q0M PRN PRN Reason: for prime and rinse back Sodium Chloride (Ns Inj) 1,000 mls @ 200 mls/hr OTHER .Q5H PRN PRN Reason: for dialyzer flush PRN Sodium Chloride (Ns Inj) 1,000 mls @ 0 mls/hr IV.CONT .Q0M PRN PRN Reason: hypotension / volume replace Albumin Human (Flexbumin 25% Inj) 100 mls @ 60 mls/hr IV.SIG WITH DIALYSIS PRN PRN Reason: hypotension / volume replace Insulin Aspart (Novolog Insulin Correctional Sugar Inj) 0 unit SQ ACHS [facility]; Protocol Last Admin: 04/17/18 07:34 Dose: Not Given Labetalol HCl (Trandate) 300 mg PO BID [facility] Last Admin: 04/16/18 23:01 Dose: 300 mg Lactulose (Lactulose Liq) 30 ml PO DAILY PRN PRN Reason: SEVERE CONSITIPATION Mannitol (Mannitol Inj) 12.5 gm IV.PUSH PRN PRN PRN Reason: hypotension / volume replace Miscellaneous Information (Misc Nursing Information) 1 each OTHER UNSCH PRN PRN Reason: SEE LABEL COMMENTS Stop: 04/18/18 12:20 Nitroglycerin (Nitrostat Sl) 0.4 mg SL Q5M PRN PRN Reason: CHEST PAIN Ondansetron HCl (Zofran Inj) 4 mg IV.PUSH Q6H PRN PRN Reason: NAUSEA OR VOMITING Ondansetron HCl (Zofran Odt) 4 mg PO UNSCH PRN PRN Reason: NAUSEA OR VOMITING Oxycodone/Acetaminophen (Percocet 5/325 Mg) 1 tab PO Q4H PRN PRN Reason: PAIN 1-10 AND/OR FEVER >101F Pantoprazole Sodium (Protonix Inj) 40 mg IV.PUSH Q12H [facility] Last Admin: 04/16/18 23:08 Dose: 40 mg Pravastatin Sodium (Pravachol) 40 mg PO QPM [facility] Senna/Docusate Sodium (Vanessa-Colace) 1 tab PO BID [facility] Last Admin: 04/16/18 23:09 Dose: Not Given Sennosides (Senokot) 17.2 mg PO Q12H PRN PRN Reason: Moderate Constipation Sodium Chloride (Ns Flush) 5 ml IV.FLUSH PRN PRN PRN Reason: flush each lumen during HD Temazepam (Restoril) 15 mg PO HS PRN PRN Reason: INSOMNIA <Diana Ding - Last Filed: 04/17/18 15:01> Active Medications: Active Medications Acetaminophen (Tylenol) 650 mg PO UNSCH PRN PRN Reason: SEE LABEL COMMENTS Al Hydroxide/Mg Hydroxide (Milk Of [place]) 30 ml PO Q12H PRN PRN Reason: Mild Constipation Amlodipine Besylate (Norvasc) 10 mg PO DAILY [facility] Last Admin: 04/17/18 19:05 Dose: Not Given Bisacodyl (Dulcolax Supp) 10 mg RECTAL DAILY PRN PRN Reason: SEVERE CONSITIPATION Calcitriol (Rocaltrol) 0.25 mcg PO DAILY [facility] Clonidine HCl (Catapres) 0.1 mg PO UNSCH PRN PRN Reason: SEE LABEL COMMENTS Dextrose (D50w Vial) 50 ml IV.PUSH UNSCH PRN PRN Reason: PER HYPOGLYCEMIA PROTOCOL Diphenhydramine HCl (Benadryl) 25 mg PO UNSCH PRN PRN Reason: SEE LABEL COMMENTS Epoetin Jordan (Epogen Inj) 10,000 unit IV.PUSH UNSCH PRN PRN Reason: SEE LABEL COMMENTS Gelatin (Gelfoam 12 Mm/7 Mm Topical) 1 foam TOPICAL PRN PRN PRN Reason: help stop bleeding from site Gentamicin Sulfate (Gentamicin Inj) 20 mg OTHER WITH DIALYSIS PRN PRN Reason: Dwell Gentamycin Lock Glucagon (Glucagon Inj) 1 mg OTHER PRN PRN PRN Reason: for Hypoglycemia Protocol Heparin Sodium (Porcine) (Heparin Inj) 1,000 units OTHER WITH DIALYSIS PRN PRN Reason: Dwell Heparin to Fill Catheter Heparin Sodium (Porcine) (Heparin Inj) 8,000 units IV.FLUSH WITH DIALYSIS PRN PRN Reason: for machine prime Hydralazine HCl (Apresoline) 50 mg PO TID [facility] Last Admin: 04/17/18 19:08 Dose: Not Given Sodium Chloride (Ns Inj) 1,000 mls @ 0 mls/hr OTHER .Q0M PRN PRN Reason: for prime and rinse back Sodium Chloride (Ns Inj) 1,000 mls @ 200 mls/hr OTHER .Q5H PRN PRN Reason: for dialyzer flush PRN Sodium Chloride (Ns Inj) 1,000 mls @ 0 mls/hr IV.CONT .Q0M PRN PRN Reason: hypotension / volume replace Albumin Human (Flexbumin 25% Inj) 100 mls @ 60 mls/hr IV.SIG WITH DIALYSIS PRN PRN Reason: hypotension / volume replace Insulin Aspart (Novolog Insulin Correctional Sugar Inj) 0 unit SQ ACHS [facility]; Protocol Last Admin: 04/17/18 19:07 Dose: Not Given Labetalol HCl (Trandate) 300 mg PO BID [facility] Last Admin: 04/17/18 19:06 Dose: Not Given Lactulose (Lactulose Liq) 30 ml PO DAILY PRN PRN Reason: SEVERE CONSITIPATION Mannitol (Mannitol Inj) 12.5 gm IV.PUSH PRN PRN PRN Reason: hypotension / volume replace Miscellaneous Information ([facility] [facility]) 1 each OTHER UNSCH PRN PRN Reason: SEE LABEL COMMENTS Stop: 04/18/18 12:20 Nitroglycerin (Nitrostat Sl) 0.4 mg SL Q5M PRN PRN Reason: CHEST PAIN Ondansetron HCl (Zofran Inj) 4 mg IV.PUSH Q6H PRN PRN Reason: NAUSEA OR VOMITING Ondansetron HCl (Zofran Odt) 4 mg PO UNSCH PRN PRN Reason: NAUSEA OR VOMITING Oxycodone/Acetaminophen (Percocet 5/325 Mg) 1 tab PO Q4H PRN PRN Reason: PAIN 1-10 AND/OR FEVER >101F Last Admin: 04/17/18 17:19 Dose: 1 tab Pantoprazole Sodium (Protonix Inj) 40 mg IV.PUSH Q12H [facility] Last Admin: 04/17/18 19:05 Dose: Not Given Polyethylene Glycol/Electrolytes (Colyte Liq) 0 ml PO ONCE ONE Stop: 04/18/18 16:01 Pravastatin Sodium (Pravachol) 40 mg PO QPM [facility] Last Admin: 18 17:19 Dose: 40 mg Senna/Docusate Sodium (Vanessa-Colace) 1 tab PO BID [facility] Last Admin: 04/17/18 19:05 Dose: Not Given Sennosides (Senokot) 17.2 mg PO Q12H PRN PRN Reason: Moderate Constipation Sodium Chloride (Ns Flush) 5 ml IV.FLUSH PRN PRN PRN Reason: flush each lumen during HD Temazepam (Restoril) 15 mg PO HS PRN PRN Reason: INSOMNIA <David Portillo E - Last Filed: 04/17/18 19:13> Allergies Allergy/AdvReac Type Severity Reaction Status Date / Time No Known Allergies Allergy Verified 04/16/18 17:16 Home Medications Medication Instructions Recorded Confirmed Type amlodipine 10 mg PO DAILY 04/13/18 04/16/18 History hydralazine 50 mg PO TID 04/13/18 04/16/18 History insulin glargine [Lantus U-100 10 unit SUB-Q HS 04/13/18 04/16/18 History Insulin] insulin regular human 1 sliding scale dose SUB-Q ACHS 04/13/18 04/16/18 History labetalol 300 mg PO BID 04/13/18 04/16/18 History simvastatin 20 mg PO QPM 04/14/18 04/16/18 History Exam Vital signs: Vital Signs 04/16/18 17:31 04/16/18 20:00 04/16/18 21:18 Temperature 98.1 F 98.5 F Pulse Rate 81 89 89 Respiratory Rate 16 14 Blood Pressure 159/71 H 155/73 H 139/60 Pulse Oximetry 99 98 99 04/16/18 21:35 04/17/18 03:46 04/17/18 08:05 Temperature 98.5 F 98.9 F Pulse Rate 92 H 81 76 Respiratory Rate 16 16 Blood Pressure 145/66 H 165/68 H Pulse Oximetry 99 97 04/17/18 12:18 04/17/18 12:30 04/17/18 12:45 Temperature 97.6 F Pulse Rate 80 78 88 Respiratory Rate 16 16 16 Blood Pressure 130/61 129/57 L 130/60 Pulse Oximetry 97 97 97 04/17/18 13:00 04/17/18 13:15 04/17/18 14:15 Temperature 97.6 F Pulse Rate 77 76 76 Respiratory Rate Blood Pressure 141/68 H 141/68 H 151/70 H Pulse Oximetry 98 98 98 Intake & Output 04/16/18 04/17/18 04/17/18 18:59 06:59 18:59 Intake Total 0 / 0 350 / 350 Output Total 30 / 30 Balance 0 / 0 320 / 320 Weight 78.018 kg Intake: IV 0 / 0 Heparin/NS PF Inj 500 ML @ 0 0 / 0 mls/hr .ROUTE .[facility] ONE Rx#: [id number] Anesthesia Amount 350 / 350 Intake (Blood Product) Amt 0 / 0 Rbc As-3 Leukoreduced Unit 0 / 0 [id number] Output: Estimated Blood Loss 30 / 30 - Constitutional no acute distress - Routine HEENT Exam Head: Present: normocephalic, atraumatic - Routine Respiratory Exam Absent: accessory muscle use - Routine Cardiovascular Exam Present: RRR - Routine Abdominal Exam Present: soft, normoactive bowel sounds. Absent: tenderness - Routine Skin Exam Present: dry, warm - Routine Neurological Exam Present: alert, oriented X3 <Diana Ding - Last Filed: 04/17/18 15:01> Vital signs: Vital Signs 04/16/18 20:00 04/16/18 21:18 04/16/18 21:35 Temperature 98.1 F 98.5 F 98.5 F Pulse Rate 89 89 92 H Respiratory Rate 14 16 Blood Pressure 155/73 H 139/60 145/66 H Pulse Oximetry 98 99 99 04/17/18 03:46 04/17/18 08:05 04/17/18 12:18 Temperature 98.9 F 97.6 F Pulse Rate 81 76 80 Respiratory Rate 16 16 Blood Pressure 165/68 H 130/61 Pulse Oximetry 97 97 04/17/18 12:30 04/17/18 12:45 04/17/18 13:00 Temperature Pulse Rate 78 88 77 Respiratory Rate 16 16 Blood Pressure 129/57 L 130/60 141/68 H Pulse Oximetry 97 97 98 04/17/18 13:15 04/17/18 14:15 04/17/18 16:00 Temperature 97.6 F 98.4 F Pulse Rate 76 76 82 Respiratory Rate 18 Blood Pressure 141/68 H 151/70 H 144/67 H Pulse Oximetry 98 98 94 L Intake & Output 04/17/18 04/17/18 04/18/18 06:59 18:59 06:59 Intake Total 0 / 0 710 / 710 Output Total 30 / 30 Balance 0 / 0 680 / 680 Intake: IV 0 / 0 Heparin/NS PF Inj 500 ML @ 0 0 / 0 mls/hr .ROUTE .[facility] ONE Rx#: [id number] Oral 360 / 360 Anesthesia Amount 350 / 350 Intake (Blood Product) Amt 0 / 0 Rbc As-3 Leukoreduced Unit 0 / 0 [id number] Output: Estimated Blood Loss 30 / 30 <David Portillo E - Last Filed: 04/17/18 19:13> Results - Labs CBC & Chem 7: 04/17/18 01:07 04/17/18 01:07 Labs: Laboratory Results - last 24 hr 04/16/18 04/16/18 04/16/18 17:43 17:43 17:43 WBC 12.4 H RBC 3.72 L Hgb 7.5 L Hct 24.2 L MCV 65.1 L MCH 20.1 L MCHC 30.9 L RDW 15.1 Plt Count 237 MPV 8.2 Neut % (Auto) 78.7 H Lymph % (Auto) 9.9 [place]roy[place] % (Auto) 4.2 Eos % (Auto) 7.0 H Baso % (Auto) 0.2 Neut # (Auto) 9.7 H Lymph # (Auto) 1.2 [place]o # (Auto) 0.5 Eos # (Auto) 0.9 H Baso # (Auto) 0.0 WBC Differential . Differential Comment Auto diff final Sodium 138 Potassium 3.4 L Chloride 99 Carbon Dioxide 27.6 Anion Gap 11 BUN 30 H Creatinine 6.31 H Estimated GFR 8 L POC Glucose Random Glucose 371 H D Calcium 8.0 L Prot Corrected Calcium Total Protein Blood Type B Positive Blood Type Recheck Required Antibody Screen Negative MTS Gel Crossmatch See Detail Bld Prod Order Comment 04/16/18 04/17/18 04/17/18 19:00 01:07 01:07 WBC 12.1 H RBC 3.53 L Hgb 7.4 L Hct 23.8 L MCV 67.5 L MCH 21.0 L MCHC 31.1 L RDW 16.7 Plt Count 215 MPV 7.6 Neut % (Auto) 76.0 H Lymph % (Auto) 12.3 Arroyo % (Auto) 4.6 Eos % (Auto) 7.0 H Baso % (Auto) 0.1 Neut # (Auto) 9.2 H Lymph # (Auto) 1.5 [place]royo # (Auto) 0.6 Eos # (Auto) 0.8 H Baso # (Auto) 0.0 WBC Differential . Differential Comment Auto diff final Sodium 140 Potassium 3.5 Chloride 104 Carbon Dioxide 26.4 Anion Gap 10 BUN 32 H Creatinine 7.17 H Estimated GFR 7 L POC Glucose 364 H Random Glucose 180 H D Calcium 7.3 L* Prot Corrected Calcium 7.6 L Total Protein 6.6 Blood Type Blood Type Recheck Antibody Screen MTS Gel Crossmatch Bld Prod Order Comment 04/17/18 13:35 WBC RBC Hgb Hct MCV MCH MCHC RDW Plt Count MPV Neut % (Auto) Lymph % (Auto) [place] % (Auto) Eos % (Auto) Baso % (Auto) Neut # (Auto) Lymph # (Auto) [place] # (Auto) Eos # (Auto) Baso # (Auto) WBC Differential Differential Comment Sodium Potassium Chloride Carbon Dioxide Anion Gap BUN Creatinine Estimated GFR POC Glucose 212 H Random Glucose Calcium Prot Corrected Calcium Total Protein Blood Type Blood Type Recheck Antibody Screen MTS Gel Crossmatch Bld Prod Order Comment <Diana Ding - Last Filed: 04/17/18 15:01> - Labs CBC & Chem 7: 04/17/18 01:07 04/17/18 01:07 Labs: Laboratory Results - last 24 hr 04/16/18 04/17/18 04/17/18 17:43 01:07 01:07 WBC 12.1 H RBC 3.53 L Hgb 7.4 L Hct 23.8 L MCV 67.5 L MCH 21.0 L MCHC 31.1 L RDW 16.7 Plt Count 215 MPV 7.6 Neut % (Auto) 76.0 H Lymph % (Auto) 12.3 Arroyo % (Auto) 4.6 Eos % (Auto) 7.0 H Baso % (Auto) 0.1 Neut # (Auto) 9.2 H Lymph # (Auto) 1.5 [place]royo # (Auto) 0.6 Eos # (Auto) 0.8 H Baso # (Auto) 0.0 WBC Differential . Differential Comment Auto diff final Sodium 140 Potassium 3.5 Chloride 104 Carbon Dioxide 26.4 Anion Gap 10 BUN 32 H Creatinine 7.17 H Estimated GFR 7 L POC Glucose Random Glucose 180 H D Calcium 7.3 L* Prot Corrected Calcium 7.6 L Total Protein 6.6 Blood Type B Positive Blood Type Recheck Required Antibody Screen Negative MTS Gel Crossmatch See Detail Bld Prod Order Comment 04/17/18 04/17/18 13:35 17:18 WBC RBC Hgb Hct MCV MCH MCHC RDW Plt Count MPV Neut % (Auto) Lymph % (Auto) Arroyo % (Auto) Eos % (Auto) Baso % (Auto) Neut # (Auto) Lymph # (Auto) [place]royo # (Auto) Eos # (Auto) Baso # (Auto) WBC Differential Differential Comment Sodium Potassium Chloride Carbon Dioxide Anion Gap BUN Creatinine Estimated GFR POC Glucose 212 H 302 H Random Glucose Calcium Prot Corrected Calcium Total Protein Blood Type Blood Type Recheck Antibody Screen MTS Gel Crossmatch Bld Prod Order Comment <David Portillo - Last Filed: 04/17/18 19:13> Assessment and Plan (1) Guaiac positive stools Status: Acute Code(s): R19.5 - Other fecal abnormalities (2) Anemia Status: Acute Code(s): D64.9 - Anemia, unspecified - Plan Assessment: - Anemia with Hemoccult positive stools in the ER- Pt sent from dialysis for work up of symptomatic anemia- reports feeling light headed that began yesterday on her way to dialysis. Denies SOB, chest pain, fatigue. Long history of anemia, reports syncopal episode in her teens and was on iron injections for some time. Currently on Epogen, ESRD on HD MWF. Hgb compared to a month ago when it was also 7.4. Denies nausea, vomiting, abdominal pain, constipation, diarrhea, blood in stool, unintentional weight loss. Denies any obvious GIB. Has never had EGD or colonoscopy. Denies family history of colon cancer. - ESRD on HD M,W,F - S/P AV fistula placement by Dr. Wall today- initially planned for outpatient procedure today but was done inpatient because pt admitted for anemia Plan: EGD and colonoscopy on Allow pt to recover from AV fistula surgery today Clear liquids tomorrow Golytely prep NPO after MN Monday Monitor H/H Epoetin 3 x week per nephrology Further recommendations based on clinical course and endoscopic findings Pt has been seen and examined by myself and Dr. Portillo and this note is written on his behalf <Diana Ding - Last Filed: 04/17/18 15:01> (1) Guaiac positive stools Status: Acute Code(s): R19.5 - Other fecal abnormalities (2) Anemia Status: Acute Code(s): D64.9 - Anemia, unspecified - Attending Attestation Patient seen and examined agree with above Continue with current supportive care Monitor labs Plan for an EGD with a colonoscopy on <David Portillo E - Last Filed: 04/17/18 19:13> <Diana Ding - Last Filed: 04/17/18 15:01> (2) Anemia Qualifiers: Anemia type: unspecified type Qualified Code(s): D64.9 - Anemia, unspecified <David Portillo E - Last Filed: 04/17/18 19:13> (2) Anemia Qualifiers: Anemia type: unspecified type Qualified Code(s): D64.9 - Anemia, unspecified
[2018-04-17] MEDS: hydrALAZINE 50 MG Tablet PO SCH ×3 (17:19→19:08)
--- NOTE | 2018-04-17 17:52 | P.PN ---
Subjective Interval history: Follow-up visit end-stage renal disease on hemodialysis, DM, HTN, HLD, anemia. Patient seen and examined today. Daughter at bedside. Reports she is doing well. Patient is status post AV fistula placement right upper extremity. Denies any pain or discomfort. Denies hematochezia, hematemesis. States he has a bowel movement soft does not know if it is dark colored or not. Denies SOB/ dyspnea. Denies chest pain, palpitations, headaches, dizziness. Denies fevers, chills, n/v/d. Physical Exam Vital signs: Vital Signs 04/16/18 20:00 04/16/18 21:18 04/16/18 21:35 Temperature 98.1 F 98.5 F 98.5 F Pulse Rate 89 89 92 H Respiratory Rate 14 16 Blood Pressure 155/73 H 139/60 145/66 H Pulse Oximetry 98 99 99 04/17/18 03:46 04/17/18 08:05 04/17/18 12:18 Temperature 98.9 F 97.6 F Pulse Rate 81 76 80 Respiratory Rate 16 16 Blood Pressure 165/68 H 130/61 Pulse Oximetry 97 97 04/17/18 12:30 04/17/18 12:45 04/17/18 13:00 Temperature Pulse Rate 78 88 77 Respiratory Rate 16 16 Blood Pressure 129/57 L 130/60 141/68 H Pulse Oximetry 97 97 98 04/17/18 13:15 04/17/18 14:15 Temperature 97.6 F Pulse Rate 76 76 Respiratory Rate Blood Pressure 141/68 H 151/70 H Pulse Oximetry 98 98 Intake & Output 04/16/18 04/17/18 04/17/18 18:59 06:59 18:59 Intake Total 0 / 0 350 / 350 Output Total 30 / 30 Balance 0 / 0 320 / 320 Weight 78.018 kg Intake: IV 0 / 0 Heparin/NS PF Inj 500 ML @ 0 0 / 0 mls/hr .ROUTE .[facility] Rx#: [id number] Anesthesia Amount 350 / 350 Intake (Blood Product) Amt 0 / 0 Rbc As-3 Leukoreduced Unit 0 / 0 [id number] Output: Estimated Blood Loss 30 / 30 Narrative: GENERAL: This is a well-nourished, well-developed patient, in no apparent distress. SKIN: Warm and dry. HEENT: Normocephalic. Pupils equal round and reactive. Nose without bleeding. Airway patent. NECK: Trachea midline. CARDIOVASCULAR: Regular rate and rhythm without murmurs, gallops, or rubs. RESPIRATORY: Clear to auscultation. Breath sounds equal bilaterally. No wheezes , rales, or rhonchi. GASTROINTESTINAL: Abdomen soft, non-tender, nondistended. Bowel Sounds normoactive x4. MUSCULOSKELETAL: Extremities without clubbing, cyanosis, or edema. Right upper extremity incision site clean dry and intact, no edema, no erythema. NEUROLOGICAL: Awake and alert. Oriented to time, place, person. No focal neuro deficit. Moves all extremities. Normal speech. Results - Labs CBC & Chem 7: 04/17/18 01:07 04/17/18 01:07 Laboratory Results - last 24 hr 04/16/18 04/16/18 04/16/18 17:43 17:43 17:43 WBC 12.4 H RBC 3.72 L Hgb 7.5 L Hct 24.2 L MCV 65.1 L MCH 20.1 L MCHC 30.9 L RDW 15.1 Plt Count 237 MPV 8.2 Neut % (Auto) 78.7 H Lymph % (Auto) 9.9 [place] % (Auto) 4.2 Eos % (Auto) 7.0 H Baso % (Auto) 0.2 Neut # (Auto) 9.7 H Lymph # (Auto) 1.2 [place] # (Auto) 0.5 Eos # (Auto) 0.9 H Baso # (Auto) 0.0 WBC Differential . Differential Comment Auto diff final Sodium 138 Potassium 3.4 L Chloride 99 Carbon Dioxide 27.6 Anion Gap 11 BUN 30 H Creatinine 6.31 H Estimated GFR 8 L POC Glucose Random Glucose 371 H D Calcium 8.0 L Prot Corrected Calcium Total Protein Blood Type B Positive Blood Type Recheck Required Antibody Screen Negative MTS Gel Crossmatch See Detail Bld Prod Order Comment 04/16/18 04/17/18 04/17/18 19:00 01:07 01:07 WBC 12.1 H RBC 3.53 L Hgb 7.4 L Hct 23.8 L MCV 67.5 L MCH 21.0 L MCHC 31.1 L RDW 16.7 Plt Count 215 MPV 7.6 Neut % (Auto) 76.0 H Lymph % (Auto) 12.3 [place] % (Auto) 4.6 Eos % (Auto) 7.0 H Baso % (Auto) 0.1 Neut # (Auto) 9.2 H Lymph # (Auto) 1.5 [place] # (Auto) 0.6 Eos # (Auto) 0.8 H Baso # (Auto) 0.0 WBC Differential . Differential Comment Auto diff final Sodium 140 Potassium 3.5 Chloride 104 Carbon Dioxide 26.4 Anion Gap 10 BUN 32 H Creatinine 7.17 H Estimated GFR 7 L POC Glucose 364 H Random Glucose 180 H D Calcium 7.3 L* Prot Corrected Calcium 7.6 L Total Protein 6.6 Blood Type Blood Type Recheck Antibody Screen MTS Gel Crossmatch Bld Prod Order Comment 04/17/18 04/17/18 13:35 17:18 WBC RBC Hgb Hct MCV MCH MCHC RDW Plt Count MPV Neut % (Auto) Lymph % (Auto) [place] % (Auto) Eos % (Auto) Baso % (Auto) Neut # (Auto) Lymph # (Auto) [place] # (Auto) Eos # (Auto) Baso # (Auto) WBC Differential Differential Comment Sodium Potassium Chloride Carbon Dioxide Anion Gap BUN Creatinine Estimated GFR POC Glucose 212 H 302 H Random Glucose Calcium Prot Corrected Calcium Total Protein Blood Type Blood Type Recheck Antibody Screen MTS Gel Crossmatch Bld Prod Order Comment - Procedures Status post AV fistula graft placement, right upper extremity, 04/17/18 Assessment and Plan - Plan 62-year-old female with a past medical history significant for end-stage renal disease on dialysis, diabetes mellitus, hypertension and hyperlipidemia presents to the emergency department from dialysis for a low hemoglobin. Anemia/GI bleed -Patient Hemoccult-positive in the emergency department -H&H 7.5/24.2 -Transfused 1 unit packed red blood cells -IV Protonix -Gastroenterology consulted, appreciate recommendations. Plan for colonoscopy -Repeat H&H tomorrow if lower than 7.5, transfuse during dialysis. End-stage renal disease on dialysis Status post AV fistula placement -[place], Dr. Blanco consulted, appreciate assistance -HD Monday, Monday, Monday -Vascular surgery, Dr. Wall -Monitor site Diabetes mellitus Type 2, -Sliding-scale insulin -Monitor blood glucose Hypertension/hyperlipidemia -Continue home medications -Monitor BP trend DVT prop SCDs Code Status: Full code Discussed Condition With: Patient, daughter, nursing Discharge Planning: Plan for colonoscopy
[2018-04-17] MEDS: Senna/Docusate Sodium 8.6/50 MG Tablet PO SCH ×2 (19:05→20:32)
[2018-04-17] MEDS: Pantoprazole Inj 40 MG Vial IV.PUSH SCH ×2 (19:05→20:32)
[2018-04-17] MEDS: amLODIPine 10 MG Tablet PO SCH (19:05)
[2018-04-18] MEDS: Insulin NovoLOG Aspart Correctional Sugar Inj SQ SCH ×5 (02:12→20:39)
[2018-04-18] MEDS: Senna/Docusate Sodium 8.6/50 MG Tablet PO SCH ×2 (08:50→20:40)
[2018-04-18] MEDS: amLODIPine 10 MG Tablet PO SCH (08:50)
[2018-04-18] MEDS: Calcitriol 0.25 MCG Capsule PO SCH (08:50)
[2018-04-18] MEDS: hydrALAZINE 50 MG Tablet PO SCH ×3 (08:50→17:50)
[2018-04-18] MEDS: Pantoprazole Inj 40 MG Vial IV.PUSH SCH ×2 (08:51→20:40)
[2018-04-18 09:04] LABS: Baso % (Auto) 0.1 % (0.0-2.0); Eos # (Auto) 0.9 th/mm3 (0.0-0.4); Eos % (Auto) 6.1 % (0.0-4.0); Hematocrit 24.1 % (35.0-46.0); Hemoglobin 7.6 gm/dL (11.6-15.3); Lymph # (Auto) 1.8 th/mm3 (1.0-4.8); Lymph % (Auto) 12.4 % (9.0-44.0); Mean Corpuscular HGB Conc 31.8 % (32.0-36.0); Mean Corpuscular Hemoglobin 21.4 pg (27.0-34.0); Mean Corpuscular Volume 67.3 fL (80.0-100.0); Mean Platelet Volume 8.2 fL (7.0-11.0); Mono # (Auto) 0.6 th/mm3 (0.0-0.9); Mono % (Auto) 4.5 % (0.0-8.0); Neut # (Auto) 10.9 th/mm3 (1.8-7.7); Neut % (Auto) 76.9 % (16.0-70.0); Platelet Count 248 th/mm3 (150-450); Red Blood Count 3.57 mil/mm3 (4.00-5.30); Red Cell Distribution Width 17.1 % (11.6-17.2); White Blood Count 14.2 th/mm3 (4.0-11.0)
--- NOTE | 2018-04-18 09:42 | P.PNVS ---
Subjective Post Op Day #: 1 Procedure: RIGHT brachiobasilic AVF (1st stage) Subjective/Hospital Course: Pt in good spirits this am Pt w/o complaints Pain controlled Incision intact w/o R/D/S + thrill palpable R radial pulse Objective Vital Signs / I&O: Vital Signs 04/17/18 12:18 04/17/18 12:30 04/17/18 12:45 Temperature 97.6 F Pulse Rate 80 78 88 Respiratory Rate 16 16 16 Blood Pressure 130/61 129/57 L 130/60 Pulse Oximetry 97 97 97 04/17/18 13:00 04/17/18 13:15 04/17/18 14:15 Temperature 97.6 F Pulse Rate 77 76 76 Respiratory Rate Blood Pressure 141/68 H 141/68 H 151/70 H Pulse Oximetry 98 98 98 04/17/18 15:13 04/17/18 16:00 04/17/18 20:00 Temperature 98.4 F 98 F Pulse Rate 82 89 Respiratory Rate 18 20 Blood Pressure 144/67 H 132/60 Pulse Oximetry 98 94 L 94 L 04/18/18 00:00 04/18/18 00:48 04/18/18 03:47 Temperature 98.2 F Pulse Rate 84 75 81 Respiratory Rate 16 Blood Pressure 147/66 H Pulse Oximetry 98 04/18/18 04:00 04/18/18 08:00 Temperature 98.1 F 98.8 F Pulse Rate 73 82 Respiratory Rate 16 20 Blood Pressure 149/70 H 164/75 H Pulse Oximetry 96 94 L Intake & Output 04/17/18 04/18/18 04/18/18 18:59 06:59 18:59 Intake Total 710 / 710 240 / 240 Output Total 30 / 30 Balance 680 / 680 240 / 240 Weight 78.1 kg Intake: IV 0 / 0 Heparin/NS PF Inj 500 ML @ 0 0 / 0 mls/hr .ROUTE [facility] Rx#: [id number] Oral 360 / 360 240 / 240 Anesthesia Amount 350 / 350 Output: Estimated Blood Loss 30 / 30 Other: # Voids 2 Exam: + thrill near R UE AVF UE warm w/ motor intact Incision intact w/o R/D/S No hand pain palpable R radial pulse Laboratory Results - last 24 hr 04/17/18 04/17/18 04/17/18 13:35 17:18 20:34 WBC RBC Hgb Hct MCV MCH MCHC RDW Plt Count MPV Neut % (Auto) Lymph % (Auto) [place] % (Auto) Eos % (Auto) Baso % (Auto) Neut # (Auto) Lymph # (Auto) [place] # (Auto) Eos # (Auto) Baso # (Auto) WBC Differential Differential Comment POC Glucose 212 H 302 H 337 H 04/18/18 04/18/18 07:22 08:16 WBC 14.2 H RBC 3.57 L Hgb 7.6 L Hct 24.1 L MCV 67.3 L MCH 21.4 L MCHC 31.8 L RDW 17.1 Plt Count 248 MPV 8.2 Neut % (Auto) 76.9 H Lymph % (Auto) 12.4 [place] % (Auto) 4.5 Eos % (Auto) 6.1 H Baso % (Auto) 0.1 Neut # (Auto) 10.9 H Lymph # (Auto) 1.8 [place] # (Auto) 0.6 Eos # (Auto) 0.9 H Baso # (Auto) 0.0 WBC Differential . Differential Comment Auto diff final POC Glucose 243 H Assessment and Plan - Assessment (1) AVF (arteriovenous fistula) Code(s): I77.0 - Arteriovenous fistula, acquired Status: Acute (2) End stage renal disease on dialysis Code(s): N18.6 - End stage renal disease; Z99.2 - Dependence on renal dialysis Status: Acute - Plan 62/F with a PMH of ESRD on HD Pt s/p RIGHT brachiobasilic AVF (1st stage) Pt doing well w/o complaints Pt w/ hand pain and has distal palpable pules + thrill Plan Discussed and reviewed post operative care and management w/ pt Questions answered Pt clear for D/C from a vascular stand point Arranged out pt follow up Jenna Jean NP [facility] [phone]
[2018-04-18 09:44] LABS: % Iron Saturation 20.3 % (20-50); Albumin 2.8 g/dL (3.4-5.0); Calcium 7.9 mg/dL (8.5-10.1); Carbon Dioxide 23.4 meq/L (21.0-32.0); Phosphorus 5.1 mg/dL (2.5-4.9); Potassium 4.1 meq/L (3.5-5.1)
--- NOTE | 2018-04-18 12:49 | P.PN ---
Subjective Interval history: Nursing denies any deterioration since last night. Patient denies having any further bleeding rectally. Denies any nausea vomiting or abdominal pain. Says she feels good. Physical Exam Vital signs: Vital Signs 04/17/18 13:00 04/17/18 13:15 04/17/18 14:15 Temperature 97.6 F Pulse Rate 77 76 76 Respiratory Rate Blood Pressure 141/68 H 141/68 H 151/70 H Pulse Oximetry 98 98 98 04/17/18 15:13 04/17/18 16:00 04/17/18 20:00 Temperature 98.4 F 98 F Pulse Rate 82 89 Respiratory Rate 18 20 Blood Pressure 144/67 H 132/60 Pulse Oximetry 98 94 L 94 L 04/18/18 00:00 04/18/18 00:48 04/18/18 03:47 Temperature 98.2 F Pulse Rate 84 75 81 Respiratory Rate 16 Blood Pressure 147/66 H Pulse Oximetry 98 04/18/18 04:00 04/18/18 08:00 04/18/18 11:31 Temperature 98.1 F 98.8 F Pulse Rate 73 82 Respiratory Rate 16 20 Blood Pressure 149/70 H 164/75 H Pulse Oximetry 96 94 L 94 L Intake & Output 04/17/18 04/18/18 04/18/18 18:59 06:59 18:59 Intake Total 710 / 710 240 / 240 Output Total 30 / 30 Balance 680 / 680 240 / 240 Weight 78.1 kg Intake: IV 0 / 0 Heparin/NS PF Inj 500 ML @ 0 0 / 0 mls/hr .ROUTE .[facility] Rx#: [id number] Oral 360 / 360 240 / 240 Anesthesia Amount 350 / 350 Output: Estimated Blood Loss 30 / 30 Other: # Voids 2 Narrative: Currently in dialysis unit undergoing dialysis Awake alert, no acute distress, good skin color Abdomen soft, nontender, nondistended Results - Labs CBC & Chem 7: 04/18/18 08:16 04/18/18 08:16 Laboratory Results - last 24 hr 04/17/18 04/17/18 04/17/18 13:35 17:18 20:34 WBC RBC Hgb Hct MCV MCH MCHC RDW Plt Count MPV Neut % (Auto) Lymph % (Auto) [place] % (Auto) Eos % (Auto) Baso % (Auto) Neut # (Auto) Lymph # (Auto) [place] # (Auto) Eos # (Auto) Baso # (Auto) WBC Differential Differential Comment Sodium Potassium Chloride Carbon Dioxide Anion Gap BUN Creatinine Estimated GFR POC Glucose 212 H 302 H 337 H Random Glucose Calcium Phosphorus Iron TIBC % Saturation Ferritin Albumin 04/18/18 04/18/18 04/18/18 07:22 08:16 08:16 WBC 14.2 H RBC 3.57 L Hgb 7.6 L Hct 24.1 L MCV 67.3 L MCH 21.4 L MCHC 31.8 L RDW 17.1 Plt Count 248 MPV 8.2 Neut % (Auto) 76.9 H Lymph % (Auto) 12.4 [place] % (Auto) 4.5 Eos % (Auto) 6.1 H Baso % (Auto) 0.1 Neut # (Auto) 10.9 H Lymph # (Auto) 1.8 [place] # (Auto) 0.6 Eos # (Auto) 0.9 H Baso # (Auto) 0.0 WBC Differential . Differential Comment Auto diff final Sodium 136 Potassium 4.1 Chloride 100 Carbon Dioxide 23.4 Anion Gap 13 BUN 47 H Creatinine 8.98 H Estimated GFR 5 L POC Glucose 243 H Random Glucose 202 H Calcium 7.9 L Phosphorus 5.1 H D Iron 44 L TIBC 217 L % Saturation 20.3 Ferritin 283 H Albumin 2.8 L - Procedures Status post AV fistula graft placement, right upper extremity, 04/17/18 Assessment and Plan - Plan 62-year-old female with a past medical history significant for end-stage renal disease on dialysis, diabetes mellitus, hypertension and hyperlipidemia presents to the emergency department from dialysis for a low hemoglobin. Anemia/GI bleed -Patient Hemoccult-positive in the emergency department -H&H 7.5/24.2 -Transfused 1 unit packed red blood cells -IV Protonix -Gastroenterology consulted, appreciate recommendations. Plan for colonoscopy -Repeat H&H tomorrow if lower than 7.5, transfuse during dialysis. End-stage renal disease on dialysis Status post AV fistula placement -[place] [place], Dr. Blanco consulted, appreciate assistance -HD Monday, Monday, Monday -Vascular surgery, Dr. Wall -Monitor site Diabetes mellitus Type 2, -Sliding-scale insulin -Monitor blood glucose Hypertension/hyperlipidemia -Continue home medications -Monitor BP trend SCDs given GI bleed
--- NOTE | 2018-04-18 14:24 | P.PNNP ---
Subjective Interval history: Seen during hemodialysis tolerating well. S/P AVF fistula placement yesterday. <Shahida Medrano - Last Filed: 04/18/18 15:13> Physical Exam Vital signs: Vital Signs 04/17/18 14:15 04/17/18 15:13 04/17/18 16:00 Temperature 97.6 F 98.4 F Pulse Rate 76 82 Respiratory Rate 18 Blood Pressure 151/70 H 144/67 H Pulse Oximetry 98 98 94 L 04/17/18 20:00 04/18/18 00:00 04/18/18 00:48 Temperature 98 F 98.2 F Pulse Rate 89 84 75 Respiratory Rate 20 16 Blood Pressure 132/60 147/66 H Pulse Oximetry 94 L 98 04/18/18 03:47 04/18/18 04:00 04/18/18 08:00 Temperature 98.1 F 98.8 F Pulse Rate 81 73 82 Respiratory Rate 16 20 Blood Pressure 149/70 H 164/75 H Pulse Oximetry 96 94 L 04/18/18 11:31 Temperature Pulse Rate Respiratory Rate Blood Pressure Pulse Oximetry 94 L Intake & Output 04/17/18 04/18/18 04/18/18 18:59 06:59 18:59 Intake Total 710 / 710 240 / 240 Output Total 30 / 30 3000 / 3000 Balance 680 / 680 240 / 240 -3000 / -3000 Weight 78.1 kg Intake: IV 0 / 0 Heparin/NS PF Inj 500 ML @ 0 0 / 0 mls/hr .ROUTE [facility] Rx#: [id number] Oral 360 / 360 240 / 240 Anesthesia Amount 350 / 350 Output: Hemodialysis Amount 3000 / 3000 Estimated Blood Loss 30 / 30 Other: # Voids 2 - Constitutional no acute distress - Routine HEENT Exam Head: Present: normocephalic - Routine Neck Exam Present: supple. Absent: JVD - Routine Respiratory Exam Present: CTA bilaterally. Absent: rhonchi, crackles - Routine Cardiovascular Exam Present: RRR. Absent: murmur - Routine Abdominal Exam Present: soft, normoactive bowel sounds - Routine Extremities Exam Present: AV fistula, vascular access. Absent: edema - Routine Skin Exam Present: dry, warm - Routine Neurological Exam Present: alert, oriented X3 - Routine Psychiatric Exam Present: cooperative <Shahida Medrano - Last Filed: 04/18/18 15:13> Vital signs: Vital Signs 04/18/18 16:00 04/18/18 20:00 04/19/18 00:00 Temperature 98.5 F 98.6 F 97.8 F Pulse Rate 79 79 70 Respiratory Rate 18 18 18 Blood Pressure 151/66 H 147/104 H 156/67 H Pulse Oximetry 96 95 98 04/19/18 04:00 04/19/18 08:00 Temperature 97.9 F 98.0 F Pulse Rate 84 74 Respiratory Rate 18 16 Blood Pressure 111/60 150/67 H Pulse Oximetry 96 94 L Intake & Output 04/18/18 04/19/18 04/19/18 18:59 06:59 18:59 Intake Total 800 / 800 200 / 200 Output Total 3000 / 3000 Balance -2200 / -2200 200 / 200 Weight 71.7 kg Intake: IV 200 / 200 Oral 800 / 800 Output: Hemodialysis Amount 3000 / 3000 Other: Date of Last Bowel Movement 04/19/18 # Bowel Movements 6 <Autumn Blanco - Last Filed: 04/19/18 11:48> Assessment and Plan - Assessment (1) End stage renal disease on dialysis Code(s): N18.6 - End stage renal disease; Z99.2 - Dependence on renal dialysis Status: Acute Plan: End stage renal disease on hemodialysis on Monday/Monday/Monday with transitional dialysis at [place] S/P AV fistula placement with Dr. Wall 04/17 Epogen with dialysis Hemodialysis today with UF of 3 liters Continue Calcitrol Patient has recently received insurance and outpatient hemodialysis needs to be arranged Plan for EGD and colonoscopy tomorrow (2) Anemia Code(s): D64.9 - Anemia, unspecified Status: Acute Qualifiers: Anemia type: unspecified type Qualified Code(s): D64.9 - Anemia, unspecified Plan: Epogen with dialysis Hgb 7.6 GI consulted, stool positive for occult blood EGD and colonoscopy tomorrow (3) Hyperglycemia due to type 1 diabetes mellitus Code(s): E10.65 - Type 1 diabetes mellitus with hyperglycemia Status: Acute Plan: Maintain blood sugars between 140 mg/dl to 180 mg/dl <Shahida Medrano - Last Filed: 04/18/18 15:13> - Assessment (1) End stage renal disease on dialysis Code(s): N18.6 - End stage renal disease; Z99.2 - Dependence on renal dialysis Status: Acute (2) Anemia Code(s): D64.9 - Anemia, unspecified Status: Acute Qualifiers: Anemia type: unspecified type Qualified Code(s): D64.9 - Anemia, unspecified (3) Hyperglycemia due to type 1 diabetes mellitus Code(s): E10.65 - Type 1 diabetes mellitus with hyperglycemia Status: Acute - Attending Attestation Patient seen and examined, agree with above. For GI work up, follow Hgb. <Autumn Blanco - Last Filed: 04/19/18 11:48>
--- NOTE | 2018-04-18 15:06 | P.PNGI ---
Subjective Interval history: Pt back from dialysis. Denies nausea, vomiting, abdominal pain. States noticed some blood in her stool. Aware of plans for EGD and colonoscopy tomorrow. <Diana Ding - Last Filed: 04/18/18 15:04> Physical Exam Vital signs: Vital Signs 04/17/18 15:13 04/17/18 16:00 04/17/18 20:00 Temperature 98.4 F 98 F Pulse Rate 82 89 Respiratory Rate 18 20 Blood Pressure 144/67 H 132/60 Pulse Oximetry 98 94 L 94 L 04/18/18 00:00 04/18/18 00:48 04/18/18 03:47 Temperature 98.2 F Pulse Rate 84 75 81 Respiratory Rate 16 Blood Pressure 147/66 H Pulse Oximetry 98 04/18/18 04:00 04/18/18 08:00 04/18/18 11:31 Temperature 98.1 F 98.8 F Pulse Rate 73 82 Respiratory Rate 16 20 Blood Pressure 149/70 H 164/75 H Pulse Oximetry 96 94 L 94 L Intake & Output 04/17/18 04/18/18 04/18/18 18:59 06:59 18:59 Intake Total 710 / 710 240 / 240 Output Total 30 / 30 3000 / 3000 Balance 680 / 680 240 / 240 -3000 / -3000 Weight 78.1 kg Intake: IV 0 / 0 Heparin/NS PF Inj 500 ML @ 0 0 / 0 mls/hr .ROUTE .[facility] Rx#: [id number] Oral 360 / 360 240 / 240 Anesthesia Amount 350 / 350 Output: Hemodialysis Amount 3000 / 3000 Estimated Blood Loss 30 / 30 Other: # Voids 2 - Constitutional no acute distress - Routine HEENT Exam Head: Present: normocephalic, atraumatic - Routine Respiratory Exam Absent: accessory muscle use - Routine Abdominal Exam Present: soft, normoactive bowel sounds. Absent: tenderness - Routine Skin Exam Present: dry, warm - Routine Neurological Exam Present: alert, oriented X3 <Diana Ding - Last Filed: 04/18/18 15:04> Vital signs: Vital Signs 04/18/18 00:00 04/18/18 00:48 04/18/18 03:47 Temperature 98.2 F Pulse Rate 84 75 81 Respiratory Rate 16 Blood Pressure 147/66 H Pulse Oximetry 98 04/18/18 04:00 04/18/18 08:00 04/18/18 11:31 Temperature 98.1 F 98.8 F Pulse Rate 73 82 Respiratory Rate 16 20 Blood Pressure 149/70 H 164/75 H Pulse Oximetry 96 94 L 94 L 04/18/18 16:00 04/18/18 20:00 Temperature 98.5 F 98.6 F Pulse Rate 79 79 Respiratory Rate 18 18 Blood Pressure 151/66 H 147/104 H Pulse Oximetry 96 95 Intake & Output 04/18/18 04/18/18 04/19/18 06:59 18:59 06:59 Intake Total 240 / 240 800 / 800 Output Total 3000 / 3000 Balance 240 / 240 -2200 / -2200 Weight 78.1 kg Intake: Oral 240 / 240 800 / 800 Output: Hemodialysis Amount 3000 / 3000 Other: # Voids 2 <David Portillo E - Last Filed: 04/18/18 22:31> Results - Labs CBC & Chem 7: 04/18/18 08:16 04/18/18 08:16 Laboratory Results - last 24 hr 04/17/18 04/17/18 04/18/18 17:18 20:34 07:22 WBC RBC Hgb Hct MCV MCH MCHC RDW Plt Count MPV Neut % (Auto) Lymph % (Auto) [place] % (Auto) Eos % (Auto) Baso % (Auto) Neut # (Auto) Lymph # (Auto) [place] # (Auto) Eos # (Auto) Baso # (Auto) WBC Differential Differential Comment Sodium Potassium Chloride Carbon Dioxide Anion Gap BUN Creatinine Estimated GFR POC Glucose 302 H 337 H 243 H Random Glucose Calcium Phosphorus Iron TIBC % Saturation Ferritin Albumin 04/18/18 04/18/18 04/18/18 08:16 08:16 13:25 WBC 14.2 H RBC 3.57 L Hgb 7.6 L Hct 24.1 L MCV 67.3 L MCH 21.4 L MCHC 31.8 L RDW 17.1 Plt Count 248 MPV 8.2 Neut % (Auto) 76.9 H Lymph % (Auto) 12.4 [place] % (Auto) 4.5 Eos % (Auto) 6.1 H Baso % (Auto) 0.1 Neut # (Auto) 10.9 H Lymph # (Auto) 1.8 [place] # (Auto) 0.6 Eos # (Auto) 0.9 H Baso # (Auto) 0.0 WBC Differential . Differential Comment Auto diff final Sodium 136 Potassium 4.1 Chloride 100 Carbon Dioxide 23.4 Anion Gap 13 BUN 47 H Creatinine 8.98 H Estimated GFR 5 L POC Glucose 128 H Random Glucose 202 H Calcium 7.9 L Phosphorus 5.1 H D Iron 44 L TIBC 217 L % Saturation 20.3 Ferritin 283 H Albumin 2.8 L - Procedures Status post AV fistula graft placement, right upper extremity, 04/17/18 <Diana Ding - Last Filed: 04/18/18 15:04> - Labs CBC & Chem 7: 04/18/18 08:16 04/18/18 08:16 Laboratory Results - last 24 hr 04/18/18 04/18/18 04/18/18 07:22 08:16 08:16 WBC 14.2 H RBC 3.57 L Hgb 7.6 L Hct 24.1 L MCV 67.3 L MCH 21.4 L MCHC 31.8 L RDW 17.1 Plt Count 248 MPV 8.2 Neut % (Auto) 76.9 H Lymph % (Auto) 12.4 [place] % (Auto) 4.5 Eos % (Auto) 6.1 H Baso % (Auto) 0.1 Neut # (Auto) 10.9 H Lymph # (Auto) 1.8 [place] # (Auto) 0.6 Eos # (Auto) 0.9 H Baso # (Auto) 0.0 WBC Differential . Differential Comment Auto diff final Sodium 136 Potassium 4.1 Chloride 100 Carbon Dioxide 23.4 Anion Gap 13 BUN 47 H Creatinine 8.98 H Estimated GFR 5 L POC Glucose 243 H Random Glucose 202 H Calcium 7.9 L Phosphorus 5.1 H D Iron 44 L TIBC 217 L % Saturation 20.3 Ferritin 283 H Albumin 2.8 L 04/18/18 04/18/18 04/18/18 13:25 17:33 20:16 WBC RBC Hgb Hct MCV MCH MCHC RDW Plt Count MPV Neut % (Auto) Lymph % (Auto) [place] % (Auto) Eos % (Auto) Baso % (Auto) Neut # (Auto) Lymph # (Auto) [place] # (Auto) Eos # (Auto) Baso # (Auto) WBC Differential Differential Comment Sodium Potassium Chloride Carbon Dioxide Anion Gap BUN Creatinine Estimated GFR POC Glucose 128 H 209 H 231 H Random Glucose Calcium Phosphorus Iron TIBC % Saturation Ferritin Albumin <David Portillo - Last Filed: 04/18/18 22:31> Assessment and Plan (1) Guaiac positive stools Status: Acute Code(s): R19.5 - Other fecal abnormalities (2) Anemia Status: Acute Code(s): D64.9 - Anemia, unspecified - Plan Assessment: - Anemia with Hemoccult positive stools in the ER- Pt sent from dialysis for work up of symptomatic anemia- reports feeling light headed that began yesterday on her way to dialysis. Denies SOB, chest pain, fatigue. Long history of anemia, reports syncopal episode in her teens and was on iron injections for some time. Currently on Epogen, ESRD on HD MWF. Hgb compared to a month ago when it was also 7.4. Denies nausea, vomiting, abdominal pain, constipation, diarrhea, blood in stool, unintentional weight loss. Denies any obvious GIB. Has never had EGD or colonoscopy. Denies family history of colon cancer. - ESRD on HD M,W,F - S/P AV fistula placement by Dr. Wall today- initially planned for outpatient procedure today but was done inpatient because pt admitted for anemia (04/18) S/P dialysis this morning. H/H remains stable. noticed some blood in her stool. Denies any other GI complaints. Aware of plans for EGD and colonoscopy tomorrow. Plan: EGD and colonoscopy tomorrow Obtain consent Clear liquids Golytely prep NPO after MN Monitor H/H Epoetin 3 x week per nephrology Further recommendations based on clinical course and endoscopic findings Pt has been seen and examined by myself and Dr. Portillo and this note is written on his behalf <Diana Ding - Last Filed: 04/18/18 15:04> (1) Guaiac positive stools Status: Acute Code(s): R19.5 - Other fecal abnormalities (2) Anemia Status: Acute Code(s): D64.9 - Anemia, unspecified - Attending Attestation Patient seen and examined Agree with above Continue with current supportive care Monitor labs Plan on EGD and colonoscopy tomorrow <David Portillo - Last Filed: 04/18/18 22:31> <Diana Ding - Last Filed: 04/18/18 15:04> (2) Anemia Qualifiers: Anemia type: unspecified type Qualified Code(s): D64.9 - Anemia, unspecified <David Portillo - Last Filed: 04/18/18 22:31> (2) Anemia Qualifiers: Anemia type: unspecified type Qualified Code(s): D64.9 - Anemia, unspecified
[2018-04-18] MEDS ORDERED: PEG 3350/E-Lyte Soln 4000 ML Bottle PO ONE (16:00)
[2018-04-19] MEDS: Insulin NovoLOG Aspart Correctional Sugar Inj SQ SCH ×2 (08:18→13:35)
[2018-04-19] MEDS: Calcitriol 0.25 MCG Capsule PO SCH (08:19)
[2018-04-19] MEDS: Senna/Docusate Sodium 8.6/50 MG Tablet PO SCH (08:19)
[2018-04-19] MEDS: Pantoprazole Inj 40 MG Vial IV.PUSH SCH (08:19)
[2018-04-19] MEDS: amLODIPine 10 MG Tablet PO SCH (08:19)
[2018-04-19] MEDS: hydrALAZINE 50 MG Tablet PO SCH ×2 (08:19→13:30)
[2018-04-19] MEDS ORDERED: Magnesium Citrate Liq 300 ML Bottle PO ONE (09:00)
--- NOTE | 2018-04-19 11:01 | P.PNNP ---
Subjective Interval history: Plan for EGD and colonoscopy today. Hemodialysis yesterday tolerated well. <Shahida Merdano - Last Filed: 04/19/18 10:53> Physical Exam Vital signs: Vital Signs 04/18/18 11:31 04/18/18 16:00 04/18/18 20:00 Temperature 98.5 F 98.6 F Pulse Rate 79 79 Respiratory Rate 18 18 Blood Pressure 151/66 H 147/104 H Pulse Oximetry 94 L 96 95 04/19/18 00:00 04/19/18 04:00 04/19/18 08:00 Temperature 97.8 F 97.9 F 98.0 F Pulse Rate 70 84 74 Respiratory Rate 18 18 16 Blood Pressure 156/67 H 111/60 150/67 H Pulse Oximetry 98 96 94 L Intake & Output 04/18/18 04/19/18 04/19/18 18:59 06:59 18:59 Intake Total 800 / 800 200 / 200 Output Total 3000 / 3000 Balance -2200 / -2200 200 / 200 Weight 71.7 kg Intake: IV 200 / 200 Oral 800 / 800 Output: Hemodialysis Amount 3000 / 3000 Other: Date of Last Bowel Movement 04/19/18 # Bowel Movements 6 - Constitutional no acute distress - Routine HEENT Exam Head: Present: normocephalic ENT: Present: mucous membranes moist - Routine Neck Exam Present: supple. Absent: JVD - Routine Respiratory Exam Present: CTA bilaterally. Absent: rales, rhonchi - Routine Cardiovascular Exam Present: RRR - Routine Abdominal Exam Present: soft, normoactive bowel sounds - Routine Extremities Exam Present: AV fistula, vascular access. Absent: edema - Routine Skin Exam Present: dry, warm - Routine Neurological Exam Present: alert, oriented X3 - Routine Psychiatric Exam Present: cooperative <Shahida Medrano - Last Filed: 04/19/18 10:53> Assessment and Plan - Assessment (1) End stage renal disease on dialysis Code(s): N18.6 - End stage renal disease; Z99.2 - Dependence on renal dialysis Status: Acute Plan: End stage renal disease on hemodialysis on Monday/Monday/Monday with transitional dialysis at [facility] S/P AV fistula placement with Dr. Wall 04/17 [place] with dialysis Hemodialysis yesterday with UF of 3 liters Continue Calcitrol Per case management notes Dialysis has been approved for Monday/Monday/ Monday with chair time of 4:15PM Rafaela Devi Hemodialysis planned for tomorrow (2) Anemia Code(s): D64.9 - Anemia, unspecified Status: Acute Qualifiers: Anemia type: unspecified type Qualified Code(s): D64.9 - Anemia, unspecified Plan: [facility] with dialysis GI consulted, stool positive for occult blood EGD and colonoscopy today (3) Hyperglycemia due to type 1 diabetes mellitus Code(s): E10.65 - Type 1 diabetes mellitus with hyperglycemia Status: Acute Plan: Maintain blood sugars between 140 mg/dl to 180 mg/dl <Shahida Medrano - Last Filed: 04/19/18 10:53> - Assessment (1) End stage renal disease on dialysis Code(s): N18.6 - End stage renal disease; Z99.2 - Dependence on renal dialysis Status: Acute (2) Anemia Code(s): D64.9 - Anemia, unspecified Status: Acute Qualifiers: Anemia type: unspecified type Qualified Code(s): D64.9 - Anemia, unspecified (3) Hyperglycemia due to type 1 diabetes mellitus Code(s): E10.65 - Type 1 diabetes mellitus with hyperglycemia Status: Acute - Attending Attestation Patient seen and examined, agree with above. HD as per schedule, follow Hgb. <Autumn Blanco - Last Filed: 05/10/18 23:35>
--- NOTE | 2018-04-19 12:17 | P.PCN ---
Date of procedure: 04/19/18 Pre-op diagnosis: Guaiac positive stool, anemia Post-op diagnosis: other Procedure: PROCEDURE PERFORMED EGD with biopsy followed by a colonoscopy INDICATION FOR PROCEDURE Guaiac positive stools and anemia PROCEDURE: The procedure, risks and benefits were discussed with Patient/POA and informed consent was obtained. Anesthesia sedated Patient with Diprivan. Patient was placed in the left lateral decubitus position. EGD: The Pentax videoscope was introduced through the oropharynx and advanced to the second portion of the duodenum under direct visualization. Retroflexion was performed in the stomach. FINDINGS: The esophagus this was normal The stomach there was a small nodule in the cardia this was excised with a biopsy forceps there were superficial erosions in the antrum with some patchy erythema no ulcerations no blood or bleeding this too was biopsied the rest of the stomach unremarkable The duodenum this was normal Colonoscopy: The Pentax videoscope was introduced through the rectum and advanced to cecum where the ileocecal valve and appendiceal orifice were identified. Retroflexion was performed in the rectum. Colonic prep was good FINDINGS: Colonic withdrawal time greater than 6 minutes. As the scope was slowly withdrawn colonic mucosa was carefully inspected the patient had a normal colonoscopy retroflexion in the rectum did reveal moderate size internal hemorrhoids rectal examination otherwise unremarkable ESTIMATED BLOOD LOSS: None SPECIMENS REMOVED: Gastric biopsies COMPLICATIONS: None IMPRESSION: Gastric nodule Erosive gastritis Internal hemorrhoids PLAN: Await biopsies High-fiber diet Monitor labs Advance diet Colonoscopy in 10 years Not much to add from a GI standpoint we will sign off Anesthesia: MAC Surgeon: David Portillo Pathology: other Condition: stable Disposition: floor
--- NOTE | 2018-04-19 14:11 | P.DS ---
Date of admission: 04/16/18 18:57 Primary care physician: UNKNOWN Brief History from admission: HPI from the admitting physician 62-year-old female with a past medical history significant for end-stage renal disease on dialysis, diabetes mellitus, hypertension and hyperlipidemia presents to the emergency department from dialysis for a low hemoglobin. The patient was told that her hemoglobin at dialysis was 6.9. Repeat hemoglobin done in the emergency department was 7.5. The patient is going to have an AV fistula placement with Dr. Wall tomorrow. She denies any lightheadedness or shortness of breath. No dizziness or fatigue. Hemoccult-positive in the emergency department. She denies black, tarry stools. No fevers/chills. No chest pain or shortness of breath. No abdominal pain. No nausea/vomiting/ diarrhea. No lateralizing signs/symptoms. Update on the day of discharge 04/19/18: Patient reports she is feeling well. We discussed discharge planning at length including outpatient dialysis. DS: Diagnosis - Discharge Diagnosis (1) End stage renal disease on dialysis Status: Acute (2) Anemia Status: Acute (3) Hyperglycemia due to type 1 diabetes mellitus Status: Acute (4) Guaiac positive stools Status: Acute (5) AVF (arteriovenous fistula) Status: Acute DS: Medications - Discharge Medications Prescriptions: pantoprazole 40 mg PO DAILY #30 tab DS: Summary Hospital Course: 62-year-old female with a past medical history significant for end-stage renal disease on dialysis, diabetes mellitus, hypertension and hyperlipidemia presents to the emergency department from dialysis for a low hemoglobin. Treatment course detailed below: Anemia/GI bleed -Patient Hemoccult-positive in the emergency department -H&H 7.5/24.2. Status post 1 unit of PRBC transfusion. Patient followed by GI. Underwent EGD which showed erosive gastritis but no active bleeding. Continue PPI. End-stage renal disease on dialysis Status post AV fistula placement -[facility], Dr. Blanco followed the patient. She will continue hemodialysis outpatient. This has been arranged with [facility]. -HD Monday, Monday, Monday -Vascular surgery, Dr. Wall Diabetes mellitus Type 2, -Sliding-scale insulin Hypertension/hyperlipidemia -Continue home medications - Time Spent with Patient Total time spent providing and/or coordinating discharge services: Less than 30 minutes - Quality: VTE Deep Vein Thrombosis/Pulmonary Embolism Present on Admission: No Exam Vital signs: Vital Signs 04/18/18 16:00 04/18/18 20:00 04/19/18 00:00 Temperature 98.5 F 98.6 F 97.8 F Pulse Rate 79 79 70 Respiratory Rate 18 18 18 Blood Pressure 151/66 H 147/104 H 156/67 H Pulse Oximetry 96 95 98 04/19/18 04:00 04/19/18 08:00 04/19/18 12:27 Temperature 97.9 F 98.0 F 97.8 F Pulse Rate 84 74 74 Respiratory Rate 18 16 16 Blood Pressure 111/60 150/67 H 110/55 L Pulse Oximetry 96 94 L 99 04/19/18 13:41 Temperature Pulse Rate Respiratory Rate Blood Pressure 150/68 H Pulse Oximetry Intake & Output 04/18/18 04/19/18 04/19/18 18:59 06:59 18:59 Intake Total 800 / 800 200 / 200 Output Total 3000 / 3000 Balance -2200 / -2200 200 / 200 Weight 71.7 kg Intake: IV 200 / 200 Oral 800 / 800 Output: Hemodialysis Amount 3000 / 3000 Other: Date of Last Bowel Movement 04/19/18 # Bowel Movements 6 Narrative: GENERAL: This is a well-nourished, well-developed patient, in no apparent distress. CARDIOVASCULAR: Normal rate and regular rhythm without murmurs, gallops, or rubs. RESPIRATORY: Good respiratory efforts. Breath sounds equal and clear to auscultation bilaterally. GASTROINTESTINAL: Abdomen soft, non-tender, non-distended. Normal active bowel sounds MUSCULOSKELETAL: Extremities without cyanosis, or edema. NEURO: Alert & Oriented x4 to person, place, time, situation. Moves all ext x4 PSYCH: Appropriate mood and affect. Results Procedures completed during hospitalization: Status post AV fistula graft placement, right upper extremity, 04/17/18 Pending studies at discharge: Pending at discharge 04/19/18 Surgical [PTH] Routine Labs on day of discharge: Labs from last 24 hours 04/19/18 04/19/18 04/18/18 12:37 07:33 20:16 POC Glucose 214 H 125 H 231 H 04/18/18 17:33 POC Glucose 209 H Discharge Plan - Discharge Disposition Patient Disposition: 01 Discharge Home - Discharge Condition Condition: Stable - Discharge Order Discharge Orders: Discharge Order (Routine); Ordered 04/19/18 Ordered By: Steve Armendariz - Physicians Team Primary Care Provider: UNKNOWN, Attending Provider: Steve Armendariz Other Providers: David Portillo MD ; Autumn Blanco MD ; Robles Wall MD
--- NOTE | 2018-04-19 19:10 | ECG ---
Date Performed: 04/18/2018 Time Performed: 16:30:43 PTAGE: 62 years EKG: Sinus rhythm NONSPECIFIC T-WAVE ABNORMALITY BORDERLINE ECG PREVIOUS TRACING : 04/17/2018 05.54 Since the previous tracing, no significant change noted DOCTOR: Shorty Cowan Interpretating Date/Time 04/19/2018 19:08:54
== END 2018-04-19 16:16 | disposition home or self-care (01) ==
LOC: NEPE 12:59 → NEDA 18:57 → NEPGCP 22:00 → N07 04-17 12:34
PROVIDERS: ADMIT Family Medicine; ATTEND Family Medicine
PROC: AVGFTUE (ICD-10-PCS; 2018-04-17 10:29)
PROC: COLONOS (2018-04-19 11:43)

== ENCOUNTER 2018-07-17 10:55 | Observation (INO) ==
[2018-07-17] MEDS ORDERED: Chlorhexidine Gluconate 2% 1 Pack (2 Cloths) TOPICAL ONE (12:00)
[2018-07-17] MEDS ORDERED: Metoprolol Tartrate 25 MG Tablet PO ONE (12:00)
[2018-07-17] MEDS ORDERED: Sodium Chlor 0.9% Inj 500 ML IV.CONT ONE (12:00)
[2018-07-17 12:09] LABS: Baso # (Auto) 0.1 th/mm3 (0.0-0.2); Baso % (Auto) 0.8 % (0.0-2.0); Eos # (Auto) 0.2 th/mm3 (0.0-0.4); Eos % (Auto) 2.8 % (0.0-4.0); Hematocrit 39.4 % (35.0-46.0); Hemoglobin 12.2 gm/dL (11.6-15.3); Lymph # (Auto) 1.4 th/mm3 (1.0-4.8); Mean Corpuscular Hemoglobin 20.7 pg (27.0-34.0); Mean Corpuscular Volume 66.8 fL (80.0-100.0); Mean Platelet Volume 8.7 fL (7.0-11.0); Mono # (Auto) 0.5 th/mm3 (0.0-0.9); Mono % (Auto) 6.9 % (0.0-8.0); Neut # (Auto) 4.6 th/mm3 (1.8-7.7); Neut % (Auto) 68.5 % (16.0-70.0); Platelet Count 252 th/mm3 (150-450); Red Blood Count 5.91 mil/mm3 (4.00-5.30); White Blood Count 6.7 th/mm3 (4.0-11.0)
[2018-07-17 12:15] LABS: Prothrombin Time 10.5 sec (9.8-11.6)
[2018-07-17 12:32] LABS: Calcium 9.7 mg/dL (8.5-10.1); Carbon Dioxide 26.8 meq/L (21.0-32.0); Potassium 4.7 meq/L (3.5-5.1)
[2018-07-17] MEDS ORDERED: Bupivacaine PF 0.5% Inj 10 ML Vial ONE (14:56)
[2018-07-17] MEDS ORDERED: Protamine Sulfate Inj 50 MG/5 ML Vial ONE (14:56)
[2018-07-17] MEDS ORDERED: Heparin 10,000 UNITS/10 ML Vial (for IV use) ONE (14:56)
[2018-07-17] MEDS ORDERED: Heparin/NS PF Inj 500 ML ONE (14:57)
[2018-07-17] MEDS ORDERED: Thrombin Topical 20,000 UNIT Spray Kit TOPICAL ONE ×2 (14:57→15:44)
--- NOTE | 2018-07-17 15:11 | P.HPVS ---
History of Present Illness Chief Complaint: ESRD, need for HD access History of Present Illness: 62 yo female with ESRD who underwent RIGHT BB AVF (1st stage) in April. Presents for 2nd stage. Preop duplex ok. - Inpatient Certification If this patient has been admitted as an Inpatient: I certify that the inpatient services were ordered in accordance with Medicare regulations governing the order. This includes certification that hospital inpatient services are reasonable and necessary and in the case of services not specified as inpatient-only under 42 CFR 419.22(n), that they are appropriately provided as inpatient services in accordance to with the 2-midnight benchmark under 43 CFR 412.3(e) Estimated Total Length of Stay (Days): 1 Plans for Post Hospital Care: Home Review of Systems Constitutional: Denies chills, Denies fever(s) PMFSH - History History Provided By: Patient - Medical History Medical History: Medical History (Last Reviewed 07/17/18 @ 15:10 by Robles Wall MD) AV fistula Bronchitis Diabetes Dizziness Heart murmur Hypertension Kidney stones Renal failure Right leg pain Vascular dialysis catheter in place - Surgical History Surgical History: Surgical History (Last Reviewed 07/17/18 @ 15:10 by Robles Wall MD) H/O tubal ligation - Tobacco History Second Hand Smoke Exposure: No Smoking Status: Never smoker - Alcohol History How Often Do You Have a Drink Containing Alcohol: Never - Substance Use History Substance History: No History of Abuse - Travel History Recent Travel in the [place] Within the Last 8 Weeks: No Recent Travel Out of the Country Within the Last 8 Weeks: No Medications and Allergies Active Medications: Active Medications Lactated Ringer's (Lr 1000 Ml Inj) 1,000 mls @ 30 mls/hr IV.CONT .Q24H ONE Stop: 07/18/18 11:59 Sodium Chloride (Ns Inj) 500 mls @ 30 mls/hr IV.CONT .[id number] ONE Stop: 07/18/18 04:39 Last Admin: 07/17/18 11:50 Dose: 30 mls/hr Allergies Allergy/AdvReac Type Severity Reaction Status Date / Time No Known Allergies Allergy Verified 07/17/18 12:59 Home Medications Medication Instructions Recorded Confirmed Type amlodipine 10 mg PO DAILY 04/13/18 07/17/18 History hydralazine 50 mg PO TID 04/13/18 07/17/18 History insulin glargine [Lantus U-100 10 unit SUB-Q HS 04/13/18 07/17/18 History Insulin] insulin regular human 1 sliding scale dose SUB-Q ACHS 04/13/18 07/17/18 History labetalol 300 mg PO BID 04/13/18 07/17/18 History simvastatin 20 mg PO QPM 04/14/18 07/17/18 History calcitriol 0.25 mcg PO DAILY 07/17/18 07/17/18 History calcium acetate 667 mg PO TID 07/17/18 07/17/18 History Physical Exam Vital Signs / I&O: Vital Signs 07/17/18 12:37 Temperature 98.4 F Pulse Rate 67 Respiratory Rate 18 Blood Pressure 174/73 H Pulse Oximetry 97 Intake & Output 07/16/18 07/17/18 07/17/18 18:59 06:59 18:59 Weight 74.7 kg Other: # Voids 1 Weight On Admission 74.7 kg Neuro: alert, oriented HEENT: NC/AT Neck: no JVD Heart: reg rate Lungs: clear Vascular: R UE + thrill incision ok Laboratory Results - last 24 hr 07/17/18 07/17/18 07/17/18 11:45 11:45 11:45 WBC 6.7 RBC 5.91 H Hgb 12.2 Hct 39.4 MCV 66.8 L MCH 20.7 L MCHC 31.0 L RDW 17.0 Plt Count 252 MPV 8.7 Neut % (Auto) 68.5 Lymph % (Auto) 21.0 Page % (Auto) 6.9 Eos % (Auto) 2.8 Baso % (Auto) 0.8 Neut # (Auto) 4.6 Lymph # (Auto) 1.4 Page # (Auto) 0.5 Eos # (Auto) 0.2 Baso # (Auto) 0.1 WBC Differential . Differential Comment Auto diff final PT 10.5 INR 1.0 Sodium 142 Potassium 4.7 Chloride 106 Carbon Dioxide 26.8 Anion Gap 9 BUN 47 H Creatinine 6.57 H Estimated GFR 8 L POC Glucose Random Glucose 156 H Calcium 9.7 Blood Type Antibody Screen MTS Gel Crossmatch 07/17/18 07/17/18 11:45 12:33 WBC RBC Hgb Hct MCV MCH MCHC RDW Plt Count MPV Neut % (Auto) Lymph % (Auto) Page % (Auto) Eos % (Auto) Baso % (Auto) Neut # (Auto) Lymph # (Auto) Page # (Auto) Eos # (Auto) Baso # (Auto) WBC Differential Differential Comment PT INR Sodium Potassium Chloride Carbon Dioxide Anion Gap BUN Creatinine Estimated GFR POC Glucose 136 H Random Glucose Calcium Blood Type B Positive Antibody Screen Negative MTS Gel Crossmatch See Detail Caprini VTE Risk Assessment Caprini VTE Risk Assessment: No/Low Risk (score <= 1) (intraop heparin) Caprini Risk Assessment Model: Point Value = 1 Point Value = 2 Point Value = 3 Point Value = 5 Age 41-60 Minor surgery BMI > 25 kg/m2 Swollen legs Varicose veins or History of unexplained or recurrent spontaneous Oral contraceptives or hormone replacement Sepsis (< 1 month) Serious lung disease, including pneumonia (< 1 month) Abnormal pulmonary function Acute myocardial infarction Congestive heart failure (< 1 month) History of inflammatory bowel disease Medical patient at bed rest Age 61-74 Arthroscopic surgery Major open surgery (> 45 min) Laparoscopic surgery (> 45 min) Malignancy Confined to bed (> 72 hours) Immobilizing plaster cast Central venous access Age >= 75 History of VTE Family history of VTE Factor V Leiden Prothrombin [id number] Lupus anticoagulant Anticardiolipin antibodies Elevated serum homocysteine Heparin-induced thrombocytopenia Other congenital or acquired thrombophilia Stroke (< 1 month) Elective arthroplasty Hip, pelvis, or leg fracture Acute spinal cord injury (< 1 month) Prophylaxis Regimen: Total Risk Factor Score Risk Level Prophylaxis Regimen 0-1 Low Early ambulation 2 Moderate Order ONE of the following: *Sequential Compression Device (SCD) *Heparin 5000 units SQ BID 3-4 Higher Order ONE of the following medications: *Heparin 5000 units SQ TID *Enoxaparin/Lovenox 40 mg SQ daily (WT < 150 kg, CrCl > 30 mL/min) *Enoxaparin/Lovenox 30 mg SQ daily (WT < 150 kg, CrCl > 10-29 mL/min) *Enoxaparin/Lovenox 30 mg SQ BID (WT < 150 kg, CrCl > 30 mL/min) AND/OR *Sequential Compression Device (SCD) 5 or more Highest Order ONE of the following medications: *Heparin 5000 units SQ TID (Preferred with Epidurals) *Enoxaparin/Lovenox 40 mg SQ daily (WT < 150 kg, CrCl > 30 mL/min) *Enoxaparin/Lovenox 30 mg SQ daily (WT < 150 kg, CrCl > 10-29 mL/min) *Enoxaparin/Lovenox 30 mg SQ BID (WT < 150 kg, CrCl > 30 mL/min) AND *Sequential Compression Device (SCD) Assessment and Plan - Assessment (1) End stage renal disease on dialysis Code(s): N18.6 - End stage renal disease; Z99.2 - Dependence on renal dialysis Status: Acute - Plan ESRD needs 2nd stage AVF To OR Anticipate d/c tomorrow after HD Daughter [phone]
[2018-07-17] MEDS ORDERED: Lidocaine PF 1% Inj 5 ML Syringe OTHER ONE (15:43)
[2018-07-17] MEDS ORDERED: Morphine Inj 4 MG/ML Vial IV.PUSH PRN (17:09)
[2018-07-17] MEDS ORDERED: Bisacodyl 10 MG Supp RECTAL PRN (17:09)
--- NOTE | 2018-07-17 17:09 | P.OP ---
- Preoperative Diagnosis (1) End stage renal disease on dialysis - Postoperative Diagnosis (1) End stage renal disease on dialysis Date of procedure: 07/17/18 Procedure: R UE access revision (transposition, 2nd stage BB) Implants: none Anesthesia: GETA Surgeon: Robles Wall MD Dietitian Teacher: Telma Arroyo Estimated blood loss (mL): 50 IV fluids (mL): 200 Pathology: none sent Operation and Findings: good thrill and strong Doppler signal after AVF
[2018-07-17] MEDS ORDERED: fentaNYL Citrate Inj 100 MCG/2 ML Ampul ONE (17:40)
[2018-07-17] MEDS ORDERED: *Enalaprilat Inj 1.25 MG/ML Vial IV.PUSH ONE (18:06)
[2018-07-17] MEDS ORDERED: *morphine SULFATE 4 MG/ML PERIprocedure ONLY ONE ×2 (18:06→18:20)
[2018-07-17] MEDS ORDERED: Albumin Human 25% Inj 100 ML IV.SIG PRN (18:14)
[2018-07-17] MEDS ORDERED: Sod Chloride 0.9% Inj 1,000 ML IV.CONT PRN (18:14)
[2018-07-17] MEDS ORDERED: Gelatin 12 MM/7 MM Topical Foam TOPICAL PRN (18:14)
[2018-07-17] MEDS ORDERED: Sod Chloride 0.9% Inj 1,000 ML OTHER PRN ×2 (18:14)
[2018-07-17] MEDS ORDERED: Acetaminophen 325 MG Tablet PO PRN (18:14)
[2018-07-17] MEDS ORDERED: Heparin 10,000 UNITS/10 ML Vial (for IV use) OTHER PRN ×2 (18:14)
[2018-07-17] MEDS ORDERED: Dextrose 50% in Water 50 ML Vial IV.PUSH PRN (18:37)
[2018-07-17] MEDS: Calcium Acetate 667 MG Capsule PO SCH (18:49)
[2018-07-17] MEDS: hydrALAZINE 50 MG Tablet PO SCH (18:49)
--- NOTE | 2018-07-17 18:53 | MB ---
cc: Autumn Blanco MD DATE: 07/17/2018 REASON FOR CONSULTATION: End-stage renal disease, on hemodialysis, for management. HISTORY OF PRESENT ILLNESS: This is a 62-year-old female known to me from before with a past medical history of hypertension; diabetes mellitus; hyperlipidemia; end-stage renal disease, on hemodialysis 3 times a week; history of chronic anemia, who was admitted for revision of the AV fistula. The patient has been on hemodialysis Monday, Monday and Monday. She had her last hemodialysis done yesterday. The patient was seen by me in the recovery room after the surgery. She had the surgery done and she has mild pain at the surgical site. There is no shortness of breath, no chest pain, no palpitations. She denies any abdominal pain. No nausea or vomiting. PAST MEDICAL HISTORY: Hypertension; diabetes mellitus; hyperlipidemia; end-stage renal disease, on hemodialysis 3 times per week; history of chronic anemia. PAST SURGICAL HISTORY: Left arm AV fistula surgery and revision, which was done today. SOCIAL HISTORY: The patient has no history of smoking or alcoholism. FAMILY HISTORY: Noncontributory. ALLERGIES: SHE HAS NO KNOWN DRUG ALLERGIES. MEDICATIONS: Currently, she is on: 1. Norvasc 10 mg once a day. 2. Calcitriol 0.25 mcg once a day 3. PhosLo 667 mg t.i.d. 4. Heparin 5000 units subcutaneous q.8 hours. 5. Hydralazine 50 mg t.i.d. 6. Dilaudid 2 mg p.r.n. 7. Labetalol 300 mg b.i.d. 8. Lactulose 30 mL p.r.n. 9. Insulin glargine. 10. Insulin regular sliding scale. 11. Oxycodone as needed. 12. Protonix 40 mg once a day. 13. Vanessa-Colace 1 tablet b.i.d. PHYSICAL EXAMINATION: GENERAL: The patient is awake, alert. She is not in acute distress. VITAL SIGNS: Blood pressure 174/73, temperature 98.4, oxygen saturation 97%. HEENT: Pupils are mid constricted. Nonicteric sclerae. Conjunctivae normal. NECK: Supple. JVD is not elevated. LUNGS: The patient has bilateral good air entry with occasional wheezing. HEART: S1, S2. Regular rate and rhythm. ABDOMEN: Soft, lax. There is no tenderness. Bowel sounds positive. EXTREMITIES: She has mild edema in the legs. The right arm AV fistula site has a good bruit. LABORATORY DATA: WBC count 6.7, hemoglobin 12.0, platelet count 252. Sodium 142, potassium 4.7, chloride 106, bicarbonate 26.8, BUN 47, creatinine 6.5, glucose 156, calcium 9.7. INR 1.0. IMAGING DATA: There are no recent imaging studies done. ASSESSMENT: 1. End-stage renal disease, on hemodialysis. 2. Post arteriovenous fistula revision. 3. Hypertension. 4. Diabetes mellitus. 5. History of anemia. PLAN: The patient had a revision of the AV fistula done and it has a good bruit. The patient is admitted for observation. She does not have any acute urgent need for dialysis. Her blood pressure is on the higher side, but partly, this is because of the pain and she will be getting her medications when she goes to the floor. Her hemoglobin is stable. Potassium is normal. She is not in fluid overload status, so I will arrange for hemodialysis for tomorrow. Possibly, she will be discharged tomorrow if remains stable. Thank you for the consult. MD KELLEE Vaca/aric , 06:15 PM , 06:24 PM
[2018-07-17] MEDS ORDERED: Insulin Detemir Inj 1,000 UNIT/10 ML Vial SQ SCH (21:00)
[2018-07-17] MEDS ORDERED: [UNRECOGNIZED DRUG - OTHER] SQ SCH (21:00)
[2018-07-17] MEDS: Insulin NovoLIN Regular Correctional Sugar Inj SQ SCH (21:02)
[2018-07-17] MEDS: Senna/Docusate Sodium 8.6/50 MG Tablet PO SCH (21:03)
--- NOTE | 2018-07-17 21:53 | MP ---
cc: Robles Wall MD DATE OF OPERATION: 07/17/2018 PREOPERATIVE DIAGNOSIS: End-stage renal disease, need for dialysis access. POSTOPERATIVE DIAGNOSIS: End-stage renal disease, need for dialysis access. PROCEDURE PERFORMED: Right upper extremity access revision (transposition). ATTENDING SURGEON: Robles Wall MD COMMUNICATIONS MEDIA PROFESSOR SURGEON: MYA Gilliam PA/Button And Buckle Maker ANESTHESIA: General. INDICATIONS: Ms. Conde is an elderly female with end-stage renal disease. She has a right brachiobasilic fistula that is mature by ultrasound and she was taken to the operating room for a planned second stage. DESCRIPTION OF PROCEDURE: Informed consent was obtained from the patient. She was taken to the operating room and placed supine on the operating room table. An appropriate timeout was taken to ensure the patient's identity, operative site and planned procedure. The administration of a gram of vancomycin was initiated prior to skin incision and will be discontinued after a single preoperative dose. Everyone in the room agreed with the timeout and we proceeded. Her right arm was prepped and draped. An incision was made along the medial aspect of the upper arm and carried down through the subcutaneous tissue with electrocautery. The basilic vein was identified and dissected free from down to the antecubital up to the axilla. Side branches were ligated with 3-0 silk. The vein was marked for orientation, clamped proximally and distally. The distal limb was transected and oversewn with 3-0 silk and a large Hemoclip. A tunnel was then created between the anterior aspect of the upper arm and the fistula was passed through this, taking caution not to twist it. The brachial artery was identified in the medial aspect of the arm, carried down and dissected free for several centimeters. The patient was systemically heparinized with 3000 units of IV heparin. Proximal and distal control of the brachial artery was obtained with profunda clamps and a longitudinal arteriotomy was made with an 11 blade and extended with Captain Cook scissors. The vein was spatulated and sewn end-to-side with running 5-0 Prolene suture. At the completion, it was flushed and noted to be hemostatic. There was a nice thrill in the fistula and a Doppler signal at the wrist. Heparin was reversed with protamine. The wound was closed with 2-0 Polysorb, 3-0 Polysorb and 4-0 Monocryl. The sponge and needle counts were correct at the end of the case. I was present and scrubbed for the entire procedure. MD JUAN JOSÉ Castro/aric , 09:16 PM , 09:23 PM
[2018-07-18 04:20] LABS: Hematocrit 38.6 % (35.0-46.0); Hemoglobin 11.8 gm/dL (11.6-15.3); Mean Corpuscular Hemoglobin 20.5 pg (27.0-34.0); Mean Corpuscular Volume 67.2 fL (80.0-100.0); Mean Platelet Volume 8.4 fL (7.0-11.0); Platelet Count 225 th/mm3 (150-450); Red Blood Count 5.74 mil/mm3 (4.00-5.30); Red Cell Distribution Width 17.1 % (11.6-17.2)
[2018-07-18 04:43] LABS: Calcium 8.3 mg/dL (8.5-10.1); Carbon Dioxide 24.8 meq/L (21.0-32.0); Potassium 5.2 meq/L (3.5-5.1)
[2018-07-18 04:51] LABS: Mean Corpuscular HGB Conc 30.5 % (32.0-36.0)
--- NOTE | 2018-07-18 07:38 | P.PNVS ---
Subjective Post Op Day #: 1 Procedure: R UE access revision (transposition) Subjective/Hospital Course: looks great pain controlled resting comfortably Objective Vital Signs / I&O: Vital Signs 07/17/18 12:37 07/17/18 17:31 07/17/18 17:45 Temperature 98.4 F 98.1 F Pulse Rate 67 87 57 L Respiratory Rate 18 20 22 Blood Pressure 174/73 H 179/81 H 173/81 H Pulse Oximetry 97 96 98 07/17/18 18:00 07/17/18 18:15 07/17/18 18:30 Temperature 97.5 F L Pulse Rate 57 L 60 57 L Respiratory Rate 14 16 14 Blood Pressure 181/84 H 189/85 H 173/82 H Pulse Oximetry 100 97 99 07/17/18 18:40 07/17/18 18:55 07/17/18 19:00 Temperature 97.6 F Pulse Rate 58 L 62 58 L Respiratory Rate 14 18 Blood Pressure 176/82 H 228/105 H Pulse Oximetry 99 95 07/17/18 21:00 07/17/18 22:00 07/17/18 23:00 Temperature Pulse Rate 64 60 66 Respiratory Rate Blood Pressure Pulse Oximetry 07/18/18 00:00 07/18/18 01:00 07/18/18 02:00 Temperature 98.2 F Pulse Rate 60 60 60 Respiratory Rate 16 Blood Pressure 182/79 H Pulse Oximetry 96 07/18/18 03:00 07/18/18 04:00 07/18/18 05:00 Temperature 98.8 F Pulse Rate 55 L 62 62 Respiratory Rate 16 Blood Pressure 161/79 H Pulse Oximetry 100 07/18/18 06:00 Temperature Pulse Rate 64 Respiratory Rate Blood Pressure Pulse Oximetry Intake & Output 07/17/18 07/18/18 07/18/18 18:59 06:59 18:59 Intake Total 210 / 210 480 / 480 Output Total 50 / 50 500 / 500 Balance 160 / 160 -20 / -20 Weight 74.7 kg 77.5 kg Intake: Oral 480 / 480 Anesthesia Amount 200 / 200 Output: Urine 0 / 0 500 / 500 Estimated Blood Loss 50 / 50 Other: # Voids 1 Weight On Admission 74.7 kg Exam: R UE incision c/d/i + thrill hand with 5/5 strength Laboratory Results - last 24 hr 07/17/18 07/17/18 07/17/18 11:45 11:45 11:45 WBC 6.7 RBC 5.91 H Hgb 12.2 Hct 39.4 MCV 66.8 L MCH 20.7 L MCHC 31.0 L RDW 17.0 Plt Count 252 MPV 8.7 Neut % (Auto) 68.5 Lymph % (Auto) 21.0 [place] % (Auto) 6.9 Eos % (Auto) 2.8 Baso % (Auto) 0.8 Neut # (Auto) 4.6 Lymph # (Auto) 1.4 [place] # (Auto) 0.5 Eos # (Auto) 0.2 Baso # (Auto) 0.1 WBC Differential . Differential Comment Auto diff final PT 10.5 INR 1.0 Sodium 142 Potassium 4.7 Chloride 106 Carbon Dioxide 26.8 Anion Gap 9 BUN 47 H Creatinine 6.57 H Estimated GFR 8 L POC Glucose Random Glucose 156 H Calcium 9.7 Blood Type Antibody Screen MTS Gel Crossmatch 07/17/18 07/17/18 07/17/18 11:45 12:33 17:40 WBC RBC Hgb Hct MCV MCH MCHC RDW Plt Count MPV Neut % (Auto) Lymph % (Auto) [place] % (Auto) Eos % (Auto) Baso % (Auto) Neut # (Auto) Lymph # (Auto) [place] # (Auto) Eos # (Auto) Baso # (Auto) WBC Differential Differential Comment PT INR Sodium Potassium Chloride Carbon Dioxide Anion Gap BUN Creatinine Estimated GFR POC Glucose 136 H 113 H Random Glucose Calcium Blood Type B Positive Antibody Screen Negative MTS Gel Crossmatch See Detail 07/17/18 07/18/18 07/18/18 20:55 03:31 03:31 WBC 8.0 RBC 5.74 H Hgb 11.8 Hct 38.6 MCV 67.2 L MCH 20.5 L MCHC 30.5 L RDW 17.1 Plt Count 225 MPV 8.4 Neut % (Auto) Lymph % (Auto) [place] % (Auto) Eos % (Auto) Baso % (Auto) Neut # (Auto) Lymph # (Auto) [place] # (Auto) Eos # (Auto) Baso # (Auto) WBC Differential Differential Comment PT INR Sodium 141 Potassium 5.2 H Chloride 106 Carbon Dioxide 24.8 Anion Gap 10 BUN 57 H Creatinine 7.14 H Estimated GFR 7 L POC Glucose 137 H Random Glucose 102 Calcium 8.3 L D Blood Type Antibody Screen MTS Gel Crossmatch Assessment and Plan - Assessment (1) End stage renal disease on dialysis Code(s): N18.6 - End stage renal disease; Z99.2 - Dependence on renal dialysis Status: Acute - Plan POD#1 s/p R UE Access revision HD today then discharge RTC 3 weeks
--- NOTE | 2018-07-18 07:42 | P.DS ---
Discharge Summary - Admission Date 07/17/18 17:09 - Admission Diagnosis (1) End stage renal disease on dialysis - Discharge Diagnosis (1) End stage renal disease on dialysis Status: Acute - Summary Brief History from admission: 62 yo female with ESRD who underwent RIGHT BB AVF (1st stage) in April. Presents for 2nd stage. Preop duplex ok. Procedure: R UE access revision (transposition) Significant Findings: Abnormal Lab Results 07/17/18 07/17/18 07/17/18 11:45 11:45 11:45 WBC 6.7 RBC 5.91 H Hgb 12.2 Hct 39.4 MCV 66.8 L MCH 20.7 L MCHC 31.0 L RDW 17.0 Plt Count 252 MPV 8.7 Neut % (Auto) 68.5 Lymph % (Auto) 21.0 [place] % (Auto) 6.9 Eos % (Auto) 2.8 Baso % (Auto) 0.8 Neut # (Auto) 4.6 Lymph # (Auto) 1.4 [place] # (Auto) 0.5 Eos # (Auto) 0.2 Baso # (Auto) 0.1 WBC Differential . Differential Comment Auto diff final PT 10.5 INR 1.0 Sodium 142 Potassium 4.7 Chloride 106 Carbon Dioxide 26.8 Anion Gap 9 BUN 47 H Creatinine 6.57 H Estimated GFR 8 L POC Glucose Random Glucose 156 H Calcium 9.7 Blood Type Antibody Screen MTS Gel Crossmatch 07/17/18 07/17/18 07/17/18 11:45 12:33 17:40 WBC RBC Hgb Hct MCV MCH MCHC RDW Plt Count MPV Neut % (Auto) Lymph % (Auto) [place] % (Auto) Eos % (Auto) Baso % (Auto) Neut # (Auto) Lymph # (Auto) [place] # (Auto) Eos # (Auto) Baso # (Auto) WBC Differential Differential Comment PT INR Sodium Potassium Chloride Carbon Dioxide Anion Gap BUN Creatinine Estimated GFR POC Glucose 136 H 113 H Random Glucose Calcium Blood Type B Positive Antibody Screen Negative MTS Gel Crossmatch See Detail 07/17/18 07/18/18 07/18/18 20:55 03:31 03:31 WBC 8.0 RBC 5.74 H Hgb 11.8 Hct 38.6 MCV 67.2 L MCH 20.5 L MCHC 30.5 L RDW 17.1 Plt Count 225 MPV 8.4 Neut % (Auto) Lymph % (Auto) [place] % (Auto) Eos % (Auto) Baso % (Auto) Neut # (Auto) Lymph # (Auto) [place] # (Auto) Eos # (Auto) Baso # (Auto) WBC Differential Differential Comment PT INR Sodium 141 Potassium 5.2 H Chloride 106 Carbon Dioxide 24.8 Anion Gap 10 BUN 57 H Creatinine 7.14 H Estimated GFR 7 L POC Glucose 137 H Random Glucose 102 Calcium 8.3 L D Blood Type Antibody Screen MTS Gel Crossmatch Hospital Course: The patient was admitted to observation after surgery. Overnight she did well and on POD#1 had no complaints, no hand pain. She had a palpable thrill. Nephrology was consulted immediately post-operatively for HD and she is clear for d/c after HD this morning. K 5.2 this morning. PDMP queried and her last narcotic Rx was 04/19/18. A prescription for N=10 oxycodone 5mg will be provided for acute post-operative pain <3days. - Discharge Instructions May shower starting . Call our office for any questions: [phone] Any questions or concerns: Call [facility] at [facility] [phone] Discharge Plan - Discharge Disposition Patient Disposition: 01 Discharge Home - Discharge Condition Condition: Good - Discharge Order Discharge Orders: Discharge Order (Routine); Ordered 07/18/18 Ordered By: Robles Wall - Physicians Team Primary Care Provider: UNKNOWN, Attending Provider: Robles Wall Other Providers: Autumn Blanco MD - Rxs /Orders / Referrals /Forms Prescriptions: No Action amlodipine 10 mg Tablet 10 mg PO DAILY calcitriol 0.25 mcg Capsule 0.25 mcg PO DAILY calcium acetate 667 mg Capsule 667 mg PO TID hydralazine 50 mg Tablet 50 mg PO TID insulin glargine [Lantus U-100 Insulin] 100 unit/mL Solution 10 unit SUB-Q HS insulin regular human 100 unit/mL Solution 1 sliding scale dose SUB-Q ACHS labetalol 300 mg Tablet 300 mg PO BID pantoprazole 40 mg Tablet,Delayed Release (Dr/Ec) 40 mg PO DAILY Qty: 30 RF: 0 simvastatin 20 mg Tablet 20 mg PO QPM Referrals: UNKNOWN, [Primary Care Provider] - See Instructions
[2018-07-18 08:11] VITALS: RESP 18
[2018-07-18] MEDS ORDERED: Calcitriol 0.25 MCG Capsule PO SCH (09:00)
[2018-07-18] MEDS ORDERED: amLODIPine 10 MG Tablet PO SCH (09:00)
[2018-07-18] MEDS: Insulin NovoLIN Regular Correctional Sugar Inj SQ SCH (09:03)
--- NOTE | 2018-07-18 10:27 | P.PNNP ---
Subjective Interval history: Seen during hemodialysis. Denies any shortness of breath, chest pain, nausea, or vomiting. Reports that pain is well controlled. <Shahida Medrano - Last Filed: 07/18/18 10:21> Physical Exam Vital signs: Vital Signs 07/17/18 12:37 07/17/18 17:31 07/17/18 17:45 Temperature 98.4 F 98.1 F Pulse Rate 67 87 57 L Respiratory Rate 18 20 22 Blood Pressure 174/73 H 179/81 H 173/81 H Pulse Oximetry 97 96 98 07/17/18 18:00 07/17/18 18:15 07/17/18 18:30 Temperature 97.5 F L Pulse Rate 57 L 60 57 L Respiratory Rate 14 16 14 Blood Pressure 181/84 H 189/85 H 173/82 H Pulse Oximetry 100 97 99 07/17/18 18:40 07/17/18 18:55 07/17/18 19:00 Temperature 97.6 F Pulse Rate 58 L 62 58 L Respiratory Rate 14 18 Blood Pressure 176/82 H 228/105 H Pulse Oximetry 99 95 07/17/18 21:00 07/17/18 22:00 07/17/18 23:00 Temperature Pulse Rate 64 60 66 Respiratory Rate Blood Pressure Pulse Oximetry 07/18/18 00:00 07/18/18 01:00 07/18/18 02:00 Temperature 98.2 F Pulse Rate 60 60 60 Respiratory Rate 16 Blood Pressure 182/79 H Pulse Oximetry 96 07/18/18 03:00 07/18/18 04:00 07/18/18 05:00 Temperature 98.8 F Pulse Rate 55 L 62 62 Respiratory Rate 16 Blood Pressure 161/79 H Pulse Oximetry 100 07/18/18 06:00 07/18/18 07:00 07/18/18 08:00 Temperature 98.6 F Pulse Rate 64 64 62 Respiratory Rate 18 Blood Pressure 196/85 H Pulse Oximetry 98 07/18/18 09:00 07/18/18 09:33 07/18/18 10:00 Temperature Pulse Rate 64 67 Respiratory Rate Blood Pressure Pulse Oximetry 98 Intake & Output 07/17/18 07/18/18 07/18/18 18:59 06:59 18:59 Intake Total 210 / 210 480 / 480 Output Total 50 / 50 500 / 500 Balance 160 / 160 -20 / -20 Weight 74.7 kg 77.5 kg Intake: Oral 480 / 480 Anesthesia Amount 200 / 200 Output: Urine 0 / 0 500 / 500 Estimated Blood Loss 50 / 50 Other: # Voids 1 Date of Last Bowel Movement 07/17/18 Weight On Admission 74.7 kg Narrative: GENERAL: alert and oriented. SKIN: Warm and dry. NECK: Supple, trachea midline. No JVD or lymphadenopathy. CARDIOVASCULAR: Regular rate and rhythm without murmurs, gallops, or rubs. Permacath IJ, Right upper arm with AVF, no redness. RESPIRATORY: Breath sounds equal bilaterally. No accessory muscle use. GASTROINTESTINAL: Abdomen soft, non-tender, nondistended. MUSCULOSKELETAL: No cyanosis, or edema. BACK: Nontender without obvious deformity. No CVA tenderness. <Shahida Medrano - Last Filed: 07/18/18 10:21> Assessment and Plan - Assessment (1) End stage renal disease on dialysis Code(s): N18.6 - End stage renal disease; Z99.2 - Dependence on renal dialysis Status: Acute Plan: End stage renal disease on hemodialysis on Monday, Monday, and Monday Plan Seen during hemodialysis today will remove fluid as tolerated. Hypertensive today will increase hydralazine. Plans for discharge home today. <Shahida Medrano - Last Filed: 07/18/18 10:21> - Assessment (1) End stage renal disease on dialysis Code(s): N18.6 - End stage renal disease; Z99.2 - Dependence on renal dialysis Status: Acute Plan: Patient seen and examine, agree with above. AVF site with good Bruit. HD now and D/C home, will follow out patient. <Autumn Blanco - Last Filed: 07/20/18 18:11>
[2018-07-18] MEDS: hydrALAZINE 50 MG Tablet PO SCH (11:12)
[2018-07-18 13:10] VITALS: BP 182/86; TEMP 99; O2SAT 97
[2018-07-18] MEDS: Senna/Docusate Sodium 8.6/50 MG Tablet PO SCH (13:11)
[2018-07-18] MEDS: Calcium Acetate 667 MG Capsule PO SCH (13:11)
[2018-07-18 14:27] VITALS: PULSE 68
[2018-07-18] MEDS ORDERED: Heparin - SQ 10,000 UNITS/ML Vial SQ SCH (16:00)
== END 2018-07-18 14:40 | disposition home or self-care (01) ==
LOC: HSDI 10:55 → HCVO 10:55 → HCPC 18:44
PROVIDERS: ADMIT Surgery; ATTEND Surgery